=== PATIENT | female | born 1950 | race Caucasian/White ===

== ENCOUNTER → 2019-02-19 15:40 | Outpatient (BNVA) | payer MEDICARE, MEDICAID, SELFPAY | PROVIDERS: Family Provider Family Medicine; PCP Family Medicine; Visit Provider Family Medicine | DX: J43.9 Emphysema, unspecified (principal) | CPT/HCPCS: 71046 ==

== ENCOUNTER → 2019-02-28 13:02 | Outpatient (BNVA) | payer MEDICARE, MEDICAID, SELFPAY | PROVIDERS: Family Provider Family Medicine; PCP Family Medicine; Visit Provider Anesthesiology | DX: M54.9 Dorsalgia, unspecified (principal); Z79.891 Long term (current) use of opiate analgesic | CPT/HCPCS: 99213; 99214 ==

== ENCOUNTER → 2019-04-05 13:25 | Outpatient (BNVA) | payer MEDICARE, MEDICAID, SELFPAY | PROVIDERS: Family Provider Family Medicine; PCP Family Medicine; Visit Provider Family Medicine | DX: E11.8 Type 2 diabetes mellitus with unspecified complications (principal); J11.1 Influenza due to unidentified influenza virus with other respiratory manifestations | CPT/HCPCS: 80048; 83036 ==

== ENCOUNTER → 2019-04-10 15:10 | Outpatient (BNVA) | payer MEDICARE, MEDICAID, SELFPAY | PROVIDERS: Family Provider Family Medicine; PCP Family Medicine; Visit Provider Family Medicine | DX: J11.1 Influenza due to unidentified influenza virus with other respiratory manifestations (principal); H66.90 Otitis media, unspecified, unspecified ear; I10 Essential (primary) hypertension; E11.9 Type 2 diabetes mellitus without complications; H66.91 Otitis media, unspecified, right ear | CPT/HCPCS: 87804 ==

== ENCOUNTER 2019-04-26 10:41 | Outpatient (CLI) | payer MEDICARE, MEDICAID, SELFPAY ==
--- NOTE | 2019-04-26 10:48 | XR_ITS ---
WS: [id number] Left knee, 3 views, 04/26/2019 Clinical Data: KNEE PAIN Comparison: Left knee, 01/07/2019. Findings: The left knee arthroplasty shows that the components are in good position. No loosening is seen. The patella shows no change from before. There are small calcifications in in the superficial femoral artery and popliteal artery yoo. XR/XR knee LT 3V* [id number] Impression: Left knee arthroplasty
== END 2019-04-26 10:42 | disposition home or self-care (01) ==
PROVIDERS: Family Provider Family Medicine; PCP Family Medicine; Visit Provider Orthopaedic Surgery
DX: M25.562 Pain in left knee (principal)
CPT/HCPCS: 73562

== ENCOUNTER → 2019-07-15 11:30 | Outpatient (BNVA) | payer MEDICARE, MEDICAID, SELFPAY | PROVIDERS: Family Provider Family Medicine; PCP Family Medicine; Visit Provider Family Medicine | DX: R04.2 Hemoptysis (principal); E11.8 Type 2 diabetes mellitus with unspecified complications; Z79.4 Long term (current) use of insulin | CPT/HCPCS: 71046; 80053; 80061; 83036; 85025 ==

== ENCOUNTER 2019-08-15 16:43 | Emergency (ER) | payer MEDICARE, MEDICAID, SELFPAY ==
[2019-08-15 16:44] VITALS: BMI 36.8
[2019-08-15 16:51] VITALS: BP 153/79; PULSE 76; RESP 20; TEMP 36.4; O2SAT 100
--- NOTE | 2019-08-15 16:54 | PC.NURSE ---
EKG done at 1654 and shown to ER doctor
--- NOTE | 2019-08-15 16:57 | ECG_ITS ---
[facility] ED Test Date: 2019-08-15 Pat Name: Kiera Hart Department: Room: Gender: Female [employer]: : 1950 Requested By: Shane Jeffers Order Number: [id number] Сергей MD: Carmella Herrmann M.D. Measurements Intervals [place] Rate: 72 P: 78 [place]: 183 QRS: -54 QRSD: 113 T: 46 QT: 397 QTc: 436 Interpretive Statements SINUS RHYTHM LEFT ANTERIOR FASCICULAR BLOCK [QRS AXIS <= -45, QR IN I, RS IN II] SEPTAL MYOCARDIAL INFARCTION [40+ ms Q WAVE IN V1/V2], OF INDETERMINATE AGE Compared to ECG 10/02/2018 11:17:35 Left anterior fascicular block now present Sinus bradycardia no longer present Myocardial infarct finding still present Electronically Signed On 08-15-2019 20:45:06 CDT by Carmella Herrmnan M.D. [id number]
--- NOTE | 2019-08-15 16:57 | XR_ITS ---
WS: [id number] PORTABLE CHEST HISTORY: cp COMPARISON: 07/15/2019 Lungs are clear and well expanded. No pleural effusion or pneumothorax. Cardiac size: Normal. Mediastinum/Aorta: Moderate atherosclerosis aorta. Osteopenia. XR/XR chest 1V portable [id number] IMPRESSION: Moderate atherosclerosis aorta. No pneumonia.
--- NOTE | 2019-08-15 16:59 | ED_ITS ---
Documented by User: Shane Wilkins DO 08/15/19 17:01 HPI - Chest Pain General: Chief Complaint: Chest Pain Stated Complaint: CHEST PAIN Time Seen by Provider: 08/15/19 16:51 History of Present Illness: HPI narrative: Patient has had episodic substernal chest pain and pressure with radiation to the neck and jaw for the past 4 days. It is worse with exertion. She does have some shortness of breath, nausea, and diaphoresis. Sublingual nitroglycerin administered by EMS did not alleviate the pain but did make it better. Patient does have a cardiac history and has at least one stent. 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 Onset (ago): day(s) Timing of current episode: episodic Prior episodes: Yes Onset: during rest Pain location: substernal Pain radiation: neck and jaw/teeth Severity: severe Quality: tightness, aching and heaviness Relieving factors: nothing Exacerbating factors: nothing Associated symptoms: Reports diaphoresis, dyspnea and nausea Review of Systems General: Reports: 10 or more systems reviewed and unremarkable except in HPI and below Const: Reports: diaphoresis Resp: Reports: dyspnea GI: Reports: nausea PFS ED PFSH: Medical History Acquired deformity of right foot Arteriosclerotic heart disease (ASHD) Asthma with chronic obstructive pulmonary disease (COPD) follows with pulmonology Atrophic vaginitis Bilateral primary osteoarthritis of knee 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 Degenerative disc disease, cervical Dysphagia, oropharyngeal Enrolled in chronic care management Essential (primary) hypertension Fibromyalgia 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[place] Hx of angioedema improved after stopping Lisinopril Low back pain Mixed hyperlipidemia Morbid (severe) obesity due to excess calories BMI 40.0-44.9 Obstructive sleep apnea Polyneuropathy Vesico-ureteral reflux Surgical History History of colon resection Hx of arthroscopy of left knee (~2012) Dr Briceno Hx of cardiac cath Hx of cholecystectomy (~1992) Hx of coronary angioplasty stents x 3 Hx of total knee replacement (~09/2018) left, Dr Gonzalez S/P total knee arthroplasty Family History Brother Cancer lung Father CAD (coronary artery disease) Mother Bleeding disorder Social History Smoking and tobacco status: former smoker Quit status (tobacco): has quit using tobacco Year quit tobacco: 2008 Former quit date comment: 2 PPD x 40 yrs Second hand smoke exposure: No Alcohol intake: never Lives independently: Yes Household members: none Housing: House Marital status: / Number of children: 5 Current occupational status: retired History of recent travel: No Current gender identity: Female Physical Exam Const: COMMON NORMALS: no acute distress, healthy appearing and well nourished GENERAL APPEARANCE: cooperative and well developed HENMT: COMMON NORMALS: normocephalic and atraumatic HEAD & SCALP: normal to inspection, normocephalic and atraumatic Eye: GENERAL EYE: appearance normal, both eyes and all related structures Neck/C-Spine: COMMON NORMALS: full ROM, no lymphadenopathy and no meningeal signs GENERAL: Yes normal visual inspection CERVICAL SPINE: Yes cervical ROM normal and Yes normal cervical lordosis Chest: COMMONS NORMALS: normal inspection of the chest and normal palpation of entire chest wall Resp: COMMON NORMALS: normal respiratory effort, clear to auscultation bilaterally and percussion normal AUSCULTATION: clear to auscultation bilaterally PERCUSSION: percussion normal Cardio: COMMON NORMALS: regular rate, regular rhythm, S1 normal heart sound present and S2 normal heart sound present JUGULAR VENOUS DISTENTION: no JVD PALPATION: normal PMI RATE: regular rate RHYTHM: regular rhythm HEART SOUNDS: S1 normal heart sound present and S2 normal heart sound present GI: COMMON NORMALS: Soft to palpation and No hepatosplenomegaly present INSPECTION: Yes normal to inspection PALPATION: Yes Soft to palpation and Yes No hepatosplenomegaly present PERCUSSION: normal to percussion : COMMON NORMALS: Yes no CVA tenderness BLADDER/KIDNEY EXAM: Yes no CVA tenderness Back/Pelvis: COMMON NORMALS: no CVA tenderness, thoracic and lumbar spine normal to inspection and thoraco-lumbar ROM normal Extremity: COMMON NORMALS: normal to inspection, full ROM and capillary refill normal Neuro: MENINGEAL SIGNS: Yes no meningeal signs Skin: COMMON NORMALS: no rashes or lesions noted, no wounds and turgor normal GENERAL SKIN EXAM: no rashes or lesions noted, elasticity normal and turgor normal LESIONS: no lesions RASHES: no rashes TRAUMA: no lacerations or abrasions HAIR: normal NAILS: normal Course Vital Signs: Vital signs: Vital Signs Temperature 97.5 F L 08/15/19 16:51 Pulse Rate 78 08/15/19 20:29 Respiratory Rate 18 08/15/19 20:29 Blood Pressure 135/62 08/15/19 20:29 Pulse Oximetry 99 08/15/19 20:29 MDM - Chest Pain Lab Data: Labs: Lab Results 08/15/19 08/15/19 08/15/19 Range/Units 17:15 17:15 17:15 WBC 6.4 (4.0-10.0) 10^3/ uL RBC 3.96 L (4.1-5.3) 10^6/u L Hgb 11.6 (11.5-15.3) g/dL Hct 36.7 L (37.0-47.0) % MCV 92.7 (81-99) fL MCH 29.3 (28.0-34.0) pg MCHC 31.6 (30.0-36.0) g/dL RDW 13.7 (12.1-15.1) % Plt Count 328 (130-400) 10^3/c mm MPV 10.0 (7.4-10.4) fL Neut % (Auto) 61.0 % Lymph % (Auto) 25.8 % [place] % (Auto) 10.7 % Eos % (Auto) 1.7 % Baso % (Auto) 0.6 % Neut # (Auto) 3.9 (1.8-7.7) 10^3/u L Lymph # (Auto) 1.7 (0.8-4.8) 10^3/u L [place] # (Auto) 0.7 (0.2-0.9) 10^3/u L Eos # (Auto) 0.1 (0.0-0.8) 10^3/u L Baso # (Auto) 0.0 (0.0-0.1) 10^3/u L Nucleated RBC % (a uto) 0 % Nucleated RBCs # 0.0 /100WBC PT 12.60 (10.5-13.3) SECO NDS INR 0.92 (0.8-1.2) Sodium 140 (136-145) mmol/L Potassium 3.8 (3.5-5.1) mmol/L Chloride 103 (98-107) mmol/L Carbon Dioxide 25 (22-29) mmol/L Anion Gap 15.8 (5-19) BUN 23 (8-23) mg/dL Creatinine 0.7 (0.5-0.9) mg/dL GFR Calculation 83.0 L (90-130) mL/min Glucose 109 (65-115) mg/dL Calculated Osmolal ity 287 (285-295) mOsm/k g Calcium 10.0 (8.5-10.5) mg/dL Total Bilirubin 0.2 (0.15-1.2) mg/dL AST 23 (0-32) U/L ALT 15 (0-33) U/L Alkaline Phosphata se 59 (35-105) IU/L Troponin T Baselin e (0-10) ng/L Troponin T 120 [address] [place] (0-10) ng/L Delta Troponin T (0-10) ABS# NT-Pro-B Natriuret Pep 81 (0-125) pg/mL Total Protein 6.8 (6.6-8.7) g/dL Albumin 4.5 (3.5-5.2) g/dL Globulin 2.3 (1.3-4.6) g/dL 08/15/19 08/15/19 Range/Units 17:15 19:30 WBC (4.0-10.0) 10^3/ uL RBC (4.1-5.3) 10^6/u L Hgb (11.5-15.3) g/dL Hct (37.0-47.0) % MCV (81-99) fL MCH (28.0-34.0) pg MCHC (30.0-36.0) g/dL RDW (12.1-15.1) % Plt Count (130-400) 10^3/c mm MPV (7.4-10.4) fL Neut % (Auto) % Lymph % (Auto) % [place] % (Auto) % Eos % (Auto) % Baso % (Auto) % Neut # (Auto) (1.8-7.7) 10^3/u L Lymph # (Auto) (0.8-4.8) 10^3/u L [place] # (Auto) (0.2-0.9) 10^3/u L Eos # (Auto) (0.0-0.8) 10^3/u L Baso # (Auto) (0.0-0.1) 10^3/u L Nucleated RBC % (a uto) % Nucleated RBCs # /100WBC PT (10.5-13.3) SECO NDS INR (0.8-1.2) Sodium (136-145) mmol/L Potassium (3.5-5.1) mmol/L Chloride (98-107) mmol/L Carbon Dioxide (22-29) mmol/L Anion Gap (5-19) BUN (8-23) mg/dL Creatinine (0.5-0.9) mg/dL GFR Calculation (90-130) mL/min Glucose (65-115) mg/dL Calculated Osmolal ity (285-295) mOsm/k g Calcium (8.5-10.5) mg/dL Total Bilirubin (0.15-1.2) mg/dL AST (0-32) U/L ALT (0-33) U/L Alkaline Phosphata se (35-105) IU/L Troponin T Baselin e 7 (0-10) ng/L Troponin T [address] [place] 9.37 (0-10) ng/L Delta Troponin T 2.37 (0-10) ABS# NT-Pro-B Natriuret Pep (0-125) pg/mL Total Protein (6.6-8.7) g/dL Albumin (3.5-5.2) g/dL Globulin (1.3-4.6) g/dL Discharge Plan Discharge Patient Disposition: Home, Self-Care Clinical Impression: Chest pain Qualifiers: Chest pain type: unspecified Qualified Code(s): R07.9 - Chest pain, unspecified Condition: Stable Prescriptions: No Action oxycodone 5 mg tablet 5 mg PO BID PRN (Reason: pain) 30 Days Qty: 60 RF: 0 Spiriva with HandiHaler 18 mcg capsule, w/inhalation device 1 cap INHALATION ONCE RF: 0 nitroglycerin [Nitrostat] 0.4 mg tablet, sublingual 0.4 mg SUBLINGUAL Q5M PRN (Reason: chest pains) RF: 0 Brovana 15 mcg/2 mL solution for nebulization 2 ml INHALATION BID RF: 0 Lantus Solostar U-100 Insulin 100 unit/mL (3 mL) insulin pen 25 unit SUBCUT DAILY RF: 0 ferrous sulfate 325 mg (65 mg iron) tablet 325 mg PO BID RF: 0 insulin lispro [Humalog KwikPen Insulin] 100 unit/mL insulin pen 1 unit SUBCUT TID RF: 0 (DME) OneTouch Ultra Blue Test Strip Strip See Rx Instructions .ROUTE .MEDSUPPLY Qty: 10 RF: 0 cyclobenzaprine 5 mg tablet 5 mg PO BEDTIME PRN (Reason: muscle spasms) RF: 0 ipratropium bromide 0.03 % spray,non-aerosol 2 spray INTRANASAL QID RF: 0 (DME) pen needle, diabetic [Easy Comfort Pen [place]] 31 gauge x 5/16 needle See Rx Instructions .ROUTE .MEDSUPPLY Qty: 30 RF: 0 promethazine-DM 6.25-15 mg/5 mL syrup 5 ml PO Q6H Qty: 160 RF: 0 albuterol sulfate [ProAir HFA] 90 mcg/actuation HFA aerosol inhaler 2 puff INHALATION Q6H PRN (Reason: shortness of breath) Qty: 8.5 RF: 2 montelukast 10 mg tablet 10 mg PO DAILY Qty: 90 RF: 3 metformin 500 mg tablet 1,000 mg PO BID Qty: 180 RF: 1 fenofibrate nanocrystallized 145 mg tablet 145 mg PO DAILY Qty: 90 RF: 0 aspirin 81 mg Tablet,Delayed Release (Dr/Ec) 81 mg PO DAILY RF: 0 Breo Ellipta See Rx Instructions .ROUTE .COMPLEX RF: 0 amlodipine 5 mg tablet 5 mg PO DAILY RF: 0 famotidine 20 mg tablet 20 mg PO BID RF: 0 losartan 100 mg tablet 100 mg PO DAILY RF: 0 rosuvastatin 40 mg tablet 40 mg PO DAILY RF: 0 metoprolol tartrate 25 mg tablet 25 mg PO BID RF: 0 Discharge Orders: Discharge Order (Routine); Ordered 08/15/19 Ordered By: Bailey Perea Referrals: Evaristo Grant MD [Physician] - 1-3 days Sofie Maria MD [Primary Care Provider] - Discharge Diet: Advance as tolerated Discharge Activity: Resume usual activity Patient Instructions: Chest Pain (ED) Discharge Date/Time: 08/15/19 20:24 Coding Level of Care Code 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 Comprehensive Documented by User: Bailey Perea MD 08/15/19 20:34 HPI - Chest Pain General: Chief Complaint: Chest Pain Stated Complaint: CHEST PAIN Time Seen by Provider: 08/15/19 16:51 PFSH ED PFSH: Medical History Acquired deformity of right foot Arteriosclerotic heart disease (ASHD) Asthma with chronic obstructive pulmonary disease (COPD) follows with pulmonology Atrophic vaginitis Bilateral primary osteoarthritis of knee 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 Degenerative disc disease, cervical Dysphagia, oropharyngeal Enrolled in chronic care management Essential (primary) hypertension Fibromyalgia 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[place] Hx of angioedema improved after stopping Lisinopril Low back pain Mixed hyperlipidemia Morbid (severe) obesity due to excess calories BMI 40.0-44.9 Obstructive sleep apnea Polyneuropathy Vesico-ureteral reflux Surgical History History of colon resection Hx of arthroscopy of left knee (~2012) Dr Briceno Hx of cardiac cath Hx of cholecystectomy (~1992) Hx of coronary angioplasty stents x 3 Hx of total knee replacement (~09/2018) left, Dr Gonzalez S/P total knee arthroplasty Family History Brother Cancer lung Father CAD (coronary artery disease) Mother Bleeding disorder Social History Smoking and tobacco status: former smoker Quit status (tobacco): has quit using tobacco Year quit tobacco: 2008 Former quit date comment: 2 PPD x 40 yrs Second hand smoke exposure: No Alcohol intake: never Lives independently: Yes Household members: none Housing: House Marital status: / Number of children: 5 Current occupational status: retired History of recent travel: No Current gender identity: Female Course Vital Signs: Vital signs: Vital Signs Temperature 97.5 F L 08/15/19 16:51 Pulse Rate 78 08/15/19 20:29 Respiratory Rate 18 08/15/19 20:29 Blood Pressure 135/62 08/15/19 20:29 Pulse Oximetry 99 08/15/19 20:29 MDM - Chest Pain MDM Narrative: Medical decision making narrative: Patient presents with chest pain is atypical in nature. Patient's first and second troponins are normal. EKGs are normal as well. Patient is pain-free here and has no signs of pulmonary bruising. Patient is stable for discharge and is to follow-up with Dr. Grant and return if worsening. Lab Data: Labs: Lab Results 08/15/19 08/15/19 08/15/19 Range/Units 17:15 17:15 17:15 WBC 6.4 (4.0-10.0) 10^3/ uL RBC 3.96 L (4.1-5.3) 10^6/u L Hgb 11.6 (11.5-15.3) g/dL Hct 36.7 L (37.0-47.0) % MCV 92.7 (81-99) fL MCH 29.3 (28.0-34.0) pg MCHC 31.6 (30.0-36.0) g/dL RDW 13.7 (12.1-15.1) % Plt Count 328 (130-400) 10^3/c mm MPV 10.0 (7.4-10.4) fL Neut % (Auto) 61.0 % Lymph % (Auto) 25.8 % [place] % (Auto) 10.7 % Eos % (Auto) 1.7 % Baso % (Auto) 0.6 % Neut # (Auto) 3.9 (1.8-7.7) 10^3/u L Lymph # (Auto) 1.7 (0.8-4.8) 10^3/u L [place] # (Auto) 0.7 (0.2-0.9) 10^3/u L Eos # (Auto) 0.1 (0.0-0.8) 10^3/u L Baso # (Auto) 0.0 (0.0-0.1) 10^3/u L Nucleated RBC % (a uto) 0 % Nucleated RBCs # 0.0 /100WBC PT 12.60 (10.5-13.3) SECO NDS INR 0.92 (0.8-1.2) Sodium 140 (136-145) mmol/L Potassium 3.8 (3.5-5.1) mmol/L Chloride 103 (98-107) mmol/L Carbon Dioxide 25 (22-29) mmol/L Anion Gap 15.8 (5-19) BUN 23 (8-23) mg/dL Creatinine 0.7 (0.5-0.9) mg/dL GFR Calculation 83.0 L (90-130) mL/min Glucose 109 (65-115) mg/dL Calculated Osmolal ity 287 (285-295) mOsm/k g Calcium 10.0 (8.5-10.5) mg/dL Total Bilirubin 0.2 (0.15-1.2) mg/dL AST 23 (0-32) U/L ALT 15 (0-33) U/L Alkaline Phosphata se 59 (35-105) IU/L Troponin T Baselin e (0-10) ng/L Troponin T [address] [place] (0-10) ng/L Delta Troponin T (0-10) ABS# NT-Pro-B Natriuret Pep 81 (0-125) pg/mL Total Protein 6.8 (6.6-8.7) g/dL Albumin 4.5 (3.5-5.2) g/dL Globulin 2.3 (1.3-4.6) g/dL 08/15/19 08/15/19 Range/Units 17:15 19:30 WBC (4.0-10.0) 10^3/ uL RBC (4.1-5.3) 10^6/u L Hgb (11.5-15.3) g/dL Hct (37.0-47.0) % MCV (81-99) fL MCH (28.0-34.0) pg MCHC (30.0-36.0) g/dL RDW (12.1-15.1) % Plt Count (130-400) 10^3/c mm MPV (7.4-10.4) fL Neut % (Auto) % Lymph % (Auto) % [place] % (Auto) % Eos % (Auto) % Baso % (Auto) % Neut # (Auto) (1.8-7.7) 10^3/u L Lymph # (Auto) (0.8-4.8) 10^3/u L [place] # (Auto) (0.2-0.9) 10^3/u L Eos # (Auto) (0.0-0.8) 10^3/u L Baso # (Auto) (0.0-0.1) 10^3/u L Nucleated RBC % (a uto) % Nucleated RBCs # /100WBC PT (10.5-13.3) SECO NDS INR (0.8-1.2) Sodium (136-145) mmol/L Potassium (3.5-5.1) mmol/L Chloride (98-107) mmol/L Carbon Dioxide (22-29) mmol/L Anion Gap (5-19) BUN (8-23) mg/dL Creatinine (0.5-0.9) mg/dL GFR Calculation (90-130) mL/min Glucose (65-115) mg/dL Calculated Osmolal ity (285-295) mOsm/k g Calcium (8.5-10.5) mg/dL Total Bilirubin (0.15-1.2) mg/dL AST (0-32) U/L ALT (0-33) U/L Alkaline Phosphata se (35-105) IU/L Troponin T Baselin e 7 (0-10) ng/L Troponin T [address] [place] 9.37 (0-10) ng/L Delta Troponin T 2.37 (0-10) ABS# NT-Pro-B Natriuret Pep (0-125) pg/mL Total Protein (6.6-8.7) g/dL Albumin (3.5-5.2) g/dL Globulin (1.3-4.6) g/dL Imaging Data^: CXR: My impression: no acute abnormality EKG Data^: EKG 1: Attestation: I personally reviewed and interpreted this EKG as follows: EKG interpretation date: 08/15/19 EKG interpretation time: 16:52 Interpretation: nsr hr [address] or t wave abnormalities qrs 113 qtc 421 EKG 2: Attestation: I personally reviewed and interpreted this EKG as follows: EKG interpretation date: 08/15/19 EKG interpretation time: 19:21 Interpretation: nsr hr [address] or t wave abnormalities qrs 108 qtc 405 Discharge Plan Discharge Patient Disposition: Home, Self-Care Clinical Impression: Chest pain Qualifiers: Chest pain type: unspecified Qualified Code(s): R07.9 - Chest pain, unspecified Condition: Stable Prescriptions: No Action oxycodone 5 mg tablet 5 mg PO BID PRN (Reason: pain) 30 Days Qty: 60 RF: 0 Spiriva with HandiHaler 18 mcg capsule, w/inhalation device 1 cap INHALATION ONCE RF: 0 nitroglycerin [Nitrostat] 0.4 mg tablet, sublingual 0.4 mg SUBLINGUAL Q5M PRN (Reason: chest pains) RF: 0 Brovana 15 mcg/2 mL solution for nebulization 2 ml INHALATION BID RF: 0 Lantus Solostar U-100 Insulin 100 unit/mL (3 mL) insulin pen 25 unit SUBCUT DAILY RF: 0 ferrous sulfate 325 mg (65 mg iron) tablet 325 mg PO BID RF: 0 insulin lispro [Humalog KwikPen Insulin] 100 unit/mL insulin pen 1 unit SUBCUT TID RF: 0 (DME) OneTouch Ultra Blue Test Strip Strip See Rx Instructions .ROUTE .MEDSUPPLY Qty: 10 RF: 0 cyclobenzaprine 5 mg tablet 5 mg PO BEDTIME PRN (Reason: muscle spasms) RF: 0 ipratropium bromide 0.03 % spray,non-aerosol 2 spray INTRANASAL QID RF: 0 (DME) pen needle, diabetic [Easy Comfort Pen [place]] 31 gauge x 5/16 needle See Rx Instructions .ROUTE .MEDSUPPLY Qty: 30 RF: 0 promethazine-DM 6.25-15 mg/5 mL syrup 5 ml PO Q6H Qty: 160 RF: 0 albuterol sulfate [ProAir HFA] 90 mcg/actuation HFA aerosol inhaler 2 puff INHALATION Q6H PRN (Reason: shortness of breath) Qty: 8.5 RF: 2 montelukast 10 mg tablet 10 mg PO DAILY Qty: 90 RF: 3 metformin 500 mg tablet 1,000 mg PO BID Qty: 180 RF: 1 fenofibrate nanocrystallized 145 mg tablet 145 mg PO DAILY Qty: 90 RF: 0 aspirin 81 mg Tablet,Delayed Release (Dr/Ec) 81 mg PO DAILY RF: 0 Breo Ellipta See Rx Instructions .ROUTE .COMPLEX RF: 0 amlodipine 5 mg tablet 5 mg PO DAILY RF: 0 famotidine 20 mg tablet 20 mg PO BID RF: 0 losartan 100 mg tablet 100 mg PO DAILY RF: 0 rosuvastatin 40 mg tablet 40 mg PO DAILY RF: 0 metoprolol tartrate 25 mg tablet 25 mg PO BID RF: 0 Discharge Orders: Discharge Order (Routine); Ordered 08/15/19 Ordered By: Bailey Perea Referrals: Evaristo Grant MD [Physician] - 1-3 days Sofie Maria MD [Primary Care Provider] - Discharge Diet: Advance as tolerated Discharge Activity: Resume usual activity Patient Instructions: Chest Pain (ED) Discharge Date/Time: 08/15/19 20:24 Coding Level of Care Code 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 Comprehensive
[2019-08-15 17:03] VITALS: O2SAT 100
[2019-08-15 17:39] LABS: Basophils % 0.6 %; Eosinophils # 0.1 10^3/uL (0.0-0.8); Eosinophils % 1.7 %; Hematocrit 36.7 % (37.0-47.0); Hemoglobin 11.6 g/dL (11.5-15.3); Lymphocytes # 1.7 10^3/uL (0.8-4.8); Lymphocytes % 25.8 %; Mean Corpuscular HGB Conc 31.6 g/dL (30.0-36.0); Mean Corpuscular Hemoglobin 29.3 pg (28.0-34.0); Mean Corpuscular Volume 92.7 fL (81-99); Monocytes # 0.7 10^3/uL (0.2-0.9); Monocytes % 10.7 %; Neutrophils # 3.9 10^3/uL (1.8-7.7); Nucleated Red Blood Cells % 0 %; Platelet Count 328 10^3/cmm (130-400); Red Blood Count 3.96 10^6/uL (4.1-5.3); Red Cell Distribution Width 13.7 % (12.1-15.1); White Blood Count 6.4 10^3/uL (4.0-10.0)
[2019-08-15] MEDS: nitroglycerin 1 gm/inch oint Pkt 1 INCH TOPICAL (17:48)
[2019-08-15 17:51] VITALS: BP 136/101; PULSE 75; RESP 27; O2SAT 100
[2019-08-15 18:00] LABS: INR 0.92 (0.8-1.2)
[2019-08-15 18:14] LABS: Troponin(5th) Baseline 7 ng/L (0-10)
[2019-08-15 18:22] LABS: Alanine Aminotransferase 15 U/L (0-33); Albumin Level 4.5 g/dL (3.5-5.2); Alkaline Phosphatase 59 IU/L (35-105); Anion Gap 15.8 (5-19); Aspartate Amino Transferase 23 U/L (0-32); Blood Urea Nitrogen 23 mg/dL (8-23); Carbon Dioxide 25 mmol/L (22-29); Chloride 103 mmol/L (98-107); Globulin 2.3 g/dL (1.3-4.6); Glucose 109 mg/dL (65-115); NT Pro B Type Natriuretic Pept 81 pg/mL (0-125); Osmolality Calculated 287 mOsm/kg (285-295); Potassium 3.8 mmol/L (3.5-5.1); Sodium 140 mmol/L (136-145); Total Bilirubin 0.2 mg/dL (0.15-1.2); Total Protein 6.8 g/dL (6.6-8.7)
--- NOTE | 2019-08-15 18:57 | ECG_ITS ---
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 Measurements Intervals [place] Rate: 61 P: 73 MA: 173 QRS: -48 QRSD: 108 T: 9 QT: 401 QTc: 407 Interpretive Statements SINUS RHYTHM WITH MARKED SINUS ARRHYTHMIA LEFT ANTERIOR FASCICULAR BLOCK [QRS AXIS <= -45, QR IN I, RS IN II] MODERATE VOLTAGE CRITERIA FOR LVH, CONSIDER NORMAL VARIANT [MEETS CRITERIA IN ONE OF: R(aVL), S(V1), R(V5), R(V5/V6)+S(V1)] Compared to ECG 08/15/2019 16:52:41 Myocardial infarct finding no longer present Electronically Signed On 08-15-2019 20:52:30 CDT by Carmella Herrmann M.D. [id number]
--- NOTE | 2019-08-15 19:07 | PC.NURSE ---
Patient report received from MOHSEN Espinosa and care transferred to MOHSEN Roth
[2019-08-15 19:11] VITALS: BP 103/64; PULSE 77; RESP 25; O2SAT 100
--- NOTE | 2019-08-15 19:15 | PC.NURSE ---
EKG done at 1913 and shown to ER doctor
[2019-08-15 20:03] LABS: Troponin 5 2HR 9.37 ng/L (0-10); Troponin 5 2HR Delta 2.37 ABS# (0-10)
[2019-08-15 20:29] VITALS: BP 135/62; PULSE 78; RESP 18; O2SAT 99
--- NOTE | 2019-08-19 14:56 | DCPLANNER ---
meat and seafood manager had message to schedule a follow up appointment for patient with [facility]. meat and seafood manager called [facility], spoke with Rebecca, gave clinic patients information. meat and seafood manager was told that patients information would be printed and reviewed. Clinic will call patient with appointment information.
--- NOTE | 2019-08-20 09:12 | DCPLANNER ---
Patient has a follow up appointment scheduled for Monday, August 23, 2019 at 9:[address] Grant. Clinic will call patient with appointment information.
--- NOTE | 2019-08-27 11:45 | DCPLANNER ---
Patient did attend follow up appointment scheduled for 08.23.19 with [facility].
== END 2019-08-15 20:24 | disposition home or self-care (01) ==
PROVIDERS: Family Medicine; Emergency Provider Emergency Medicine; PCP Family Medicine
DX: R07.9 Chest pain, unspecified (principal); Z79.4 Long term (current) use of insulin; Z79.82 Long term (current) use of aspirin; E11.9 Type 2 diabetes mellitus without complications; I10 Essential (primary) hypertension; E78.2 Mixed hyperlipidemia; Z95.5 Presence of coronary angioplasty implant and graft; Z87.891 Personal history of nicotine dependence
CPT/HCPCS: 12345; 36415; 71045; 80053; 83880; 84484; 85025; 85610; 93005; 99283; 99284

== ENCOUNTER 2019-09-17 07:45 | Outpatient (CLI) | payer MEDICARE, MEDICAID, SELFPAY ==
[2019-09-17 08:00] VITALS: BMI 204.4
--- NOTE | 2019-09-17 08:00 | ECG_ITS ---
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 Interpretive Statements NAME OF STUDY: LEXISCAN SESTAMIBI STRESS TEST INDICATION: [KNOWN CAD WITH RECURRENT CHEST PAIN] Procedure: At the baseline the blood pressure was 155/87 mmHg, oxygen saturation was 98% with a heart rate of 64. The electrocardiogram showed normal sinus rhythm with left anterior fascicular block. Lexiscan was infused over a period of 20 seconds. A total of 0.4 mg of Lexiscan was infused. The stress phase was continued for a total of 5 minutes. Heart rate at the end of stress phase was 91, with a blood pressure of 144/72 and oxygen saturation of 98%.the EKG at peak infusion revealed sinus rhythm with no significant ST-T wave changes. Sestamibi was injected 20 seconds after the Lexiscan infusion. Blood pressure at the end of recovery phase was 148/87, with a heart rate of 93 and oxygen saturation of 97%. Conclusion 1. Normal EKG response to Lexiscan infusion 2. No Lexiscan induced chest pain or cardiac arrhythmia. 3. Normal blood pressure and heart rate response. 4. Sestamibi/sestamibi perfusion scan pending see separate report. Electronically Signed On 09-18-2019 16:30:33 CDT by Jose M Liu M.D. [id number]
--- NOTE | 2019-09-17 08:02 | NMCV_ITS ---
NM moira perf SPECT r/s* [id number] Kiera Hart Age: 69 Gender: F : 1950 Exam Date: 09/17/2019 09:01 Ordering Phys: Evaristo Grant MD ([email or web address]) Technologist: GISEL De León Exam Location: [facility] Indications: CHEST PAIN STRESS TEST Please see separate stress test report in [facility] for full findings IMAGE PROTOCOL Rest/Stress 1 Lexiscan Day Radiopharmaceutical Dose (mCi) Administration Site Administered by Rest: Tc-99m 10.8 IV GISEL De León Sestamibi Stress:Tc-99m 32.4 IV GISEL De León Sestamibi Rest: 17-Sep-2019 60 Discovery 630 Stress: 17-Sep-2019 30 Discovery 630 0.4mg Lexiscan. Images obtained in supine and prone position. SPECT RESULTS Technical Quality: Excellent Raw Data Analysis: Normal Image Corrections: No attenuation or motion correction applied Summed Stress Score: 2 Summed Rest Score: 4 Summed Difference Score: 0 PERFUSION FINDINGS There is slightly decreased uptake of tracer in the apical region that is consistent with apical thinning. FUNCTIONAL RESULTS (calculated via Gated SPECT) Stress Image LV EF (%): 77 Stress EDV (mL):78 TID: 0.83 Stress ESV (mL):18 FUNCTIONAL FINDINGS: There is normal left ventricular systolic function. IMPRESSIONS 1) Myocardial perfusion imaging is normal 2) Normal LV systolic function 3) LVEF is 77% 4) Apical thinning is noted EKG portion will be interpreted separately Jose M Liu MD (Electronically Signed) Final Date: 17 September 2019 17:28 S
--- NOTE | 2019-09-17 09:39 | SUR.PREOP ---
Patient reports no pain or discomfort prior to the start of the procedure.
[2019-09-17] MEDS: regadenoson 0.4 Mg/5 ml Syringe IVP (09:43)
[2019-09-17 09:58] VITALS: BP 155/68; PULSE 91
== END 2019-09-17 07:46 | disposition home or self-care (01) ==
LOC: CDL 07:45
PROVIDERS: PCP Family Medicine; Visit Provider Internal Medicine Cardiovascular Disease
DX: R07.9 Chest pain, unspecified (principal)
CPT/HCPCS: 78452; 93017; A9500; J2785

== ENCOUNTER → 2019-10-24 16:44 | Outpatient (BNVA) | payer MEDICARE, MEDICAID, SELFPAY | PROVIDERS: PCP Family Medicine; Visit Provider Family Medicine | DX: E11.8 Type 2 diabetes mellitus with unspecified complications (principal); E78.2 Mixed hyperlipidemia; Z79.4 Long term (current) use of insulin; I10 Essential (primary) hypertension | CPT/HCPCS: 80053; 80061; 83036; 85025 ==

== ENCOUNTER 2019-11-13 13:22 | Emergency (ER) | payer MEDICARE, MEDICAID, SELFPAY ==
[2019-11-13 13:22] VITALS: BP 135/106; PULSE 89; RESP 18; TEMP 38.3; O2SAT 96; BMI 36.6
--- NOTE | 2019-11-13 13:52 | XRR_ITS ---
PROCEDURE INFORMATION: Exam: XR Chest, 1 View Exam date and time: 11/13/2019 3:06 PM Age: 69 years old Clinical indication: Fever and shortness of breath; Patient HX: Covid precautions; Additional info: Fever, chest pain, SOB TECHNIQUE: Imaging protocol: XR of the chest Views: 1 view. COMPARISON: CR XR chest 1V portable [id number] 08/15/2019 5:07 PM FINDINGS: Lungs: Unremarkable. No consolidation. Pleural space: Unremarkable. No pleural effusion. No pneumothorax. Heart/Mediastinum: Unremarkable. No cardiomegaly. Bones/joints: Unremarkable. XR/XR chest 1V portable [id number] IMPRESSION: No acute findings.
--- NOTE | 2019-11-13 13:53 | ECG_ITS ---
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 Measurements Intervals Aurora Rate: 90 P: 78 WA: 152 QRS: -57 QRSD: 103 T: 31 QT: 363 QTc: 446 Interpretive Statements SINUS RHYTHM LEFT ANTERIOR FASCICULAR BLOCK [QRS AXIS <= -45, QR IN I, RS IN II] SEPTAL MYOCARDIAL INFARCTION [40+ ms Q WAVE IN V1/V2], PROBABLY OLD Compared to ECG 08/15/2019 19:21:15 Myocardial infarct finding now present Sinus arrhythmia no longer present Electronically Signed On 11-13-2019 18:36:30 CDT by Galilea Douglas M.D. [id number]
--- NOTE | 2019-11-13 13:54 | ED_ITS ---
HPI - General Adult General: Chief complaint: Fever Stated complaint: FEVER, GENERAL ACHES Time Seen by Provider: 11/13/19 13:27 Source: patient Mode of arrival: EMS Limitations: no limitations History of Present Illness: HPI narrative: Patient is a 69-year-old female who presents to ED today with multiple medical complaints. Patient overall is a fairly poor historian and timeline was hard to follow. Patient tells me she has had intermittent chest pains on and off over the past few days. This chest pains are not positional or exertional. She cannot identify any alleviating or worsening factors to her discomfort. Pain is located under her left breast. She tells me on Monday she began developing pain in the left side of her abdomen that she mainly noticed with coughing. No vomiting or diarrhea. She noticed on Monday she began having lower back pain. She was complaining of some constipation. Patient does have a history of a colectomy due to diverticulitis. Patient tells me she is also feeling short of breath but states this is mainly due to wearing a mask. Patient does have a history of COPD and emphysema. She states she normally has to wear 2L O2 when she goes out in public with a mask. She also wears oxygen at night with her CPAP. Patient does feel she has had to wear her oxygen more often but attributes this to no longer having the AC on in her home and states in addition she has been exerting herself caring for her grandchildren. Patient reports this morning she had a fever of 103. No known sick contacts or exposure to COVID. PMH is significant for COPD, emphysema, CAD, DM, fibromyalgia, HTN, HLD, morbid obesity, former smoker. Associated symptoms: Reports chest pain, dyspnea and malaise; Deny headache(s), nausea, rash, palpitations, syncope or vomiting Review of Systems Const: Reports: fever(s) (up to 103 per patient ) and malaise; Denies: body aches, change in appetite or change in weight Eyes: Denies: change in vision, blurry vision, photophobia, floaters or seeing flashes ENMT: Denies: throat pain or odynophagia Card: Reports: chest pain and dyspnea on exertion (chronic ); Denies: palpitations, irregular heart rhythm, edema, swelling of feet/ankles, lightheadedness, syncope, pre-syncope or orthopnea Resp: Reports: dyspnea; Denies: wheezing, pain on inspiration or hemoptysis GI: Reports: abdominal pain; Denies: nausea, vomiting, hematemesis, coffee ground emesis, heartburn, diarrhea, change in stool character, hematochezia, melena or white/light colored stool : Denies: flank pain, difficulty voiding, dysuria, urinary frequency, urinary urgency or urinary hesitancy Musc: Reports: neck pain, back pain and joint pain (bilateral knees); Denies: extremity pain, extremity swelling, joint swelling or joint redness Skin/Breast: Denies: rash Neuro: Denies: headache(s), numbness in extremities, weakness in extremities or sensory changes PFSH ED PFSH: Medical History (Updated 11/13/19 @ 17:04 by FAWAD Moses) Acquired deformity of right foot Arteriosclerotic heart disease (ASHD) Asthma with chronic obstructive pulmonary disease (COPD) follows with pulmonology Atrophic vaginitis Bilateral primary osteoarthritis of knee 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 Degenerative disc disease, cervical Dysphagia, oropharyngeal Enrolled in chronic care management Essential (primary) hypertension Fibromyalgia 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[place] Hx of angioedema improved after stopping Lisinopril Low back pain Mixed hyperlipidemia Morbid (severe) obesity due to excess calories BMI 40.0-44.9 Obstructive sleep apnea Polyneuropathy Vesico-ureteral reflux Surgical History History of colon resection Hx of arthroscopy of left knee (~2012) Dr Briceno Hx of cardiac cath Hx of cholecystectomy (~1992) Hx of coronary angioplasty stents x 3 Hx of total knee replacement (~09/2018) left, Dr Gonzalez S/P total knee arthroplasty Family History Brother Cancer lung Father CAD (coronary artery disease) Mother Bleeding disorder Social History Smoking and tobacco status: former smoker Quit status (tobacco): has quit using tobacco Year quit tobacco: 2008 Former quit date comment: 2 PPD x 40 yrs Second hand smoke exposure: No Alcohol intake: never Lives independently: Yes Household members: none Housing: House Marital status: / Number of children: 5 Current occupational status: retired History of recent travel: No Current gender identity: Female Physical Exam Const: COMMON NORMALS: patient oriented x3, no limitations and alert GENERAL APPEARANCE: cooperative NUTRITIONAL APPEARANCE: obese morbidly obese ORIENTATION/CONSCIOUSNESS: Yes oriented to person, Yes oriented to place and Yes oriented to time HENMT: COMMON NORMALS: normocephalic and atraumatic HEAD & SCALP: normocephalic and atraumatic Chest: COMMONS NORMALS: normal inspection of the chest OTHER: TTP under L breast Resp: COMMON NORMALS: clear to auscultation bilaterally EFFORT & INSPECTION: Yes tachypneic and Yes labored AUSCULTATION: clear to auscultation bilaterally Cardio: COMMON NORMALS: regular rate and regular rhythm RATE: regular rate RHYTHM: regular rhythm GI: COMMON NORMALS: Normal to inspection, nondistended, normoactive bowel sounds present and no masses PALPATION: Yes Tenderness to palpation present (GI) (L mid abdomen) OTHER: exam limited due body habitus/truncal obesity : COMMON NORMALS: Yes no CVA tenderness BLADDER/KIDNEY EXAM: Yes no CVA tenderness Back/Pelvis: COMMON NORMALS: no CVA tenderness Neuro: COMMON NORMALS: patient oriented x3 SENSORIUM/ORIENTATION: Yes alert, Yes oriented to person, Yes oriented to place and Yes oriented to time Skin: COMMON NORMALS: no rashes or lesions noted GENERAL SKIN EXAM: no rashes or lesions noted Course Vital Signs: Vital signs: Vital Signs Temperature 100.9 F H 11/13/19 13:22 Pulse Rate 89 11/13/19 18:03 Respiratory Rate 16 11/13/19 18:03 Blood Pressure 115/45 11/13/19 18:03 Pulse Oximetry 93 11/13/19 18:03 MDM - General Adult MDM Narrative: Medical decision making narrative: Upon reexamination patient looks much more comfortable. Upon arrival she was initially tachypneic but not hypoxic. Some of this I think was related to her morbid obesity and non- conditioning. Re-examined the patient extensively again and tried to get a clearer picture of her main complaint today. She is telling me now she feels like her shortness of breath is at her baseline with her COPD/emphysema. She is not requiring oxygen here. There are no acute findings on her CXR. No acute findings on CT of her chest. Her left-sided abdominal pain and back pain can be explained by the left-sided pyelonephritis found today. She is not having any vomiting and is able to hold down her antibiotics. I have offered her admission however patient would like to go home. She will be given IV Rocephin prior to discharge. Labs are somewhat suspicious for COVID however her rapid was negative. She will be discharged with strict return to ED precautions. Patient verbalizes understanding. She states she has a daughter that lives with her that can help care for her. Lab Data: Labs: Lab Results 11/13/19 11/13/19 11/13/19 Range/Units 13:33 13:33 13:33 WBC 9.1 (4.0-10.0) 10^3/ uL RBC 3.69 L (4.1-5.3) 10^6/u L Hgb 10.8 L (11.5-15.3) g/dL Hct 35.4 L (37.0-47.0) % MCV 95.9 (81-99) fL MCH 29.3 (28.0-34.0) pg MCHC 30.5 (30.0-36.0) g/dL RDW 14.2 (12.1-15.1) % Plt Count 248 (130-400) 10^3/c mm MPV 10.2 (7.4-10.4) fL Neut % (Auto) 81.1 % Lymph % (Auto) 8.5 % Johnston % (Auto) 9.7 % Eos % (Auto) 0.1 % Baso % (Auto) 0.3 % Neut # (Auto) 7.33 (1.8-7.7) 10^3/u L Lymph # (Auto) 0.8 (0.8-4.8) 10^3/u L Johnston # (Auto) 0.9 (0.2-0.9) 10^3/u L Eos # (Auto) 0.0 (0.0-0.8) 10^3/u L Baso # (Auto) 0.0 (0.0-0.1) 10^3/u L Nucleated RBC % (a uto) 0 % Nucleated RBCs # 0.0 /100WBC Fibrinogen 686 H (174-498) mg/dL D-Dimer 2.87 H (0-0.59) ug/mIFE U Specimen Type Sample Site ABG pH (7.35-7.45) ABG pCO2 (35-45) mmHg ABG pO2 (80.0-100.0) mmH g ABG HCO3 (22-26) mmol/L ABG O2 Saturation ABG Base Excess (-2.0-2.0) mmol/ L Sammy Test A-a O2 Gradient (5-10) mmHg Hematocrit (37-47) % Hgb O2 Saturation (95-100) % Carboxyhemoglobin (0.4-20.1) %THgb Methemoglobin (0.4-1.5) % Total Hemoglobin (12-16) g/dL Ionized Calcium (1.1-1.4) mmol/L O2 Delivery Device FiO2 % Neon Tube Pumper ID Sodium 133 L (136-145) mmol/L Potassium 3.9 (3.5-5.1) mmol/L Chloride 99 (98-107) mmol/L Carbon Dioxide 22 (22-29) mmol/L Anion Gap 15.9 (5-19) BUN 17 (8-23) mg/dL Creatinine 0.7 (0.5-0.9) mg/dL GFR Calculation 83.0 L (90-130) mL/min Glucose 92 (65-115) mg/dL Calculated Osmolal ity 277 L (285-295) mOsm/k g Lactic Acid (0.5-2.2) mmol/L Calcium 8.9 (8.5-10.5) mg/dL Ferritin 152 H (15-150) ng/mL Total Bilirubin 0.5 (0.15-1.2) mg/dL AST 24 (0-32) U/L ALT 15 (0-33) U/L Alkaline Phosphata se 55 (35-105) IU/L Troponin T Baselin e (0-10) ng/L Troponin T 120 Min [place] (0-10) ng/L Delta Troponin T (0-10) ABS# C-Reactive Protein 99.1 H (0.0-4.9) mg/L Total Protein 6.3 L (6.6-8.7) g/dL Albumin 3.9 (3.5-5.2) g/dL Globulin 2.4 (1.3-4.6) g/dL Lipase 21 (13-60) U/L Urine Color (Yellow) Urine Appearance (CLEAR) Urine pH (5-7) Ur Specific Gravit y (1.005-1.030) Urine Protein (Negative) Urine Glucose (UA) (Normal) Urine Ketones (Negative) Urine Blood (Negative) Urine Nitrate (Negative) Urine Bilirubin (Negative) Urine Urobilinogen (Negative) mg/dL Ur Leukocyte Rose ase (Negative) Urine RBC (0-2) /hpf Urine WBC (0-5) /hpf Ur Squamous Epith Cells (0-5) /hpf Amorphous Sediment Urine Bacteria (NONE) /hpf Influenza Type A A g (Negative) Influenza Type B A g (Negative) SARS-CoV-2 Ag (Rap id) (Negative) 11/13/19 11/13/19 11/13/19 Range/Units 13:33 13:33 14:25 WBC (4.0-10.0) 10^3/ uL RBC (4.1-5.3) 10^6/u L Hgb (11.5-15.3) g/dL Hct (37.0-47.0) % MCV (81-99) fL MCH (28.0-34.0) pg MCHC (30.0-36.0) g/dL RDW (12.1-15.1) % Plt Count (130-400) 10^3/c mm MPV (7.4-10.4) fL Neut % (Auto) % Lymph % (Auto) % Johnston % (Auto) % Eos % (Auto) % Baso % (Auto) % Neut # (Auto) (1.8-7.7) 10^3/u L Lymph # (Auto) (0.8-4.8) 10^3/u L Johnston # (Auto) (0.2-0.9) 10^3/u L Eos # (Auto) (0.0-0.8) 10^3/u L Baso # (Auto) (0.0-0.1) 10^3/u L Nucleated RBC % (a uto) % Nucleated RBCs # /100WBC Fibrinogen (174-498) mg/dL D-Dimer (0-0.59) ug/mIFE U Specimen Type Arterial Sample Site Radial, right ABG pH 7.48 H (7.35-7.45) ABG pCO2 27.4 L (35-45) mmHg ABG pO2 73.4 L (80.0-100.0) mmH g ABG HCO3 20.6 L (22-26) mmol/L ABG O2 Saturation 97.3 ABG Base Excess -1.9 (-2.0-2.0) mmol/ L Sammy Test Pos A-a O2 Gradient 5.3 (5-10) mmHg Hematocrit 34.6 L (37-47) % Hgb O2 Saturation 95.4 (95-100) % Carboxyhemoglobin 1.1 (0.4-20.1) %THgb Methemoglobin 0.9 (0.4-1.5) % Total Hemoglobin 11.3 L (12-16) g/dL Ionized Calcium 1.2 (1.1-1.4) mmol/L O2 Delivery Device Room air FiO2 21.0 % Neon Tube Pumper ID Jlg Sodium 136.0 (136-145) mmol/L Potassium 3.6 (3.5-5.1) mmol/L Chloride (98-107) mmol/L Carbon Dioxide (22-29) mmol/L Anion Gap (5-19) BUN (8-23) mg/dL Creatinine (0.5-0.9) mg/dL GFR Calculation (90-130) mL/min Glucose 100.0 (65-115) mg/dL Calculated Osmolal ity (285-295) mOsm/k g Lactic Acid 1.4 (0.5-2.2) mmol/L Calcium (8.5-10.5) mg/dL Ferritin (15-150) ng/mL Total Bilirubin (0.15-1.2) mg/dL AST (0-32) U/L ALT (0-33) U/L Alkaline Phosphata se (35-105) IU/L Troponin T Baselin e 12 H (0-10) ng/L Troponin T 120 Min [place] (0-10) ng/L Delta Troponin T (0-10) ABS# C-Reactive Protein (0.0-4.9) mg/L Total Protein (6.6-8.7) g/dL Albumin (3.5-5.2) g/dL Globulin (1.3-4.6) g/dL Lipase (13-60) U/L Urine Color (Yellow) Urine Appearance (CLEAR) Urine pH (5-7) Ur Specific Gravit y (1.005-1.030) Urine Protein (Negative) Urine Glucose (UA) (Normal) Urine Ketones (Negative) Urine Blood (Negative) Urine Nitrate (Negative) Urine Bilirubin (Negative) Urine Urobilinogen (Negative) mg/dL Ur Leukocyte Rose ase (Negative) Urine RBC (0-2) /hpf Urine WBC (0-5) /hpf Ur Squamous Epith Cells (0-5) /hpf Amorphous Sediment Urine Bacteria (NONE) /hpf Influenza Type A A g (Negative) Influenza Type B A g (Negative) SARS-CoV-2 Ag (Rap id) (Negative) 11/13/19 11/13/19 11/13/19 Range/Units 14:49 14:54 14:55 WBC (4.0-10.0) 10^3/ uL RBC (4.1-5.3) 10^6/u L Hgb (11.5-15.3) g/dL Hct (37.0-47.0) % MCV (81-99) fL MCH (28.0-34.0) pg MCHC (30.0-36.0) g/dL RDW (12.1-15.1) % Plt Count (130-400) 10^3/c mm MPV (7.4-10.4) fL Neut % (Auto) % Lymph % (Auto) % Johnston % (Auto) % Eos % (Auto) % Baso % (Auto) % Neut # (Auto) (1.8-7.7) 10^3/u L Lymph # (Auto) (0.8-4.8) 10^3/u L Johnston # (Auto) (0.2-0.9) 10^3/u L Eos # (Auto) (0.0-0.8) 10^3/u L Baso # (Auto) (0.0-0.1) 10^3/u L Nucleated RBC % (a uto) % Nucleated RBCs # /100WBC Fibrinogen (174-498) mg/dL D-Dimer (0-0.59) ug/mIFE U Specimen Type Sample Site ABG pH (7.35-7.45) ABG pCO2 (35-45) mmHg ABG pO2 (80.0-100.0) mmH g ABG HCO3 (22-26) mmol/L ABG O2 Saturation ABG Base Excess (-2.0-2.0) mmol/ L Sammy Test A-a O2 Gradient (5-10) mmHg Hematocrit (37-47) % Hgb O2 Saturation (95-100) % Carboxyhemoglobin (0.4-20.1) %THgb Methemoglobin (0.4-1.5) % Total Hemoglobin (12-16) g/dL Ionized Calcium (1.1-1.4) mmol/L O2 Delivery Device FiO2 % Neon Tube Pumper ID Sodium (136-145) mmol/L Potassium (3.5-5.1) mmol/L Chloride (98-107) mmol/L Carbon Dioxide (22-29) mmol/L Anion Gap (5-19) BUN (8-23) mg/dL Creatinine (0.5-0.9) mg/dL GFR Calculation (90-130) mL/min Glucose (65-115) mg/dL Calculated Osmolal ity (285-295) mOsm/k g Lactic Acid (0.5-2.2) mmol/L Calcium (8.5-10.5) mg/dL Ferritin (15-150) ng/mL Total Bilirubin (0.15-1.2) mg/dL AST (0-32) U/L ALT (0-33) U/L Alkaline Phosphata se (35-105) IU/L Troponin T Baselin e (0-10) ng/L Troponin T 120 Min [place] (0-10) ng/L Delta Troponin T (0-10) ABS# C-Reactive Protein (0.0-4.9) mg/L Total Protein (6.6-8.7) g/dL Albumin (3.5-5.2) g/dL Globulin (1.3-4.6) g/dL Lipase (13-60) U/L Urine Color Yellow (Yellow) Urine Appearance Cloudy (CLEAR) Urine pH 7 (5-7) Ur Specific Gravit y 1.005 (1.005-1.030) Urine Protein Trace (Negative) Urine Glucose (UA) Norm (Normal) Urine Ketones Negative (Negative) Urine Blood 2+ H (Negative) Urine Nitrate Positive H (Negative) Urine Bilirubin Neg (Negative) Urine Urobilinogen 1 H (Negative) mg/dL Ur Leukocyte Rose ase 2+ H (Negative) Urine RBC None (0-2) /hpf Urine WBC 55-80 H (0-5) /hpf Ur Squamous Epith Cells Rare (0-5) /hpf Amorphous Sediment Not Reportable Urine Bacteria 4+ H (NONE) /hpf Influenza Type A A g Negative (Negative) Influenza Type B A g Negative (Negative) SARS-CoV-2 Ag (Rap id) Negative (Negative) 11/13/19 Range/Units 15:42 WBC (4.0-10.0) 10^3/ uL RBC (4.1-5.3) 10^6/u L Hgb (11.5-15.3) g/dL Hct (37.0-47.0) % MCV (81-99) fL MCH (28.0-34.0) pg MCHC (30.0-36.0) g/dL RDW (12.1-15.1) % Plt Count (130-400) 10^3/c mm MPV (7.4-10.4) fL Neut % (Auto) % Lymph % (Auto) % Johnston % (Auto) % Eos % (Auto) % Baso % (Auto) % Neut # (Auto) (1.8-7.7) 10^3/u L Lymph # (Auto) (0.8-4.8) 10^3/u L Johnston # (Auto) (0.2-0.9) 10^3/u L Eos # (Auto) (0.0-0.8) 10^3/u L Baso # (Auto) (0.0-0.1) 10^3/u L Nucleated RBC % (a uto) % Nucleated RBCs # /100WBC Fibrinogen (174-498) mg/dL D-Dimer (0-0.59) ug/mIFE U Specimen Type Sample Site ABG pH (7.35-7.45) ABG pCO2 (35-45) mmHg ABG pO2 (80.0-100.0) mmH g ABG HCO3 (22-26) mmol/L ABG O2 Saturation ABG Base Excess (-2.0-2.0) mmol/ L Sammy Test A-a O2 Gradient (5-10) mmHg Hematocrit (37-47) % Hgb O2 Saturation (95-100) % Carboxyhemoglobin (0.4-20.1) %THgb Methemoglobin (0.4-1.5) % Total Hemoglobin (12-16) g/dL Ionized Calcium (1.1-1.4) mmol/L O2 Delivery Device FiO2 % Neon Tube Pumper ID Sodium (136-145) mmol/L Potassium (3.5-5.1) mmol/L Chloride (98-107) mmol/L Carbon Dioxide (22-29) mmol/L Anion Gap (5-19) BUN (8-23) mg/dL Creatinine (0.5-0.9) mg/dL GFR Calculation (90-130) mL/min Glucose (65-115) mg/dL Calculated Osmolal ity (285-295) mOsm/k g Lactic Acid (0.5-2.2) mmol/L Calcium (8.5-10.5) mg/dL Ferritin (15-150) ng/mL Total Bilirubin (0.15-1.2) mg/dL AST (0-32) U/L ALT (0-33) U/L Alkaline Phosphata se (35-105) IU/L Troponin T Baselin e (0-10) ng/L Troponin T 120 Min [place] 11.08 H (0-10) ng/L Delta Troponin T -0.92 L (0-10) ABS# C-Reactive Protein (0.0-4.9) mg/L Total Protein (6.6-8.7) g/dL Albumin (3.5-5.2) g/dL Globulin (1.3-4.6) g/dL Lipase (13-60) U/L Urine Color (Yellow) Urine Appearance (CLEAR) Urine pH (5-7) Ur Specific Gravit y (1.005-1.030) Urine Protein (Negative) Urine Glucose (UA) (Normal) Urine Ketones (Negative) Urine Blood (Negative) Urine Nitrate (Negative) Urine Bilirubin (Negative) Urine Urobilinogen (Negative) mg/dL Ur Leukocyte Rose ase (Negative) Urine RBC (0-2) /hpf Urine WBC (0-5) /hpf Ur Squamous Epith Cells (0-5) /hpf Amorphous Sediment Urine Bacteria (NONE) /hpf Influenza Type A A g (Negative) Influenza Type B A g (Negative) SARS-CoV-2 Ag (Rap id) (Negative) Imaging Data^: CXR: Radiologist's impression: [place] [address] XRay Report Signed Patient: Kiera Hart Unit #: [id number] : 1950 Age/Sex: 69 / F ADM Date: 11/13/19 Loc: ER Room/Bed: Attending Dr: Ordering Provider/Ordering MD: Gabriella Gould Date of Service: 11/13/19 Procedure(s): XR chest 1V portable [id number] Accession Number(s): [id number] Report Number: [id number] PROCEDURE INFORMATION: Exam: XR Chest, 1 View Exam date and time: 11/13/2019 3:06 PM Age: 69 years old Clinical indication: Fever and shortness of breath; Patient HX: Covid precautions; Additional info: Fever, chest pain, SOB TECHNIQUE: Imaging protocol: XR of the chest Views: 1 view. COMPARISON: CR XR chest 1V portable [id number] 08/15/2019 5:07 PM FINDINGS: Lungs: Unremarkable. No consolidation. Pleural space: Unremarkable. No pleural effusion. No pneumothorax. Heart/Mediastinum: Unremarkable. No cardiomegaly. Bones/joints: Unremarkable. XR/XR chest 1V portable [id number] IMPRESSION: No acute findings. Dictated By: Jed Link Signed By: Jed Link Signed Date/Time: 11/13/19 1549 DD/ 1548 CT chest/abdomen/pelvis: Radiologist's impression: [address] [address] [address] Scan Report Signed Patient: Kiera Hart Unit #: [id number] : 1950 Age/Sex: 69 / F ADM Date: 11/13/19 Loc: ER Room/Bed: Attending Dr: Ordering Provider/Ordering MD: Gabriella Gould Date of Service: 11/13/19 Procedure(s): CT chest abd pel w con* Accession Number(s): [id number] Report Number: [id number] PROCEDURE INFORMATION: Exam: CT Chest With Contrast Exam date and time: 11/13/2019 2:59 PM Age: 69 years old Clinical indication: Abdominal pain; Chest pain; Additional info: Abdominal pain, chest pain, SOB TECHNIQUE: Imaging protocol: Computed tomography of the chest with intravenous contrast. Radiation optimization: All CT scans at this facility use at least one of these dose optimization techniques: automated exposure control; mA and/or kV adjustment per patient size (includes targeted exams where dose is matched to clinical indication); or iterative reconstruction. Contrast material: OMNI 300; Contrast volume: 95 ml; Contrast route: INTRAVENOUS (IV); COMPARISON: CTA Chest-[place]ulmonary Emb [id number] 07/02/2016 5:24 PM RADIATION DOSE METRICS: Total DLP (mGy-cm): 2123.5 FINDINGS: Lungs: Unremarkable. No consolidation. No masses. Pleural space: Unremarkable. No pneumothorax. No pleural effusion. Heart: Severe calcified coronary artery disease. Aorta: Calcification of the abdominal aorta and/or iliac arteries consistent with atherosclerotic vessel disease. Great vessels off aortic arch: Click DISHCalcification of the thoracic aorta and/or great vessels consistent with atherosclerotic vessel disease. Lymph nodes: Unremarkable. No enlarged lymph nodes. Bones/joints: Unremarkable. No acute fracture. Soft tissues: Unremarkable. IMPRESSION: Severe calcified coronary artery disease. PROCEDURE INFORMATION: Exam: CT Abdomen And Pelvis With Contrast Exam date and time: 11/13/2019 2:59 PM Age: 69 years old Clinical indication: Abdominal pain; Chest pain; Additional info: Abdominal pain, chest pain, SOB TECHNIQUE: Imaging protocol: Computed tomography of the abdomen and pelvis with intravenous contrast. Radiation optimization: All CT scans at this facility use at least one of these dose optimization techniques: automated exposure control; mA and/or kV adjustment per patient size (includes targeted exams where dose is matched to clinical indication); or iterative reconstruction. Contrast material: OMNI 300; Contrast volume: 95 ml; Contrast route: INTRAVENOUS (IV); COMPARISON: CTA Chest-Pulmonary Emb [id number] 07/02/2016 5:24 PM RADIATION DOSE METRICS: Total DLP (mGy-cm): 2123.5 FINDINGS: Liver: Normal. No mass. Gallbladder and bile ducts: Normal. No calcified stones. No ductal dilation. Pancreas: Normal. No ductal dilation. Spleen: Normal. No splenomegaly. Adrenals: Normal. No mass. Kidneys and ureters: Left renal hypodensity measuring < 1.0 cm , too small to further characterize. One or more peripheral wedge-shaped hypodense left renal perfusion defects consistent with left pyelonephritis. Stomach and bowel: Anastomosis in the rectum most consistent with previous partial resection. Appendix: No evidence of appendicitis. Intraperitoneal space: Unremarkable. No free air. No significant fluid collection. Vasculature: Calcification of the abdominal aorta and/or iliac arteries consistent with atherosclerotic vessel disease. Lymph nodes: Abnormal 1.2 cm left periaortic lymph node just below the left renal hilus consistent with reactive versus neoplastic adenopathy. Urinary bladder: Unremarkable as visualized. Reproductive: Stable hysterectomy. Bones/joints: Dextroscoliosis. Soft tissues: Unremarkable. CT/CT chest abd pel w con* IMPRESSION: 1. Abnormal 1.2 cm left periaortic lymph node just below the left renal hilus consistent with reactive versus neoplastic adenopathy. 2. Anastomosis in the rectum most consistent with previous partial resection. 3. One or more peripheral wedge-shaped hypodense left renal perfusion defects consistent with left pyelonephritis. COMMENTS: Consistent with the [employer]'s Incidental Findings Committee white paper (J Am Arabella Radiol 2018): Any incidental renal lesion less than 1 cm or classified as too small to characterize, or any incidental cystic renal lesion characterized as simple-appearing, is likely benign. No follow-up imaging is recommended for these lesions per consensus recommendations based on imaging criteria. Radiation Dose CTDIVOL = (mGy): DLP = 2123.5 2123.5 (mGy-cm) Dictated By: Ashkan Christianson MD Signed By: Ashkna Christianson MD Signed Date/Time: 11/13/191633 DD/ 163 Discharge Plan Discharge Patient Disposition: Home Clinical Impression: Acute pyelonephritis Condition: Stable Prescriptions: New Cipro 500 mg tablet 500 mg PO Q12H Qty: 14 RF: 0 No Action mupirocin 2 % ointment 1 applic TOPICAL TID Qty: 22 RF: 0 ferrous sulfate 325 mg (65 mg iron) tablet 325 mg PO BID RF: 0 insulin lispro [Humalog KwikPen Insulin] 100 unit/mL insulin pen See Rx Instructions .ROUTE .COMPLEX RF: 0 albuterol sulfate [ProAir HFA] 90 mcg/actuation HFA aerosol inhaler 2 puff INHALATION Q6H PRN (Reason: shortness of breath) Qty: 8.5 RF: 2 nitroglycerin [Nitrostat] 0.4 mg tablet, sublingual 0.4 mg SUBLINGUAL Q5M PRN (Reason: chest pains) Qty: 30 RF: 0 amlodipine 5 mg tablet 5 mg PO DAILY Qty: 30 RF: 5 metoprolol tartrate 25 mg tablet 25 mg PO BID Qty: 60 RF: 4 montelukast 10 mg tablet 10 mg PO DAILY Qty: 90 RF: 3 fenofibrate nanocrystallized 145 mg tablet 145 mg PO DAILY Qty: 90 RF: 0 azelastine 137 mcg (0.1 %) aerosol,spray 2 spray INTRANASAL BID Qty: 30 RF: 0 cyclobenzaprine 5 mg tablet 5 mg PO BEDTIME PRN (Reason: muscle spasms) Qty: 90 RF: 0 famotidine 20 mg tablet 20 mg PO BID Qty: 180 RF: 0 losartan 100 mg tablet 100 mg PO DAILY Qty: 90 RF: 0 metformin 500 mg tablet 1,000 mg PO BID Qty: 180 RF: 1 rosuvastatin 40 mg tablet 40 mg PO DAILY Qty: 90 RF: 0 Spiriva with HandiHaler 18 mcg capsule, w/inhalation device 1 cap INHALATION DAILY Qty: 30 RF: 5 aspirin 81 mg Tablet,Delayed Release (Dr/Ec) 81 mg PO DAILY RF: 0 Breo Ellipta See Rx Instructions .ROUTE .COMPLEX RF: 0 Lantus Solostar U-100 Insulin 100 unit/mL (3 mL) insulin pen 35 unit SUBCUT BEDTIME RF: 0 Discharge Orders: Discharge Order (Routine); Ordered 11/13/19 Ordered By: Gabriella Gould Referrals: Sofie Maria MD [Primary Care Provider] - Patient Instructions: Acute Pyelonephritis (ED), Pyelonephritis Activity Restrictions/Additional Instructions: You need to fill your antibiotics and begin taking them immediately. Return to the emergency department for vomiting or inability to hold down these antibiotics, increasing abdominal or back pain, uncontrollable fevers. You also need to return if you feel you are having to wear your oxygen more frequently, increase your oxygen, start experiencing severe shortness of breath or difficulty breathing. Please follow-up with your primary care next week for reevaluation. Discharge Date/Time: 11/13/19 17:50 Coding Level of Care Code ED News [facility] Fwd Exam Comprehensive
[2019-11-13 14:03] VITALS: BP 145/90; PULSE 97; RESP 17; O2SAT 94
[2019-11-13] MEDS: sodium chloride 0.9% 1,000 ML 999 ML IV (14:11)
[2019-11-13 14:19] LABS: Basophils % 0.3 %; Eosinophils % 0.1 %; Hematocrit 35.4 % (37.0-47.0); Hemoglobin 10.8 g/dL (11.5-15.3); Lymphocytes # 0.8 10^3/uL (0.8-4.8); Lymphocytes % 8.5 %; Mean Corpuscular HGB Conc 30.5 g/dL (30.0-36.0); Mean Corpuscular Hemoglobin 29.3 pg (28.0-34.0); Mean Corpuscular Volume 95.9 fL (81-99); Mean Platelet Volume 10.2 fL (7.4-10.4); Monocytes # 0.9 10^3/uL (0.2-0.9); Monocytes % 9.7 %; Neutrophils # 7.33 10^3/uL (1.8-7.7); Neutrophils % 81.1 %; Nucleated Red Blood Cells % 0 %; Platelet Count 248 10^3/cmm (130-400); Red Blood Count 3.69 10^6/uL (4.1-5.3); Red Cell Distribution Width 14.2 % (12.1-15.1); White Blood Count 9.1 10^3/uL (4.0-10.0)
--- NOTE | 2019-11-13 14:23 | CTR_ITS ---
PROCEDURE INFORMATION: Exam: CT Chest With Contrast Exam date and time: 11/13/2019 2:59 PM Age: 69 years old Clinical indication: Abdominal pain; Chest pain; Additional info: Abdominal pain, chest pain, SOB TECHNIQUE: Imaging protocol: Computed tomography of the chest with intravenous contrast. Radiation optimization: All CT scans at this facility use at least one of these dose optimization techniques: automated exposure control; mA and/or kV adjustment per patient size (includes targeted exams where dose is matched to clinical indication); or iterative reconstruction. Contrast material: OMNI 300; Contrast volume: 95 ml; Contrast route: INTRAVENOUS (IV); COMPARISON: CTA Chest-Pulmonary Emb [id number] 07/02/2016 5:24 PM RADIATION DOSE METRICS: Total DLP (mGy-cm): 2123.5 FINDINGS: Lungs: Unremarkable. No consolidation. No masses. Pleural space: Unremarkable. No pneumothorax. No pleural effusion. Heart: Severe calcified coronary artery disease. Aorta: Calcification of the abdominal aorta and/or iliac arteries consistent with atherosclerotic vessel disease. Great vessels off aortic arch: Click DISHCalcification of the thoracic aorta and/or great vessels consistent with atherosclerotic vessel disease. Lymph nodes: Unremarkable. No enlarged lymph nodes. Bones/joints: Unremarkable. No acute fracture. Soft tissues: Unremarkable. IMPRESSION: Severe calcified coronary artery disease. PROCEDURE INFORMATION: Exam: CT Abdomen And Pelvis With Contrast Exam date and time: 11/13/2019 2:59 PM Age: 69 years old Clinical indication: Abdominal pain; Chest pain; Additional info: Abdominal pain, chest pain, SOB TECHNIQUE: Imaging protocol: Computed tomography of the abdomen and pelvis with intravenous contrast. Radiation optimization: All CT scans at this facility use at least one of these dose optimization techniques: automated exposure control; mA and/or kV adjustment per patient size (includes targeted exams where dose is matched to clinical indication); or iterative reconstruction. Contrast material: OMNI 300; Contrast volume: 95 ml; Contrast route: INTRAVENOUS (IV); COMPARISON: CTA Chest-Pulmonary Emb [id number] 07/02/2016 5:24 PM RADIATION DOSE METRICS: Total DLP (mGy-cm): 2123.5 FINDINGS: Liver: Normal. No mass. Gallbladder and bile ducts: Normal. No calcified stones. No ductal dilation. Pancreas: Normal. No ductal dilation. Spleen: Normal. No splenomegaly. Adrenals: Normal. No mass. Kidneys and ureters: Left renal hypodensity measuring < 1.0 cm , too small to further characterize. One or more peripheral wedge-shaped hypodense left renal perfusion defects consistent with left pyelonephritis. Stomach and bowel: Anastomosis in the rectum most consistent with previous partial resection. Appendix: No evidence of appendicitis. Intraperitoneal space: Unremarkable. No free air. No significant fluid collection. Vasculature: Calcification of the abdominal aorta and/or iliac arteries consistent with atherosclerotic vessel disease. Lymph nodes: Abnormal 1.2 cm left periaortic lymph node just below the left renal hilus consistent with reactive versus neoplastic adenopathy. Urinary bladder: Unremarkable as visualized. Reproductive: Stable hysterectomy. Bones/joints: Dextroscoliosis. Soft tissues: Unremarkable. CT/CT chest abd pel w con* IMPRESSION: 1. Abnormal 1.2 cm left periaortic lymph node just below the left renal hilus consistent with reactive versus neoplastic adenopathy. 2. Anastomosis in the rectum most consistent with previous partial resection. 3. One or more peripheral wedge-shaped hypodense left renal perfusion defects consistent with left pyelonephritis. COMMENTS: Consistent with the [employer]'s Incidental Findings Committee white paper (J Am Arabella Radiol 2018): Any incidental renal lesion less than 1 cm or classified as too small to characterize, or any incidental cystic renal lesion characterized as simple-appearing, is likely benign. No follow-up imaging is recommended for these lesions per consensus recommendations based on imaging criteria. Radiation Dose CTDIVOL = (mGy): DLP = 2123.5~2123.5 (mGy-cm)
[2019-11-13 14:28] LABS: Lactic Sepsis W/Reflex 1.4 mmol/L (0.5-2.2)
[2019-11-13 14:29] LABS: Alanine Aminotransferase 15 U/L (0-33); Albumin Level 3.9 g/dL (3.5-5.2); Alkaline Phosphatase 55 IU/L (35-105); Anion Gap 15.9 (5-19); Aspartate Amino Transferase 24 U/L (0-32); Blood Urea Nitrogen 17 mg/dL (8-23); C Reactive Protein 99.1 mg/L (0.0-4.9); Calcium 8.9 mg/dL (8.5-10.5); Carbon Dioxide 22 mmol/L (22-29); Chloride 99 mmol/L (98-107); Ferritin 152 ng/mL (15-150); Globulin 2.4 g/dL (1.3-4.6); Glucose 92 mg/dL (65-115); Lipase 21 U/L (13-60); Osmolality Calculated 277 mOsm/kg (285-295); Potassium 3.9 mmol/L (3.5-5.1); Sodium 133 mmol/L (136-145); Total Bilirubin 0.5 mg/dL (0.15-1.2); Total Protein 6.3 g/dL (6.6-8.7)
[2019-11-13 14:32] LABS: Troponin(5th) Baseline 12 ng/L (0-10)
[2019-11-13 14:34] LABS: D Dimer 2.87 ug/mIFEU (0-0.59)
[2019-11-13 14:37] LABS: ABG PCO2 27.4 mmHg (35-45); ABG PH Result 7.48 (7.35-7.45); Alveolar-Arterial Oxygen Gradi 5.3 mmHg (5-10); Arterial Blood Gas Hematocrit 34.6 % (37-47); Base Excess ABG -1.9 mmol/L (-2.0-2.0); Blood Gas Allen Test Pos; Blood Gas Sample Site Radial, right; Blood Gas Sample Type Arterial; Carboxyhemoglobin 1.1 %THgb (0.4-20.1); HCO3 ABG 20.6 mmol/L (22-26); HGB O2 Sat 95.4 % (95-100); Ionized Calcium Level - ABG 1.2 mmol/L (1.1-1.4); Methemoglobin 0.9 % (0.4-1.5); Oxygen Device ROOM AIR; Oxygen Saturation ABG 97.3; PO2 ABG 73.4 mmHg (80.0-100.0); Potassium Level - ABG 3.6 mmol/L (3.5-5.0); Total Hemoglobin 11.3 g/dL (12-16)
[2019-11-13 15:06] LABS: Fibrinogen 686 mg/dL (174-498)
[2019-11-13 15:11] LABS: Add Urine Microscopic? YES; Bilirubin Urine Neg (Negative); Blood Urine 2+ (Negative); Glucose Urine UA Norm (Normal); Ketones Urine Negative (Negative); Leukocyte Esterase Urine 2+ (Negative); Nitrate Urine Positive (Negative); Protein Urine Trace (Negative); Specific Gravity, Urine 1.005 (1.005-1.030); Urine Appearance Cloudy (CLEAR); Urine Color Yellow (Yellow); Urobilinogen Urine 1 mg/dL (Negative); pH Urine 7 (5-7)
[2019-11-13 15:14] LABS: Add Urine Culture? Yes; Bacteria Urine 4+ /hpf; Squamous Epithelial Cell Urine RARE /hpf (0-5); WBC Urine 55-80 /hpf (0-5)
[2019-11-13] MEDS: iohexol 300 mg/mL 100 mL Btl IV (15:14)
[2019-11-13 15:20] LABS: SARS Covid-2 Antigen Negative (Negative)
[2019-11-13 15:25] LABS: Influenza A by IFA Negative (Negative); Influenza B by IFA Negative (Negative)
[2019-11-13 15:42] VITALS: PULSE 94; RESP 20; O2SAT 97
--- NOTE | 2019-11-13 15:53 | ECG_ITS ---
[facility] Test Date: 2019-11-13 Pat Name: Kiera Hart Department: Room: Gender: Female [employer]: : 1950 Requested By: Gabriella Gould Order Number: [id number] Сергей MD: Galilea Douglas M.D. Measurements Intervals [place] Rate: 90 P: 68 CA: 171 QRS: -49 QRSD: 111 T: 61 QT: 387 QTc: 474 Interpretive Statements SINUS RHYTHM LEFT ANTERIOR FASCICULAR BLOCK [QRS AXIS <= -45, QR IN I, RS IN II] NONSPECIFIC T-WAVE ABNORMALITY Compared to ECG 11/13/2019 13:33:09 T-wave abnormality now present Myocardial infarct finding no longer present Electronically Signed On 11-13-2019 18:37:50 CDT by Galilea Douglas M.D. [id number]
[2019-11-13 16:28] LABS: Troponin 5 2HR 11.08 ng/L (0-10)
[2019-11-13 16:29] LABS: Troponin 5 2HR Delta -0.92 ABS# (0-10)
[2019-11-13] MEDS: cefTRIAXone 1,000 MG in sodium chloride 0.9% (plus) 50 ML 100 MG IV (16:49)
[2019-11-13 18:03] VITALS: BP 115/45; PULSE 89; RESP 16; O2SAT 93
== END 2019-11-13 17:50 | disposition home or self-care (01) ==
PROVIDERS: Emergency Provider Physician Assistant; PCP Family Medicine
DX: N10 Acute pyelonephritis (principal); Z79.4 Long term (current) use of insulin; Z79.82 Long term (current) use of aspirin; J44.9 Chronic obstructive pulmonary disease, unspecified; I10 Essential (primary) hypertension; E78.2 Mixed hyperlipidemia; E11.42 Type 2 diabetes mellitus with diabetic polyneuropathy; Z98.61 Coronary angioplasty status; Z87.891 Personal history of nicotine dependence
CPT/HCPCS: 12345; 36415; 36600; 71045; 71260; 74177; 80051; 80053; 81001; 82728; 82810; 83605; 83690; 83986; 84484; 85025; 85378; 85384; 86140; 87040; 87077; 87086; 87186; 87426; 87804; 93005; 96365; 96375; 99284; J0131; J0696; J7030; Q9967

== ENCOUNTER → 2019-11-18 17:03 | Outpatient (BNVA) | payer MEDICARE, MEDICAID, SELFPAY | PROVIDERS: PCP Family Medicine; Visit Provider Family Medicine | DX: N12 Tubulo-interstitial nephritis, not specified as acute or chronic (principal) | CPT/HCPCS: 81000 ==

== ENCOUNTER → 2020-01-22 11:19 | Outpatient (BNVA) | payer MEDICARE, MEDICAID, SELFPAY | PROVIDERS: PCP Family Medicine; Visit Provider Family Medicine | DX: I10 Essential (primary) hypertension (principal); E11.8 Type 2 diabetes mellitus with unspecified complications; Z79.4 Long term (current) use of insulin | CPT/HCPCS: 80053; 80061; 82043; 83036; 85025 ==

== ENCOUNTER 2020-03-10 11:56 | Emergency (ER) | payer MEDICARE, MEDICAID, SELFPAY ==
[2020-03-10] VITALS (10 sets, daily range): BP systolic 98–158; BP diastolic 52–88; PULSE 70–88; RESP 18–35; TEMP 36.4; O2SAT 98–100; BMI 47.8
--- NOTE | 2020-03-10 12:37 | CT_ITS ---
WS: [id number] Exam: CT angio chest w abd pel w con Date/Time of Exam: 03/10/2020 2:41 PM Reason For Exam: SOB, history of diverticulitis DLP: 1923.[address] scans at [facility] use at least one of these dose optimization techniques: automat ed exposure control; mA and/or kV adjustment per patient size (includes targeted exams where dose is matched to clinical indication); or iterative reconstruction. Comparison with previous exam 11/13/2019 CTA of the chest. There was no sign of acute PE. The thoracic aorta is normal in caliber. The airway is patent. Extensi ve triple vessel coronary artery disease noted. No pleural or pericardial effusion. The lungs are ful ly expanded and clear. No destructive bone lesions are chest wall defects. CT/CT angio chest w abd pel w con IMPRESSION: 1. No sign of acute PE. 2. Extensive coronary artery calcification. No acute cardiopulmonary process no joe otherwise. CT scan of the abdomen and pelvis with IV contrast. The liver, spleen, stomach and pancreas are unremarkable. The abdominal aorta i s normal in caliber. Portal vein and IVC are patent. Normal adrenal glands. Sev eral small nonobstructing stones in the right kidney. The left kidney contains a subcentimeter cyst but is otherwise unremarkable. No free air. No lymphadenop athy. Small bowel loops are normal in caliber. No sign of acute appendix. Sever al diverticuli of the sigmoid colon. Signs of the colon resection involving the rectosigmoid colon. No mass or adenopathy in the pelvis. Intact urinary bladde r. Signs of ventral hernia repair. No destructive bone lesions. IMPRESSION: 1. No sign of mass, lymphadenopathy or acute process. 2. Several tiny nonobstructing stones in the right kidney. 3. Status post rectosigmoid colon resection with anastomosis which appears to b e intact. Several scattered diverticuli of the sigmoid colon.
--- NOTE | 2020-03-10 12:37 | XR_ITS ---
WS: [id number] Exam: XR chest 1V portable [id number] Date/Time of Exam: 03/10/2020 1:01 PM Reason For Exam: SOB Comparison 11/13/2019. Mild infiltrate in the right lower lung zone. The left lung is clear. Normal cardiomediastinal struct ures and bony elements. XR/XR chest 1V portable [id number] IMPRESSION: 1. Mild infiltrate in the right lower lung zone. This may represent developing pneumonia.
[2020-03-10 13:56] LABS: Basophils % 0.7 %; Eosinophils # 0.1 10^3/uL (0.0-0.8); Hematocrit 35.6 % (37.0-47.0); Hemoglobin 11.3 g/dL (11.5-15.3); Lactic Sepsis W/Reflex 1.5 mmol/L (0.5-2.2); Lymphocytes # 1.4 10^3/uL (0.8-4.8); Mean Corpuscular HGB Conc 31.7 g/dL (30.0-36.0); Mean Corpuscular Hemoglobin 30.3 pg (28.0-34.0); Mean Corpuscular Volume 95.4 fL (81-99); Mean Platelet Volume 10.2 fL (7.4-10.4); Monocytes # 0.6 10^3/uL (0.2-0.9); Monocytes % 10.2 %; Neutrophils # 3.45 10^3/uL (1.8-7.7); Neutrophils % 61.7 %; Nucleated Red Blood Cells % 0 %; Platelet Count 295 10^3/cmm (130-400); Red Blood Count 3.73 10^6/uL (4.1-5.3); Red Cell Distribution Width 13.8 % (12.1-15.1); White Blood Count 5.6 10^3/uL (4.0-10.0)
[2020-03-10 13:58] LABS: Alanine Aminotransferase 18 U/L (0-33); Alkaline Phosphatase 57 IU/L (35-105); Aspartate Amino Transferase 25 U/L (0-32); Blood Urea Nitrogen 18 mg/dL (8-23); C Reactive Protein 1.1 mg/L (0.0-4.9); Calcium 9.2 mg/dL (8.5-10.5); Carbon Dioxide 25 mmol/L (22-29); Chloride 100 mmol/L (98-107); Globulin 2.9 g/dL (1.3-4.6); Glomerular Filtration Rate 71.1 mL/min (90-130); Glucose 101 mg/dL (65-115); Lipase 30 U/L (13-60); Osmolality Calculated 282 mOsm/kg (285-295); Sodium 135 mmol/L (136-145); Total Bilirubin 0.2 mg/dL (0.15-1.2); Total Protein 6.9 g/dL (6.6-8.7)
[2020-03-10 14:00] LABS: Anion Gap 13.6 (5-19); Potassium 3.6 mmol/L (3.5-5.1)
[2020-03-10] MEDS: sodium chloride 0.9% 1,000 ML 999 ML IV (14:02)
[2020-03-10 14:33] LABS: D Dimer 0.45 ug/mIFEU (0-0.59)
[2020-03-10 14:39] LABS: SARS Covid-2 Antigen Negative (Negative)
[2020-03-10 14:41] LABS: Influenza A by IFA Negative (Negative); Influenza B by IFA Negative (Negative)
[2020-03-10 14:54] LABS: Blood Urine Neg (Negative); Glucose Urine UA Norm (Normal); Ketones Urine Negative (Negative); Nitrate Urine Negative (Negative); Protein Urine Neg (Negative); Sulfosalicylic Acid Urine Negative (Negative); Urine Appearance Clear (CLEAR); Urine Color Yellow (Yellow); pH Urine 8 (5-7)
[2020-03-10 14:55] LABS: Add Urine Microscopic? YES; Bilirubin Urine Neg (Negative); Leukocyte Esterase Urine Trace (Negative); Urobilinogen Urine Norm (Negative)
[2020-03-10 15:04] LABS: Add Urine Culture? No; Bacteria Urine TRACE /hpf; RBC Urine 0-4 /hpf (0-2); Squamous Epithelial Cell Urine 0-4 /hpf (0-5)
[2020-03-10] MEDS: iohexol 350 mg/mL 100 mL Btl IV (15:35)
--- NOTE | 2020-03-10 16:45 | ED_ITS ---
HPI - SOB/Dyspnea General: Chief Complaint: Shortness of Breath/Dyspnea Stated Complaint: DIFF BREATHING Time Seen by Provider: 03/10/20 12:03 Source: patient Mode of arrival: EMS Limitations: no limitations History of Present Illness: HPI Narrative: The patient is a 69-year-old female with a history of diabetes, COPD, who presents to the emergency department with complaints of diarrhea that started 4 days ago. The diarrhea has however stopped today and she has not had any bowel movements today. She complains of a headache, shortness of breath but no fever. She denies any sick contacts. She cannot remember the last thing she ate prior to the onset of diarrhea. She does have abdominal pain. She has had a history of diverticulitis in the past and is status post colon resection. MD elicited complaint: shortness of breath Pertinent past history: COPD Onset (ago): hour(s) (4) Timing: intermittent Severity: moderate Exacerbating factors: nothing Relieving factors: nothing Known history of: COPD and diabetes Associated symptoms: Reports abdominal pain, cough and nausea; Deny chest congestion, chest pain, diaphoresis, dizziness, extremity pain, fever(s), hemoptysis, lightheadedness, myalgias, orthopnea, palpitations, paresthesias, polydipsia, polyuria, rash, sense of impending doom, syncope or vomiting Treatment prior to arrival: none Review of Systems General: Reports: 10 or more systems reviewed and unremarkable except in HPI and below Const: Denies: fever(s) or diaphoresis Eyes: Denies: change in vision or blurry vision ENMT: Denies: throat pain, enlarged tonsils, odynophagia, hoarseness, mouth pain or swelling of lips/tongue Card: Denies: chest pain, palpitations, lightheadedness, syncope or orthopnea Resp: Denies: hemoptysis or chest congestion GI: Reports: abdominal pain, nausea and diarrhea; Denies: vomiting : Denies: flank pain, difficulty voiding, dysuria, urinary frequency, urinary urgency or urinary hesitancy Musc: Denies: extremity pain Skin/Breast: Denies: rash, pruritus or erythema Neuro: Denies: dizziness Endo: Denies: polyuria or polydipsia PFS ED PFSH: Medical History Acquired deformity of right foot Arteriosclerotic heart disease (ASHD) Asthma with chronic obstructive pulmonary disease (COPD) follows with pulmonology Atrophic vaginitis Bilateral primary osteoarthritis of knee 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 Degenerative disc disease, cervical Dysphagia, oropharyngeal Enrolled in chronic care management Essential (primary) hypertension Fibromyalgia 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[place] Hx of angioedema improved after stopping Lisinopril Low back pain Mixed hyperlipidemia Morbid (severe) obesity due to excess calories BMI 40.0-44.9 Obstructive sleep apnea Polyneuropathy Vesico-ureteral reflux Surgical History History of colon resection Hx of arthroscopy of left knee (~2012) Dr Briceno Hx of cardiac cath Hx of cholecystectomy (~1992) Hx of coronary angioplasty stents x 3 Hx of total knee replacement (~09/2018) left, Dr Gonzalez S/P total knee arthroplasty Family History Brother Cancer lung Father CAD (coronary artery disease) Mother Bleeding disorder Social History Smoking and tobacco status: former smoker Quit status (tobacco): has quit using tobacco Year quit tobacco: 2008 Former quit date comment: 2 PPD x 40 yrs Second hand smoke exposure: No Alcohol intake: never Lives independently: Yes Household members: none Housing: House Marital status: / Number of children: 5 Current occupational status: retired History of recent travel: No Current gender identity: Female Physical Exam Const: COMMON NORMALS: no acute distress, average body habitus, patient oriented x3, no limitations, healthy appearing, alert and well nourished HENMT: COMMON NORMALS: normocephalic, atraumatic and moist oral mucous membranes HEAD & SCALP: normocephalic and atraumatic Neck/C-Spine: COMMON NORMALS: no meningeal signs and no JVD Resp: COMMON NORMALS: normal respiratory effort, No retractions, No use of accessory muscles, clear to auscultation bilaterally and percussion normal AUSCULTATION: clear to auscultation bilaterally PERCUSSION: percussion normal Cardio: COMMON NORMALS: no JVD, regular rate, regular rhythm, S1 normal heart sound present, S2 normal heart sound present, No gallops present (Cardio), No clicks present (Cardio), No murmurs present (Cardio), No rub (Cardio) and Peripheral pulses 2+ throughout RATE: regular rate RHYTHM: regular rhythm HEART SOUNDS: S1 normal heart sound present and S2 normal heart sound present PERIPHERAL PULSES: Peripheral pulses 2+ throughout GI: COMMON NORMALS: Normal to inspection, nondistended, normoactive bowel sounds present, Soft to palpation, non-tender, No hepatosplenomegaly present, no masses and no bruits INSPECTION: Yes scar (midline surgical scar) PALPATION: Yes Soft to palpation and Yes No hepatosplenomegaly present Extremity: COMMON NORMALS: normal to inspection, full ROM, capillary refill normal, no calf tenderness and no pedal edema Neuro: COMMON NORMALS: patient oriented x3 SENSORIUM/ORIENTATION: Yes alert MENINGEAL SIGNS: Yes no meningeal signs Skin: COMMON NORMALS: no rashes or lesions noted, no wounds, turgor normal, no jaundice, no petechiae and no mottling GENERAL SKIN EXAM: no rashes or lesions noted and turgor normal Course Reevaluation(s): Reevaluation #1: Discussed her lab and imaging findings with her. Negative for acute findings. CT scan negative for PE, or diverticulitis. We will treat her as a case of viral gastroenteritis. She voiced understanding and is in agreement with the plan. Time: 16:46 Vital Signs: Vital signs: Vital Signs Temperature 97.5 F L 03/10/20 11:59 Pulse Rate 88 03/10/20 17:04 Respiratory Rate 18 03/10/20 17:04 Blood Pressure 118/68 03/10/20 17:04 Pulse Oximetry 100 03/10/20 17:04 MDM - SOB/Dyspnea MDM Narrative: Medical decision making narrative: 69-year-old female patient who presents with diarrhea, shortness of breath. Evaluation in the emergency department is unremarkable. Diarrhea has stopped today and she has not had any bowel movements today. Evaluation in the emergency department is negative for acute findings, negative rapid Covid test, negative CTA of her lungs and CT of abdomen and pelvis. She has a prior history of diverticulitis but does not appear to be having an episode right now. She is managed as a case of viral gastroenteritis. Medical Records: Attestation: I reviewed the patient's medical records. Lab Data: Attestation: I reviewed the patient's lab results. Labs: Lab Results 03/10/20 03/10/20 03/10/20 Range/Units 13:25 13:25 13:25 WBC 5.6 (4.0-10.0) 10^3/ uL RBC 3.73 L (4.1-5.3) 10^6/u L Hgb 11.3 L (11.5-15.3) g/dL Hct 35.6 L (37.0-47.0) % MCV 95.4 (81-99) fL MCH 30.3 (28.0-34.0) pg MCHC 31.7 (30.0-36.0) g/dL RDW 13.8 (12.1-15.1) % Plt Count 295 (130-400) 10^3/c mm MPV 10.2 (7.4-10.4) fL Neut % (Auto) 61.7 % Lymph % (Auto) 25.0 % Ransom % (Auto) 10.2 % Eos % (Auto) 2.0 % Baso % (Auto) 0.7 % Neut # (Auto) 3.45 (1.8-7.7) 10^3/u L Lymph # (Auto) 1.4 (0.8-4.8) 10^3/u L Ransom # (Auto) 0.6 (0.2-0.9) 10^3/u L Eos # (Auto) 0.1 (0.0-0.8) 10^3/u L Baso # (Auto) 0.0 (0.0-0.1) 10^3/u L Nucleated RBC % (a uto) 0 % Nucleated RBCs # 0.0 /100WBC D-Dimer 0.45 (0-0.59) ug/mIFE U Sodium 135 L (136-145) mmol/L Potassium 3.6 (3.5-5.1) mmol/L Chloride 100 (98-107) mmol/L Carbon Dioxide 25 (22-29) mmol/L Anion Gap 13.6 (5-19) BUN 18 (8-23) mg/dL Creatinine 0.8 (0.5-0.9) mg/dL GFR Calculation 71.1 L (90-130) mL/min Glucose 101 (65-115) mg/dL Calculated Osmolal ity 282 L (285-295) mOsm/k g Lactic Acid (0.5-2.2) mmol/L Calcium 9.2 (8.5-10.5) mg/dL Total Bilirubin 0.2 (0.15-1.2) mg/dL AST 25 (0-32) U/L ALT 18 (0-33) U/L Alkaline Phosphata se 57 (35-105) IU/L C-Reactive Protein 1.1 (0.0-4.9) mg/L Total Protein 6.9 (6.6-8.7) g/dL Albumin 4.0 (3.5-5.2) g/dL Globulin 2.9 (1.3-4.6) g/dL Lipase 30 (13-60) U/L Urine Color (Yellow) Urine Appearance (CLEAR) Urine pH (5-7) Ur Specific Gravit y (1.005-1.030) Urine Protein (Negative) Urine Glucose (UA) (Normal) Urine Ketones (Negative) Urine Blood (Negative) Urine Nitrate (Negative) Urine Bilirubin (Negative) Prot Sulfosalicyli c Acd (Negative) Urine Urobilinogen (Negative) mg/dL Ur Leukocyte Rose ase (Negative) Urine RBC (0-2) /hpf Urine WBC (0-5) /hpf Ur Squamous Epith Cells (0-5) /hpf Amorphous Sediment Urine Bacteria (NONE) /hpf Influenza Type A A g (Negative) Influenza Type B A g (Negative) SARS-CoV-2 Ag (Rap id) (Negative) 03/10/20 03/10/20 03/10/20 Range/Units 13:25 13:25 13:25 WBC (4.0-10.0) 10^3/ uL RBC (4.1-5.3) 10^6/u L Hgb (11.5-15.3) g/dL Hct (37.0-47.0) % MCV (81-99) fL MCH (28.0-34.0) pg MCHC (30.0-36.0) g/dL RDW (12.1-15.1) % Plt Count (130-400) 10^3/c mm MPV (7.4-10.4) fL Neut % (Auto) % Lymph % (Auto) % Ransom % (Auto) % Eos % (Auto) % Baso % (Auto) % Neut # (Auto) (1.8-7.7) 10^3/u L Lymph # (Auto) (0.8-4.8) 10^3/u L Ransom # (Auto) (0.2-0.9) 10^3/u L Eos # (Auto) (0.0-0.8) 10^3/u L Baso # (Auto) (0.0-0.1) 10^3/u L Nucleated RBC % (a uto) % Nucleated RBCs # /100WBC D-Dimer (0-0.59) ug/mIFE U Sodium (136-145) mmol/L Potassium (3.5-5.1) mmol/L Chloride (98-107) mmol/L Carbon Dioxide (22-29) mmol/L Anion Gap (5-19) BUN (8-23) mg/dL Creatinine (0.5-0.9) mg/dL GFR Calculation (90-130) mL/min Glucose (65-115) mg/dL Calculated Osmolal ity (285-295) mOsm/k g Lactic Acid 1.5 (0.5-2.2) mmol/L Calcium (8.5-10.5) mg/dL Total Bilirubin (0.15-1.2) mg/dL AST (0-32) U/L ALT (0-33) U/L Alkaline Phosphata se (35-105) IU/L C-Reactive Protein (0.0-4.9) mg/L Total Protein (6.6-8.7) g/dL Albumin (3.5-5.2) g/dL Globulin (1.3-4.6) g/dL Lipase (13-60) U/L Urine Color (Yellow) Urine Appearance (CLEAR) Urine pH (5-7) Ur Specific Gravit y (1.005-1.030) Urine Protein (Negative) Urine Glucose (UA) (Normal) Urine Ketones (Negative) Urine Blood (Negative) Urine Nitrate (Negative) Urine Bilirubin (Negative) Prot Sulfosalicyli c Acd (Negative) Urine Urobilinogen (Negative) mg/dL Ur Leukocyte Rose ase (Negative) Urine RBC (0-2) /hpf Urine WBC (0-5) /hpf Ur Squamous Epith Cells (0-5) /hpf Amorphous Sediment Urine Bacteria (NONE) /hpf Influenza Type A A g Negative (Negative) Influenza Type B A g Negative (Negative) SARS-CoV-2 Ag (Rap id) Negative (Negative) 03/10/20 Range/Units 13:42 WBC (4.0-10.0) 10^3/ uL RBC (4.1-5.3) 10^6/u L Hgb (11.5-15.3) g/dL Hct (37.0-47.0) % MCV (81-99) fL MCH (28.0-34.0) pg MCHC (30.0-36.0) g/dL RDW (12.1-15.1) % Plt Count (130-400) 10^3/c mm MPV (7.4-10.4) fL Neut % (Auto) % Lymph % (Auto) % Ransom % (Auto) % Eos % (Auto) % Baso % (Auto) % Neut # (Auto) (1.8-7.7) 10^3/u L Lymph # (Auto) (0.8-4.8) 10^3/u L Ransom # (Auto) (0.2-0.9) 10^3/u L Eos # (Auto) (0.0-0.8) 10^3/u L Baso # (Auto) (0.0-0.1) 10^3/u L Nucleated RBC % (a uto) % Nucleated RBCs # /100WBC D-Dimer (0-0.59) ug/mIFE U Sodium (136-145) mmol/L Potassium (3.5-5.1) mmol/L Chloride (98-107) mmol/L Carbon Dioxide (22-29) mmol/L Anion Gap (5-19) BUN (8-23) mg/dL Creatinine (0.5-0.9) mg/dL GFR Calculation (90-130) mL/min Glucose (65-115) mg/dL Calculated Osmolal ity (285-295) mOsm/k g Lactic Acid (0.5-2.2) mmol/L Calcium (8.5-10.5) mg/dL Total Bilirubin (0.15-1.2) mg/dL AST (0-32) U/L ALT (0-33) U/L Alkaline Phosphata se (35-105) IU/L C-Reactive Protein (0.0-4.9) mg/L Total Protein (6.6-8.7) g/dL Albumin (3.5-5.2) g/dL Globulin (1.3-4.6) g/dL Lipase (13-60) U/L Urine Color Yellow (Yellow) Urine Appearance Clear (CLEAR) Urine pH 8 H (5-7) Ur Specific Gravit y 1.010 (1.005-1.030) Urine Protein Neg (Negative) Urine Glucose (UA) Norm (Normal) Urine Ketones Negative (Negative) Urine Blood Neg (Negative) Urine Nitrate Negative (Negative) Urine Bilirubin Neg (Negative) Prot Sulfosalicyli c Acd Negative (Negative) Urine Urobilinogen Norm (Negative) mg/dL Ur Leukocyte Rose ase Trace H (Negative) Urine RBC 0-4 H (0-2) /hpf Urine WBC 5-10 H (0-5) /hpf Ur Squamous Epith Cells 0-4 H (0-5) /hpf Amorphous Sediment Not Reportable Urine Bacteria Trace (NONE) /hpf Influenza Type A A g (Negative) Influenza Type B A g (Negative) SARS-CoV-2 Ag (Rap id) (Negative) Imaging Data^: CXR: Attestation: I personally reviewed and interpreted this imaging study as follows: Radiologist's impression: [address] [address] XRay Report Signed Patient: Kiera Hart #: [id number] : 1Acct#:[id number] Age/Sex: 69 / FADM Date: 03/10/20 Loc: ERRoom/Bed: Attending Dr: Ordering Provider/Ordering MD: Libra Bush MD, [facility] Date of Service: 03/10/20 Procedure(s): XR chest 1V portable [id number] Accession Number(s): [id number] Report Number: [id number] WS: [id number] Exam: XR chest 1V portable [id number] Date/Time of Exam: 03/10/2020 1:01 PM Reason For Exam: SOB Comparison 11/13/2019. Mild infiltrate in the right lower lung zone. The left lung is clear. Normal cardiomediastinal structures and bony elements. XR/XR chest 1V portable [id number] IMPRESSION: 1. Mild infiltrate in the right lower lung zone. This may represent developing pneumonia. Dictated By:Jayden Nuñez DO Signed By:Neetu Garcia Date/Time:03/10/20 1303 DD/ 1300 CTA Chest: Attestation: I personally reviewed and interpreted this imaging study as follows: Radiologist's impression: [address] [address] [address] Scan Report Signed Patient: Kiera Hart #: [id number] : 1Acct#:[id number] Age/Sex: 69 / FADM Date: 03/10/20 Loc: ERRoom/Bed: Attending Dr: Ordering Provider/Ordering MD: Libra Bush MD, [facility] Date of Service: 03/10/20 Procedure(s): CT angio chest w abd pel w con Accession Number(s): [id number] Report Number: [id number] WS: [id number] Exam: CT angio chest w abd pel w con Date/Time of Exam: 03/10/2020 2:41 PM Reason For Exam: SOB, history of diverticulitis DLP: 1923.[address] scans at [facility] use at least one of these dose optimization techniques: automated exposure control; mA and/or kV adjustment per patient size (includes targeted exams where dose is matched to clinical indication); or iterative reconstruction. Comparison with previous exam 11/13/2019 CTA of the chest. There was no sign of acute PE. The thoracic aorta is normal in caliber. The airway is patent. Extensive triple vessel coronary artery disease noted. No pleural or pericardial effusion. The lungs are fully expanded and clear. No destructive bone lesions are chest wall defects. CT/CT angio chest w abd pel w con IMPRESSION: 1. No sign of acute PE. 2. Extensive coronary artery calcification. No acute cardiopulmonary process noted otherwise. CT Abd/Pel: Attestation: I personally reviewed and interpreted this imaging study as follows: Radiologist's impression: CT scan of the abdomen and pelvis with IV contrast. The liver, spleen, stomach and pancreas are unremarkable. The abdominal aorta is normal in caliber. Portal vein and IVC are patent. Normal adrenal glands. Several small nonobstructing stones in the right kidney. The left kidney contains a subcentimeter cyst but is otherwise unremarkable. No free air. No lymphadenopathy. Small bowel loops are normal in caliber. No sign of acute appendix. Several diverticuli of the sigmoid colon. Signs of the colon resection involving the rectosigmoid colon. No mass or adenopathy in the pelvis. Intact urinary bladder. Signs of ventral hernia repair. No destructive bone lesions. IMPRESSION: 1. No sign of mass, lymphadenopathy or acute process. 2. Several tiny nonobstructing stones in the right kidney. 3. Status post rectosigmoid colon resection with anastomosis which appears to be intact. Several scattered diverticuli of the sigmoid colon. Dictated By:Jayden Nuñez DO Signed By:Neetu Garcia Date/Time:03/10/20 1603 DD/ 1546 Discharge Plan Discharge Patient Disposition: Home Clinical Impression: Viral gastroenteritis Condition: Stable Prescriptions: Continued ferrous sulfate 325 mg (65 mg iron) tablet 325 mg PO BID RF: 0 insulin lispro [Humalog KwikPen Insulin] 100 unit/mL insulin pen See Rx Instructions .ROUTE .COMPLEX RF: 0 albuterol sulfate [ProAir HFA] 90 mcg/actuation HFA aerosol inhaler 2 puff INHALATION Q6H PRN (Reason: shortness of breath) Qty: 8.5 RF: 2 bumetanide 1 mg tablet 1 mg PO DAILY Qty: 60 RF: 2 nitroglycerin [Nitrostat] 0.4 mg tablet, sublingual 0.4 mg SUBLINGUAL Q5M PRN (Reason: chest pains) Qty: 30 RF: 0 metoprolol tartrate 25 mg tablet 25 mg PO BID Qty: 60 RF: 4 losartan 100 mg tablet 100 mg PO DAILY Qty: 90 RF: 0 amlodipine 5 mg tablet 5 mg PO DAILY Qty: 30 RF: 5 triamterene-hydrochlorothiazid 37.5-25 mg capsule 1 cap PO QAM Qty: 30 RF: 3 montelukast 10 mg tablet 10 mg PO DAILY Qty: 90 RF: 3 Spiriva with HandiHaler 18 mcg capsule, w/inhalation device 1 cap INHALATION DAILY Qty: 30 RF: 5 azelastine 137 mcg (0.1 %) aerosol,spray See Rx Instructions .ROUTE .COMPLEX Qty: 30 RF: 12 cyclobenzaprine 5 mg tablet 5 mg PO BEDTIME PRN (Reason: muscle spasms) Qty: 90 RF: 0 famotidine 20 mg tablet 20 mg PO BID Qty: 180 RF: 0 fenofibrate nanocrystallized 145 mg tablet See Rx Instructions .ROUTE .COMPLEX Qty: 90 RF: 0 metformin 500 mg tablet 1,000 mg PO BID Qty: 180 RF: 1 rosuvastatin 40 mg tablet 40 mg PO DAILY Qty: 90 RF: 0 aspirin 81 mg Tablet,Delayed Release (Dr/Ec) 81 mg PO DAILY RF: 0 Breo Ellipta See Rx Instructions .ROUTE .COMPLEX RF: 0 Lantus Solostar U-100 Insulin 100 unit/mL (3 mL) insulin pen 35 unit SUBCUT BEDTIME RF: 0 Discharge Orders: Discharge ED (Routine); Ordered 03/10/20 Ordered By: Libra Bush Referrals: Sofie Maria MD [Primary Care Provider] - 1-3 days Discharge Diet: Usual diet Discharge Activity: Increase activity as tolerated Patient Instructions: Gastroenteritis (ED) Activity Restrictions/Additional Instructions: Return for any new or worsening symptoms. Follow-up with your primary care provider within 3 days. Drink plenty of fluids to keep well-hydrated. You need to self isolate for at least 14 days from onset of symptoms or until you are cleared by your primary care provider. You will be called with the results of your Covid PCR testing in a few days. Coding Level of Care Code ED Ex Assistant/Program Director for Leodan Sanchez
[2020-03-11 16:26] LABS: Coronavirus Test Green County Not Detected
--- NOTE | 2020-03-12 09:38 | PC.NURSE ---
Patient notified of results at this time.
== END 2020-03-10 17:04 | disposition home or self-care (01) ==
PROVIDERS: Emergency Provider Family Medicine; PCP Family Medicine
DX: A08.4 Viral intestinal infection, unspecified (principal); Z79.82 Long term (current) use of aspirin; Z79.4 Long term (current) use of insulin; Z87.891 Personal history of nicotine dependence; I10 Essential (primary) hypertension; E78.2 Mixed hyperlipidemia; E11.42 Type 2 diabetes mellitus with diabetic polyneuropathy; Z95.5 Presence of coronary angioplasty implant and graft
CPT/HCPCS: 12345; 36415; 71045; 71275; 74177; 80053; 81001; 83605; 83690; 85025; 85378; 86140; 87040; 87426; 87635; 87804; 96360; 99283; 99284; J7030; Q9967

== ENCOUNTER → 2020-04-21 11:00 | Outpatient (BNVA) | payer MEDICARE, MEDICAID, SELFPAY | PROVIDERS: PCP Family Medicine; Visit Provider Family Medicine | DX: R06.02 Shortness of breath (principal) | CPT/HCPCS: 71046 ==

== ENCOUNTER → 2020-05-12 10:25 | Outpatient (BNVA) | payer MEDICARE, MEDICAID, SELFPAY | PROVIDERS: PCP Family Medicine; Visit Provider Family Medicine | DX: R07.1 Chest pain on breathing (principal); R06.02 Shortness of breath; R05 Cough | CPT/HCPCS: 71046 ==

== ENCOUNTER → 2020-06-15 14:21 | Outpatient (BNVA) | payer MEDICARE, MEDICAID, SELFPAY | PROVIDERS: PCP Family Medicine; Visit Provider Specialist | DX: T84.84XA Pain due to internal orthopedic prosthetic devices, implants and grafts, initial encounter (principal) | CPT/HCPCS: 73560; 73565 ==

== ENCOUNTER 2020-06-16 06:00 | Outpatient (RCR) | payer MEDICARE, MEDICAID, SELFPAY | END 2020-07-13 23:59 | disposition home or self-care (01) | LOC: TPT 06:00 | PROVIDERS: PCP Family Medicine; Referring Provider Specialist; Visit Provider Specialist | DX: Z47.1 Aftercare following joint replacement surgery (principal); Z96.652 Presence of left artificial knee joint | CPT/HCPCS: 80053; 80061; 83036; 85025; 97110; 97140; 97162 ==

== ENCOUNTER 2020-07-14 06:00 | Outpatient (RCR) | payer MEDICARE, MEDICAID, SELFPAY | END 2020-08-12 23:59 | disposition home or self-care (01) | LOC: TPT 06:00 | PROVIDERS: PCP Family Medicine; Referring Provider Specialist; Visit Provider Specialist | DX: Z47.89 Encounter for other orthopedic aftercare (principal) | CPT/HCPCS: 97110; 97164 ==

== ENCOUNTER → 2020-08-28 10:15 | Outpatient (BNVA) | payer MEDICARE, MEDICAID, SELFPAY | PROVIDERS: PCP Family Medicine; Visit Provider Internal Medicine | DX: R06.02 Shortness of breath (principal); R07.1 Chest pain on breathing | CPT/HCPCS: 80048; 83880 ==

== ENCOUNTER → 2020-10-26 12:57 | Outpatient (BNVA) | payer MEDICARE, MEDICAID, SELFPAY | PROVIDERS: PCP Family Medicine; Visit Provider Family Medicine | DX: E78.2 Mixed hyperlipidemia (principal); J44.9 Chronic obstructive pulmonary disease, unspecified; E11.8 Type 2 diabetes mellitus with unspecified complications; Z79.4 Long term (current) use of insulin; I10 Essential (primary) hypertension | CPT/HCPCS: 80053; 80061; 83036; 85025 ==

== ENCOUNTER → 2021-01-18 09:00 | Outpatient (BNVA) | payer MEDICARE, MEDICAID, SELFPAY | PROVIDERS: PCP Family Medicine; Visit Provider Family Medicine | DX: E11.8 Type 2 diabetes mellitus with unspecified complications (principal); E55.9 Vitamin D deficiency, unspecified; Z79.4 Long term (current) use of insulin; I10 Essential (primary) hypertension; E78.2 Mixed hyperlipidemia | CPT/HCPCS: 80053; 80061; 82306; 83036; 84443; 85025 ==

== ENCOUNTER → 2021-02-10 09:50 | Outpatient (BNVA) | payer MEDICARE, MEDICAID, SELFPAY | PROVIDERS: PCP Family Medicine; Visit Provider Family Medicine | DX: R05.9 Cough, unspecified (principal); I70.90 Unspecified atherosclerosis | CPT/HCPCS: 71046 ==

== ENCOUNTER 2021-02-15 11:00 | Observation (INO) | payer MEDICARE, MEDICAID, SELFPAY ==
[2021-02-15] VITALS (11 sets, daily range): BP systolic 92–146; BP diastolic 52–73; PULSE 59–68; RESP 13–23; TEMP 36.6; O2SAT 94–100; BMI 40.7
--- NOTE | 2021-02-15 11:09 | XRR_ITS ---
PROCEDURE INFORMATION: Exam: XR Chest Exam date and time: 02/15/2021 11:09 AM Age: 70 years old Clinical indication: Pain; Angina pectoris; Additional info: Chest pain TECHNIQUE: Imaging protocol: XR of the chest. Views: 1 view. COMPARISON: CR XR chest 2V* [id number] 02/10/2021 9:53 AM FINDINGS: Lungs: Unremarkable. No consolidation. Pleural spaces: Unremarkable. No pleural effusion. No pneumothorax. Heart/Mediastinum: Stable cardiomediastinal silhouette. Bones/joints: Degenerative changes of the spine seen. XR/XR chest 1V portable [id number] IMPRESSION: No acute findings.
--- NOTE | 2021-02-15 11:09 | ECG_ITS ---
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 Measurements Intervals [place] Rate: 55 P: 70 NV: 159 QRS: -32 QRSD: 99 T: 5 QT: 446 QTc: 429 Interpretive Statements SINUS BRADYCARDIA LEFT AXIS DEVIATION [QRS AXIS < -30] Compared to ECG 11/13/2019 16:14:10 Left-axis deviation now present Sinus rhythm no longer present Left anterior fascicular block no longer present T-wave abnormality no longer present Electronically Signed On 02-15-2021 20:52:01 WATER QUALITY MANAGER by Giselle Carpenter M.D. [id number]
--- NOTE | 2021-02-15 11:29 | ECG_ITS ---
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 Measurements Intervals [place] Rate: 67 P: 49 MA: 162 QRS: -48 QRSD: 94 T: -5 QT: 411 QTc: 435 Interpretive Statements SINUS RHYTHM WITH SINUS ARRHYTHMIA LEFT ANTERIOR FASCICULAR BLOCK [QRS AXIS <= -45, QR IN I, RS IN II] MINIMAL VOLTAGE CRITERIA FOR LVH, CONSIDER NORMAL VARIANT [MEETS CRITERIA IN ONE OF: R(aVL), S(V1), R(V5), R(V5/V6)+S(V1)] Diffuse nonspecific T wave changes SEPTAL MYOCARDIAL INFARCTION , PROBABLY OLD [40+ ms Q WAVE IN V1/V2] Compared to ECG 11/13/2019 16:14:10 Myocardial infarct finding now present Electronically Signed On 02-15-2021 20:52:41 BURLAP WORKER by Giselle Carpenter M.D. [id number]
--- NOTE | 2021-02-15 11:31 | ED_ITS ---
HPI - General Adult General: Chief complaint: Chest Pain Stated complaint: CHEST PAIN Time Seen by Provider: 02/15/21 11:09 History of Present Illness: HPI narrative: CC: Chest Pain HPI: This is a [70] yo patient hx of HTN, CAD x 5 (followed by Dr. Douglas), DM p resenting to the ED w/ acute onset intermittent substernal chest pain x 3 hours Pain is a very typical prior presentation of cardiac chest pain. +Dyspnea. Pain is not tearing in nature and does not radiate to the back. Endorse nausea but has no associated with vomiting or decreased PO intake. Denies any recent sympathomimetic drug use. Patient denies any cough. Denies palpitations, syncope symptoms. Pain not positional. Norecent immobility, surgery, unilateral leg swelling, or prior PE. Patient denies any orthopnea, paroxysmal nocturnal dyspnea, weight gain, or increased leg swellings. Onset: 3 hrs ago Duration: ongoing for the last 3 hrs Location: home Severity: moderate Review of Systems Narrative: Constitutional: No fever, no chills. HEENT: No vision changes, no sore throat. CV: +chest pain, no palpitations. PULM: No cough, +dyspnea. GI: No abdominal pain, no N/V/D. : No dysuria, no frequency, no hematuria. MSKEL: No arthralgias, no edema. SKIN: No new rashes, no lesions. NEURO: No headache, no focal weakness. HEME: No easy bleeding or bruising. PSYCH: No change in mood or affect. [facility] ED PFSH: Medical History Acquired deformity of right foot Arteriosclerotic heart disease (ASHD) Asthma with chronic obstructive pulmonary disease (COPD) follows with pulmonology Atrophic vaginitis Bilateral primary osteoarthritis of knee 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 Degenerative disc disease, cervical Dysphagia, oropharyngeal Enrolled in chronic care management Essential (primary) hypertension Fibromyalgia 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[place] Hx of angioedema improved after stopping Lisinopril Low back pain Mixed hyperlipidemia Morbid (severe) obesity due to excess calories BMI 40.0-44.9 Obstructive sleep apnea Polyneuropathy Vesico-ureteral reflux Surgical History History of colon resection Hx of arthroscopy of left knee (~2012) Dr Briceno Hx of cardiac cath Hx of cholecystectomy (~1992) Hx of coronary angioplasty stents x 3 Hx of total knee replacement (~09/2018) left, Dr Gonzalez S/P total knee arthroplasty Family History Brother Cancer lung Father CAD (coronary artery disease) Mother Bleeding disorder Social History Quit status (tobacco): has quit using tobacco Year quit tobacco: 2008 Former quit date comment: 2 PPD x 40 yrs Second hand smoke exposure: No Alcohol intake: never Lives independently: Yes Household members: none Housing: House Marital status: / Number of children: 5 Current occupational status: retired History of recent travel: No Current gender identity: Female Physical Exam Narrative: EXAM NARRATIVE: Head: Atraumatic, normocephalic Eyes: PERRL, EOMI, conjunctiva without injection ENT: Throat without erythema, lesions or exudate, MMM NECK: Supple, trachea midline, no JVD LUNGS: LCTA CV: RRR, S1,S2, no murmurs, rubs, gallops. 2+ peripheral pulses in UEs ABDOMEN: Soft, nontender, nondistended, BS x4, no rigidity, no guarding, no rebo und EXTREMITY: Normal ROM, no pitting edema, no calf tenderness to palpation SKIN: No rash or erythema NEURO: Awake and alert. No focal motor deficits. PSYCH: Normal mood and affect. Course Vital Signs: Vital signs: Vital Signs Temperature 96.5 F L 02/17/21 15:09 Pulse Rate 70 02/17/21 15:09 Respiratory Rate 18 02/17/21 15:09 Blood Pressure 123/65 02/17/21 15:09 Pulse Oximetry 98 02/17/21 15:09 MDM - General Adult MDM Narrative: Medical decision making narrative: [70]yo patient w/ hx DM, HTN, CAD s/p stent x 5 presenting to the ED With acute substernal chest pain since 8am. Currently 4/10 chest pain. Given History And Exam today I have moderate to high suspicion for ACS/UA/NSTEMI. Today, I have NO suspicion for pneumothorax, pneumonia, pulmonary embolus, tamponade, aortic dissection or other emergent problem as a cause for this presentation. ECG did not show any signs of acute STEMI. Workup: ECG, CXR, CBC, BMP, Troponin x 2 Intervention: ASA 325mg, SL nitroglycerin, morphine Troponin: Negative x 1 Other Labs unremarkable for emergent problems. CXR: Without PTX, PNA, or widened mediastinum Age adjusted D dimer wnl [11:15am] EKG showed small q ave with AIYANA in I and aVL new compared to prior EKG from 11/[address] depression in I and aVF. A STEMI alert was called and case was emergently discussed with Dr. Douglas who cancelled the STEMI alert. Dr. Douglas assessed patient at bedside and recommended close followup and Cardiology consult. Disposition: Admission Lab Data: Labs: Lab Results 02/15/21 02/15/21 02/15/21 11:12 11:15 11:15 WBC RBC Hgb Hct MCV MCH MCHC RDW Plt Count MPV Neut % (Auto) Lymph % (Auto) [place] % (Auto) Eos % (Auto) Baso % (Auto) Neut # (Auto) Lymph # (Auto) [place] # (Auto) Eos # (Auto) Baso # (Auto) Nucleated RBC % (a uto) Nucleated RBCs # PT 13.50 SECONDS SEC ONDS (12.1-14.9) INR 1.00 (0.8-1.2) APTT 29.1 SECONDS SECO NDS (23.9-36.7) D-Dimer 0.68 ug/mIFEU H u g/mIFEU (0-0.59) Sodium Potassium Chloride Carbon Dioxide Anion Gap BUN Creatinine GFR Calculation Glucose Calculated Osmolal ity Calcium Total Bilirubin AST ALT Alkaline Phosphata se Troponin T Baselin e 12 ng/L H ng/L (0-10) Troponin T 120 Min [place] Delta Troponin T Troponin T Hi Sens 6Hr Troponin T Hi Sens 6Hr [place] Total Protein Albumin Globulin 02/15/21 02/15/21 02/15/21 11:15 11:15 12:55 WBC 9.4 10^3/uL 10^3/ uL (4.0-10.0) RBC 4.03 10^6/uL L 10 ^6/uL (4.1-5.3) Hgb 12.0 g/dL g/dL (11.5-15.3) Hct 36.9 % L % (37.0-47.0) MCV 91.6 fl fl (81-99) MCH 29.8 pg pg (28.0-34.0) MCHC 32.5 g/dL g/dL (30.0-36.0) RDW 14.1 % % (12.1-15.1) Plt Count 343 10^3/cmm 10^3 /cmm (130-400) MPV 11.0 fL H fL (7.4-10.4) Neut % (Auto) 66.3 % % Lymph % (Auto) 21.5 % % [place] % (Auto) 9.9 % % Eos % (Auto) 1.1 % % Baso % (Auto) 0.5 % % Neut # (Auto) 6.19 10^3/uL 10^3 /uL (1.8-7.7) Lymph # (Auto) 2.0 10^3/uL 10^3/ uL (0.8-4.8) [place] # (Auto) 0.9 10^3/uL 10^3/ uL (0.2-0.9) Eos # (Auto) 0.1 10^3/uL 10^3/ uL (0.0-0.8) Baso # (Auto) 0.1 10^3/uL 10^3/ uL (0.0-0.1) Nucleated RBC % (a uto) 0 % % Nucleated RBCs # 0.0 /100WBC /100W BC PT INR APTT D-Dimer Sodium 141 mmol/L mmol/L (136-145) Potassium 4.2 mmol/L mmol/L (3.5-5.1) Chloride 103 mmol/L mmol/L (98-107) Carbon Dioxide 21 mmol/L L mmol/ L (22-29) Anion Gap 21.2 H (5-19) BUN 19 mg/dL mg/dL (8-23) Creatinine 0.9 mg/dL mg/dL (0.5-0.9) GFR Calculation 61.9 mL/min L mL/ min (90-130) Glucose 85 mg/dL mg/dL (65-115) Calculated Osmolal ity 294 mOsm/kg mOsm/ kg (285-295) Calcium 9.3 mg/dL mg/dL (8.5-10.5) Total Bilirubin 0.3 mg/dL mg/dL (0.15-1.2) AST 15 U/L U/L (0-32) ALT 11 U/L U/L (0-33) Alkaline Phosphata se 60 IU/L IU/L (35-105) Troponin T Baselin e Troponin T 120 Min [place] 10.67 ng/L H ng/L (0-10) Delta Troponin T -1.33 ABS# L ABS# (0-10) Troponin T Hi Sens 6Hr Troponin T Hi Sens 6Hr [place] Total Protein 6.5 g/dL L g/dL (6.6-8.7) Albumin 3.9 g/dL g/dL (3.5-5.2) Globulin 2.6 g/dL g/dL (1.3-4.6) 02/15/21 16:41 WBC RBC Hgb Hct MCV MCH MCHC RDW Plt Count MPV Neut % (Auto) Lymph % (Auto) [place] % (Auto) Eos % (Auto) Baso % (Auto) Neut # (Auto) Lymph # (Auto) [place] # (Auto) Eos # (Auto) Baso # (Auto) Nucleated RBC % (a uto) Nucleated RBCs # PT INR APTT D-Dimer Sodium Potassium Chloride Carbon Dioxide Anion Gap BUN Creatinine GFR Calculation Glucose Calculated Osmolal ity Calcium Total Bilirubin AST ALT Alkaline Phosphata se Troponin T Baselin e Troponin T 120 Min [place] Troponin T Troponin T Hi Sens 6Hr 10.39 ng/L H ng/L (0-10) Troponin T Hi Sens 6Hr Delta -1.61 ng/L L ng/L (0-12) Total Protein Albumin Globulin Imaging Data^: Other Imaging: Radiologist's impression: [address] [id number] ReportSigned Patient: Kiera Hart #: [id number]: 1Acct#:[id number]/Sex: 70 / FADM Date: 02/15/21Loc: ERRoom/Bed:Attending Dr: Ordering Provider/Ordering MD: Joshua Urbina MD Date of Service: 02/15/21 Procedure(s): XR chest 1V portable [id number] Accession Number(s): [id number] Report Number: [id number] PROCEDURE INFORMATION: Exam: XR Chest Exam date and time: 02/15/2021 11:09 AM Age: 70 years old Clinical indication: Pain; Angina pectoris; Additional info: Chest pain TECHNIQUE: Imaging protocol: XR of the chest. Views: 1 view. COMPARISON: CR XR chest 2V* [id number] 02/10/2021 9:53 AM FINDINGS: Lungs: Unremarkable. No consolidation. Pleural spaces: Unremarkable. No pleural effusion. No pneumothorax. Heart/Mediastinum: Stable cardiomediastinal silhouette. Bones/joints: Degenerative changes of the spine seen. XR/XR chest 1V portable [id number] IMPRESSION: No acute findings. 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
[2021-02-15] MEDS: morphine 4 mg/mL SDV 1 mL 2 MG IVP ×2 (11:32→18:46)
[2021-02-15] MEDS: ondansetron 2 mg/ML SDV 2 mL 4 MG IVP (11:32)
[2021-02-15] MEDS: nitroglycerin 0.4 mg sublingual Tablet SUBLINGUAL ×3 (11:33→12:16)
[2021-02-15] MEDS: clopidogrel 300 mg Tablet 600 MG PO (11:33)
[2021-02-15] MEDS: aspirin 325 mg Tablet PO (11:33)
[2021-02-15 11:34] LABS: Partial Thromboplastin Time 29.1 SECONDS (23.9-36.7)
[2021-02-15 11:39] LABS: Troponin(5th) Baseline 12 ng/L (0-10)
[2021-02-15 12:08] LABS: D Dimer 0.68 ug/mIFEU (0-0.59)
--- NOTE | 2021-02-15 12:32 | PM.HP ---
Providers/Chief Complaint Primary Care Provider: Sofie Maria MD Chief Complaint: CHEST PAIN History of Present Illness Kiera Hart is a 70 year old female with past medical history of hypertension, CAD x5 followed by Dr. Pinzon, diabetes mellitus, asthma/COPD, osteoarthritis, fibromyalgia, obstructive sleep apnea presented to the clinic with acute onset intermittent substernal chest pain for about 5 hours on presentation. The pain does radiate to her shoulders. She did get a nitro in route which made the pain better. She does report shortness of exertion that has been worse for the last few days. Pain is not tearing in nature and does not radiate to the back. She did have some nausea but has not had any vomiting. The pain she describes as sharp in nature and it was 8 out of 10 and then became 4 out of 10 after giving nitro. She denies any other symptoms at this time. Denies fever, chills, palpitations, cough, abdominal pain, and vomiting, diarrhea, dysuria, headache. ED course: Blood pressure 108/63, respiratory 15, pulse rate 65, pulse ox 99. EKG was done. She was given aspirin 325, sublingual nitro and morphine. EKG did show a small Q wave with ST elevation in 1 and aVL which was new compared to prior EKG. STEMI alert was called and case was presented to Dr. Douglas. After reviewing EKGs STEMI alert was cancelled. He recommended a cardiology consult and close follow-up. She will be admitted for unstable angina. Review of Systems General: Reports: 10 or more systems reviewed and unremarkable except in HPI and below Medications/Allergies Home Medications Medication Instructions Recorded Confirmed Last Taken Type aspirin 81 mg PO QAM 08/15/19 02/15/21 02/15/21 06:30 History nitroglycerin 0.4 mg sublingual 0.4 mg SUBLINGUAL Q5M PRN #30 tab 01/27/20 02/15/21 02/15/21 Rx tablet pen needle, diabetic 31 gauge x #400 ea 09/04/20 02/15/21 Unknown Rx 5/16 insulin lispro 100 unit/mL See Rx Instructions .ROUTE 09/22/20 02/15/21 Unknown Rx subcutaneous pen .COMPLEX #30 ml tiotropium bromide 2.5 2 puff INHALATION DAILY #4 g 10/26/20 02/15/21 Unknown Rx mcg/actuation mist for inhalation Small portable oxygen concentrator #1 ea 11/11/20 02/15/21 Unknown Rx albuterol sulfate 90 mcg/actuation 2 puff INHALATION Q6H PRN #8.5 gm 11/11/20 02/15/21 Unknown Rx aerosol inhaler fluticasone furoate 200 1 inh INHALATION DAILY #28 ea 11/11/20 02/15/21 Unknown Rx mcg-vilanterol 25 mcg/dose inhalation powder albuterol sulfate 1.25 mg/3 mL 1.25 mg INHALATION QID PRN #90 ml 01/11/21 02/15/21 Unknown Rx solution for nebulization promethazine-DM 6.25 mg-15 mg/5 mL 5 ml PO Q6H PRN #160 ml 02/10/21 02/15/21 Unknown Rx oral syrup Mucinex 600 mg PO BID PRN 02/15/21 02/15/21 Unknown History amlodipine 5 mg PO DAILY 02/15/21 02/15/21 Unknown History azelastine 2 spray INTRANASAL DAILY 02/15/21 02/15/21 Unknown History bumetanide See Rx Instructions .ROUTE .COMPLEX 02/15/21 02/15/21 Unknown History cholecalciferol (vitamin D3) 125 mcg PO QAM 02/15/21 02/15/21 02/15/21 History cyclobenzaprine 5 mg PO BEDTIME PRN 02/15/21 02/15/21 Unknown History famotidine 20 mg PO BID 02/15/21 02/15/21 Unknown History fenofibrate nanocrystallized 145 mg PO DAILY 02/15/21 02/15/21 Unknown History ferrous sulfate 325 mg PO QPM 02/15/21 02/15/21 02/14/21 History insulin glargine [Lantus Solostar 35 unit SUBCUT BEDTIME 02/15/21 02/15/21 02/14/21 History U-100 Insulin] levofloxacin 750 mg PO QAM 02/15/21 02/15/21 02/15/21 06:30 History losartan 100 mg PO BEDTIME 02/15/21 02/15/21 02/14/21 History metformin 1,000 mg PO BID 02/15/21 02/15/21 02/15/21 06:30 History metoprolol tartrate 25 mg PO BID 02/15/21 02/15/21 02/15/21 06:30 History montelukast 10 mg PO BEDTIME 02/15/21 02/15/21 02/14/21 History rosuvastatin 40 mg PO BEDTIME 02/15/21 02/15/21 02/14/21 History Allergies Allergy/AdvReac Type Severity Reaction Status Date / Time lisinopril Allergy Severe angioedema Verified 02/15/21 13:04 hydrocodone Allergy Intermediate vomiting Verified 02/15/21 13:04 Sulfa (Sulfonamide Allergy Mild dizziness Verified 02/15/21 13:04 Antibiotics) PFSH Acute PFSH: Medical History Acquired deformity of right foot Arteriosclerotic heart disease (ASHD) Asthma with chronic obstructive pulmonary disease (COPD) follows with pulmonology Atrophic vaginitis Bilateral primary osteoarthritis of knee 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 Degenerative disc disease, cervical Dysphagia, oropharyngeal Enrolled in chronic care management Essential (primary) hypertension Fibromyalgia 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[place] Hx of angioedema improved after stopping Lisinopril Low back pain Mixed hyperlipidemia Morbid (severe) obesity due to excess calories BMI 40.0-44.9 Obstructive sleep apnea Polyneuropathy Vesico-ureteral reflux Surgical History History of colon resection Hx of arthroscopy of left knee (~2012) Dr Briceno Hx of cardiac cath Hx of cholecystectomy (~1992) Hx of coronary angioplasty stents x 3 Hx of total knee replacement (~09/2018) left, Dr Gonzalez S/P total knee arthroplasty Family History Brother Cancer lung Father CAD (coronary artery disease) Mother Bleeding disorder Social History Quit status (tobacco): has quit using tobacco Year quit tobacco: 2008 Former quit date comment: 2 PPD x 40 yrs Second hand smoke exposure: No Alcohol intake: never Lives independently: Yes Household members: none Housing: House Marital status: / Number of children: 5 Current occupational status: retired History of recent travel: No Current gender identity: Female Vitals/I&O/Wt Last Vital Signs Pulse 65 02/15/21 11:42 Resp 15 02/15/21 11:42 BP 108/63 02/15/21 11:42 Pulse Ox 99 02/15/21 11:42 Weight last 48 hrs Weight 104.326 kg Physical Exam Narrative: EXAM NARRATIVE: General: Alert oriented x3, patient seen laying in bed complaining of chest pain 05/23. HEENT: Normocephalic, atraumatic, EOMI, breathing NC 3L (baseline) Cardio: Regular rate rhythm, normal S1-S2, no murmurs rubs gallops, nitro paste in place Respiratory: Good bilateral air entry, no wheezes no rhonchi appreciated, mildly diminished at bases GI: Abdomen soft, nontender, nondistended, bowel sounds + Behavior: Appropriate and cooperative Extremities: no edema, no cyanosis Data : 02/16/21 02:25 02/16/21 02:25 A&P Assessment and plan (1) Chest pain: Status: Acute Qualifiers: Chest pain type: chest pain on breathing Qualified Code(s): R07.1 - Chest pain on breathing (2) Controlled diabetes mellitus type 2 with complications: Status: Acute Qualifiers: Diabetes mellitus fdc 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 She was loaded with Plavix 600 by ER. ?Sublingual nitro as needed for pain per protocol ?Cardiology on board. Will defer to them for stress test versus cath. - Await echocardiogram results. - On losartan 100 at home. Pressure normal and borderline lower side. Will hold for now. -Continue cpap at night -duoneb q4 hr prn -continue home meds - insulin sliding scale and lantus home dose. If pt made NPO for possible cath or stress test, will adjust lantus dose. Fluids: None at this time Electrolytes: Replete as needed Nutrition: Cardiac diet Activity: As tolerated DVT prophylaxis on full dose lovenox. Attestations Medical Necessity Statement*: > 48 hours. 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
--- NOTE | 2021-02-15 13:04 | PC.PHAR ---
pt states she takes care of her own medications
--- NOTE | 2021-02-15 13:09 | ECG_ITS ---
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 Measurements Intervals [place] Rate: 64 P: 63 VA: 172 QRS: -46 QRSD: 101 T: -13 QT: 429 QTc: 445 Interpretive Statements SINUS RHYTHM LEFT ANTERIOR FASCICULAR BLOCK [QRS AXIS <= -45, QR IN I, RS IN II] MODERATE VOLTAGE CRITERIA FOR LVH, CONSIDER NORMAL VARIANT [MEETS CRITERIA IN ONE OF: R(aVL), S(V1), R(V5), R(V5/V6)+S(V1)] Compared to ECG 02/15/2021 11:46:16 Sinus arrhythmia no longer present Myocardial infarct finding no longer present Electronically Signed On 02-15-2021 20:56:12 STOCK BLENDER by Giselle Carpenter M.D. [id number]
--- NOTE | 2021-02-15 13:16 | P.CONIM_ITS ---
Providers/Reason For Consult Consulting Physician/Specialty*: Dr. Herrmann, cardiology Reason for Consult*: Chest pain, history of CAD Primary Care Provider: Sofie Maria MD History of Present Illness History of Present Illness Kiera Hart is a 70 year old female with past medical history of morbid obesity (BMI ~40), insulin dependant diabetes mellitus, hypertension, dyslipidemia, coronary artery disease with stents in the past (3 per patient), obstructive sleep apnea, asthma/COPD, fibromyalgia and chronic back pain. She presented with chief complaint of chest discomfort. Patient started having sharp recurrent chest pain that started around 6:30 this morning and worse than before. She has had episodes of intermittent chest pain however this episode was worse and did not get relieved by nitroglycerin and hence she presented to the ER for further evaluation. On arrival to the ER EKG was done that showed sinus rhythm with left axis deviation and upright T waves in 1 and aVL. STEMI alert was called and canceled by Dr. Douglas after reviewing her EKGs. I reviewed her prior EKGs and seems like she had ST depression and T wave inversion in 1 and aVL on one of her prior EKG which seems to have normalized. Patient received Plavix 600 mg, aspirin 325 mg, morphine 2 mg IV x1. At the time of evaluation patient continues to have chest discomfort. Lovenox 100 mg x1 was administered and nitro paste was placed. Her last stress test was in September 2019 and angiogram was in 09/2017. Review of Systems General: Reports: 10 or more systems reviewed and unremarkable except in HPI and below Const: Denies: fever(s) or chills ENMT: Denies: epistaxis Card: Reports: chest pain; Denies: irregular heart rhythm, edema or swelling of feet/ankles Resp: Denies: productive cough or non-productive cough GI: Denies: hematemesis or hematochezia : Denies: hematuria Neuro: Reports: headache(s) All/Imm: Denies: facial swelling or acute wheezing Meds/Allergies Home Medications and Allergies Home Medications Medication Instructions Recorded Confirmed Last Taken Type aspirin 81 mg PO QAM 08/15/19 02/15/21 02/15/21 06:30 History nitroglycerin 0.4 mg sublingual 0.4 mg SUBLINGUAL Q5M PRN #30 tab 01/27/20 02/15/21 02/15/21 Rx tablet pen needle, diabetic 31 gauge x #400 ea 09/04/20 02/15/21 Unknown Rx 16 insulin lispro 100 unit/mL See Rx Instructions .ROUTE 09/22/20 02/15/21 Unknown Rx subcutaneous pen .COMPLEX #30 ml tiotropium bromide 2.5 2 puff INHALATION DAILY #4 g 10/26/20 02/15/21 Unknown Rx mcg/actuation mist for inhalation Small portable oxygen concentrator #1 ea 11/11/20 02/15/21 Unknown Rx albuterol sulfate 90 mcg/actuation 2 puff INHALATION Q6H PRN #8.5 gm 11/11/20 02/15/21 Unknown Rx aerosol inhaler fluticasone furoate 200 1 inh INHALATION DAILY #28 ea 11/11/20 02/15/21 Unknown Rx mcg-vilanterol 25 mcg/dose inhalation powder albuterol sulfate 1.25 mg/3 mL 1.25 mg INHALATION QID PRN #90 ml 01/11/21 02/15/21 Unknown Rx solution for nebulization promethazine-DM 6.25 mg-15 mg/5 mL 5 ml PO Q6H PRN #160 ml 02/10/21 02/15/21 Unknown Rx oral syrup Mucinex 600 mg PO BID PRN 02/15/21 02/15/21 Unknown History amlodipine 5 mg PO DAILY 02/15/21 02/15/21 Unknown History azelastine 2 spray INTRANASAL DAILY 02/15/21 02/15/21 Unknown History bumetanide See Rx Instructions .ROUTE .COMPLEX 02/15/21 02/15/21 Unknown History cholecalciferol (vitamin D3) 125 mcg PO QAM 02/15/21 02/15/21 02/15/21 History cyclobenzaprine 5 mg PO BEDTIME PRN 02/15/21 02/15/21 Unknown History famotidine 20 mg PO BID 02/15/21 02/15/21 Unknown History fenofibrate nanocrystallized 145 mg PO DAILY 02/15/21 02/15/21 Unknown History ferrous sulfate 325 mg PO QPM 02/15/21 02/15/21 02/14/21 History insulin glargine [Lantus Solostar 35 unit SUBCUT BEDTIME 02/15/21 02/15/21 02/14/21 History U-100 Insulin] levofloxacin 750 mg PO QAM 02/15/21 02/15/21 02/15/21 06:30 History losartan 100 mg PO BEDTIME 02/15/21 02/15/21 02/14/21 History metformin 1,000 mg PO BID 02/15/21 02/15/21 02/15/21 06:30 History metoprolol tartrate 25 mg PO BID 02/15/21 02/15/21 02/15/21 06:30 History montelukast 10 mg PO BEDTIME 02/15/21 02/15/21 02/14/21 History rosuvastatin 40 mg PO BEDTIME 02/15/21 02/15/21 02/14/21 History Allergies Allergy/AdvReac Type Severity Reaction Status Date / Time lisinopril Allergy Severe angioedema Verified 02/15/21 13:04 hydrocodone Allergy Intermediate vomiting Verified 02/15/21 13:04 Sulfa (Sulfonamide Allergy Mild dizziness Verified 02/15/21 13:04 Antibiotics) Current Medications Current Medications Generic Name Dose Route Start Last Admin Trade Name Freq PRN Reason Stop Dose Admin Nitroglycerin 0.4 mg 02/15/21 11:24 02/15/21 12:16 Nitroglycerin 0.4 Mg Sublingual Tablet SUBLINGUAL 0.4 mg Q5M PRN Administration CHEST PAIN PFSH Acute PFSH: Medical History Acquired deformity of right foot Arteriosclerotic heart disease (ASHD) Asthma with chronic obstructive pulmonary disease (COPD) follows with pulmonology Atrophic vaginitis Bilateral primary osteoarthritis of knee 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 Degenerative disc disease, cervical Dysphagia, oropharyngeal Enrolled in chronic care management Essential (primary) hypertension Fibromyalgia 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[place] Hx of angioedema improved after stopping Lisinopril Low back pain Mixed hyperlipidemia Morbid (severe) obesity due to excess calories BMI 40.0-44.9 Obstructive sleep apnea Polyneuropathy Vesico-ureteral reflux Surgical History History of colon resection Hx of arthroscopy of left knee (~2012) Dr Briceno Hx of cardiac cath Hx of cholecystectomy (~1992) Hx of coronary angioplasty stents x 3 Hx of total knee replacement (~09/2018) left, Dr Gonzalez S/P total knee arthroplasty Family History Brother Cancer lung Father CAD (coronary artery disease) Mother Bleeding disorder Social History Quit status (tobacco): has quit using tobacco Year quit tobacco: 2008 Former quit date comment: 2 PPD x 40 yrs Second hand smoke exposure: No Alcohol intake: never Lives independently: Yes Household members: none Housing: House Marital status: / Number of children: 5 Current occupational status: retired History of recent travel: No Current gender identity: Female Vitals/I&O/Wt Last Vital Signs Pulse 65 02/15/21 11:42 Resp 15 02/15/21 11:42 BP 108/63 02/15/21 11:42 Pulse Ox 99 02/15/21 11:42 Weight last 48 hrs Weight 230 lb Physical Exam Narrative: EXAM NARRATIVE: GENERAL: Obese woman sitting propped up in bed in no acute distress HEENT: Pupils equal round reactive to light. No pallor or icterus. NECK: No JVD, No carotid bruit. CARDIOVASCULAR SYSTEM: S1-S2 regular. No S3 or S4 present. No murmur rubs or gallops. RESPIRATORY SYSTEM: Chest clear to auscultation. No wheezes rhonchi or rubs heard. No use of accessory muscles. ABDOMEN: Soft, nontender and nondistended. Normal bowel sounds present. EXTREMITIES: No cyanosis or edema. No signs of chronic venous insufficiency. SUPERVISOR CUTTING AND BONING: Patient is alert oriented ?3. No focal neurological deficits. SKIN: Normal turgor and temperature. PSYCH: Normal insight and judgment. Data Other Data: Other data: Stress test (09/17/2019) 1) Myocardial perfusion imaging is normal 2) Normal LV systolic function 3) LVEF is 77% 4) Apical thinning is noted Coronary angiogram (09/27/17) Diagnostic Cath Status: Elective Diagnostic Findings LM has 0% stenosis. LAD has 0% stenosis. CX has 0% stenosis. pLAD to mLAD: Minimal luminal irregularities, VENITA: 3 flow. pRCA to mRCA: Minimal luminal irregularities, moderately calcified, VENITA: 3 flow. Coronary angiography shows right dominance. Conclusions No significant disease noted in the Left Main, LAD, Circumflex, or RCA coronary arteries. Anterior and inferior yoo are normal. Normal left ventricular systolic function. Ejection fraction of 65%. A&P Assessment and plan (1) Chest pain: Concern for unstable angina given prior history of coronary artery disease with stents prior to 2009 -Continue with ACS protocol with aspirin, Plavix, therapeutic Lovenox and beta- sim. -Plan for echocardiogram -Her last stress test was in September 2019. She will probably benefit from co ronary angiogram. Status: Acute Qualifiers: Chest pain type: chest pain on breathing Qualified Code(s): R07.1 - Chest pain on breathing (2) Essential (primary) hypertension: Status: Acute (3) Mixed hyperlipidemia: Status: Acute Additional A&P Information Coronary artery disease with PTCA and stenting of the proximal to mid left anterior descending (Taxus 3.0 x 24) and OM Xience stent IDDM GET Obesity Obstructive sleep apnea COPD Thank you for allowing me to participate in patient's care. Please feel free to call with questions or concerns Consult Attestations Time Spent in Patient Care: Greater than 35 minutes (>than 50% of time spent in counselling and/or direct pt care on unit) . Coding Level of Care Code Acute Solar Installation Manager for Leodan Sanchez Diagnoses Chest pain R07.1 Chest pain type: chest pain on breathing Essential (primary) hypertension I10 Mixed hyperlipidemia E78.2
[2021-02-15 13:19] LABS: Troponin 5 2HR 10.67 ng/L (0-10)
[2021-02-15 13:20] LABS: Troponin 5 2HR Delta -1.33 ABS# (0-10)
[2021-02-15 14:22] LABS: Basophils # 0.1 10^3/uL (0.0-0.1); Basophils % 0.5 %; Eosinophils # 0.1 10^3/uL (0.0-0.8); Eosinophils % 1.1 %; Hematocrit 36.9 % (37.0-47.0); Lymphocytes % 21.5 %; Mean Corpuscular HGB Conc 32.5 g/dL (30.0-36.0); Mean Corpuscular Hemoglobin 29.8 pg (28.0-34.0); Mean Corpuscular Volume 91.6 fl (81-99); Monocytes # 0.9 10^3/uL (0.2-0.9); Monocytes % 9.9 %; Neutrophils # 6.19 10^3/uL (1.8-7.7); Neutrophils % 66.3 %; Nucleated Red Blood Cells % 0 %; Platelet Count 343 10^3/cmm (130-400); Red Blood Count 4.03 10^6/uL (4.1-5.3); Red Cell Distribution Width 14.1 % (12.1-15.1); White Blood Count 9.4 10^3/uL (4.0-10.0)
[2021-02-15 14:35] LABS: Alanine Aminotransferase 11 U/L (0-33); Albumin Level 3.9 g/dL (3.5-5.2); Alkaline Phosphatase 60 IU/L (35-105); Anion Gap 21.2 (5-19); Aspartate Amino Transferase 15 U/L (0-32); Blood Urea Nitrogen 19 mg/dL (8-23); Calcium 9.3 mg/dL (8.5-10.5); Carbon Dioxide 21 mmol/L (22-29); Chloride 103 mmol/L (98-107); Globulin 2.6 g/dL (1.3-4.6); Glomerular Filtration Rate 61.9 mL/min (90-130); Glucose 85 mg/dL (65-115); Osmolality Calculated 294 mOsm/kg (285-295); Potassium 4.2 mmol/L (3.5-5.1); Sodium 141 mmol/L (136-145); Total Bilirubin 0.3 mg/dL (0.15-1.2); Total Protein 6.5 g/dL (6.6-8.7)
[2021-02-15] MEDS: enoxaparin 100 mg/mL Syringe SUBCUT (15:43)
[2021-02-15] MEDS: nitroglycerin 1 gm/inch oint Pkt 0.5 INCH TOPICAL (15:43)
--- NOTE | 2021-02-15 17:09 | ECG_ITS ---
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 Measurements Intervals [place] Rate: 64 P: 66 CO: 171 QRS: -45 QRSD: 100 T: -2 QT: 436 QTc: 453 Interpretive Statements SINUS RHYTHM LEFT ANTERIOR FASCICULAR BLOCK [QRS AXIS <= -45, QR IN I, RS IN II] MINIMAL VOLTAGE CRITERIA FOR LVH, CONSIDER NORMAL VARIANT [MEETS CRITERIA IN ONE OF: R(aVL), S(V1), R(V5), R(V5/V6)+S(V1)] Compared to ECG 02/15/2021 13:09:14 No significant changes Electronically Signed On 02-15-2021 20:58:30 HUMAN RELATIONS MANAGER by Giselle Carpenter M.D. [id number]
[2021-02-15 17:25] LABS: Troponin 5 6HR 10.39 ng/L (0-10)
[2021-02-15 17:27] LABS: Troponin 5 6HR Delta -1.61 ng/L (0-12)
[2021-02-15] MEDS: metoprolol tartrate 25 mg Tablet PO (18:47)
[2021-02-15] MEDS: ferrous sulfate EC 325 mg Tablet PO (18:47)
[2021-02-15] MEDS: famotidine 20 mg Tablet PO (18:47)
[2021-02-15 20:05] LABS: Glucose Point of Care 80 mg/dL (70-110)
[2021-02-15] MEDS: atorvastatin 40 mg Tablet 80 MG PO (21:33)
[2021-02-15] MEDS: montelukast sodium 10 mg Tablet PO (21:34)
[2021-02-15 23:11] LABS: Adenovirus Not Detected (NOT DETECT); Chlamydia Pneumoniae Not Detected (NOT DETECT); Coronavirus 229E,HKU1,NL63,OC4 Not Detected (NOT DETECT); Human Metapneumovirus Not Detected (NOT DETECT); Human Rhinovirus/Enterovirus Not Detected (NOT DETECT); Influenza A Not Detected (NOT DETECT); Influenza A H1 Not Detected (NOT DETECT); Influenza A H1-2009 Not Detected (NOT DETECT); Influenza A H3 Not Detected (NOT DETECT); Influenza B Not Detected (NOT DETECT); Mycoplasma Pneumoniae Not Detected (NOT DETECT); Parainfluenza Virus Type 1 Not Detected (NOT DETECT); Parainfluenza Virus Type 2 Not Detected (NOT DETECT); Parainfluenza Virus Type 3 Not Detected (NOT DETECT); Parainfluenza Virus Type 4 Not Detected (NOT DETECT); Respiratory Syncytial Virus A Not Detected (NOT DETECT); Respiratory Syncytial Virus B Not Detected (NOT DETECT); SARS-COV-2 Not Detected (NOT DETECT)
[2021-02-16] VITALS (12 sets, daily range): BP systolic 101–120; BP diastolic 51–75; PULSE 62–82; RESP 16–25; TEMP 36.6–36.8; O2SAT 28–100
--- NOTE | 2021-02-16 02:35 | PC.NURSE ---
Patient sleeping most of night. Reviewed medications and npo status at beginning of shift. Cardiac cath to be done in am. Patient denied pain. Will continue to monitor.
[2021-02-16 02:38] LABS: Basophils % 0.6 %; Eosinophils # 0.1 10^3/uL (0.0-0.8); Eosinophils % 0.8 %; Lymphocytes % 31.1 %; Mean Corpuscular HGB Conc 32.4 g/dL (30.0-36.0); Mean Corpuscular Hemoglobin 29.8 pg (28.0-34.0); Mean Corpuscular Volume 92.1 fl (81-99); Monocytes # 0.8 10^3/uL (0.2-0.9); Monocytes % 12.9 %; Neutrophils # 3.51 10^3/uL (1.8-7.7); Nucleated Red Blood Cells % 0 %; Platelet Count 292 10^3/cmm (130-400); Red Blood Count 3.69 10^6/uL (4.1-5.3); Red Cell Distribution Width 14.4 % (12.1-15.1); White Blood Count 6.5 10^3/uL (4.0-10.0)
[2021-02-16 03:03] LABS: Alanine Aminotransferase 8 U/L (0-33); Albumin Level 3.5 g/dL (3.5-5.2); Alkaline Phosphatase 51 IU/L (35-105); Anion Gap 13.9 (5-19); Aspartate Amino Transferase 12 U/L (0-32); Blood Urea Nitrogen 21 mg/dL (8-23); Calcium 8.8 mg/dL (8.5-10.5); Carbon Dioxide 29 mmol/L (22-29); Chloride 101 mmol/L (98-107); Globulin 2.4 g/dL (1.3-4.6); Glomerular Filtration Rate 49.1 mL/min (90-130); Glucose 87 mg/dL (65-115); Magnesium 1.5 mg/dL (1.7-2.3); Osmolality Calculated 292 mOsm/kg (285-295); Potassium 3.9 mmol/L (3.5-5.1); Sodium 140 mmol/L (136-145); Total Bilirubin 0.2 mg/dL (0.15-1.2); Total Protein 5.9 g/dL (6.6-8.7)
[2021-02-16] MEDS: enoxaparin 100 mg/mL Syringe SUBCUT (05:23)
[2021-02-16] MEDS: levoFLOXacin 750 mg Tablet PO (05:24)
[2021-02-16] MEDS: cholecalciferol (vitamin D3) 5,000 unit Tablet 5000 UNIT PO (05:24)
[2021-02-16] MEDS: aspirin 81 mg EC Tablet PO (05:25)
[2021-02-16 06:55] LABS: Glucose Point of Care 83 mg/dL (70-110)
[2021-02-16] MEDS: perflutren protein-a microsphr 0.22 mg/mL SDV 3 mL IV (07:21)
[2021-02-16] MEDS: clopidogrel 75 mg Tablet PO (08:15)
[2021-02-16] MEDS: bumetanide 1 mg Tablet PO (08:15)
[2021-02-16] MEDS: famotidine 20 mg Tablet PO ×2 (08:15→19:00)
[2021-02-16] MEDS: nitroglycerin 0.4 mg sublingual Tablet SUBLINGUAL ×2 (08:16→08:22)
[2021-02-16] MEDS: metoprolol tartrate 25 mg Tablet PO ×2 (08:16→21:17)
[2021-02-16] MEDS: sodium chloride 0.9% 1,000 ML 50 ML IV (09:23)
[2021-02-16] MEDS: magnesium sulfate premix 2 GM/50 ML PIGGYBACK IV (09:24)
[2021-02-16] MEDS: ranolazine (12HR) 500 mg Tablet PO ×2 (09:24→18:59)
[2021-02-16] MEDS: diphenhydrAMINE 50 mg Capsule PO (10:03)
[2021-02-16 11:12] LABS: Glucose Point of Care 92 mg/dL (70-110)
--- NOTE | 2021-02-16 11:25 | P.PN_ITS ---
Subjective Subjective: Interval history: Seen this morning. She still complains of chest pressure but does state it is less compared to before. She seems little anxious as well. Vitals/I&O/Wt Last Vital Signs Temp 98.3 F 02/16/21 07:56 Pulse 74 02/16/21 07:56 Resp 18 02/16/21 07:56 BP 108/66 02/16/21 07:56 Pulse Ox 96 02/16/21 07:56 02/15/21 02/16/21 02/16/21 22:59 06:59 14:59 Intake Total 0 / 0 Balance 0 / 0 Weight last 48 hrs Weight 104.326 kg Physical Exam Narrative: EXAM NARRATIVE: General: Alert oriented x3, patient seen laying in bed complaining of chest pressure but less compared to before. Unable to tell me a number out of 10. HEENT: Normocephalic, atraumatic, EOMI, breathing NC 3L (baseline) Cardio: Regular rate rhythm, normal S1-S2, no murmurs rubs gallops, nitro paste in place Respiratory: Good bilateral air entry, no wheezes no rhonchi appreciated, mildly diminished at bases GI: Abdomen soft, nontender, nondistended, bowel sounds + Behavior: Appropriate and cooperative Extremities: no edema, no cyanosis Exam unchanged compared to yesterday. Chest pain is not reproducible to palpation. 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: with regional intermodal truck driver use Qualified Code(s): E11.8 - Type 2 diabetes mellitus with unspecified complications; Z79.4 - terminal supervisor (current) use of insulin (3) Essential (primary) hypertension: Status: Acute (4) Morbid (severe) obesity due to excess calories: Status: Acute (5) Obstructive sleep apnea: Status: Acute (6) Unstable angina: Status: Acute Additional A&P Information #Unstable angina #Hypertension #Obstructive sleep apnea #COPD/asthma?not in acute exacerbation #Chest pain ?We will place on full dose Lovenox for 48 hours as per protocol ?Lopressor 25 twice daily, aspirin, Plavix. She was loaded with Plavix 600 by ER. ?Sublingual nitro as needed for pain per protocol ?Cardiology on board. Plan is for cath. -Echo does show grade 2 diastolic dysfunction, EF 65%, possible mild hypokinesis of apical lateral wall. - On losartan 100 at home. Pressure normal and borderline lower side. Will hold for now. Covid negative. -Continue cpap at night -duoneb q4 hr prn -continue home meds - insulin sliding scale and lantus home dose. If pt made NPO for possible cath or stress test, will adjust lantus dose. Fluids: None at this time Electrolytes: Replete as needed Nutrition: N.p.o. Activity: As tolerated DVT prophylaxis on full dose lovenox. 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
--- NOTE | 2021-02-16 11:30 | W.PM.OPSUD ---
Surgery/Procedure H&P Update DATE OF PROCEDURE: February 16, 2021 DATE H&P PERFORMED: 02/15/21 H&P UPDATE INFORMATION: I have reviewed H&P completed within last 30 days, I have examined patient prior to procedure and No changes to prior documentation PREOP DIAGNOSIS: Chest pain with suspicion of unstable angina PATIENT REASSESSED PRIOR TO SEDATION, WITH NO CHANGE NOTED: Yes PHYSICAL EXAM: alert, oriented x 3 and clear to auscultation bilaterally AIRWAY EVAL/ANESTHESIA PLAN: ASA II and Risks, benefits & alternatives of sedation and/or procedure discussed ADDITIONAL INFORMATION: Patient has been explained all risk benefit and alternative for the procedure she understand risk for contrast-induced nephropathy stroke major minor bleed transfusion urgent emergent bypass or vascular surgery. She would like to proceed with it. She is a candidate for DAPT.
[2021-02-16 17:34] LABS: Glucose Point of Care 132 mg/dL (70-110)
--- NOTE | 2021-02-16 17:54 | USCV_ITS ---
Kiera Hart Age: 70 Gender: F : 1950 Exam Date: 02/16/2021 06:14 Ordering Phys: Carmella Herrmann MD ([email or web address]) Technologist: AQUILINO Exam Location: [facility] [place] Indication: CHEST PAIN, CAD BP: 110 / 51 HR: 61 Rhythm: Sinus Technical Quality: Adequate MEASUREMENTS (Male / Female) Normal Values 2D ECHO LV Diastolic Diameter PLAX 4.2 cm 4.2 - 5.9 / 3.9 - 5.3 cm LV Systolic Diameter PLAX 2.9 cm IVS Diastolic Thickness 1.4 cm 0.6 - 1.0 / 0.6 - 0.9 cm IVS Systolic Thickness 1.8 cm LVPW Diastolic Thickness 1.3 cm 0.6 - 1.0 / 0.6 - 0.9 cm LVPW Systolic Thickness 1.3 cm LVOT Diameter 2.0 cm LV Ejection Fraction 2D Teich 59.6 % LV Ejection Fraction MOD 2C 62.2 % LV Ejection Fraction 2C AL 61.0 % LA Diameter 3.1 cm Aorta at Sinotubular Diameter 3.1 cm M-MODE MV E Point Septal Separation 0.6 cm DOPPLER AV Peak Velocity 137.0 cm/s LVOT Peak Velocity 91.0 cm/s AV Area Cont Eq vti 2.3 cm squared AV Area Cont Eq pk 2.1 cm squared MV Area PHT 4.1 cm squared Mitral E to A Ratio 0.9 MV E' Velocity 46.5 cm/s Mitral E to MV E' Ratio 12.1 Mitral E to LV E' Lateral Ratio 10.9 Mitral E to LV E' Septal Ratio 13.9 TR Peak Velocity 319.0 cm/s TR Peak Gradient 40.7 mmHg TV Peak E Velocity 39.0 cm/s Right Atrial Pressure 3.0 mmHg Pulmonary Artery Systolic Pressu 43.7 mmHg PV Peak Velocity 83.0 cm/s RV Acceleration Time 0.1 s RV Ejection Time 0.4 s RV AcT/ET 0.3 FINDINGS Left Ventricle Normal left ventricular size, systolic function and mildly increased wall thickness. Left ventricular ejection fraction is estimated at 65 %. Mild concentric left ventricular hypertrophy. There is possible mild hypokinesis of apical lateral wall. Grade II diastolic dysfunction, moderately elevated filling pressures. Right Ventricle Normal right ventricular size and systolic function. RVSP could not be calculated due to incomplete tricuspid regurgitation velocity profile. Right Atrium Normal right atrial size. Right atrial pressure estimated at 3 mm Hg. Left Atrium Mildly increased left atrial size. Mitral Valve Moderate mitral annular calcification. No mitral valve stenosis. No mitral valve regurgitation. Aortic Valve Aortic valve not well visualized. No aortic valve stenosis. No aortic valve regurgitation. Tricuspid Valve Tricuspid valve not well visualized. Pulmonic Valve Pulmonic valve not well visualized. No pulmonary valve stenosis. No significant pulmonary valve regurgitation. Pericardium No pericardial effusion. Aorta Normal size aortic root. Normal sized inferior vena cava. CONCLUSIONS 1. This is a technically difficult study. Ultrasound enhancing agent (Optison) was used per protocol. 2. Normal left ventricular size, systolic function and mildly increased wall thickness. Left ventricular ejection fraction is estimated at 65 %. There is possible mild hypokinesis of apical lateral wall. Grade II diastolic dysfunction, moderately elevated filling pressures. 3. Normal right ventricular size and systolic function. 4. When compared to previous echocardiogram dated 07/29/2017, there may be mild hypokinesis of apical lateral wall. Carmella Herrmann MD (Electronically Signed) Final Date: 16 February 2021 10:22 S
[2021-02-16] MEDS: ferrous sulfate EC 325 mg Tablet PO (18:59)
--- NOTE | 2021-02-16 19:53 | PC.NURSE ---
TR band removal. At 1330 I began removing air from TR band at 2 ml every 20 minutes. At 1500 patient began actively bleeding at site. Reinstalled 4 ml to band. Continnued TR band removal process at 1600 [place] [address]. 2x2 drsg and opsite applied. Patient reminded of right arm / wrist restrictions/.
--- NOTE | 2021-02-16 20:46 | XACV_ITS ---
Exam Room: [facility] Ht: 160 cm Wt: 104 kg BSA: 2.21 m2 Gender: Female : 1950 Any Known Allergies: Hydrocodone Exam Priority: Routine Indication(s): - Unstable angina Procedure(s): Procedure Description: Diagnostic procedure Procedure Description: Coronary Angiography Diagnostic Cath Status: Urgent Diagnostic Findings * Left Main has no disease. * Circumflex has no disease. * Right Coronary Artery has no disease. * Mid Left Anterior Descending: luminal irregularities 20% stenosis, VENITA: 3 flow. * Coronary angiography shows right dominance. PCI Status: Urgent Conclusions 1. There is luminal irregularities coronary artery disease with one vessel disease. 2. Patent previously placed mid LAD stent, rest of the vessels does not have any significant stenosis. Recommendations * Continue current medical management and risk factor modification. Diagnostic RX Recommendation: medical therapy and/or counseling Clinical Evaluation EBL: 5mL-10mL Procedural Details Procedure Consent Obtained. Current Diagnosis : Unstable angina. Admit Source: In Patient. Pre-Procedure Time Out. Identified patient by full name and date of as verbalized by the patient/guarantor. Does the consent match the physician's order: Yes. Accurate & Complete Informed Consent: Yes. Inpatient/Outpatient History & Physical on Chart: Yes. If H&P is completed, is and addenduem needed: No; If yes, is the addendum complete: N/A. Visualize and Verify Site with Patient/Guarantor: N/A. Relevant Radiology Images available: N/A. The risks, benefits, and alternatives of sedation and/or procedure were discussed by physician. The patient agrees to continue. Procedure started. [facility] Clinical Fraility Score: 3: Managing Well. Electric Appliance Installer Indications: Worsening Angina. Chest Pain Symptom Assessment: Atypical Angina. Cardiovascular Instability: No, stable. Correct patient, site and procedure confirmed by cath team. Current diagnosis: Unstable angina. PERRLA. Strong, equal hand counter pocket sewer bilaterally. Lungs clear x 5 lobes. IV Site on Arrival: 20 gauge in the left anticubital. IV Fluids: 0.9% NaCl at KVO. 250 mL infused prior to roofing laborer. Pre Procedural Pulses: bilateral dorsalis pedis was Doppled. Pre Procedural Pulses: bilateral posterior tibial was Doppled. Pre Procedural Pulses: bilateral radial was 2+. Oxygen started at 3liters/min via nasal canula. right groin was prepped with chloroprep then draped in the usual sterile fashion. right radial was prepped with chloroprep then draped in the usual sterile fashion. Baseline sample Acquired. HR: 64 BPM. Physician notified. Patient's family unavailable. Equipment: 5F - Femoral. Equipment: 5F - Radial. Equipment: 6F - Femoral. Equipment: 6F - Radial. Heparinized Saline (2 units/mL), 1000 mL bag. Cardiac Cath Pack. ACIST Manifold Kit Model BT 2000. Physician arrived. Physician scrubbed in. Immediate Pre-Procedure Time Out. Correct Patient: Yes; Correct Procedure: Yes; Correct Site: Yes; Correct Patient Position: Yes; Correct Supplies: Yes; Dried Flammable Prep: Yes; Blood Products Available: N/A;. Lidocaine 1% infiltrated to the right radial. Arterial access obtained. A 5 serbian TIG catheter in over wire. Multiple views taken of left coronary artery. Catheter redirected to the RCA. Multiple views taken of right coronary artery. Physician review of films. Physician scrubbed out. A TR Band was successful obtaining hemostatsis at the Right Radial artery insertion site. No heparin per MD. Received theraputic lovenox dosing withing the last 12 hours. TR band placed. Hemostasis obtained. Post Procedure: Pulses reassessed and unchanged. PERRLA. Strong, equal hand counter pocket sewer bilaterally. No VTE prophylaxis required. Medication's Wasted: Lidocaine 1% = 16 mL. Medication's Wasted: Heparin = 1000 units. Medication's Wasted: Nitro = 49.8 mg. Medication's Wasted: Versed = 1 mg. Medication's Wasted: Fentanyl = 50 mcg. Total IV fluids: 25 mL. Fluoro: 1:03. Contrast type used: Omnipaque 300 mgI/mL, 500 mL bottle. [id number]. Post-op diagnosis: Non Obstuctive CAD, Patent Stents. Complications: None. Estimated blood loss: 5mL-10mL. Responsiveness - Normal response to verbal stimuli; alert and oriented, PERRLA. Airway - Unaffected, no intervention required; spontaneous ventilation. Circulation: W/N/L, pulses unchanged. Nausea/Vomiting: No. Procedure completed. Patient transferred by bed to 1st floor. Vital chart was stopped. Access Site Site: Right Radial artery Sheath Size: 5 Fr Hemostasis Method: TR Band Hemostasis Success: Successful Procedure Medications Start: 11:54 AM Stop: 11:54 AM Medication: Versed 1 mg and Fentanyl 25 mcg Amount: 1 Route: I.V. Start: 12:05 PM Stop: 12:05 PM Medication: Fentanyl Amount: 25 mcg Route: I.V. I, the attending physician, have reviewed and verified all procedure medications. Yes, all medications given per verbal order History/Risk Factors Hypertension: Yes Dyslipidemia: Yes Peripheral Arterial Disease (PAD): No Myocardial Infarction (TN): No Obesity: Yes Renal Disease: No Prior Interventions PCI: Yes CABG: No Valve Surgery: No Report Signatures Finalized by Galilea Douglas MD on 03/01/2021 07:32 PM
[2021-02-16] MEDS: montelukast sodium 10 mg Tablet PO (21:17)
[2021-02-16] MEDS: atorvastatin 40 mg Tablet 80 MG PO (21:17)
[2021-02-16] MEDS: insulin glargine 100 units/1 mL 35 UNIT SUBCUT (21:18)
[2021-02-16 23:15] LABS: Glucose Point of Care 104 mg/dL (70-110)
[2021-02-17 03:55] LABS: Basophils % 0.6 %; Eosinophils # 0.1 10^3/uL (0.0-0.8); Hematocrit 35.1 % (37.0-47.0); Hemoglobin 11.3 g/dL (11.5-15.3); Lymphocytes # 1.7 10^3/uL (0.8-4.8); Lymphocytes % 24.9 %; Mean Corpuscular HGB Conc 32.2 g/dL (30.0-36.0); Mean Corpuscular Hemoglobin 29.4 pg (28.0-34.0); Mean Corpuscular Volume 91.2 fl (81-99); Mean Platelet Volume 10.2 fL (7.4-10.4); Monocytes # 0.9 10^3/uL (0.2-0.9); Monocytes % 12.1 %; Neutrophils # 4.27 10^3/uL (1.8-7.7); Nucleated Red Blood Cells % 0 %; Platelet Count 308 10^3/cmm (130-400); Red Blood Count 3.85 10^6/uL (4.1-5.3); Red Cell Distribution Width 14.4 % (12.1-15.1)
[2021-02-17 04:08] LABS: Anion Gap 13.6 (5-19); Blood Urea Nitrogen 19 mg/dL (8-23); Calcium 8.4 mg/dL (8.5-10.5); Carbon Dioxide 26 mmol/L (22-29); Chloride 103 mmol/L (98-107); Glomerular Filtration Rate 61.9 mL/min (90-130); Glucose 108 mg/dL (65-115); Magnesium 1.7 mg/dL (1.7-2.3); Osmolality Calculated 291 mOsm/kg (285-295); Potassium 3.6 mmol/L (3.5-5.1); Sodium 139 mmol/L (136-145)
[2021-02-17 04:19] VITALS: BP 136/95; PULSE 61; RESP 18; TEMP 36.6; O2SAT 100
[2021-02-17 05:13] VITALS: PULSE 76
[2021-02-17] MEDS: cholecalciferol (vitamin D3) 5,000 unit Tablet 5000 UNIT PO (06:00)
[2021-02-17] MEDS: levoFLOXacin 750 mg Tablet PO (06:01)
[2021-02-17] MEDS: aspirin 81 mg EC Tablet PO (06:01)
--- NOTE | 2021-02-17 06:30 | PC.NURSE ---
Patient up and down most of the night. Cpap mask making her feel like she cannot sleep. Denies pain. Cardiac cath done yesterday. No interventions needed. TR band site at right wrist with some bleeding mid morning after she was restless. Patient thinks that she may have hit it on the bed rale in her sleep. Redressed with 4x4 and tegaderm. No continuous bleeding noted. Pressure held before bandaging again. Will continue to monitor.
[2021-02-17 06:41] LABS: Glucose Point of Care 111 mg/dL (70-110)
[2021-02-17 08:23] VITALS: BP 106/66; PULSE 78; RESP 20; TEMP 36.5; O2SAT 97
[2021-02-17] MEDS: ranolazine (12HR) 500 mg Tablet PO (09:50)
[2021-02-17] MEDS: bumetanide 1 mg Tablet PO (09:50)
[2021-02-17] MEDS: famotidine 20 mg Tablet PO (09:51)
[2021-02-17] MEDS: metoprolol tartrate 25 mg Tablet PO (09:51)
--- NOTE | 2021-02-17 09:54 | PM.PN ---
Subjective Subjective: Interval history: She is s/p [facility] via right radial approach. patent mid LAD and OM stent with mild in stent restnosis of LAD Denies chest pain. able to walk to the bathroom without any symptoms Medications: Reviewed: Yes Vitals/I&O/Wt Last Vital Signs Temp 97.7 F 02/17/21 08:23 Pulse 78 02/17/21 08:23 Resp 20 H 02/17/21 08:23 BP 106/66 02/17/21 08:23 Pulse Ox 97 02/17/21 08:23 02/16/21 02/17/21 02/17/21 22:59 06:59 14:59 Intake Total 360 / 360 100 / 460 1290 / 1290 Balance 360 / 360 100 / 460 1290 / 1290 Weight last 48 hrs Weight 230 lb Physical Exam Narrative: EXAM NARRATIVE: GENERAL: Obese woman sitting propped up in bed in no acute distress HEENT: Pupils equal round reactive to light. No pallor or icterus. NECK: No JVD, No carotid bruit. CARDIOVASCULAR SYSTEM: S1-S2 regular. No murmur rubs or gallops. RESPIRATORY SYSTEM: Chest clear to auscultation. No wheezes. coarse intermittent rhonci. No use of accessory muscles. ABDOMEN: Soft, nontender and nondistended. Normal bowel sounds present. EXTREMITIES: No cyanosis or edema. No signs of chronic venous insufficiency. 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 No focal neurological deficits. Data : 02/17/21 03:17 02/17/21 03:17 A&P Assessment and plan (1) Chest pain: Concern for unstable angina -Mild CAD on [facility] with patent stents. Chest pain could be microvascular angina -trial of Ranexa. start on PPI as well on discharge. -resume metformin (02/19/21) -Normal LV function on echocardiogram -f/u with [facility] in [address] Liu in 6-8 weeks Status: Acute Qualifiers: Chest pain type: chest pain on breathing Qualified Code(s): R07.1 - Chest pain on breathing (2) Essential (primary) hypertension: Status: Acute (3) Mixed hyperlipidemia: Status: Acute Additional A&P Information Coronary artery disease with PTCA and stenting of the proximal to mid left anterior descending (Taxus 3.0 x 24) and OM Xience stent IDDM GET Obesity Obstructive sleep apnea COPD Thank you for allowing me to participate in patient's care. Please feel free to call with questions or concerns Attestations Medical Necessity Statement*: stable to be discharged Time Spent in Patient Care: 16 - 35 minutes (>than 50% of time spent in counselling and/or direct pt care on unit). Coding Level of Care Code Acute [place] [employer] for Leodan Fwd Diagnoses Chest pain R07.1 Chest pain type: chest pain on breathing Essential (primary) hypertension I10 Mixed hyperlipidemia E78.2
[2021-02-17 11:34] LABS: Glucose Point of Care 119 mg/dL (70-110)
[2021-02-17 11:54] VITALS: BP 123/65; PULSE 70; RESP 18; TEMP 35.8; O2SAT 98
--- NOTE | 2021-02-17 12:35 | PM.DCS ---
Discharge Providers Date of Admission: 02/15/21 18:10 Date of Discharge: February 17, 2021 Attending Provider at Admission: Belén Cosme MD Attending Provider at Discharge: Belén Cosme MD Primary Care Provider: Sofie Juarez MD Diagnoses at Discharge Discharge Diagnosis (1) Chest pain: Status: Resolved Qualifiers: Chest pain type: chest pain on breathing Qualified Code(s): R07.1 - Chest pain on breathing (2) Essential (primary) hypertension: Status: Acute (3) Mixed hyperlipidemia: Status: Acute Reason for Visit Reason for Visit: CHEST PAIN Hospital Course Hospital Course Kiera Hart is a 70 year old female with past medical history of hypertension, CAD x5 followed by Dr. Pinzon, diabetes mellitus, asthma/COPD, osteoarthritis, fibromyalgia, obstructive sleep apnea presented to the clinic with acute onset intermittent substernal chest pain for about 5 hours on presentation. The pain does radiate to her shoulders. She did get a nitro in route which made the pain better. She does report shortness of exertion that has been worse for the last few days. Pain is not tearing in nature and does not radiate to the back. She did have some nausea but has not had any vomiting. The pain she describes as sharp in nature and it was 8 out of 10 and then became 4 out of 10 after giving nitro. She denies any other symptoms at this time. Denies fever, chills, palpitations, cough, abdominal pain, and vomiting, diarrhea, dysuria, headache. ED course: Blood pressure 108/63, respiratory 15, pulse rate 65, pulse ox 99. EKG was done. She was given aspirin 325, sublingual nitro and morphine. EKG did show a small Q wave with ST elevation in 1 and aVL which was new compared to prior EKG. STEMI alert was called and case was presented to Dr. Douglas. After reviewing EKGs STEMI alert was cancelled. He recommended a cardiology consult and close follow-up. She will be admitted for unstable angina. Course: Patient was admitted with chest pain and STEMI alert was called in ER. EKG did have small ST elevation. Cardiology was consulted STAT. STEMI alert was cancelled and she was placed on UA protocol with full dose lovenox. Due to persistent chest pain she was taken for angiogram which showed patent stent. Ranexa was added and she was asked to follow up with cardiology outpatient. Echo was also obtained and reviewed by cardiology. Patient did feel better on day of discharge. Physical Exam Narrative: EXAM NARRATIVE: General: Alert oriented x3, patient seen laying in bed feeling better today, chest pain free. HEENT: Normocephalic, atraumatic, EOMI, breathing NC 3L (baseline) Cardio: Regular rate rhythm, normal S1-S2, no murmurs rubs gallops Respiratory: Good bilateral air entry, no wheezes no rhonchi appreciated, mildly diminished at bases GI: Abdomen soft, nontender, nondistended, bowel sounds + Behavior: Appropriate and cooperative Extremities: no edema, no cyanosis Discharge Data Data Completed and Pending: Completed Studies During Hospitalization Category Date Time Status XR chest 1V mae ble 10075 Urgent Exams 02/15/21 11:09 Completed CV. echo wo/w con trast [id number] Routin e Ultrasound 02/16/21 17:54 Completed Pending at discharge Category Date Time Status SURGICAL ASSISTANT CERTIFIED request for service Routin e Exams 02/16/21 20:46 Taken Labs from last 24 hours 02/17/21 02/17/21 02/17/21 11:27 06:32 03:17 WBC RBC Hgb Hct MCV MCH MCHC RDW Plt Count MPV Neut % (Auto) Lymph % (Auto) [place] % (Auto) Eos % (Auto) Baso % (Auto) Neut # (Auto) Lymph # (Auto) [place] # (Auto) Eos # (Auto) Baso # (Auto) Nucleated RBC % (a uto) Nucleated RBCs # Sodium 139 Potassium 3.6 Chloride 103 Carbon Dioxide 26 Anion Gap 13.6 BUN 19 Creatinine 0.9 GFR Calculation 61.9 L Glucose 108 POC Glucose 119 H 111 H Calculated Osmolal ity 291 Calcium 8.4 L Magnesium 1.7 02/17/21 02/16/21 02/16/21 03:17 20:51 17:07 WBC 7.0 RBC 3.85 L Hgb 11.3 L Hct 35.1 L MCV 91.2 MCH 29.4 MCHC 32.2 RDW 14.4 Plt Count 308 MPV 10.2 Neut % (Auto) 61.0 Lymph % (Auto) 24.9 [place] % (Auto) 12.1 Eos % (Auto) 1.0 Baso % (Auto) 0.6 Neut # (Auto) 4.27 Lymph # (Auto) 1.7 [place] # (Auto) 0.9 Eos # (Auto) 0.1 Baso # (Auto) 0.0 Nucleated RBC % (a uto) 0 Nucleated RBCs # 0.0 Sodium Potassium Chloride Carbon Dioxide Anion Gap BUN Creatinine GFR Calculation Glucose POC Glucose 104 132 H Calculated Osmolal ity Calcium Magnesium Vitals: Last Vital Signs Temp 96.5 F L 02/17/21 11:54 Pulse 70 02/17/21 11:54 Resp 18 02/17/21 11:54 BP 123/65 02/17/21 11:54 Pulse Ox 98 02/17/21 11:54 Discharge Plan Discharge Patient Disposition: Home Condition: Stable Prescriptions: New ranolazine 500 mg Tablet Extended Release 12 Hr 500 mg PO BID 30 Days Qty: 60 RF: 0 Protonix 40 mg tablet,delayed release (DR/EC) 40 mg PO DAILY 30 Days Qty: 30 RF: 0 Continued Breo Ellipta 200-25 mcg/dose blister with device 1 inh inhalation DAILY Qty: 28 RF: 4 albuterol sulfate [ProAir HFA] 90 mcg/actuation HFA aerosol inhaler 2 puff INHALATION Q6H PRN (Reason: shortness of breath) Qty: 8.5 RF: 2 promethazine-DM 6.25-15 mg/5 mL syrup 5 ml PO Q6H PRN (Reason: cough) Qty: 160 RF: 1 nitroglycerin [Nitrostat] 0.4 mg tablet, sublingual 0.4 mg SUBLINGUAL Q5M PRN (Reason: chest pains) Qty: 30 RF: 0 Spiriva Respimat 2.5 mcg/actuation mist 2 puff inhalation DAILY Qty: 4 RF: 6 albuterol sulfate 1.25 mg/3 mL solution for nebulization 1.25 mg inhalation QID PRN (Reason: shortness of breath or wheezing) Qty: 90 RF: 0 insulin lispro [Humalog KwikPen Insulin] 100 unit/mL insulin pen See Rx Instructions .ROUTE .COMPLEX Qty: 30 RF: 2 aspirin 81 mg Tablet,Delayed Release (Dr/Ec) 81 mg PO QAM RF: 0 bumetanide 1 mg tablet See Rx Instructions .ROUTE .COMPLEX RF: 0 amlodipine 5 mg tablet 5 mg PO DAILY RF: 0 famotidine 20 mg tablet 20 mg PO BID RF: 0 ferrous sulfate 325 mg (65 mg iron) tablet 325 mg PO QPM RF: 0 montelukast 10 mg tablet 10 mg PO BEDTIME RF: 0 azelastine 137 mcg (0.1 %) aerosol,spray 2 spray intranasal DAILY RF: 0 levofloxacin 750 mg tablet 750 mg PO QAM RF: 0 cholecalciferol (vitamin D3) 125 mcg (5,000 unit) capsule 125 mcg PO QAM RF: 0 cyclobenzaprine 5 mg tablet 5 mg PO BEDTIME PRN (Reason: Muscle Spasm) RF: 0 rosuvastatin 40 mg tablet 40 mg PO BEDTIME RF: 0 metoprolol tartrate 25 mg tablet 25 mg PO BID RF: 0 fenofibrate nanocrystallized 145 mg tablet 145 mg PO DAILY RF: 0 Lantus Solostar U-100 Insulin 100 unit/mL (3 mL) insulin pen 35 unit SUBCUT BEDTIME RF: 0 Mucinex 600 mg tablet extended release 12hr 600 mg PO BID PRN (Reason: Congestion) RF: 0 Held metformin 500 mg tablet 1,000 mg PO BID RF: 0 Hold Instructions: Restart on 02/19/2021 No Action (DME) Small portable oxygen concentrator See Rx Instructions .Route .MEDSUPPLY Qty: 1 RF: 0 (DME) pen needle, diabetic [UltiCare Pen Needle] 31 gauge x 5/16 needle See Rx Instructions .Route Qty: 400 RF: 4 losartan 100 mg tablet 100 mg PO BEDTIME Qty: 30 RF: 2 Discharge Orders: Discharge Order (Routine); Ordered 02/17/21 Ordered By: Belén Cosme Referrals: Jose M Liu M.D [Physician] - 03/31/21 2:15 pm (you have an appt with dr liu in [facility] [place] [facility] at 2:15.call [phone] if you have any questions) Deepa Collado FNP [Nurse Practitioner] - 02/24/21 2:30 pm (you have an appt with nurse practitioner deepa collado in [facility] at 2:30.if you have any questions call [phone]) Sofie Juarez MD [Primary Care Provider] - 02/24/21 9:20 am (you have an appt with dr juarez on feb 24 at 9:20.call [phone] if you have any questions) Discharge Diet: Cardiac and Low Salt Discharge Activity: Resume usual activity Patient Instructions: Pantoprazole (By mouth), Ranolazine (By mouth) (Ranexa), Chest Pain (DC), Chest Pain Stoplight, Opioid Safety, Post Angiogram Home Care Instructions Discharge Attestations Time Spent in Discharge Care*: less than 30 min Quality Metrics Clinical Quality Measures During this hospital stay, did patient experience: None Coding Level of Care Code Acute Chg FW DC note Diagnoses Chest pain R07.1 Chest pain type: chest pain on breathing Essential (primary) hypertension I10 Mixed hyperlipidemia E78.2
[2021-02-17 15:09] VITALS: BP 123/65; PULSE 70; RESP 18; TEMP 35.8; O2SAT 98
--- NOTE | 2021-02-17 15:47 | PC.NURSE ---
discharge instructions given and explained.pt verb understanding of instructions.discharged via w/c to exit at 1545.daughter to drive pt home
== END 2021-02-17 15:50 | disposition home or self-care (01) ==
LOC: ER 13:26 → CSU 18:08
PROVIDERS: Internal Medicine Cardiovascular Disease; Admitting Provider Internal Medicine; Emergency Provider Emergency Medicine; PCP Family Medicine; Visit Provider Internal Medicine
DX: I25.110 Atherosclerotic heart disease of native coronary artery with unstable angina pectoris (principal); R07.1 Chest pain on breathing; I10 Essential (primary) hypertension; E78.2 Mixed hyperlipidemia; Z95.5 Presence of coronary angioplasty implant and graft; E11.9 Type 2 diabetes mellitus without complications; J44.9 Chronic obstructive pulmonary disease, unspecified; M19.90 Unspecified osteoarthritis, unspecified site; M79.7 Fibromyalgia; G47.33 Obstructive sleep apnea (adult) (pediatric); Z79.4 Long term (current) use of insulin; E66.9 Obesity, unspecified; Z68.41 Body mass index [BMI] 40.0-44.9, adult
CPT/HCPCS: 36415; 36416; 71045; 80048; 80053; 82962; 83735; 84484; 85025; 85378; 85610; 85730; 87635; 93005; 93454; 96372; 96374; 96375; 97161; 99285; C1769; C1887; C1894; C8929; G0378; J1644; J1650; J1815; J2250; J2270; J2405; J3010; J3475; J3490; J7030; Q0163; Q9956; Q9967

== ENCOUNTER → 2021-02-24 15:10 | Outpatient (BNVA) | payer MEDICARE, MEDICAID, SELFPAY | PROVIDERS: PCP Family Medicine; Visit Provider Nurse Practitioner Family | DX: I20.0 Unstable angina (principal); I10 Essential (primary) hypertension | CPT/HCPCS: 80048 ==

== ENCOUNTER → 2021-04-15 14:18 | Outpatient (BNVA) | payer MEDICARE, MEDICAID, SELFPAY | PROVIDERS: PCP Family Medicine; Visit Provider Nurse Practitioner Family | DX: R09.89 Other specified symptoms and signs involving the circulatory and respiratory systems (principal); R05.9 Cough, unspecified | CPT/HCPCS: 71046; 80053 ==

== ENCOUNTER → 2021-05-11 10:58 | Outpatient (BNVA) | payer MEDICARE, MEDICAID, SELFPAY | PROVIDERS: PCP Family Medicine; Visit Provider Nurse Practitioner Family | DX: R06.02 Shortness of breath (principal); R07.9 Chest pain, unspecified; W19.XXXA Unspecified fall, initial encounter; Y92.009 Unspecified place in unspecified non-institutional (private) residence as the place of occurrence of the external cause; R05.9 Cough, unspecified; M79.602 Pain in left arm | CPT/HCPCS: 71046 ==

== ENCOUNTER 2021-05-11 12:54 | Observation (INO) | payer MEDICARE, MEDICAID, SELFPAY ==
--- NOTE | 2021-05-11 12:56 | ECG_ITS ---
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 Measurements Intervals [place] Rate: 45 P: 67 [place]: 178 QRS: -30 QRSD: 117 T: -10 QT: 475 QTc: 414 Interpretive Statements SINUS BRADYCARDIA BORDERLINE LEFT AXIS DEVIATION [QRS AXIS < -20] MODERATE INTRAVENTRICULAR CONDUCTION DELAY [110+ ms QRS DURATION] NONSPECIFIC T-WAVE ABNORMALITY Compared to ECG 02/15/2021 17:39:15 Intraventricular conduction delay now present T-wave abnormality now present Sinus rhythm no longer present Left anterior fascicular block no longer present Electronically Signed On 05-12-2021 17:02:16 CDT by Evaristo Grant M.D. [email or web address]
--- NOTE | 2021-05-11 12:56 | XR_ITS ---
WS: [id number] Exam: XR chest 1V portable [id number] Date/Time of Exam: 05/11/2021 12:59 PM Reason For Exam: chest pain Comparison 05/11/2021 1101 hours The lungs are fully expanded and clear. Unremarkable cardiomediastinal silhouette. No pleural effusio ns. Regional bony elements are intact. XR/XR chest 1V portable [id number] IMPRESSION: 1. No acute cardiopulmonary finding. No change.
[2021-05-11 12:57] VITALS: BP 149/67; PULSE 49; RESP 22; TEMP 36.4; O2SAT 100; BMI 36.8
--- NOTE | 2021-05-11 13:12 | ED_ITS ---
HPI - General Adult General: Chief complaint: Chest Pain Stated complaint: CHEST PAIN Time Seen by Provider: 05/11/21 12:55 History of Present Illness: Patient is a 71-year-old female with history of hypertension, CAD with stent x5, diabetes, asthma/COPD, fibromyalgia GET who presents the emergency room for evaluation of acute onset of chest pain x2 days. Patient tells me that yesterday afternoon she was walking home and suddenly she developed significant chest pressure that is occasionally stabbing. Patient states that the last few days, the chest pressure has not been relieved. Patient went to see her primary care provider earlier this morning and was told to come to the emergency room for concerns of ongoing chest pain. Patient received aspirin, nitro x 3, fentanyl, and zofran in route by EMS. On arrival, patient still complains of significant chest pressure. Patient denies any diaphoresis, arm pain jaw pain or back pain. Patient said the pain is. Pain is stabbing but not pleuritic. Patient denies any family history of aneurysm. Patient denies any leg swelling, recent travel or immobilization or prior history of VTEs. Of note, most recently patient was admitted in 02/2021 and underwent PTCA. At that point time, patient was found to have stenosis in the LAD and had to be restenosed. Onset:2 days ago Duration:2 days Location:home Severity:moderate Associated symptoms: Reports chest pain; Deny dyspnea, nausea, rash, palpitations or vomiting Review of Systems Const: Denies: fever(s) or chills Eyes: Denies: change in vision ENMT: Denies: mouth pain Card: Reports: chest pain; Denies: palpitations Resp: Denies: dyspnea or non-productive cough GI: Denies: abdominal pain, nausea, vomiting or diarrhea : Denies: dysuria Musc: Denies: extremity pain Skin/Breast: Denies: rash or new lesions Neuro: Denies: weakness in extremities Psych: Reports: other (Normal mood) Rodriguez/Lymph: Denies: easy bruising [facility] ED PFSH: Medical History Acquired deformity of right foot Arteriosclerotic heart disease (ASHD) Asthma with chronic obstructive pulmonary disease (COPD) follows with pulmonology Atrophic vaginitis Bilateral primary osteoarthritis of knee 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 Degenerative disc disease, cervical Dysphagia, oropharyngeal Enrolled in chronic care management Essential (primary) hypertension Fibromyalgia 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[place] Hx of angioedema improved after stopping Lisinopril Low back pain Mixed hyperlipidemia Morbid (severe) obesity due to excess calories BMI 40.0-44.9 Obstructive sleep apnea Polyneuropathy Vesico-ureteral reflux Surgical History History of colon resection Hx of arthroscopy of left knee (~2012) Dr Briceno Hx of cardiac cath Hx of cholecystectomy (~1992) Hx of coronary angioplasty stents x 3 Hx of total knee replacement (~09/2018) left, Dr Gonzalez S/P total knee arthroplasty Family History Brother Cancer lung Father CAD (coronary artery disease) Mother Bleeding disorder Social History Smoking and tobacco status: never smoked Quit status (tobacco): has quit using tobacco Year quit tobacco: 2008 Former quit date comment: 2 PPD x 40 yrs Second hand smoke exposure: No Alcohol intake: never Lives independently: Yes Household members: none Housing: House Marital status: / Number of children: 5 Current occupational status: retired History of recent travel: No Current gender identity: Female Physical Exam Const: COMMON NORMALS: alert HENMT: COMMON NORMALS: atraumatic HEAD & SCALP: atraumatic MOUTH: moist mucous membranes not abnormal Eye: COMMON NORMALS: EOMs intact bilaterally and conjunctivae normal CONJUNCTIVA: Yes conjunctivae normal Neck/C-Spine: COMMON NORMALS: full ROM and supple Resp: COMMON NORMALS: normal respiratory effort and clear to auscultation bilaterally AUSCULTATION: clear to auscultation bilaterally Cardio: COMMON NORMALS: regular rate RATE: regular rate OTHER: 2+ radial pulses b/l GI: COMMON NORMALS: Soft to palpation and non-tender PALPATION: Yes Soft to palpation Extremity: COMMON NORMALS: full ROM OTHER: no richard sign Neuro: SENSORIUM/ORIENTATION: Yes alert MOTOR EXAM: No Abnormal motor strength present and Other motor observations present (no focal motor deficits) Psych: COMMON NORMALS: speech normal SPEECH: Yes normal speech MOOD & AFFECT: Yes euthymic mood Course Vital Signs: Vital signs: Vital Signs Temperature 98.2 F 05/13/21 11:43 Pulse Rate 79 05/13/21 11:43 Respiratory Rate 17 05/13/21 11:43 Blood Pressure 112/72 05/13/21 11:43 Pulse Oximetry 94 05/13/21 11:43 MDM - General Adult Medical Decision Making [71]yo patient w/ hx of hypertension, CAD w/ stents x [address] Chung, diabetes mellitus, asthma/COPD, obstructive sleep apnea presenting to the ED With acute substernal chest pain X 2 days with hx of similar prior pain. Currently mild chest pain. Given History And Exam today I have moderate to high suspicion for ACS/UA/NSTEMI. Today, I will evaluate for pneumothorax, pneumonia, pulmonary embolus, tamponade, aortic dissection or other emergent problem as a cause for this presentation. ECG did not show any signs of acute STEMI. Given the fact the patient has been difference in systolic pressure >40 the arms bilaterally, will evaluate for possible dissection today. Workup: ECG x 2, CXR, CBC, BMP, Troponin x2 Intervention: ASA 325mg, morphine Findings: ECG: No overt evidence of STEMI, hyperacute T waves, localizable STD or T wave inversions. No evidence of Brugada?s sign, delta wave, epsilon wave, significantly prolonged QTc, or malignant arrhythmia. No Q waves. Troponin: Negative x 1 Other Labs unremarkable for emergent problems. CXR: Without PTX, PNA, or widened mediastinum Dimer wnl [3:48] On reassessment, the patient is currently chest pain free. S/p aspirin 325mg. Will defer antiplatelet and anticoagulation to the inpatient team. Pending repeat troponin. HDS, AAOx3, no signs of respiratory distress, without refractory chest pain, no signs of malignant dysrhythmia on threat monitoring analyst (VT/VF). CTA negative for dissectio Disposition: Inpatient admission. Lab Data : 05/12/21 05:19 05/13/21 04:57 Radiology Impressions Chest X-Ray 05/11/21 12:56 IMPRESSION: 1. No acute cardiopulmonary finding. No change. Chest/Abdomen/Pelvis CTA 05/11/21 13:31 IMPRESSION: 1. No thoracic aorta or abdominal aorta dissection or aneurysm. 2. Atherosclerotic changes within the thoracic and abdominal aorta. 3. No pneumonia. 4. Moderate cardiomegaly 5. No central pulmonary embolism. 6. Prior cholecystectomy. 7. No free fluid or adenopathy. 8. 2 mm calcification in the RIGHT urinary bladder may be from a recently passed renal calcification. Laboratory Results WBC 5.7 10^3/uL (4.0-10.0) 05/11/21 13:15 RBC 3.80 10^6/uL (4.1-5.3) L 05/11/21 13:15 Hgb 11.6 g/dL (11.5-15.3) 05/11/21 13:15 Hct 35.5 % (37.0-47.0) L 05/11/21 13:15 MCV 93.4 fl (81-99) 05/11/21 13:15 MCH 30.5 pg (28.0-34.0) 05/11/21 13:15 MCHC 32.7 g/dL (30.0-36.0) 05/11/21 13:15 RDW 14.3 % (12.1-15.1) 05/11/21 13:15 Plt Count 332 10^3/cmm (130-400) 05/11/21 13:15 MPV 9.9 fL (7.4-10.4) 05/11/21 13:15 Neut % (Auto) 65.6 % 05/11/21 13:15 Lymph % (Auto) 21.6 % 05/11/21 13:15 [place] % (Auto) 10.7 % 05/11/21 13:15 Eos % (Auto) 1.2 % 05/11/21 13:15 Baso % (Auto) 0.5 % 05/11/21 13:15 Neut # (Auto) 3.73 10^3/uL (1.8-7.7) 05/11/21 13:15 Lymph # (Auto) 1.2 10^3/uL (0.8-4.8) 05/11/21 13:15 [place] # (Auto) 0.6 10^3/uL (0.2-0.9) 05/11/21 13:15 Eos # (Auto) 0.1 10^3/uL (0.0-0.8) 05/11/21 13:15 Baso # (Auto) 0.0 10^3/uL (0.0-0.1) 05/11/21 13:15 Nucleated RBC % (auto) 0 % 05/11/21 13:15 Nucleated RBCs # 0.0 /100WBC 05/11/21 13:15 D-Dimer 0.49 ug/mIFEU (0-0.59) 05/11/21 13:15 Sodium 135 mmol/L (136-145) L 05/11/21 13:15 Potassium 4.5 mmol/L (3.5-5.1) 05/11/21 13:15 Chloride 100 mmol/L (98-107) 05/11/21 13:15 Carbon Dioxide 22 mmol/L (22-29) 05/11/21 13:15 Anion Gap 17.5 (5-19) 05/11/21 13:15 BUN 19 mg/dL (8-23) 05/11/21 13:15 Creatinine 0.8 mg/dL (0.5-0.9) 05/11/21 13:15 GFR Calculation Not Reportable 05/11/21 13:15 Glucose 98 mg/dL (65-115) 05/11/21 13:15 Calculated Osmolality 282 mOsm/kg (285-295) L 05/11/21 13:15 Calcium 9.9 mg/dL (8.5-10.5) 05/11/21 13:15 Troponin T Baseline 10 ng/L (0-10) 05/11/21 13:15 Troponin T 120 Minute 8.28 ng/L (0-10) 05/11/21 14:54 Delta Troponin T -1.72 ABS# (0-10) L 05/11/21 14:54 Troponin T Hi Sens 6Hr 7.74 ng/L (0-10) 05/11/21 19:44 Troponin T Hi Sens 6Hr Delta -2.26 ng/L (0-12) L 05/11/21 19:44 Imaging Data Other Imaging: Radiologist's impression: [address] [place] [address] XRay Report Signed Patient: Kiera Hart Unit #: [id number] : 1950 Age/Sex: 71 / F ADM Date: 05/11/21 Loc: ER Room/Bed: Attending Dr: Ordering Provider/Ordering MD: Joshua Urbina MD Date of Service: 05/11/21 Procedure(s): XR chest 1V portable 29718 Accession Number(s): [id number] Report Number: [id number] WS: [id number] Exam: XR chest 1V portable 20203 Date/Time of Exam: 05/11/2021 12:59 PM Reason For Exam: chest pain Comparison 05/11/2021 1101 hours The lungs are fully expanded and clear. Unremarkable cardiomediastinal silhouette. No pleural effusions. Regional bony elements are intact. XR/XR chest 1V portable 24000 IMPRESSION: 1. No acute cardiopulmonary finding. No change. ? Dictated By: Jayden Nuñez DO Signed By: Jayden Nuñez DO Signed Date/Time: 05/11/21 1347 DD/ [address] [place] [address] CT Scan Report Signed Patient: Kiera Hart Unit #: [id number] : 1950 Age/Sex: 71 / F ADM Date: 05/11/21 Loc: ER Room/Bed: Attending Dr: Ordering Provider/Ordering MD: Joshua Urbina MD Date of Service: 05/11/21 Procedure(s): CT angio chest abdomen pelvis Accession Number(s): [id number] Report Number: [id number] WS: [id number] CTA CHEST , ABDOMEN AND PELVIS, with and without contrast. HISTORY: Epigastric and left-sided chest pain for 2 days. Possible dissection. TECHNIQUE: Noncontrast CT first performed. CT angiogram is performed through the chest, abdomen and pelvis. Additional imaging is performed through the abdomen and pelvis with IV contrast. Sagittal and coronal reformats have been submitted.? MIP imaging also reviewed. All CT scans at [facility] use at least one of these dose optimization techniques: automated exposure control; mA and/or kV adjustment per patient size (includes targeted exams where dose is matched to clinical indication); or iterative reconstruction. Contrast: Omnipaque 350; 95 cc IV. DLP: 2780.23 mGy.cm COMPARISON: 03/10/2020 Chest CTA: Good opacification of the thoracic aorta. There is extensive calcified plaque within the aorta but no aneurysm. Mild ectasia and atherosclerosis. Artifact at the aortic root causing limitation of evaluation for aorta dissection. Normal size descending aorta. Pulmonary artery is also normal size. No embolism. Heart is normal size with no pericardial or? pleural effusion. No pulmonary mass or nodule or pneumonia. No mediastinal or hilar adenopathy. Small hiatal hernia. Abdomen CTA: Good enhancement of the abdominal aorta. No dissection or aneurysm. Mild atherosclerotic plaque at the origins of the celiac axis and SMA. No thrombus or occlusions. There are a few scattered calcified plaques at the origins of the renal artery. Early arterial enhancement of the liver, spleen and pancreas are negative. Prior cholecystectomy. No adrenal mass. Perinephric stranding with no obstruction. No adenopathy or fluid. Pelvic CTA: Calcifications continue into the common iliac arteries. No dissection or aneurysm. No complete occlusions. No free fluid or adenopathy in the pelvis. Well-distended urinary bladder. Tiny calcification in the RIGHT urinary bladder probably a recently passed calcification. This calcific density measures only 2 mm. Bones are osteopenic. CT/CT angio chest abdomen pelvis IMPRESSION: ? 1.? No thoracic aorta or abdominal aorta dissection or aneurysm. 2.? Atherosclerotic changes within the thoracic and abdominal aorta. 3.? No pneumonia. 4.? Moderate cardiomegaly 5.? No central pulmonary embolism. 6.? Prior cholecystectomy. 7.? No free fluid or adenopathy. 8.? 2 mm calcification in the RIGHT urinary bladder may be from a recently passed renal calcification. ? ? ? Dictated By: Bridget Ovalles DO Signed By: Bridget Ovalles DO Signed Date/Time: 05/11/21 1459 DD/ 1445 Discharge Plan Discharge Patient Disposition: Admitted As Inpatient Admit Provider: Sonido Sellers Clinical Impression: Chest pain Condition: Stable Discharge Diet: Cardiac and Diabetic Discharge Activity: Resume usual activity Coding Level of Care Code ED Admitting Counselor for Chg Fwd Exam Comprehensive
[2021-05-11 13:24] VITALS: RESP 18; O2SAT 100
[2021-05-11] MEDS: morphine 4 mg/mL SDV 1 mL IVP (13:24)
[2021-05-11] MEDS: ondansetron 2 mg/ML SDV 2 mL 4 MG IVP (13:24)
[2021-05-11 13:31] LABS: Basophils % 0.5 %; Eosinophils # 0.1 10^3/uL (0.0-0.8); Eosinophils % 1.2 %; Hematocrit 35.5 % (37.0-47.0); Hemoglobin 11.6 g/dL (11.5-15.3); Lymphocytes # 1.2 10^3/uL (0.8-4.8); Lymphocytes % 21.6 %; Mean Corpuscular HGB Conc 32.7 g/dL (30.0-36.0); Mean Corpuscular Hemoglobin 30.5 pg (28.0-34.0); Mean Corpuscular Volume 93.4 fl (81-99); Mean Platelet Volume 9.9 fL (7.4-10.4); Monocytes # 0.6 10^3/uL (0.2-0.9); Monocytes % 10.7 %; Neutrophils # 3.73 10^3/uL (1.8-7.7); Neutrophils % 65.6 %; Nucleated Red Blood Cells % 0 %; Platelet Count 332 10^3/cmm (130-400); Red Cell Distribution Width 14.3 % (12.1-15.1); White Blood Count 5.7 10^3/uL (4.0-10.0)
--- NOTE | 2021-05-11 13:31 | CT_ITS ---
WS: [id number] CTA CHEST , ABDOMEN AND PELVIS, with and without contrast. HISTORY: Epigastric and left-sided chest pain for 2 days. Possible dissection. TECHNIQUE: Noncontrast CT first performed. CT angiogram is performed through the chest, abdomen and p fransisco. Additional imaging is performed through the abdomen and pelvis with IV contrast. Sagittal and coronal reformats have been submitted. MIP imaging also reviewed. All CT scans at [facility] use at least one of these dose optimization techniques: automated exposure control; mA and/or kV adju stment per patient size (includes targeted exams where dose is matched to clinical indication); or it erative reconstruction. Contrast: Omnipaque 350; 95 cc IV. DLP: 2780.23 mGy.cm COMPARISON: 03/10/2020 Chest CTA: Good opacification of the thoracic aorta. There is extensive calcified plaque within the a francis but no aneurysm. Mild ectasia and atherosclerosis. Artifact at the aortic root causing limitatio n of evaluation for aorta dissection. Normal size descending aorta. Pulmonary artery is also normal s ize. No embolism. Heart is normal size with no pericardial or pleural effusion. No pulmonary mass or nodule or pneumonia. No mediastinal or hilar adenopathy. Small hiatal hernia. Abdomen CTA: Good enhancement of the abdominal aorta. No dissection or aneurysm. Mild atherosclerotic plaque at the origins of the celiac axis and SMA. No thrombus or occlusions. There are a few scatter ed calcified plaques at the origins of the renal artery. Early arterial enhancement of the liver, spleen and pancreas are negative. Prior cholecystectomy. No adrenal mass. Perinephric stranding with no obstruction. No adenopathy or fluid. Pelvic CTA: Calcifications continue into the common iliac arteries. No dissection or aneurysm. No com plete occlusions. No free fluid or adenopathy in the pelvis. Well-distended urinary bladder. Tiny syd cification in the RIGHT urinary bladder probably a recently passed calcification. This calcific densi ty measures only 2 mm. Bones are osteopenic. CT/CT angio chest abdomen pelvis IMPRESSION: 1. No thoracic aorta or abdominal aorta dissection or aneurysm. 2. Atherosclerotic changes within the thoracic and abdominal aorta. 3. No pneumonia. 4. Moderate cardiomegaly 5. No central pulmonary embolism. 6. Prior cholecystectomy. 7. No free fluid or adenopathy. 8. 2 mm calcification in the RIGHT urinary bladder may be from a recently pass ed renal calcification.
[2021-05-11 13:54] LABS: Troponin(5th) Baseline 10 ng/L (0-10)
[2021-05-11 13:56] LABS: Anion Gap 17.5 (5-19); Blood Urea Nitrogen 19 mg/dL (8-23); Calcium 9.9 mg/dL (8.5-10.5); Carbon Dioxide 22 mmol/L (22-29); Chloride 100 mmol/L (98-107); D Dimer 0.49 ug/mIFEU (0-0.59); Glucose 98 mg/dL (65-115); Osmolality Calculated 282 mOsm/kg (285-295); Potassium 4.5 mmol/L (3.5-5.1); Sodium 135 mmol/L (136-145)
[2021-05-11] MEDS: iohexol 350 mg/mL 100 mL Btl IV (14:45)
--- NOTE | 2021-05-11 14:56 | ECG_ITS ---
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 Measurements Intervals [place] Rate: 45 P: 72 TX: 195 QRS: -33 QRSD: 118 T: -1 QT: 480 QTc: 419 Interpretive Statements SINUS BRADYCARDIA LEFT AXIS DEVIATION [QRS AXIS < -30] MODERATE INTRAVENTRICULAR CONDUCTION DELAY [110+ ms QRS DURATION] Compared to ECG 05/11/2021 13:07:38 T-wave abnormality no longer present Electronically Signed On 05-12-2021 17:13:59 CDT by Evaristo Grant M.D. [id number]
[2021-05-11 15:19] VITALS: BP 131/75; PULSE 58; RESP 14; O2SAT 100
[2021-05-11 15:24] LABS: Troponin 5 2HR 8.28 ng/L (0-10)
[2021-05-11 16:59] LABS: Troponin 5 2HR Delta -1.72 ABS# (0-10)
[2021-05-11 18:30] VITALS: BP 121/77; PULSE 50; RESP 15; TEMP 36.8; O2SAT 99
--- NOTE | 2021-05-11 18:56 | ECG_ITS ---
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 Measurements Intervals [place] Rate: 47 P: 68 IA: 187 QRS: -25 QRSD: 119 T: 1 QT: 477 QTc: 424 Interpretive Statements SINUS BRADYCARDIA BORDERLINE LEFT AXIS DEVIATION [QRS AXIS < -20] MODERATE INTRAVENTRICULAR CONDUCTION DELAY [110+ ms QRS DURATION] MINIMAL VOLTAGE CRITERIA FOR LVH, CONSIDER NORMAL VARIANT [MEETS CRITERIA IN ONE OF: R(aVL), S(V1), R(V5), R(V5/V6)+S(V1)] Compared to ECG 05/11/2021 15:17:35 No significant changes Electronically Signed On 05-12-2021 17:16:03 CDT by Evaristo Grant M.D. [id number]
[2021-05-11 20:18] LABS: Troponin 5 6HR 7.74 ng/L (0-10)
[2021-05-11 20:38] LABS: Troponin 5 6HR Delta -2.26 ng/L (0-12)
[2021-05-11 20:43] VITALS: BMI 37.1
[2021-05-11 21:22] VITALS: BP 124/76; PULSE 68; RESP 15; TEMP 36.6; O2SAT 98
--- NOTE | 2021-05-11 21:59 | ECG_ITS ---
[facility] Test Date: 2021-05-12 Pat Name: Kiera Hart Department: Room: 256 Gender: Female Casting Associate: Rosana Fernandez : 1950 Requested By: Sonido Sellers Order Number: [id number] Сергей MD: Gislele Carpenter M.D. Interpretive Statements NAME OF STUDY: LEXISCAN SESTAMIBI STRESS TEST INDICATION: Chest Pain, PROCEDURE: At the baseline, the EKG revealed normal sinus rhythm with a poor R wave progression. Possible old septal MN. Left axis deviation. The baseline blood pressure was 127/77 mm Hg with a heart rate of 71 beats/min. Lexiscan was infused over a period of 20 seconds. A total of 0.4 milligrams of Lexiscan was infused. The stress phase was continued for a total of 5 minutes. Heart rate at the end of the stress phase was 80 with a blood pressure 117/62. The EKG at the peak infusion revealed no significant changes. Sestamibi was injected 20 seconds after the Lexiscan infusion. Blood pressure at the end of the recovery phase was 112/61 with a heart rate of 83 per minute. CONCLUSION: 1. No significant EKG changes with the LexiScan infusion 2. No LexiScan induced chest pain or cardiac arrhythmia 3. Normal blood pressure and heart rate response 4. Sestamibi/sestamibi perfusion scan pending; see separate report. Electronically Signed On 05-14-2021 14:45:45 CDT by Giselle Carpenter M.D. [id number]
[2021-05-11 22:00] VITALS: PULSE 84
--- NOTE | 2021-05-11 22:06 | P.HP_ITS ---
Providers/Chief Complaint Admitting Physician: Sonido Sellers MD Primary Care Provider: Sofie Maria MD Chief Complaint: CHEST PAIN History of Present Illness Kiera Hart is a 71 year old female w/ h/o HTN, DMII, COPD, CAD s/p stent came to the ED c/o lt sided chest pain since yesterday afternoon. The CP was pressure like radiating to her lt arm. The pain lasted about 2 hrs. Took a NTG tab w/ little releif. It was not associated any change of her chronic mild dyspnea. She went to bed without any CP and slept throughout the night. At 9 am today she again had CP and went to herc went to her international trade manager who transported her to the ED via EMS service.. Her initial labs and CTA were wnl. Pt is being admitted for further evaluation of her Chest Pain Review of Systems Narrative: Const:?? Denies: fever(s) o r chills Eyes:?? Denies: change in vision ENMT:?? Denies: mouth pain Card:?? Reports: chest georgi n; Denies: palpita tions Resp:?? Denies: dyspnea or non-productive co ugh GI:?? Denies: abdominal pain, nausea, vomi ting or diarrhea :?? Denies: dysuria Musc:?? Denies: extremity pain Skin/Breast:?? Denies: rash or ne w lesions Neuro:?? Denies: weakness i n extremities Psych:?? Reports: other (No rmal mood) Rodriguez/Lymph:?? Denies: easy bruis ing Medications/Allergies Home Medications Medication Instructions Recorded Confirmed Last Taken Type aspirin 81 mg tablet,delayed 81 mg PO QAM 08/15/19 05/11/21 05/11/21 History release nitroglycerin 0.4 mg sublingual 0.4 mg SUBLINGUAL Q5M PRN #30 tab 01/27/20 05/11/21 02/15/21 Rx tablet (Nitrostat) pen needle, diabetic 31 gauge x #400 ea 09/04/20 05/11/21 Unknown Rx /16 (UltiCare Pen Needle) insulin lispro 100 unit/mL See Rx Instructions .ROUTE 09/22/20 05/11/21 Unknown Rx subcutaneous pen (Humalog KwikPen .COMPLEX #30 ml (U-100) Insulin) Small portable oxygen concentrator #1 ea 11/11/20 05/11/21 Unknown Rx albuterol sulfate 90 mcg/actuation 2 puff INHALATION Q6H PRN #8.5 gm 11/11/20 05/11/21 Unknown Rx aerosol inhaler (ProAir HFA) promethazine-DM 6.25 mg-15 mg/5 mL 5 ml PO Q6H PRN #160 ml 02/10/21 05/11/21 Unknown Rx oral syrup azelastine 137 mcg (0.1 %) nasal 2 spray INTRANASAL DAILY 02/15/21 05/11/21 Unknown History spray aerosol cholecalciferol (vitamin D3) 125 125 mcg PO QAM 02/15/21 05/11/21 05/11/21 History mcg (5,000 unit) capsule famotidine 20 mg tablet 20 mg PO BID 02/15/21 05/11/21 05/11/21 History fenofibrate nanocrystallized 145 145 mg PO DAILY 02/15/21 05/11/21 05/10/21 History mg tablet ferrous sulfate 325 mg (65 mg 325 mg PO QPM 02/15/21 05/11/21 05/10/21 History iron) tablet guaifenesin 600 mg tablet, 600 mg PO BID PRN 02/15/21 05/11/21 Unknown History extended release 12 hr (Mucinex) insulin glargine 100 unit/mL (3 35 unit SUBCUT BEDTIME 02/15/21 05/11/21 05/10/21 History mL) subcutaneous pen (Lantus Solostar U-100 Insulin) metoprolol tartrate 25 mg tablet 25 mg PO BID 02/15/21 05/11/21 05/11/21 History montelukast 10 mg tablet 10 mg PO BEDTIME 02/15/21 05/11/21 05/10/21 History rosuvastatin 40 mg tablet 40 mg PO BEDTIME 02/15/21 05/11/21 05/10/21 History losartan 100 mg tablet 100 mg PO BEDTIME #30 tab 02/19/21 05/11/21 05/10/21 Rx albuterol sulfate 1.25 mg/3 mL See Rx Instructions .ROUTE 02/22/21 05/11/21 Unknown Rx solution for nebulization .COMPLEX #75 ml amlodipine 5 mg tablet 5 mg PO DAILY #30 tab 02/22/21 05/11/21 05/11/21 Rx fluticasone furoate 200 See Rx Instructions .ROUTE 03/15/21 05/11/21 05/11/21 Rx mcg-vilanterol 25 mcg/dose .COMPLEX #180 blister inhalation powder (Breo Ellipta) ranolazine 500 mg tablet,extended 500 mg PO BID #180 tab 04/14/21 05/11/21 05/11/21 Rx release,12 hr cyclobenzaprine 5 mg tablet 5 mg PO BEDTIME PRN #90 tab 04/15/21 05/11/21 Unknown Rx metformin 500 mg tablet 1,000 mg PO BID 90 Days #360 tab 04/15/21 05/11/21 05/11/21 Rx tiotropium bromide 2.5 2 puff INHALATION DAILY #4 g 04/15/21 05/11/21 05/11/21 Rx mcg/actuation mist for inhalation (Spiriva Respimat) Allergies Allergy/AdvReac Type Severity Reaction Status Date / Time lisinopril Allergy Severe angioedema Verified 05/11/21 10:39 hydrocodone Allergy Intermediate vomiting Verified 05/11/21 10:39 Sulfa (Sulfonamide Allergy Mild dizziness Verified 05/11/21 10:39 Antibiotics) PFSH Acute PFSH: Medical History Acquired deformity of right foot Arteriosclerotic heart disease (ASHD) Asthma with chronic obstructive pulmonary disease (COPD) follows with pulmonology Atrophic vaginitis Bilateral primary osteoarthritis of knee 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 Degenerative disc disease, cervical Dysphagia, oropharyngeal Enrolled in chronic care management Essential (primary) hypertension Fibromyalgia 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[place] Hx of angioedema improved after stopping Lisinopril Low back pain Mixed hyperlipidemia Morbid (severe) obesity due to excess calories BMI 40.0-44.9 Obstructive sleep apnea Polyneuropathy Vesico-ureteral reflux Surgical History History of colon resection Hx of arthroscopy of left knee (~2012) Dr Briceno Hx of cardiac cath Hx of cholecystectomy (~1992) Hx of coronary angioplasty stents x 3 Hx of total knee replacement (~09/2018) left, Dr Gonzalez S/P total knee arthroplasty Family History Brother Cancer lung Father CAD (coronary artery disease) Mother Bleeding disorder Social History Smoking and tobacco status: never smoked Quit status (tobacco): has quit using tobacco Year quit tobacco: 2008 Former quit date comment: 2 PPD x 40 yrs Second hand smoke exposure: No Alcohol intake: never Lives independently: Yes Household members: none Housing: House Marital status: / Number of children: 5 Current occupational status: retired History of recent travel: No Current gender identity: Female Vitals/I&O/Wt Last Vital Signs Temp 97.8 F 05/11/21 21:22 Pulse 68 05/11/21 21:22 Resp 15 05/11/21 21:22 BP 124/76 05/11/21 21:22 Pulse Ox 98 05/11/21 21:22 05/11/21 05/11/21 05/11/21 06:59 14:59 22:59 Intake Total 50 / 50 Output Total 0 / 0 Balance 50 / 50 Weight last 48 hrs Weight 95.209 kg Weight 94.347 kg Physical Exam Narrative: Const:?? COMMON NORMALS: al ert HENMT:?? COMMON NORMALS: at raumatic? HEAD & S CALP: atraumatic? MOUTH: moist mucou s membranes not ab normal Eye:?? COMMON NORMALS: EO Ms intact bilatera lly and conjunctiv ae normal? CONJUNC TIVA: Yes conjunct ivae normal Neck/C-Spine:?? COMMON NORMALS: fu ll ROM and supple Resp:?? COMMON NORMALS: no rmal respiratory e ffort and clear to auscultation bila terally? AUSCULTAT ION: clear to ausc ultation bilateral ly Cardio:?? COMMON NORMALS: re gular rate? RATE: regular rate? OTHE R: 2+ radial puls es b/l GI:?? COMMON NORMALS: So ft to palpation ; Epigastric mild-te nder? PALPATION: Y es Soft to palpati on; HSM (-) Extremity:?? COMMON NORMALS: fu ll ROM? OTHER: no richard sign Neuro:?? SENSORIUM/ORIENTAT ION: Yes alert? MO TOR EXAM: No Abnor mal motor strength present and Other motor observation s present (no foca l motor deficits) Psych:?? COMMON NORMALS: sp eech normal? SPEEC H: Yes normal spee ch? MOOD & AFFECT: Yes euthymic mood Data : 05/12/21 05:19 05/12/21 05:19 A&P Assessment and plan (1) Chest pain: Has h/o CAD s/p stents, now w/ CP. R/O ACS Status: Acute (2) Essential (primary) hypertension: stable Status: Acute (3) Controlled diabetes mellitus type 2 with complications: stable Status: Acute Qualifiers: Diabetes mellitus computer terminal operator insulin use: with computer terminal operator use Qualified Code(s): E11.8 - Type 2 diabetes mellitus with unspecified complications; Z79.4 - intermediate card tender (current) use of insulin (4) Mixed hyperlipidemia: Status: Acute (5) Asthma with chronic obstructive pulmonary disease (COPD): stable Status: Acute (6) Coronary artery disease: CP Status: Acute Plan Juan M x3 ECG Cardiac Stress Test Consult Cardiology Continue home meds DVT Prophylaxis w/ Lovenox Protonix 40 mg qd SSI Attestations Medical Necessity Statement*: Pt w/ risk factors of HTN, DM, CAD, elderly c/o chest pain, ACS will need to be r/o. Will need hospitalization for further management Time Spent in Patient Care: 55 min Coding Level of Care Code Acute Trade Show Manager for Chg Fwd Diagnoses Chest pain R07.9 Essential (primary) hypertension I10 Controlled diabetes mellitus type 2 with complications E11.8; Z79.4 Diabetes mellitus retirement insulin use: with retirement use Mixed hyperlipidemia E78.2 Asthma with chronic obstructive pulmonary disease (COPD) J44.9 Coronary artery disease I25.10
[2021-05-11] MEDS: losartan 50 mg Tablet 100 MG PO (22:57)
[2021-05-11] MEDS: montelukast sodium 10 mg Tablet PO (22:57)
[2021-05-11] MEDS: enoxaparin 40 mg/0.4 mL Syringe SUBCUT (22:57)
[2021-05-11 23:01] LABS: Glucose Point of Care 78 mg/dL (70-110)
[2021-05-12] VITALS (10 sets, daily range): BP systolic 105–149; BP diastolic 58–81; PULSE 60–89; RESP 16–18; TEMP 36.6–36.8; O2SAT 92–98
[2021-05-12 05:55] LABS: Basophils % 0.5 %; Eosinophils # 0.1 10^3/uL (0.0-0.8); Eosinophils % 1.4 %; Hematocrit 34.6 % (37.0-47.0); Hemoglobin 11.2 g/dL (11.5-15.3); Lymphocytes # 1.2 10^3/uL (0.8-4.8); Lymphocytes % 27.4 %; Mean Corpuscular HGB Conc 32.4 g/dL (30.0-36.0); Mean Corpuscular Hemoglobin 30.6 pg (28.0-34.0); Mean Corpuscular Volume 94.5 fl (81-99); Mean Platelet Volume 9.8 fL (7.4-10.4); Monocytes # 0.6 10^3/uL (0.2-0.9); Monocytes % 12.9 %; Neutrophils # 2.49 10^3/uL (1.8-7.7); Neutrophils % 57.3 %; Nucleated Red Blood Cells % 0 %; Platelet Count 266 10^3/cmm (130-400); Red Blood Count 3.66 10^6/uL (4.1-5.3); Red Cell Distribution Width 14.5 % (12.1-15.1); White Blood Count 4.3 10^3/uL (4.0-10.0)
[2021-05-12 06:17] LABS: Chol HDL Ratio 2.68 mg/dL (0.0-4.40); Cholesterol 150 mg/dL (0-200); HDL Cholesterol 56 mg/dL (60-100); LDL Cholesterol Calculated 65 mg/dL (50-129); LDL HDL Ratio 1.16 RATIO (0.00-3.22); Triglycerides 146 mg/dL (0-150)
[2021-05-12 06:24] LABS: Alanine Aminotransferase 14 U/L (0-33); Albumin Level 3.9 g/dL (3.5-5.2); Alkaline Phosphatase 52 IU/L (35-105); Anion Gap 14.9 (5-19); Aspartate Amino Transferase 18 U/L (0-32); Blood Urea Nitrogen 16 mg/dL (8-23); Calcium 9.3 mg/dL (8.5-10.5); Carbon Dioxide 24 mmol/L (22-29); Chloride 105 mmol/L (98-107); Globulin 2.5 g/dL (1.3-4.6); Glucose 78 mg/dL (65-115); Magnesium 1.7 mg/dL (1.7-2.3); Osmolality Calculated 290 mOsm/kg (285-295); Potassium 3.9 mmol/L (3.5-5.1); Sodium 140 mmol/L (136-145); Thyroid Stimulating Hormone 1.63 uIU/mL (0.27-4.20); Total Bilirubin 0.2 mg/dL (0.15-1.2); Total Protein 6.4 g/dL (6.6-8.7)
[2021-05-12 06:25] LABS: Glucose Point of Care 71 mg/dL (70-110)
[2021-05-12] MEDS: aspirin 81 mg EC Tablet PO (06:34)
[2021-05-12] MEDS: regadenoson 0.4 Mg/5 ml Syringe IVP (07:48)
[2021-05-12] MEDS: metoprolol tartrate 25 mg Tablet PO ×2 (10:12→17:25)
[2021-05-12] MEDS: metformin 500 mg Tablet 1000 MG PO ×2 (10:12→17:25)
[2021-05-12] MEDS: ranolazine (12HR) 500 mg Tablet PO ×2 (10:12→17:25)
[2021-05-12] MEDS: pantoprazole DR 40 mg Tablet PO (10:13)
[2021-05-12] MEDS: fenofibrate 145 mg Tablet PO (10:31)
[2021-05-12 10:54] LABS: Glucose Point of Care 204 mg/dL (70-110)
[2021-05-12] MEDS: insulin lispro 100 unit/1 mL SUBCUT (12:20)
--- NOTE | 2021-05-12 12:26 | PC.CHAP ---
Pastoral Care Encounter/Spiritual Assessment Type of Contact [] Declined clinical pharmacy technician visit [] Patient/Family/Request visit [] Outpatient visit [] Follow-up visit [] Physician referral [] Code/Alert [x] Routine visit [] Staff referral [] Actively dying [] Patient sleeping [] Family support [] [] Out of room [] Palliative care [] [] Receiving care in room [] Pre-surgical visit [] Trauma [] Long length of stay [] ICU visit [] Other: Relational/Emotional Strength [x] Patient feels connected with others/family/visitors/staff [] Distress [] Loneliness/isolation [] Abandonment Spirituality of Patient [x] Person of Kallie x Attends Restorationism of their Kallie [x] Believes in Prayer [] Reads Bible or Holiness materials [] There are Spiritual issues to be addressed Industrial Pipefitter Journeyman Interventions [x] Prayer [x] Active listening [x] Non-anxious presence [x] Spiritual/emotional support [] Crisis/trauma care [] Spiritual counseling [] Bereavement support [] Provided bereavement packet [] Provided Bible/devotional materials [] Provided toy/stuffed animal, coloring book to patient or family member [] Provided Communion [] Anointing/[place] [] Salvation [x] Completed spiritual assessment [] Other: Impact on Illness or Injury [] Angry [] Fearful [] Anxious [] Often cries [] Exhaustion [] Unable to work [] Unable to attend religious [] Unable to walk/stand [] Unable to read [] Unable to drive [] Unable to eat/drink [] Unable to sleep [] Unable to be with family [] Patient intubated [] Other: Summary Time spent with patient 15 nmin
--- NOTE | 2021-05-12 16:17 | PC.NURSE ---
Patient went to stress test early this AM. Otherwise patient has had uneventful shift. Vitals stable. No pain. No bowel movement. Consulted to engineering vice president. Will continue to monitor and give report to night nurse.
--- NOTE | 2021-05-12 16:30 | P.PN_ITS ---
Subjective Subjective: Pt still having Lt CP though less intense w/ some nausea. Denied SOB, cough, F/C. 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 Possibly Unstable Angina w. inferolat reversible filling defect on the NM Stress Test Status: Acute (2) Chest pain: Poss unstable angina Status: Acute (3) Controlled diabetes mellitus type 2 with complications: stable Status: Acute Qualifiers: Diabetes mellitus arcade game technician insulin use: with retirement use Qualified Code(s): E11.8 - Type 2 diabetes mellitus with unspecified complications; Z79.4 - solar field service technician (current) use of insulin (4) Essential (primary) hypertension: stable Status: Acute (5) Asthma with chronic obstructive pulmonary disease (COPD): stable Status: Acute (6) Mixed hyperlipidemia: stable Status: Acute Plan Cardiology consult Continue BB, ASA DVT Prophylaxis w/ Lovenox Attestations Medical Necessity Statement*: Pt w/ h/o HTN, CAD, DM having CP due to poss Unstable angina will require continued hospitalization for further eval and management Time Spent in Patient Care: 40 min Coding Level of Care Code Acute Vocational Education Teacher for g Fwd Diagnoses Coronary artery disease I25.10 Chest pain R07.9 Controlled diabetes mellitus type 2 with complications E11.8; Z79.4 Diabetes mellitus arcade game technician insulin use: with retirement use Essential (primary) hypertension I10 Asthma with chronic obstructive pulmonary disease (COPD) J44.9 Mixed hyperlipidemia E78.2
--- NOTE | 2021-05-12 17:05 | P.CONIM_ITS ---
Providers/Reason For Consult Consulting Physician/Specialty*: Jose M Liu MD/Cardiology Reason for Consult*: Chest pain Requesting Physician: Dr Sellers Attending Physician: Sonido Sellers MD Primary Care Provider: Sofie Maria MD History of Present Illness History of Present Illness Kiera Hart is a 71 year old female with past medical history of hypertension, COPD, coronary artery disease with prior PCI to LAD presented to the hospital with chest pain for 1 day. Initial pain episode lasted for about 2 hours however she has been having constant chest pain on the left side. Occasionally feels breathing worsens it .nitroglycerin did not relieve it completely. Her troponins did not trend up. No significant EKG changes. She had a coronary angiogram performed about 2 months back which showed patent prior stent and no significant CAD. Lexiscan was performed this time which showed small to moderate sized area of reversibility in the inferior and inferolateral yoo however with significant attenuation artifact. CTA does not reveal any significant abnormalities Review of Systems Const: Denies: fever(s) or chills Eyes: Denies: change in vision ENMT: Denies: mouth pain Card: Reports: chest pain; Denies: palpitations Resp: Denies: dyspnea or non-productive cough GI: Denies: abdominal pain, nausea, vomiting or diarrhea : Denies: dysuria Musc: Denies: extremity pain Skin/Breast: Denies: rash or new lesions Neuro: Denies: weakness in extremities Psych: Reports: other (Normal mood) Rodriguez/Lymph: Denies: easy bruising Medications/Allergies Home Medications Medication Instructions Recorded Confirmed Last Taken Type aspirin 81 mg tablet,delayed 81 mg PO QAM 08/15/19 05/11/21 05/11/21 History release nitroglycerin 0.4 mg sublingual 0.4 mg SUBLINGUAL Q5M PRN #30 tab 01/27/20 05/11/21 02/15/21 Rx tablet (Nitrostat) pen needle, diabetic 31 gauge x #400 ea 09/04/20 05/11/21 Unknown Rx /16 (UltiCare Pen Needle) insulin lispro 100 unit/mL See Rx Instructions .ROUTE 09/22/20 05/11/21 Unknown Rx subcutaneous pen (Humalog KwikPen .COMPLEX #30 ml (U-100) Insulin) Small portable oxygen concentrator #1 ea 11/11/20 05/11/21 Unknown Rx albuterol sulfate 90 mcg/actuation 2 puff INHALATION Q6H PRN #8.5 gm 11/11/20 05/11/21 Unknown Rx aerosol inhaler (ProAir HFA) promethazine-DM 6.25 mg-15 mg/5 mL 5 ml PO Q6H PRN #160 ml 02/10/21 05/11/21 Unknown Rx oral syrup azelastine 137 mcg (0.1 %) nasal 2 spray INTRANASAL DAILY 02/15/21 05/11/21 Unknown History spray aerosol cholecalciferol (vitamin D3) 125 125 mcg PO QAM 02/15/21 05/11/21 05/11/21 History mcg (5,000 unit) capsule famotidine 20 mg tablet 20 mg PO BID 02/15/21 05/11/21 05/11/21 History fenofibrate nanocrystallized 145 145 mg PO DAILY 02/15/21 05/11/21 05/10/21 History mg tablet ferrous sulfate 325 mg (65 mg 325 mg PO QPM 02/15/21 05/11/21 05/10/21 History iron) tablet guaifenesin 600 mg tablet, 600 mg PO BID PRN 02/15/21 05/11/21 Unknown History extended release 12 hr (Mucinex) insulin glargine 100 unit/mL (3 35 unit SUBCUT BEDTIME 02/15/21 05/11/21 05/10/21 History mL) subcutaneous pen (Lantus Solostar U-100 Insulin) metoprolol tartrate 25 mg tablet 25 mg PO BID 02/15/21 05/11/21 05/11/21 History montelukast 10 mg tablet 10 mg PO BEDTIME 02/15/21 05/11/21 05/10/21 History rosuvastatin 40 mg tablet 40 mg PO BEDTIME 02/15/21 05/11/21 05/10/21 History losartan 100 mg tablet 100 mg PO BEDTIME #30 tab 02/19/21 05/11/21 05/10/21 Rx albuterol sulfate 1.25 mg/3 mL See Rx Instructions .ROUTE 02/22/21 05/11/21 Unknown Rx solution for nebulization .COMPLEX #75 ml amlodipine 5 mg tablet 5 mg PO DAILY #30 tab 02/22/21 05/11/21 05/11/21 Rx fluticasone furoate 200 See Rx Instructions .ROUTE 03/15/21 05/11/21 05/11/21 Rx mcg-vilanterol 25 mcg/dose .COMPLEX #180 blister inhalation powder (Breo Ellipta) ranolazine 500 mg tablet,extended 500 mg PO BID #180 tab 04/14/21 05/11/21 05/11/21 Rx release,12 hr cyclobenzaprine 5 mg tablet 5 mg PO BEDTIME PRN #90 tab 04/15/21 05/11/21 Unknown Rx metformin 500 mg tablet 1,000 mg PO BID 90 Days #360 tab 04/15/21 05/11/21 05/11/21 Rx tiotropium bromide 2.5 2 puff INHALATION DAILY #4 g 04/15/21 05/11/21 05/11/21 Rx mcg/actuation mist for inhalation (Spiriva Respimat) Allergies Allergy/AdvReac Type Severity Reaction Status Date / Time lisinopril Allergy Severe angioedema Verified 05/11/21 10:39 hydrocodone Allergy Intermediate vomiting Verified 05/11/21 10:39 Sulfa (Sulfonamide Allergy Mild dizziness Verified 05/11/21 10:39 Antibiotics) Current Medications Generic Name Dose Route Start Last Admin Trade Name Freq PRN Reason Stop Dose Admin Amlodipine Besylate 5 mg 05/12/21 09:00 05/12/21 10:15 Amlodipine 5 Mg Tablet PO Not Given DAILY [place] Aspirin 81 mg 05/12/21 06:00 05/12/21 06:34 Aspirin 81 Mg Ec Tablet PO 81 mg QAM [place] Administration Enoxaparin Sodium 40 mg 05/11/21 22:00 05/11/21 22:57 Enoxaparin 40 Mg/0.4 Ml Syringe SUBCUT 40 mg Q24H AZ Administration Fenofibrate 145 mg 05/12/21 09:00 05/12/21 10:31 Fenofibrate 145 Mg Tablet PO 145 mg DAILY AZ Administration Insulin Glargine 35 unit 05/11/21 21:45 05/11/21 23:04 Insulin Glargine 100 Units/1 Ml SUBCUT Not Given BEDTIME AZ Insulin Human Lispro 0 unit 05/12/21 08:00 05/12/21 12:20 Insulin Lispro 100 Unit/1 Ml SUBCUT 4 unit WM&BEDTIME AZ Administration Protocol Losartan Potassium 100 mg 05/11/21 21:45 05/11/21 22:57 Losartan 50 Mg Tablet PO 100 mg BEDTIME AZ Administration Metformin HCl 1,000 mg 05/12/21 09:00 05/12/21 10:12 Metformin 500 Mg Tablet PO 1,000 mg BID AZ Administration Metoprolol Tartrate 25 mg 05/12/21 09:00 05/12/21 10:12 Metoprolol Tartrate 25 Mg Tablet PO 25 mg BID AZ Administration Montelukast Sodium 10 mg 05/11/21 21:45 05/11/21 22:57 Montelukast Sodium 10 Mg Tablet PO 10 mg BEDTIME [place] Administration Non-Formulary Medication 1 puff 05/11/21 21:30 05/12/21 10:14 Fluticasone Furoate-Vilanterol [Breo Ellipta] INHALATION Not Given DAILY [place] Non-Formulary Medication 2 puff 05/12/21 09:00 05/12/21 10:13 Tiotropium [place] [Spiriva Respimat] INHALATION Not Given DAILY [place] Pantoprazole Sodium 40 mg 05/12/21 09:00 05/12/21 10:[address] 40 Mg Tablet PO 40 mg DAILY [place] Administration Ranolazine 500 mg 05/12/21 09:00 05/12/21 10:12 Ranolazine (12hr) 500 Mg Tablet PO 500 mg BID [place] Administration PFSH Acute PFSH: Medical History Acquired deformity of right foot Arteriosclerotic heart disease (ASHD) Asthma with chronic obstructive pulmonary disease (COPD) follows with pulmonology Atrophic vaginitis Bilateral primary osteoarthritis of knee 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 Degenerative disc disease, cervical Dysphagia, oropharyngeal Enrolled in chronic care management Essential (primary) hypertension Fibromyalgia 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[place] Hx of angioedema improved after stopping Lisinopril Low back pain Mixed hyperlipidemia Morbid (severe) obesity due to excess calories BMI 40.0-44.9 Obstructive sleep apnea Polyneuropathy Vesico-ureteral reflux Surgical History History of colon resection Hx of arthroscopy of left knee (~2012) Dr Briceno Hx of cardiac cath Hx of cholecystectomy (~1992) Hx of coronary angioplasty stents x 3 Hx of total knee replacement (~09/2018) left, Dr Gonzalez S/P total knee arthroplasty Family History Brother Cancer lung Father CAD (coronary artery disease) Mother Bleeding disorder Social History Smoking and tobacco status: never smoked Quit status (tobacco): has quit using tobacco Year quit tobacco: 2008 Former quit date comment: 2 PPD x 40 yrs Second hand smoke exposure: No Alcohol intake: never Lives independently: Yes Household members: none Housing: House Marital status: / Number of children: 5 Current occupational status: retired History of recent travel: No Current gender identity: Female Vitals/I&O/Wt Last Vital Signs Temp 97.8 F 05/12/21 16:00 Pulse 62 05/12/21 16:00 Resp 18 05/12/21 16:00 BP 105/58 05/12/21 16:00 Pulse Ox 96 05/12/21 16:00 05/12/21 05/12/21 05/12/21 06:59 14:59 22:59 Intake Total 100 / 150 240 / 240 Balance 100 / 150 240 / 240 Weight last 48 hrs Weight 209 lb Weight 209 lb 14.4 oz Weight 208 lb Physical Exam Narrative: GENERAL: Patient is alert, awake and oriented x3. [] NECK: No jugular vein distension. [] HEENT: No cyanosis. No icterus. No pallor. [] HEART: Regular S1 and S2. No murmur, rub or gallop. [] LUNGS: Clear to auscultate bilaterally. [] ABDOMEN: Soft, nontender and nondistended. Positive bowel sounds. No guarding, rebound or tenderness. [] CENTRAL NERVOUS SYSTEM: Grossly nonfocal. [] EXTREMITIES: Lower extremities with 1+ edema bilaterally. Pulses palpable in the lower extremities, both dorsalis pedis and posterior tibial. [] Data : 05/12/21 05:19 05/13/21 04:57 A&P Assessment and plan (1) Chest pain: Status: Acute (2) Coronary artery disease: Status: Acute (3) Essential (primary) hypertension: Status: Acute (4) Controlled diabetes mellitus type 2 with complications: Status: Acute Qualifiers: Diabetes mellitus intermediate insulin use: with long term care social worker use Qualified Code(s): E11.8 - Type 2 diabetes mellitus with unspecified complications; Z79.4 - rn long term care (current) use of insulin (5) Mixed hyperlipidemia: Status: Acute Plan Patient has presented with atypical chest discomfort symptoms. Symptoms are atypical and constant. Cardiac catheterization 2 months back was normal. No EKG changes or troponin elevation. Stress test is equivocal. I discussed with patient different options including medical therapy versus repeat cardiac catheterization and she has decided to proceed with medical therapy has had recent procedure. Continue aspirin Uptitrate Ranexa to 1000 mg in a.m. and 500 mg in p.m. Aggressive risk factor control. We will closely follow in the office. Thank you for involving us with care of this patient. Please call with questions Consult Attestations Medical Necessity Statement: Care expected to cross 2 midnights. Coding Level of Care Code Acute Telephone Solicitor for Leodan Sanchez Diagnoses Chest pain R07.9 Coronary artery disease I25.10 Essential (primary) hypertension I10 Controlled diabetes mellitus type 2 with complications E11.8; Z79.4 Diabetes mellitus long term care social worker insulin use: with long term care social worker use Mixed hyperlipidemia E78.2
[2021-05-12 17:12] LABS: Glucose Point of Care 66 mg/dL (70-110)
[2021-05-12] MEDS: ferrous sulfate EC 325 mg Tablet PO (17:25)
[2021-05-12] MEDS: amlodipine 5 mg Tablet PO (20:11)
[2021-05-12] MEDS: losartan 50 mg Tablet 100 MG PO (20:12)
[2021-05-12] MEDS: montelukast sodium 10 mg Tablet PO (20:12)
[2021-05-12] MEDS: atorvastatin 40 mg Tablet 80 MG PO (20:12)
[2021-05-12 21:08] LABS: Glucose Point of Care 105 mg/dL (70-110)
[2021-05-12] MEDS: insulin glargine 100 units/1 mL 35 UNIT SUBCUT (21:13)
[2021-05-12] MEDS: enoxaparin 40 mg/0.4 mL Syringe SUBCUT (21:13)
--- NOTE | 2021-05-12 21:59 | NMCV_ITS ---
NM moira perf SPECT r/s* [id number] Kiera Hart Age: 71 Gender: F : 1950 Exam Date: 05/12/2021 07:13 Ordering Phys: Sonido Sellers MD Technologist: GISEL De León [facility]am [facility] Indications: CHEST PAIN STRESS TEST Please see separate stress test report in [facility] for full findings IMAGE PROTOCOL Rest/Stress 1 Lexiscan Day Radiopharmaceutical Dose (mCi) Administration Site Administered by Rest: Tc-99m 10.7 IV GISEL Haas Sestamibi Stress:Tc-99m 32.9 IV GISEL Haas Sestamibi Rest: 12-May-2021 60 Discovery 630 Stress: 12-May-2021 30 Discovery 630 0.4mg Lexiscan. Images obtained in supine and prone position. SPECT RESULTS Technical Quality: Excellent Raw Data Analysis: Normal Image Corrections: No attenuation or motion correction applied Summed Stress Score: 5 Summed Rest Score: 0 Summed Difference Score: 5 PERFUSION FINDINGS Small to moderate area of moderately decreased tracer uptake was noted in the mid and apical inferior and mid inferolateral regions. Significant reversibility was noted with the supine imaging. However because of the heavy attenuation artifacts, the reliability is questionable FUNCTIONAL RESULTS (calculated via Gated SPECT) Stress Image LV EF (%): 79 Stress EDV (mL):92 TID: 0.85 Stress ESV (mL):19 FUNCTIONAL FINDINGS: Segmental wall motion analysis revealing no gross wall motion normal disease. 1. IMPRESSIONS 1. Myocardial perfusion imaging revealing small to moderate area of reversible defect in the inferior inferolateral region suggestive of ischemia in the distribution of the right coronary artery/circumflex artery. However because of the attenuation artifacts the reliability is somewhat questionable. 2. Normal LV ejection fraction 79%. 3. LV wall motion analysis revealing no gross wall motion abnormalities. 4. Normal LV volume Clinical correlation is recommended Dr Giselle Carpenter MD [facility] (Electronically Signed) Final Date: 12 May 2021 13:00 S
[2021-05-13] VITALS: BP 102/52; PULSE 60; RESP 17; TEMP 36.7; O2SAT 94
[2021-05-13 04:00] VITALS: BP 98/56; PULSE 60; RESP 17; O2SAT 92
[2021-05-13] MEDS: aspirin 81 mg EC Tablet PO (05:20)
[2021-05-13 06:00] VITALS: PULSE 69
[2021-05-13 06:28] LABS: Alanine Aminotransferase 13 U/L (0-33); Albumin Level 3.7 g/dL (3.5-5.2); Alkaline Phosphatase 61 IU/L (35-105); Aspartate Amino Transferase 16 U/L (0-32); Blood Urea Nitrogen 21 mg/dL (8-23); Calcium 9.6 mg/dL (8.5-10.5); Carbon Dioxide 25 mmol/L (22-29); Chloride 104 mmol/L (98-107); Globulin 2.5 g/dL (1.3-4.6); Glucose 77 mg/dL (65-115); Osmolality Calculated 288 mOsm/kg (285-295); Sodium 138 mmol/L (136-145); Total Bilirubin 0.2 mg/dL (0.15-1.2); Total Protein 6.2 g/dL (6.6-8.7)
[2021-05-13 06:42] LABS: Glucose Point of Care 72 mg/dL (70-110)
[2021-05-13 08:00] VITALS: BP 112/72; PULSE 70; RESP 17; TEMP 36.3; O2SAT 95
[2021-05-13 08:05] VITALS: PULSE 79; RESP 17; O2SAT 94
--- NOTE | 2021-05-13 08:24 | PM.PN ---
Subjective Subjective: Patient is doing better. No chest pain today Vitals/I&O/Wt Last Vital Signs Temp 98.0 F 05/13/21 00:00 Pulse 79 05/13/21 08:05 Resp 17 05/13/21 08:05 BP 98/56 05/13/21 04:00 Pulse Ox 94 05/13/21 08:05 05/12/21 05/13/21 05/13/21 22:59 06:59 14:59 Intake Total 600 / 840 Output Total 240 / 240 Balance 600 / 840 -240 / 600 Weight last 48 hrs Weight 205 lb 8 oz Weight 209 lb Weight 209 lb 14.4 oz Weight 208 lb Physical Exam Narrative: GENERAL: Patient is alert, awake and oriented x3. [] NECK: No jugular vein distension. [] HEENT: No cyanosis. No icterus. No pallor. [] HEART: Regular S1 and S2. No murmur, rub or gallop. [] LUNGS: Clear to auscultate bilaterally. [] ABDOMEN: Soft, nontender and nondistended. Positive bowel sounds. No guarding, rebound or tenderness. [] CENTRAL NERVOUS SYSTEM: Grossly nonfocal. [] EXTREMITIES: Lower extremities with 1+ edema bilaterally. Pulses palpable in the lower extremities, both dorsalis pedis and posterior tibial. [] Data : 05/12/21 05:19 05/13/21 04:57 A&P Assessment and plan (1) Chest pain: Status: Acute (2) Coronary artery disease: Status: Acute (3) Essential (primary) hypertension: Status: Acute (4) Controlled diabetes mellitus type 2 with complications: Status: Acute Qualifiers: Diabetes mellitus terminal make up operator insulin use: with mcfp use Qualified Code(s): E11.8 - Type 2 diabetes mellitus with unspecified complications; Z79.4 - long term care phlebotomist (current) use of insulin (5) Mixed hyperlipidemia: Status: Acute Plan Patient has presented with atypical chest discomfort symptoms. Symptoms are atypical and constant. Cardiac catheterization 2 months back was normal. No EKG changes or troponin elevation. Stress test is equivocal. I discussed with patient different options including medical therapy versus repeat cardiac catheterization and she has decided to proceed with medical therapy has had recent procedure. Today patient is not complaining of chest pain. Continue aspirin Ranexa uptitrated Aggressive risk factor control. Thank you for involving us with care of this patient. We will sign off. Please call with questions Attestations Medical Necessity Statement*: Care expected to cross 2 midnights. 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
[2021-05-13] MEDS: metformin 500 mg Tablet 1000 MG PO (08:29)
[2021-05-13] MEDS: ranolazine (12HR) 500 mg Tablet PO (08:29)
[2021-05-13] MEDS: fenofibrate 145 mg Tablet PO (08:29)
[2021-05-13] MEDS: metoprolol tartrate 25 mg Tablet PO (08:30)
[2021-05-13] MEDS: pantoprazole DR 40 mg Tablet PO (08:30)
--- NOTE | 2021-05-13 10:08 | PM.DCS ---
Discharge Providers Date of Admission: 05/11/21 21:42 Date of Discharge: May 13, 2021 Attending Provider at Admission: Sonido Sellers MD Attending Provider at Discharge: Sonido Sellers MD Consults: Dr Liu (Cardiology) Primary Care Provider: Sofie Maria MD Diagnoses at Discharge Discharge Diagnosis (1) Chest pain: Status: Acute (2) Coronary artery disease: Status: Acute (3) Essential (primary) hypertension: Status: Acute (4) Controlled diabetes mellitus type 2 with complications: Status: Acute Qualifiers: Diabetes mellitus long-term insulin use: with buttermaker use Qualified Code(s): E11.8 - Type 2 diabetes mellitus with unspecified complications; Z79.4 - skilled nursing (current) use of insulin (5) Mixed hyperlipidemia: Status: Acute Reason for Visit Reason for Visit: CHEST PAIN Hospital Course Hospital Course Kiera Hart is a 71 year old female w/ h/o HTN, DMII, COPD, CAD s/p stent? came to the ED c/o lt sided chest pain since yesterday afternoon. The CP was? pressure like radiating to her lt arm. The pain lasted about 2 hrs. Took a NTG tab w/ little releif. It was not associated any change of her chronic mild dyspnea. She went to bed without any CP and slept throughout the night. At 9 am today she again had CP and went to herc went to her dish network installer who transported her to the ED via EMS service.. Her initial labs and CTA were wnl. Pt is being admitted for further evaluation of her Chest Pain Pt was [facility] w/ cardiac monitoring. Her CP was constant throught the last 48 hrs but was less at the time of d/c. Juan M, ECGdid not suggest ACS.Pt had a NM stress test which had shown small to moderate reversible defect in inferior inferolat mycocardium. However this could also be an artifact. Dr Liu from cardiology was consulted. He recommended d/c but increasing the Ranexa. She is scheduled to f/u w/ Dr Liu. VSS and BS were stable. Most likely her Atypical CP was due to gastritis and GERD. Physical Exam Narrative: NAD CVS: S1S2, RRR, Mur (-) Resp: CTA Abd soft, Epigastric mild tender, HSM (-), BS+ Edema (-) WORKERS' COMPENSATION MAGISTRATE A&Ox4 Discharge Data Studies Completed and Pending Completed Studies During Hospitalization Category Date Time Status CTA chest abdomen pelvis [CT angio chest abdomen pelvis Cat Scan 05/11/21 13:31 Completed ] Urgent Sestamibi Stress Test Request Routine Exams 05/11/21 21:59 Draft XR chest 1V portable [id number] Stat Exams 05/11/21 12:56 Completed NM moira perf SPECT r/s* [id number] Routine Nuc Med 05/12/21 21:59 Completed Pending at discharge Category Date Time Status Sestamibi Stress Test Request Routine Exams 05/11/21 21:59 Stop Req Comprehensive Metabolic Panel AM LABS Lab 05/14/21 04:00 Ordered Radiology Impressions Chest X-Ray 05/11/21 12:56 IMPRESSION: 1. No acute cardiopulmonary finding. No change. Chest/Abdomen/Pelvis CTA 05/11/21 13:31 IMPRESSION: 1. No thoracic aorta or abdominal aorta dissection or aneurysm. 2. Atherosclerotic changes within the thoracic and abdominal aorta. 3. No pneumonia. 4. Moderate cardiomegaly 5. No central pulmonary embolism. 6. Prior cholecystectomy. 7. No free fluid or adenopathy. 8. 2 mm calcification in the RIGHT urinary bladder may be from a recently passed renal calcification. NM Cardiac Stress Test: ?IMPRESSIONS ?1.? Myocardial perfusion imaging revealing small to moderate area of reversible ?defect in the inferior inferolateral region suggestive of ischemia in the ?distribution of the right coronary artery/circumflex artery.? However because ?of the attenuation artifacts the reliability is somewhat questionable. ?2.? Normal LV ejection fraction 79%. ?3.? LV wall motion analysis revealing no gross wall motion abnormalities. ?4.? Normal LV volume ?Clinical correlation is recommended ?Dr Giselle Carpenter MD [facility] ?(Electronically Signed) ?Final Date:? ? ? 12 May 2021 ? 13:00 Laboratory Results WBC 4.3 10^3/uL (4.0-10.0) 05/12/21 05:19 RBC 3.66 10^6/uL (4.1-5.3) L 05/12/21 05:19 Hgb 11.2 g/dL (11.5-15.3) L 05/12/21 05:19 Hct 34.6 % (37.0-47.0) L 05/12/21 05:19 MCV 94.5 fl (81-99) 05/12/21 05:19 MCH 30.6 pg (28.0-34.0) 05/12/21 05:19 MCHC 32.4 g/dL (30.0-36.0) 05/12/21 05:19 RDW 14.5 % (12.1-15.1) 05/12/21 05:19 Plt Count 266 10^3/cmm (130-400) 05/12/21 05:19 MPV 9.8 fL (7.4-10.4) 05/12/21 05:19 Neut % (Auto) 57.3 % 05/12/21 05:19 Lymph % (Auto) 27.4 % 05/12/21 05:19 [place] % (Auto) 12.9 % 05/12/21 05:19 Eos % (Auto) 1.4 % 05/12/21 05:19 Baso % (Auto) 0.5 % 05/12/21 05:19 Neut # (Auto) 2.49 10^3/uL (1.8-7.7) 05/12/21 05:19 Lymph # (Auto) 1.2 10^3/uL (0.8-4.8) 05/12/21 05:19 [place] # (Auto) 0.6 10^3/uL (0.2-0.9) 05/12/21 05:19 Eos # (Auto) 0.1 10^3/uL (0.0-0.8) 05/12/21 05:19 Baso # (Auto) 0.0 10^3/uL (0.0-0.1) 05/12/21 05:19 Nucleated RBC % (auto) 0 % 05/12/21 05:19 Nucleated RBCs # 0.0 /100WBC 05/12/21 05:19 D-Dimer 0.49 ug/mIFEU (0-0.59) 05/11/21 13:15 Sodium 138 mmol/L (136-145) 05/13/21 04:57 Potassium 4.0 mmol/L (3.5-5.1) 05/13/21 04:57 Chloride 104 mmol/L (98-107) 05/13/21 04:57 Carbon Dioxide 25 mmol/L (22-29) 05/13/21 04:57 Anion Gap 13.0 (5-19) 05/13/21 04:57 BUN 21 mg/dL (8-23) 05/13/21 04:57 Creatinine 0.7 mg/dL (0.5-0.9) 05/13/21 04:57 GFR Calculation Not Reportable 05/13/21 04:57 Glucose 77 mg/dL (65-115) 05/13/21 04:57 POC Glucose 72 mg/dL (70-110) 05/13/21 06:33 Calculated Osmolality 288 mOsm/kg (285-295) 05/13/21 04:57 Calcium 9.6 mg/dL (8.5-10.5) 05/13/21 04:57 Magnesium 1.7 mg/dL (1.7-2.3) 05/12/21 05:19 Total Bilirubin 0.2 mg/dL (0.15-1.2) 05/13/21 04:57 AST 16 U/L (0-32) 05/13/21 04:57 ALT 13 U/L (0-33) 05/13/21 04:57 Alkaline Phosphatase 61 IU/L (35-105) 05/13/21 04:57 Troponin T Baseline 10 ng/L (0-10) 05/11/21 13:15 Troponin T 120 Minute 8.28 ng/L (0-10) 05/11/21 14:54 Delta Troponin T -1.72 ABS# (0-10) L 05/11/21 14:54 Troponin T Hi Sens 6Hr 7.74 ng/L (0-10) 05/11/21 19:44 Troponin T Hi Sens 6Hr Delta -2.26 ng/L (0-12) L 05/11/21 19:44 Total Protein 6.2 g/dL (6.6-8.7) L 05/13/21 04:57 Albumin 3.7 g/dL (3.5-5.2) 05/13/21 04:57 Globulin 2.5 g/dL (1.3-4.6) 05/13/21 04:57 Triglycerides 146 mg/dL (0-150) 05/12/21 05:19 Cholesterol 150 mg/dL (0-200) 05/12/21 05:19 LDL Cholesterol, Calc 65 mg/dL (50-129) 05/12/21 05:19 HDL Cholesterol 56 mg/dL (60-100) L 05/12/21 05:19 LDL/HDL Ratio 1.16 RATIO (0.00-3.22) 05/12/21 05:19 Cholesterol/HDL Ratio 2.68 mg/dL (0.0-4.40) 05/12/21 05:19 TSH 1.63 uIU/mL (0.27-4.20) 05/12/21 05:19 Vitals Last Vital Signs Temp 97.4 F L 05/13/21 08:00 Pulse 79 05/13/21 08:05 Resp 17 05/13/21 08:05 BP 112/72 05/13/21 08:00 Pulse Ox 94 05/13/21 08:05 Discharge Plan Discharge Patient Disposition: Home Condition: Stable Prescriptions: New ranolazine [Ranexa] 1,000 mg tablet extended release 12 hr 1,000 mg PO BID Qty: 60 0RF Continued albuterol sulfate [ProAir HFA] 90 mcg/actuation HFA aerosol inhaler 2 puff INHALATION Q6H PRN (Reason: shortness of breath) Qty: 8.5 2RF promethazine-DM 6.25-15 mg/5 mL syrup 5 ml PO Q6H PRN (Reason: cough) Qty: 160 1RF cyclobenzaprine 5 mg tablet 5 mg PO BEDTIME PRN (Reason: Muscle Spasm) Qty: 90 1RF Spiriva Respimat 2.5 mcg/actuation mist 2 puff inhalation DAILY Qty: 4 6RF metformin 500 mg tablet 1,000 mg PO BID 90 Days Qty: 360 1RF Hold Instructions: Restart on 02/19/2021 nitroglycerin [Nitrostat] 0.4 mg tablet, sublingual 0.4 mg SUBLINGUAL Q5M PRN (Reason: chest pains) Qty: 30 0RF insulin lispro [Humalog KwikPen Insulin] 100 unit/mL insulin pen See Rx Instructions .ROUTE .COMPLEX Qty: 30 2RF Dose Instruction: INJECT SUBCUTANEOUSLY DIRECTED BEFORE MEALS <150=6UNITS, 151-200=8UNITS, 201-250=10UNITS, 251-300=12UNITS, >300=14UNITS Rx Instructions: sliding scale before meals losartan 100 mg tablet 100 mg PO BEDTIME Qty: 30 2RF albuterol sulfate 1.25 mg/3 mL solution for nebulization See Rx Instructions .ROUTE .COMPLEX Qty: 75 1RF Dose Instruction: inhale THE contents of ONE vial PER NEBULIZER FOUR TIMES DAILY NEEDED FOR SHORTNESS OF BREATH OR wheezing Rx Instructions: inhale THE contents of ONE vial PER NEBULIZER FOUR TIMES DAILY NEEDED FOR SHORTNESS OF BREATH OR wheezing amlodipine 5 mg tablet 5 mg PO DAILY Qty: 30 5RF Breo Ellipta 200-25 mcg/dose blister with device See Rx Instructions .ROUTE .COMPLEX Qty: 180 4RF Dose Instruction: INHALE 1 PUFF BY MOUTH DAILY Rx Instructions: INHALE 1 PUFF BY MOUTH DAILY aspirin 81 mg Tablet,Delayed Release (Dr/Ec) 81 mg PO QAM 0RF ferrous sulfate 325 mg (65 mg iron) tablet 325 mg PO QPM 0RF montelukast 10 mg tablet 10 mg PO BEDTIME 0RF azelastine 137 mcg (0.1 %) aerosol,spray 2 spray intranasal DAILY 0RF cholecalciferol (vitamin D3) 125 mcg (5,000 unit) capsule 125 mcg PO QAM 0RF rosuvastatin 40 mg tablet 40 mg PO BEDTIME 0RF metoprolol tartrate 25 mg tablet 25 mg PO BID 0RF fenofibrate nanocrystallized 145 mg tablet 145 mg PO DAILY 0RF Lantus Solostar U-100 Insulin 100 unit/mL (3 mL) insulin pen 35 unit SUBCUT BEDTIME 0RF guaifenesin [Mucinex] 600 mg tablet extended release 12hr 600 mg PO BID PRN (Reason: Congestion) 0RF Discontinued ranolazine 500 mg tablet extended release 12 hr 500 mg PO BID Qty: 180 3RF famotidine 20 mg tablet 20 mg PO BID 0RF No Action (DME) Small portable oxygen concentrator See Rx Instructions .Route .MEDSUPPLY Qty: 1 0RF Rx Instructions: As directed (DME) pen needle, diabetic [UltiCare Pen Needle] 31 gauge x 5/16 needle See Rx Instructions .Route Qty: 400 4RF Rx Instructions: use as directed qid as needed Discharge Orders: Discharge Order (Routine); Ordered 05/13/21 Ordered By: Sonido Sellers Referrals: Sofie Maria MD [Primary Care Provider] - 05/24/21 3:00 pm Discharge Diet: Cardiac and Diabetic Discharge Activity: Resume usual activity Patient Instructions: Opioid Safety Discharge Attestations Time Spent in Discharge Care*: greater than 30 min Quality Metrics Clinical Quality Measures [ No reported AMI, CVA or VTE this stay] Coding Level of Care Code Acute Chg FW DC note Diagnoses Chest pain R07.9 Coronary artery disease I25.10 Essential (primary) hypertension I10 Controlled diabetes mellitus type 2 with complications E11.8; Z79.4 Diabetes mellitus long-term insulin use: with long-term use Mixed hyperlipidemia E78.2
[2021-05-13 11:43] VITALS: BP 112/72; PULSE 79; RESP 17; TEMP 36.8; O2SAT 94
== END 2021-05-13 11:44 | disposition home or self-care (01) ==
LOC: ER 14:31 → MEDSURG 19:21
PROVIDERS: Admitting Provider Internal Medicine; Emergency Provider Emergency Medicine; PCP Family Medicine; Visit Provider Internal Medicine
DX: R07.9 Chest pain, unspecified (principal); I25.10 Atherosclerotic heart disease of native coronary artery without angina pectoris; I10 Essential (primary) hypertension; E11.8 Type 2 diabetes mellitus with unspecified complications; Z79.4 Long term (current) use of insulin; E78.2 Mixed hyperlipidemia; J44.9 Chronic obstructive pulmonary disease, unspecified; Z95.5 Presence of coronary angioplasty implant and graft; Z79.84 Long term (current) use of oral hypoglycemic drugs; M79.7 Fibromyalgia; G47.33 Obstructive sleep apnea (adult) (pediatric); Z90.49 Acquired absence of other specified parts of digestive tract; R06.02 Shortness of breath; W19.XXXA Unspecified fall, initial encounter; Y92.009 Unspecified place in unspecified non-institutional (private) residence as the place of occurrence of the external cause; R05.9 Cough, unspecified; M79.602 Pain in left arm
CPT/HCPCS: 36415; 36416; 71045; 71046; 71275; 74174; 78452; 80048; 80053; 80061; 82962; 83735; 84443; 84484; 85025; 85378; 93005; 93017; 96372; 96374; 96375; 99285; A9500; G0378; J1650; J1815 ×2; J2270; J2405; J2785; Q9967

== ENCOUNTER → 2021-06-14 10:25 | Outpatient (BNVA) | payer MEDICARE, MEDICAID, SELFPAY | PROVIDERS: PCP Family Medicine; Visit Provider Nurse Practitioner Family | DX: Z20.822 Contact with and (suspected) exposure to COVID-19 (principal); Z11.52 Encounter for screening for COVID-19 | CPT/HCPCS: 87635 ==

== ENCOUNTER → 2021-07-22 09:40 | Outpatient (BNVA) | payer MEDICARE, MEDICAID, SELFPAY | PROVIDERS: PCP Family Medicine; Visit Provider Family Medicine | DX: E11.8 Type 2 diabetes mellitus with unspecified complications (principal); I10 Essential (primary) hypertension; E78.2 Mixed hyperlipidemia; E55.9 Vitamin D deficiency, unspecified | CPT/HCPCS: 80053; 80061; 82306; 83036; 85025 ==

== ENCOUNTER 2021-07-23 13:43 | Emergency (ER) | payer MEDICARE, MEDICAID, SELFPAY ==
[2021-07-23] VITALS (7 sets, daily range): BP systolic 118–145; BP diastolic 59–93; PULSE 52–63; RESP 15–18; TEMP 36.4; O2SAT 96–100; BMI 35.4
--- NOTE | 2021-07-23 14:03 | ECG_ITS ---
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 Measurements Intervals [place] Rate: 46 P: 71 IN: 164 QRS: -46 QRSD: 111 T: -21 QT: 458 QTc: 404 Interpretive Statements SINUS BRADYCARDIA LEFT ANTERIOR FASCICULAR BLOCK [QRS AXIS <= -45, QR IN I, RS IN II] NONSPECIFIC T-WAVE ABNORMALITY Compared to ECG 05/11/2021 20:33:03 Left anterior fascicular block now present T-wave abnormality now present Intraventricular conduction delay no longer present Electronically Signed On 07-23-2021 16:58:21 CDT by Jose M Liu M.D. [id number] f
--- NOTE | 2021-07-23 14:03 | CTR_ITS ---
PROCEDURE INFORMATION: Exam: CTA Chest With Contrast Exam date and time: 07/23/2021 2:30 PM Age: 71 years old Clinical indication: Sternal or substernal pain; Prior surgery; Surgery type: Stents; Additional info: Concern for pe TECHNIQUE: Imaging protocol: Computed tomographic angiography of the chest with contrast. 3D rendering (Not supervised by radiologist): MIP and/or 3D reconstructed images were created by the technologist. Radiation optimization: All CT scans at this facility use at least one of these dose optimization techniques: automated exposure control; mA and/or kV adjustment per patient size (includes targeted exams where dose is matched to clinical indication); or iterative reconstruction. Contrast material: OMNI 350; Contrast volume: 80 ml; Contrast route: INTRAVENOUS (IV); COMPARISON: CT angio chest abdomen pelvis 05/11/2021 2:21 PM RADIATION DOSE METRICS: Total DLP (mGy-cm): 481.1 FINDINGS: Pulmonary arteries: There are no abnormal filling defects within the pulmonary arterial system. The examination is negative for pulmonary thromboembolism. Aorta: There is a 4.1 cm asending aortic aneurysm. No dissection or rupture is seen. Atherosclerotic vascular calcifications are noted. Lungs: Minimal atelectasis is seen at the lung bases. Pleural spaces: No pleural effusion. No pneumothorax. Heart: Cardiomegaly. Coronary arterial calcifications are noted. No significant pericardial effusion. Aortic valvular calcifications are noted. Lymph nodes: Mediastinal lymph nodes are small to mildly prominent, remaining within upper limits of normal size by imaging criteria. Hilar nodes are within normal limits. Bones/joints: There are diffuse enthesopathic changes consistent with benign diffuse idiopathic skeletal hyperostosis (DISH). No acute osseous abnormality is detected. Soft tissues: Unremarkable. CT/CT angio chest PE protcl [id number] IMPRESSION: 1. No pulmonary embolism identified. 2. Cardiomegaly. 3. Ascending aortic aneurysm measures 4.1 cm. No dissection or rupture.
--- NOTE | 2021-07-23 14:03 | XR_ITS ---
WS: [id number] Exam: XR chest 1V portable [id number] Date/Time of Exam: 07/23/2021 2:16 PM Reason For Exam: chest pain Comparison 05/11/2021. The lungs are fully inflated and clear. Mild cardiac enlargement. No pleural effusions. The mediastin um is unremarkable for technique. Bony structures are intact. XR/XR chest 1V portable [id number] IMPRESSION: 1. Slight cardiac enlargement. No acute process.
--- NOTE | 2021-07-23 14:12 | W.ED.CHESTPA ---
HPI - Chest Pain General: Chief Complaint: Chest Pain Stated Complaint: cp Time Seen by Provider: 07/23/21 13:50 History of Present Illness: Patient comes in with chest pain. States that this morning she had an episode of midsternal sharp chest pain, that lasted for about an hour then resolved. States it came back about an hour prior to arrival. She describes it as lower sternal, sharp, worse with deep inspiration and palpation. States he has a history of coronary artery disease status post multiple stents and this is different pain. Denies fever, vomiting, diarrhea. States she was given aspirin and nitroglycerin in route without improvement. Associated symptoms: Deny abdominal pain, dyspnea, fever(s), nausea, palpitations or vomiting Review of Systems Const: Denies: fever(s) or body aches Eyes: Denies: change in vision or blurry vision ENMT: Denies: throat pain or odynophagia Card: Reports: chest pain; Denies: palpitations Resp: Denies: dyspnea or productive cough GI: Denies: abdominal pain, nausea or vomiting : Denies: flank pain or dysuria Musc: Denies: neck pain or back pain Skin/Breast: Denies: rash or pruritus Neuro: Denies: headache(s) or numbness in extremities Psych: Denies: anxiety or change in appetite Endo: Denies: polyuria or excessive sweating PFSH ED PFSH: Medical History Acquired deformity of right foot Arteriosclerotic heart disease (ASHD) Asthma with chronic obstructive pulmonary disease (COPD) follows with pulmonology Atrophic vaginitis Bilateral primary osteoarthritis of knee 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 Degenerative disc disease, cervical Dysphagia, oropharyngeal Enrolled in chronic care management Essential (primary) hypertension Fibromyalgia 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[place] Hx of angioedema improved after stopping Lisinopril Low back pain Mixed hyperlipidemia Morbid (severe) obesity due to excess calories BMI 40.0-44.9 Obstructive sleep apnea Polyneuropathy Vesico-ureteral reflux Surgical History History of colon resection Hx of arthroscopy of left knee (~2012) Dr Briceno Hx of cardiac cath Hx of cholecystectomy (~1992) Hx of coronary angioplasty stents x 3 Hx of total knee replacement (~09/2018) left, Dr Gonzalez S/P total knee arthroplasty Family History Brother Cancer lung Father CAD (coronary artery disease) Mother Bleeding disorder Social History Smoking and tobacco status: never smoked Quit status (tobacco): has quit using tobacco Year quit tobacco: 2008 Former quit date comment: 2 PPD x 40 yrs Second hand smoke exposure: No Alcohol intake: never Lives independently: Yes Household members: none Housing: House Marital status: / Number of children: 5 Current occupational status: retired History of recent travel: No Current gender identity: Female Physical Exam Const: COMMON NORMALS: no acute distress, patient oriented x3, healthy appearing and alert HENMT: COMMON NORMALS: normocephalic and atraumatic HEAD & SCALP: normocephalic and atraumatic Eye: COMMON NORMALS: Equal, round and reactive pupils present and EOMs intact bilaterally PUPIL: Yes Equal, round and reactive pupils present Neck/C-Spine: COMMON NORMALS: full ROM and supple Chest: OTHER: Lower chest wall tenderness to palpation Resp: COMMON NORMALS: normal respiratory effort, No retractions and No use of accessory muscles Cardio: COMMON NORMALS: regular rate and regular rhythm RATE: regular rate RHYTHM: regular rhythm GI: COMMON NORMALS: Normal to inspection, nondistended, normoactive bowel sounds present and Soft to palpation PALPATION: Yes Soft to palpation OTHER: Mild epigastric tenderness to palpation Back/Pelvis: COMMON NORMALS: thoracic and lumbar spine normal to inspection and no thoracic nor lumbar tenderness Extremity: COMMON NORMALS: normal to inspection and full ROM Neuro: COMMON NORMALS: patient oriented x3 SENSORIUM/ORIENTATION: Yes alert Psych: COMMON NORMALS: mental status grossly normal and cooperative Skin: COMMON NORMALS: no rashes or lesions noted and no wounds GENERAL SKIN EXAM: no rashes or lesions noted Course Vital Signs: Vital signs: Vital Signs Temperature 97.6 F 07/23/21 13:46 Pulse Rate 52 L 07/23/21 14:20 Respiratory Rate 18 07/23/21 14:20 Blood Pressure 130/93 07/23/21 14:20 Pulse Oximetry 99 07/23/21 14:20 MDM - Chest Pain Medical Decision Making Patient comes in with chest pain. States that this morning she had an episode of midsternal sharp chest pain, that lasted for about an hour then resolved. States it came back about an hour prior to arrival. She describes it as lower sternal, sharp, worse with deep inspiration and palpation. States he has a history of coronary artery disease status post multiple stents and this is different pain. Denies fever, vomiting, diarrhea. On physical exam she has some mild epigastric tenderness to palpation. Will check labs, CT, and reassess On reassessment I talked to the patient about the test results. Will discharge home at this time with precautions to return for worsening or changing symptoms. We will refer her to cardiothoracic surgery for routine follow-up of her ascending aortic aneurysm. I discussed the CT findings with the patient and with radiology who feels that measures the same as on previous CAT scans even though it was not mentioned. Lab Data : 07/23/21 14:15 07/23/21 14:15 Radiology Impressions Chest CTA 07/23/21 14:03 IMPRESSION: 1. No pulmonary embolism identified. 2. Cardiomegaly. 3. Ascending aortic aneurysm measures 4.1 cm. No dissection or rupture. ADDENDUM: 07/23/21 1638 Comparison with 05/11/[address] shows no interval change in diameter of the above described descending aortic aneurysm. Findings were discussed with ordering physician Gatito Melo by phone at 4:36 PM CDT, 07/23/2021. Chest X-Ray 07/23/21 14:03 IMPRESSION: 1. Slight cardiac enlargement. No acute process. Laboratory Results WBC 5.8 10^3/uL (4.0-10.0) 07/23/21 14:15 RBC 3.56 10^6/uL (4.1-5.3) L 07/23/21 14:15 Hgb 10.9 g/dL (11.5-15.3) L 07/23/21 14:15 Hct 32.3 % (37.0-47.0) L 07/23/21 14:15 MCV 90.7 fl (81-99) D 07/23/21 14:15 MCH 30.6 pg (28.0-34.0) 07/23/21 14:15 MCHC 33.7 g/dL (30.0-36.0) D 07/23/21 14:15 RDW 13.7 % (12.1-15.1) 07/23/21 14:15 Plt Count 292 10^3/cmm (130-400) 07/23/21 14:15 MPV 10.0 fL (7.4-10.4) 07/23/21 14:15 Neut % (Auto) 65.4 % 07/23/21 14:15 Lymph % (Auto) 22.6 % 07/23/21 14:15 [place] % (Auto) 10.3 % 07/23/21 14:15 Eos % (Auto) 1.2 % 07/23/21 14:15 Baso % (Auto) 0.3 % 07/23/21 14:15 Neut # (Auto) 3.79 10^3/uL (1.8-7.7) 07/23/21 14:15 Lymph # (Auto) 1.3 10^3/uL (0.8-4.8) 07/23/21 14:15 [place] # (Auto) 0.6 10^3/uL (0.2-0.9) 07/23/21 14:15 Eos # (Auto) 0.1 10^3/uL (0.0-0.8) 07/23/21 14:15 Baso # (Auto) 0.0 10^3/uL (0.0-0.1) 07/23/21 14:15 Nucleated RBC % (auto) 0 % 07/23/21 14:15 Nucleated RBCs # 0.0 /100WBC 07/23/21 14:15 Sodium 140 mmol/L (136-145) 07/23/21 14:15 Potassium 3.8 mmol/L (3.5-5.1) 07/23/21 14:15 Chloride 104 mmol/L (98-107) 07/23/21 14:15 Carbon Dioxide 25 mmol/L (22-29) 07/23/21 14:15 Anion Gap 14.8 (5-19) 07/23/21 14:15 BUN 24 mg/dL (8-23) H 07/23/21 14:15 Creatinine 1.0 mg/dL (0.5-0.9) H 07/23/21 14:15 GFR Calculation Not Reportable 07/23/21 14:15 Glucose 77 mg/dL (65-115) 07/23/21 14:15 Calculated Osmolality 293 mOsm/kg (285-295) 07/23/21 14:15 Calcium 9.0 mg/dL (8.5-10.5) 07/23/21 14:15 Total Bilirubin 0.2 mg/dL (0.15-1.2) 07/23/21 14:15 AST 15 U/L (0-32) 07/23/21 14:15 ALT 12 U/L (0-33) 07/23/21 14:15 Alkaline Phosphatase 53 IU/L (35-105) 07/23/21 14:15 Troponin T Baseline 10 ng/L (0-10) 07/23/21 14:15 Troponin T 120 Minute 10.09 ng/L (0-10) H 07/23/21 16:20 Delta Troponin T 0.09 ABS# (0-10) 07/23/21 16:20 Total Protein 6.3 g/dL (6.6-8.7) L 07/23/21 14:15 Albumin 4.1 g/dL (3.5-5.2) 07/23/21 14:15 Globulin 2.2 g/dL (1.3-4.6) 07/23/21 14:15 Lipase 30 U/L (13-60) 07/23/21 14:15 Discharge Plan Discharge Patient Disposition: Home Clinical Impression: Nonspecific chest pain Condition: Stable Prescriptions: No Action (DME) Small portable oxygen concentrator See Rx Instructions .Route .MEDSUPPLY Qty: 1 0RF Rx Instructions: As directed albuterol sulfate [ProAir HFA] 90 mcg/actuation HFA aerosol inhaler 2 puff INHALATION Q6H PRN (Reason: shortness of breath) Qty: 8.5 2RF cyclobenzaprine 5 mg tablet 5 mg PO BEDTIME PRN (Reason: Muscle Spasm) Qty: 90 1RF Spiriva Respimat 2.5 mcg/actuation mist 2 puff inhalation DAILY Qty: 4 6RF metformin 500 mg tablet 1,000 mg PO BID 90 Days Qty: 360 1RF Hold Instructions: Restart on 02/19/2021 nitroglycerin [Nitrostat] 0.4 mg tablet, sublingual 0.4 mg SUBLINGUAL Q5M PRN (Reason: chest pains) Qty: 30 0RF (DME) pen needle, diabetic [UltiCare Pen Needle] 31 gauge x 5/16 needle See Rx Instructions .Route Qty: 400 4RF Rx Instructions: use as directed qid as needed insulin lispro [Humalog KwikPen Insulin] 100 unit/mL insulin pen See Rx Instructions .ROUTE .COMPLEX Qty: 30 2RF Dose Instruction: INJECT SUBCUTANEOUSLY DIRECTED BEFORE MEALS <150=6UNITS, 151-200=8UNITS, 201-250=10UNITS, 251-300=12UNITS, >300=14UNITS Rx Instructions: sliding scale before meals albuterol sulfate 1.25 mg/3 mL solution for nebulization See Rx Instructions .ROUTE .COMPLEX Qty: 75 1RF Dose Instruction: inhale THE contents of ONE vial PER NEBULIZER FOUR TIMES DAILY NEEDED FOR SHORTNESS OF BREATH OR wheezing Rx Instructions: inhale THE contents of ONE vial PER NEBULIZER FOUR TIMES DAILY NEEDED FOR SHORTNESS OF BREATH OR wheezing amlodipine 5 mg tablet 5 mg PO DAILY Qty: 30 5RF Breo Ellipta 200-25 mcg/dose blister with device See Rx Instructions .ROUTE .COMPLEX Qty: 180 4RF Dose Instruction: INHALE 1 PUFF BY MOUTH DAILY Rx Instructions: INHALE 1 PUFF BY MOUTH DAILY bumetanide 1 mg tablet 1 mg PO DAILY 90 Days Qty: 90 1RF Lantus Solostar U-100 Insulin 100 unit/mL (3 mL) insulin pen 35 unit SUBCUT BEDTIME Qty: 15 1RF aspirin 81 mg Tablet,Delayed Release (Dr/Ec) 81 mg PO QAM 0RF ferrous sulfate 325 mg (65 mg iron) tablet 325 mg PO QPM 0RF montelukast 10 mg tablet 10 mg PO BEDTIME 0RF azelastine 137 mcg (0.1 %) aerosol,spray 2 spray intranasal BID 0RF cholecalciferol (vitamin D3) 125 mcg (5,000 unit) capsule 125 mcg PO QAM 0RF rosuvastatin 40 mg tablet 40 mg PO BEDTIME 0RF metoprolol tartrate 25 mg tablet 25 mg PO BID 0RF fenofibrate nanocrystallized 145 mg tablet 145 mg PO DAILY 0RF ranolazine [Ranexa] 1,000 mg tablet extended release 12 hr 1,000 mg PO BID Qty: 60 0RF Mobic 15 mg Tablet 15 mg PO DAILY 0RF losartan 100 mg tablet 100 mg PO BEDTIME 0RF Discharge Orders: Discharge ED (Routine); Ordered 07/23/21 Ordered By: Gatito Jiang Referrals: Sofie Maria MD [Primary Care Provider] - Coding Level of Care Code ED Chop Saw Operator for Chg Fwd Exam Comprehensive
[2021-07-23] MEDS: ketorolac 30 mg/mL INJ 15 MG IVP (14:15)
[2021-07-23 14:24] LABS: Basophils % 0.3 %; Eosinophils # 0.1 10^3/uL (0.0-0.8); Eosinophils % 1.2 %; Hematocrit 32.3 % (37.0-47.0); Hemoglobin 10.9 g/dL (11.5-15.3); Lymphocytes # 1.3 10^3/uL (0.8-4.8); Lymphocytes % 22.6 %; Mean Corpuscular HGB Conc 33.7 g/dL (30.0-36.0); Mean Corpuscular Hemoglobin 30.6 pg (28.0-34.0); Mean Corpuscular Volume 90.7 fl (81-99); Monocytes # 0.6 10^3/uL (0.2-0.9); Monocytes % 10.3 %; Neutrophils # 3.79 10^3/uL (1.8-7.7); Neutrophils % 65.4 %; Nucleated Red Blood Cells % 0 %; Platelet Count 292 10^3/cmm (130-400); Red Blood Count 3.56 10^6/uL (4.1-5.3); Red Cell Distribution Width 13.7 % (12.1-15.1); White Blood Count 5.8 10^3/uL (4.0-10.0)
[2021-07-23 14:43] LABS: Alanine Aminotransferase 12 U/L (0-33); Albumin Level 4.1 g/dL (3.5-5.2); Alkaline Phosphatase 53 IU/L (35-105); Anion Gap 14.8 (5-19); Aspartate Amino Transferase 15 U/L (0-32); Blood Urea Nitrogen 24 mg/dL (8-23); Carbon Dioxide 25 mmol/L (22-29); Chloride 104 mmol/L (98-107); Globulin 2.2 g/dL (1.3-4.6); Glucose 77 mg/dL (65-115); Lipase 30 U/L (13-60); Osmolality Calculated 293 mOsm/kg (285-295); Potassium 3.8 mmol/L (3.5-5.1); Sodium 140 mmol/L (136-145); Total Bilirubin 0.2 mg/dL (0.15-1.2); Total Protein 6.3 g/dL (6.6-8.7)
[2021-07-23 14:45] LABS: Troponin(5th) Baseline 10 ng/L (0-10)
[2021-07-23 14:56] LABS: Creatinine Clr Calc Pharmacy 55.1694
--- NOTE | 2021-07-23 15:43 | PC.NURSE ---
EKG done at 1530 and shown to ER doctor
--- NOTE | 2021-07-23 16:03 | ECG_ITS ---
[facility] Test Date: 2021-07-23 Pat Name: Kiera Hart Department: Room: Gender: Female Application Development Liaison: : 1950 Requested By: Gatito Jiang Order Number: [id number] Сергей MD: Jose M Liu M.D. Measurements Intervals [place] Rate: 58 P: 73 MI: 181 QRS: -41 QRSD: 101 T: 34 QT: 448 QTc: 443 Interpretive Statements SINUS BRADYCARDIA WITH SINUS ARRHYTHMIA LEFT AXIS DEVIATION [QRS AXIS < -30] Compared to ECG 07/23/2021 13:50:47 Left-axis deviation now present Left anterior fascicular block no longer present T-wave abnormality no longer present Electronically Signed On 07-23-2021 17:02:26 CDT by Jose M Liu M.D. [id number]
[2021-07-23] MEDS: acetaminophen 325 mg Tablet 650 MG PO (16:45)
[2021-07-23 16:49] LABS: Troponin 5 2HR 10.09 ng/L (0-10); Troponin 5 2HR Delta 0.09 ABS# (0-10)
--- NOTE | 2021-07-26 10:49 | DCPLANNER ---
Addendum entered by Indira Gusman 10/06/21 12:35: Patient had an appointment scheduled for 08.19.21 with heart care - patient did attend appointment Addendum entered by Indira Gusman 07/27/21 15:51: Patient has a follow up appointment scheduled for August at 12:[address] Wright at [facility]. Clinic will call patient with appointment information. Original Note: surgical manager had message to schedule a follow up appointment for patient with cardiology. surgical manager sent patients information to the front office staff at [facility]. Patients information will be printed and reviewed. Clinic will call patient with appointment information.
== END 2021-07-23 17:30 | disposition home or self-care (01) ==
PROVIDERS: Emergency Provider Emergency Medicine; PCP Family Medicine
DX: R07.89 Other chest pain (principal); I25.10 Atherosclerotic heart disease of native coronary artery without angina pectoris; E11.9 Type 2 diabetes mellitus without complications; I10 Essential (primary) hypertension; E78.5 Hyperlipidemia, unspecified; E66.01 Morbid (severe) obesity due to excess calories; Z68.41 Body mass index [BMI] 40.0-44.9, adult; Z79.4 Long term (current) use of insulin; Z79.84 Long term (current) use of oral hypoglycemic drugs
CPT/HCPCS: 71045; 71275; 80053; 83690; 84484; 85025; 93005; 96374; 99285; J1885; Q9967

== ENCOUNTER 2021-08-09 12:48 | Emergency (ER) | payer MEDICARE, MEDICAID, SELFPAY ==
[2021-08-09 12:51] VITALS: BP 153/80; PULSE 61; RESP 21; TEMP 36.6; O2SAT 100; BMI 48.5
--- NOTE | 2021-08-09 12:59 | W.ED.CHESTPA ---
HPI - Chest Pain General: Chief Complaint: Chest Pain Stated Complaint: CHEST PAIN Time Seen by Provider: 08/09/21 12:49 Source: patient Mode of arrival: EMS Limitations: no limitations History of Present Illness: 71-year-old female presents emergency room with complaints of chest pain. She began 11:00 today. She has a history of coronary disease and has had 3 stents in the past however she had a stress test earlier this year and a coronary angiogram that was completely normal. The stress test was done a couple months later there is a questionable area of reversible ischemia according to the graphic pre press trades worker notes they decided to treat medically because of the normal angiogram done just previously. She also had a finding of a 4 cm ascending aorta aneurysm and she is scheduled to see Dr. Wright for this. She had a couple episodes of chest pain recently while at rest she takes nitro and states they get better. She did is breathing very rapidly peers to be hyperventilating when I first seen her. Normally uses oxygen at night she came in via EMS with a 2 L by nasal cannula satting 100% this was turned down and her oxygen sat remained stable. MD complaint: chest pain Onset (ago): day(s) Timing of current episode: episodic Prior episodes: Yes Onset: during rest Pain location: left chest Pain radiation: back Severity: severe Quality: tightness, heaviness and dull Relieving factors: nitroglycerin Exacerbating factors: nothing Associated symptoms: Deny abdominal pain, diaphoresis, dyspnea, fever(s), leg edema, nausea, palpitations, sense of impending doom, syncope or vomiting Treatment prior to arrival: none Review of Systems Const: Denies: fever(s), chills, fatigue, malaise or diaphoresis ENMT: Denies: throat pain, ear or mastoid pain, nasal discharge or nasal congestion Card: Reports: chest pain; Denies: palpitations, edema, swelling of feet/ankles or syncope Resp: Denies: dyspnea GI: Denies: abdominal pain, nausea or vomiting : Denies: flank pain, difficulty voiding, dysuria, urinary frequency or urinary urgency Skin/Breast: Denies: rash or pruritus [facility] ED PFSH: Medical History Acquired deformity of right foot Arteriosclerotic heart disease (ASHD) Asthma with chronic obstructive pulmonary disease (COPD) follows with pulmonology Atrophic vaginitis Bilateral primary osteoarthritis of knee 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 Degenerative disc disease, cervical Dysphagia, oropharyngeal Enrolled in chronic care management Essential (primary) hypertension Fibromyalgia 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[place] Hx of angioedema improved after stopping Lisinopril Low back pain Mixed hyperlipidemia Morbid (severe) obesity due to excess calories BMI 40.0-44.9 Obstructive sleep apnea Polyneuropathy Vesico-ureteral reflux Surgical History History of colon resection Hx of arthroscopy of left knee (~2012) Dr Briceno Hx of cardiac cath Hx of cholecystectomy (~1992) Hx of coronary angioplasty stents x 3 Hx of total knee replacement (~09/2018) left, Dr Gonzalez S/P total knee arthroplasty Family History Brother Cancer lung Father CAD (coronary artery disease) Mother Bleeding disorder Social History Smoking and tobacco status: former smoker Quit status (tobacco): has quit using tobacco Year quit tobacco: 2008 Former quit date comment: 2 PPD x 40 yrs Second hand smoke exposure: No Alcohol intake: never Lives independently: Yes Household members: none Housing: House Marital status: / Number of children: 5 Current occupational status: retired History of recent travel: No Current gender identity: Female Physical Exam Const: COMMON NORMALS: no acute distress GENERAL APPEARANCE: cooperative and comfortable ORIENTATION/CONSCIOUSNESS: Yes awake, Yes oriented to person, Yes oriented to place and Yes oriented to time HENMT: COMMON NORMALS: normocephalic, atraumatic and hearing grossly normal bilaterally HEAD & SCALP: normocephalic and atraumatic Neck/C-Spine: COMMON NORMALS: no JVD Resp: COMMON NORMALS: normal respiratory effort, No retractions, No use of accessory muscles and clear to auscultation bilaterally AUSCULTATION: clear to auscultation bilaterally Cardio: COMMON NORMALS: no JVD, regular rate, regular rhythm and No murmurs present (Cardio) RATE: regular rate RHYTHM: regular rhythm GI: COMMON NORMALS: Soft to palpation and No hepatosplenomegaly present AUSCULTATION: Yes normoactive bowel sounds PALPATION: Yes Soft to palpation, No Tenderness to palpation present (GI), No Guarding due to palpation present (GI) and Yes No hepatosplenomegaly present Extremity: COMMON NORMALS: normal to inspection, capillary refill normal, no clubbing, cyanosis or edema, no calf tenderness and no pedal edema Neuro: SENSORIUM/ORIENTATION: Yes oriented to person, Yes oriented to place and Yes oriented to time Skin: COMMON NORMALS: no rashes or lesions noted GENERAL SKIN EXAM: no rashes or lesions noted Course Vital Signs: Vital signs: Vital Signs Temperature 97.9 F 08/09/21 12:51 Pulse Rate 61 08/09/21 12:51 Respiratory Rate 21 H 08/09/21 12:51 Blood Pressure 153/80 08/09/21 12:51 Pulse Oximetry 100 08/09/21 12:51 MDM - Chest Pain Medical Decision Making Chest discomfort has resolved. She was hyperventilating significantly on arrival as evidenced by her ABGs. Serial troponins negative EKG does not show any acute change discussed Dr. Carpenter she had a stress test in April and 2 months prior to that had an essentially unremarkable coronary angiogram. We will isosorbide mononitrate 30 mg daily and recheck with cardiology later this week. Discussed Dr. Carpenter she concurs. Medical Records I reviewed the patient's medical records. Lab Data I reviewed the patient's lab results. : 08/09/21 13:00 08/09/21 13:00 Radiology Impressions Chest X-Ray 08/09/21 13:06 IMPRESSION: Stable chest with no acute abnormality. Chest CTA 08/09/21 13:56 IMPRESSION: 1. No thoracic aortic dissection. 2. Very minimal ectasia with atherosclerotic disease in the thoracic aorta. No progression of ectasia. 3. Mild cardiomegaly. Coronary artery stents. 4. Normal size pulmonary artery. Laboratory Results WBC 6.0 10^3/uL (4.0-10.0) 08/09/21 13:00 RBC 3.74 10^6/uL (4.1-5.3) L 08/09/21 13:00 Hgb 11.4 g/dL (11.5-15.3) L 08/09/21 13:00 Hct 34.0 % (37.0-47.0) L 08/09/21 13:00 MCV 90.9 fl (81-99) 08/09/21 13:00 MCH 30.5 pg (28.0-34.0) 08/09/21 13:00 MCHC 33.5 g/dL (30.0-36.0) 08/09/21 13:00 RDW 13.7 % (12.1-15.1) 08/09/21 13:00 Plt Count 322 10^3/cmm (130-400) 08/09/21 13:00 MPV 10.2 fL (7.4-10.4) 08/09/21 13:00 Neut % (Auto) 59.0 % 08/09/21 13:00 Lymph % (Auto) 28.0 % 08/09/21 13:00 [place] % (Auto) 11.0 % 08/09/21 13:00 Eos % (Auto) 1.0 % 08/09/21 13:00 Baso % (Auto) 0.7 % 08/09/21 13:00 Neut # (Auto) 3.55 10^3/uL (1.8-7.7) 08/09/21 13:00 Lymph # (Auto) 1.7 10^3/uL (0.8-4.8) 08/09/21 13:00 [place] # (Auto) 0.7 10^3/uL (0.2-0.9) 08/09/21 13:00 Eos # (Auto) 0.1 10^3/uL (0.0-0.8) 08/09/21 13:00 Baso # (Auto) 0.0 10^3/uL (0.0-0.1) 08/09/21 13:00 Nucleated RBC % (auto) 0 % 08/09/21 13:00 Nucleated RBCs # 0.0 /100WBC 08/09/21 13:00 Specimen Type Arterial 08/09/21 13:15 Sample Site Brachial, left 08/09/21 13:15 ABG pH 7.59 (7.35-7.45) H* 08/09/21 13:15 ABG pCO2 22.9 mmHg (35-45) L 08/09/21 13:15 ABG pO2 99.0 mmHg (80.0-100.0) 08/09/21 13:15 ABG HCO3 21.8 mmol/L (22-26) L 08/09/21 13:15 ABG O2 Saturation 99.3 08/09/21 13:15 ABG Base Excess 1.4 mmol/L (-2.0-2.0) 08/09/21 13:15 Sammy Test N/a 08/09/21 13:15 A-a O2 Gradient 2.8 mmHg (5-10) L 08/09/21 13:15 Hematocrit 37.3 % (37-47) 08/09/21 13:15 Hgb O2 Saturation 98.0 % (95-100) 08/09/21 13:15 Carboxyhemoglobin 0.6 %THgb (0.4-20.1) 08/09/21 13:15 Methemoglobin 0.7 % (0.4-1.5) 08/09/21 13:15 Total Hemoglobin 12.2 g/dL (12-16) 08/09/21 13:15 Sodium 141.0 mmol/L (131-143) 08/09/21 13:15 Potassium 4.0 mmol/L (3.5-5.0) 08/09/21 13:15 Glucose 116.0 mg/dL (70-115) H 08/09/21 13:15 Ionized Calcium 1.2 mmol/L (1.1-1.4) 08/09/21 13:15 O2 Delivery Device Room air 08/09/21 13:15 FiO2 21.0 % 08/09/21 13:15 Research Statistician ID Amh 08/09/21 13:15 Sodium 137 mmol/L (136-145) 08/09/21 13:00 Potassium 4.3 mmol/L (3.5-5.1) 08/09/21 13:00 Chloride 103 mmol/L (98-107) 08/09/21 13:00 Carbon Dioxide 23 mmol/L (22-29) 08/09/21 13:00 Anion Gap 15.3 (5-19) 08/09/21 13:00 BUN 18 mg/dL (8-23) 08/09/21 13:00 Creatinine 0.9 mg/dL (0.5-0.9) 08/09/21 13:00 GFR Calculation Not Reportable 08/09/21 13:00 Glucose 102 mg/dL (65-115) 08/09/21 13:00 Calculated Osmolality 286 mOsm/kg (285-295) 08/09/21 13:00 Calcium 8.8 mg/dL (8.5-10.5) 08/09/21 13:00 Total Bilirubin 0.3 mg/dL (0.15-1.2) 08/09/21 13:00 AST 20 U/L (0-32) 08/09/21 13:00 ALT 13 U/L (0-33) 08/09/21 13:00 Alkaline Phosphatase 51 IU/L (35-105) 08/09/21 13:00 Troponin T Baseline 9 ng/L (0-10) 08/09/21 13:00 Troponin T 120 Minute 7.53 ng/L (0-10) 08/09/21 15:06 Delta Troponin T -1.47 ABS# (0-10) L 08/09/21 15:06 Total Protein 6.4 g/dL (6.6-8.7) L 08/09/21 13:00 Albumin 3.9 g/dL (3.5-5.2) 08/09/21 13:00 Globulin 2.5 g/dL (1.3-4.6) 08/09/21 13:00 Discharge Plan Discharge Patient Disposition: Home Clinical Impression: Atypical chest pain Condition: Stable Prescriptions: New isosorbide mononitrate 30 mg tablet extended release 24 hr 30 mg PO DAILY Qty: 30 0RF No Action (DME) Small portable oxygen concentrator See Rx Instructions .Route .MEDSUPPLY Qty: 1 0RF Rx Instructions: As directed albuterol sulfate [ProAir HFA] 90 mcg/actuation HFA aerosol inhaler 2 puff INHALATION Q6H PRN (Reason: shortness of breath) Qty: 8.5 2RF cyclobenzaprine 5 mg tablet 5 mg PO BEDTIME PRN (Reason: Muscle Spasm) Qty: 90 1RF Spiriva Respimat 2.5 mcg/actuation mist 2 puff inhalation DAILY Qty: 4 6RF metformin 500 mg tablet 1,000 mg PO BID 90 Days Qty: 360 1RF Hold Instructions: Restart on 02/19/2021 nitroglycerin [Nitrostat] 0.4 mg tablet, sublingual 0.4 mg SUBLINGUAL Q5M PRN (Reason: chest pains) Qty: 30 0RF (DME) pen needle, diabetic [UltiCare Pen Needle] 31 gauge x 5/16 needle See Rx Instructions .Route Qty: 400 4RF Rx Instructions: use as directed qid as needed insulin lispro [Humalog KwikPen Insulin] 100 unit/mL insulin pen See Rx Instructions .ROUTE .COMPLEX Qty: 30 2RF Dose Instruction: INJECT SUBCUTANEOUSLY DIRECTED BEFORE MEALS <150=6UNITS, 151-200=8UNITS, 201-250=10UNITS, 251-300=12UNITS, >300=14UNITS Rx Instructions: sliding scale before meals albuterol sulfate 1.25 mg/3 mL solution for nebulization See Rx Instructions .ROUTE .COMPLEX Qty: 75 1RF Dose Instruction: inhale THE contents of ONE vial PER NEBULIZER FOUR TIMES DAILY NEEDED FOR SHORTNESS OF BREATH OR wheezing Rx Instructions: inhale THE contents of ONE vial PER NEBULIZER FOUR TIMES DAILY NEEDED FOR SHORTNESS OF BREATH OR wheezing amlodipine 5 mg tablet 5 mg PO DAILY Qty: 30 5RF Breo Ellipta 200-25 mcg/dose blister with device See Rx Instructions .ROUTE .COMPLEX Qty: 180 4RF Dose Instruction: INHALE 1 PUFF BY MOUTH DAILY Rx Instructions: INHALE 1 PUFF BY MOUTH DAILY bumetanide 1 mg tablet 1 mg PO DAILY 90 Days Qty: 90 1RF Lantus Solostar U-100 Insulin 100 unit/mL (3 mL) insulin pen 35 unit SUBCUT BEDTIME Qty: 15 1RF aspirin 81 mg Tablet,Delayed Release (Dr/Ec) 81 mg PO QAM 0RF ferrous sulfate 325 mg (65 mg iron) tablet 325 mg PO QPM 0RF montelukast 10 mg tablet 10 mg PO BEDTIME 0RF rosuvastatin 40 mg tablet 40 mg PO BEDTIME 0RF fenofibrate nanocrystallized 145 mg tablet 145 mg PO DAILY 0RF ranolazine [Ranexa] 1,000 mg tablet extended release 12 hr 1,000 mg PO BID Qty: 60 0RF losartan 100 mg tablet 100 mg PO BEDTIME 0RF metoprolol tartrate 25 mg tablet 25 mg PO BID 0RF Discharge Orders: Discharge ED (Routine); Ordered 08/09/21 Ordered By: Joaquin Guido Referrals: Sofie Maria MD [Primary Care Provider] - Discharge Diet: Usual diet Discharge Activity: Limit activity as instructed Patient Instructions: Opioid Safety Activity Restrictions/Additional Instructions: Follow-up with your graphic pre press trades worker within the week. Coding Level of Care Code ED Community Development Coordinator for Chg Fwd Exam Comprehensive
--- NOTE | 2021-08-09 13:06 | XR_ITS ---
WS: [id number] XR chest 1V portable [id number] REASON FOR EXAM: dyspnea/cough FINDINGS: The chest is unchanged compared to 07/23/2021. Mild tortuosity of the thoracic aorta. Mild/moderate cardiomegaly. Calcified coronary artery stents. Calcified granulomatous disease in both hemithoraces. No acute pulmonary parenchymal or pleural abnormality. Degenerative spondylosis, moderate, in the thoracic spine. XR/XR chest 1V portable [id number] IMPRESSION: Stable chest with no acute abnormality.
--- NOTE | 2021-08-09 13:07 | ECG_ITS ---
[facility] Test Date: 2021-08-09 Pat Name: Kiera Hart Department: Room: Gender: Female Certified Cytotechnologist: : 1950 Requested By: Joaquin Roe Order Number: [id number] Сергей MD: Jose M Liu M.D. Measurements Intervals [place] Rate: 60 P: 52 TX: 150 QRS: -37 QRSD: 106 T: 11 QT: 450 QTc: 453 Interpretive Statements SINUS RHYTHM LEFT AXIS DEVIATION [QRS AXIS < -30] MINIMAL VOLTAGE CRITERIA FOR LVH, CONSIDER NORMAL VARIANT [MEETS CRITERIA IN ONE OF: R(aVL), S(V1), R(V5), R(V5/V6)+S(V1)] Compared to ECG 07/23/2021 15:35:39 Sinus bradycardia no longer present Sinus arrhythmia no longer present Electronically Signed On 08-09-2021 17:30:40 CDT by Jose M Liu M.D. [id number]
[2021-08-09 13:26] LABS: Basophils % 0.7 %; Eosinophils # 0.1 10^3/uL (0.0-0.8); Hemoglobin 11.4 g/dL (11.5-15.3); Lymphocytes # 1.7 10^3/uL (0.8-4.8); Mean Corpuscular HGB Conc 33.5 g/dL (30.0-36.0); Mean Corpuscular Hemoglobin 30.5 pg (28.0-34.0); Mean Corpuscular Volume 90.9 fl (81-99); Mean Platelet Volume 10.2 fL (7.4-10.4); Monocytes # 0.7 10^3/uL (0.2-0.9); Neutrophils # 3.55 10^3/uL (1.8-7.7); Nucleated Red Blood Cells % 0 %; Platelet Count 322 10^3/cmm (130-400); Red Blood Count 3.74 10^6/uL (4.1-5.3); Red Cell Distribution Width 13.7 % (12.1-15.1)
[2021-08-09 13:26] LABS: ABG PCO2 22.9 mmHg (35-45); Alveolar-Arterial Oxygen Gradi 2.8 mmHg (5-10); Arterial Blood Gas Hematocrit 37.3 % (37-47); Base Excess ABG 1.4 mmol/L (-2.0-2.0); Blood Gas Operator Identificat AMH; Blood Gas Sample Site Brachial, left; Blood Gas Sample Type Arterial; Carboxyhemoglobin 0.6 %THgb (0.4-20.1); HCO3 ABG 21.8 mmol/L (22-26); Ionized Calcium Level - ABG 1.2 mmol/L (1.1-1.4); Methemoglobin 0.7 % (0.4-1.5); Oxygen Device ROOM AIR; Oxygen Saturation ABG 99.3; Total Hemoglobin 12.2 g/dL (12-16)
[2021-08-09 13:27] LABS: ABG PH Result 7.59 (7.35-7.45)
[2021-08-09 13:45] LABS: Alanine Aminotransferase 13 U/L (0-33); Albumin Level 3.9 g/dL (3.5-5.2); Alkaline Phosphatase 51 IU/L (35-105); Aspartate Amino Transferase 20 U/L (0-32); Blood Urea Nitrogen 18 mg/dL (8-23); Calcium 8.8 mg/dL (8.5-10.5); Carbon Dioxide 23 mmol/L (22-29); Chloride 103 mmol/L (98-107); Globulin 2.5 g/dL (1.3-4.6); Glucose 102 mg/dL (65-115); Osmolality Calculated 286 mOsm/kg (285-295); Sodium 137 mmol/L (136-145); Total Bilirubin 0.3 mg/dL (0.15-1.2); Total Protein 6.4 g/dL (6.6-8.7)
[2021-08-09 13:46] LABS: Troponin(5th) Baseline 9 ng/L (0-10)
[2021-08-09 13:48] LABS: Anion Gap 15.3 (5-19); Potassium 4.3 mmol/L (3.5-5.1)
--- NOTE | 2021-08-09 13:56 | CT_ITS ---
WS: [id number] CTA THORACIC AORTA WITH AND WITHOUT CONTRAST. HISTORY: thoracic aneurysm, severe right-sided chest pain. TECHNIQUE: CT imaging of the thorax is performed with and without contrast. After noncontrast imaging is performed, CT angiogram is performed during injection of Omnipaque 300; 95 mL IV.. Sagittal and c oronal reconstructions, sagittal and coronal MIP imaging is submitted. All CT scans at [facility] use at least one of these dose optimization techniques: automated exposure control; mA and/or kV adjustment per patient size (includes targeted exams where dose is matched to clinical indication); or iterative reconstruction. DLP: 1542.78 mGy.cm COMPARISON: 07/23/2021 Mild ectasia thoracic aorta with mild atherosclerotic plaque. No dissection. Very minimal dilatation to 3.8 cm. Descending aorta is normal caliber with atherosclerotic plaque. Origin of the great vessel s are negative for any significant stenosis. Chronic emphysematous changes. No mass, pneumonia or nodule. No effusion. Heart is mildly enlarged. N o pericardial effusion. Coronary artery stent. Proximal pulmonary arteries are well-opacified. Small hiatal hernia. Mild perinephric stranding. No adrenal mass. 1 cm cyst upper pole LEFT kidney. CT/CT angio chest [id number] IMPRESSION: 1. No thoracic aortic dissection. 2. Very minimal ectasia with atherosclerotic disease in the thoracic aorta. No progression of ectasia. 3. Mild cardiomegaly. Coronary artery stents. 4. Normal size pulmonary artery.
[2021-08-09] MEDS: LORazepam 2 mg/mL INJ 1 mL IVP (14:07)
[2021-08-09] MEDS: iohexol 350 mg/mL 100 mL Btl IV (14:56)
--- NOTE | 2021-08-09 15:07 | ECG_ITS ---
[facility] Test Date: 2021-08-09 Pat Name: Kiera Hart Department: Room: Gender: Female Medical Insurance Claims Specialist: : 1950 Requested By: Joaquin Roe Order Number: [id number] Сергей MD: Jose M Liu M.D. Measurements Intervals [place] Rate: 69 P: 63 ND: 175 QRS: -42 QRSD: 113 T: 28 QT: 443 QTc: 477 Interpretive Statements SINUS RHYTHM LEFT AXIS DEVIATION [QRS AXIS < -30] MODERATE INTRAVENTRICULAR CONDUCTION DELAY [110+ ms QRS DURATION] MODERATE VOLTAGE CRITERIA FOR LVH, CONSIDER NORMAL VARIANT [MEETS CRITERIA IN ONE OF: R(aVL), S(V1), R(V5), R(V5/V6)+S(V1)] Compared to ECG 08/09/2021 12:56:15 Intraventricular conduction delay now present Electronically Signed On 08-09-2021 17:35:31 CDT by Jose M Liu M.D. [id number]
[2021-08-09 16:04] LABS: Troponin 5 2HR 7.53 ng/L (0-10)
[2021-08-09 16:10] LABS: Troponin 5 2HR Delta -1.47 ABS# (0-10)
== END 2021-08-09 16:38 | disposition home or self-care (01) ==
PROVIDERS: Emergency Provider Family Medicine; PCP Family Medicine
DX: R07.89 Other chest pain (principal); Z79.84 Long term (current) use of oral hypoglycemic drugs; Z79.82 Long term (current) use of aspirin; Z79.4 Long term (current) use of insulin; E11.9 Type 2 diabetes mellitus without complications; I10 Essential (primary) hypertension; E78.2 Mixed hyperlipidemia; Z98.61 Coronary angioplasty status; Z87.891 Personal history of nicotine dependence
CPT/HCPCS: 36600; 71045; 71275; 80051; 80053; 82330; 82805; 84484; 85025; 93005; 96374; 99284; J2060; Q9967

== ENCOUNTER → 2021-08-19 11:23 | Outpatient (BNVA) | payer MEDICARE, MEDICAID, SELFPAY | PROVIDERS: PCP Family Medicine; Visit Provider Thoracic Surgery (Cardiothoracic Vascular Surgery) | DX: I71.2 Thoracic aortic aneurysm, without rupture (principal) | CPT/HCPCS: 99203 ==

== ENCOUNTER → 2021-10-05 12:15 | Outpatient (BNVA) | payer MEDICARE, MEDICAID, SELFPAY | PROVIDERS: PCP Family Medicine; Visit Provider Internal Medicine | DX: I10 Essential (primary) hypertension (principal); G47.33 Obstructive sleep apnea (adult) (pediatric); E78.2 Mixed hyperlipidemia; E11.42 Type 2 diabetes mellitus with diabetic polyneuropathy; Z79.4 Long term (current) use of insulin; Z87.891 Personal history of nicotine dependence | CPT/HCPCS: 99214 ==

== ENCOUNTER → 2021-10-08 10:36 | Outpatient (BNVA) | payer MEDICARE, MEDICAID, SELFPAY | PROVIDERS: PCP Family Medicine; Visit Provider Family Medicine | DX: E55.9 Vitamin D deficiency, unspecified (principal); E78.2 Mixed hyperlipidemia; I10 Essential (primary) hypertension; E11.8 Type 2 diabetes mellitus with unspecified complications | CPT/HCPCS: 80053; 80061; 82306; 83036; 84443; 85025 ==

== ENCOUNTER 2021-10-28 09:28 | Outpatient (CLI) | payer MEDICARE, MEDICAID, SELFPAY ==
--- NOTE | 2021-10-28 09:41 | MM_ITS ---
WS: [id number] Bilateral diagnostic 3D tomosynthesis digital mammogram, 10/28/2021 Clinical Data: N63.0 - Unspecified lump in unspecified breast Comparison: 01/12/2018, 12/15/2015, 04/23/2014, 12/24/2012, 11/04/2010, 11/03/2009. Findings: The breasts show fat replacement. There is a marker in the upper outer quadrant of the right breast a t the 11:00 position but there are no spiculated masses or clustered calcifications. Both breasts sneha w scattered benign calcifications. There are right axillary lymph nodes. MM/[place] [id number] Impression: 1. Negative bilateral mammograms unchanged. 2. Right breast ultrasound will be performed. BIRADS: 1-Negative FOLLOW UP: See Report The CAD stock checkerer was used.
--- NOTE | 2021-10-28 09:41 | US_ITS ---
WS: [id number] Right breast ultrasound, 10/28/2021 Clinical Data: N63.0 - Unspecified lump in unspecified breast Comparison: Mammogram, 10/28/2021 Findings: The upper outer quadrant right breast was imaged. There was a small calcification noted 1 cm from the nipple at the 12:00 position. There are no cysts or masses seen. US/US breast RT limited* [id number] Impression: 1. Negative right breast ultrasound. 2. Return to annual screening mammograms. BIRADS: 1-Negative FOLLOW UP: 1 Year Follow-up
== END 2021-10-28 09:29 | disposition home or self-care (01) ==
LOC: RAD 09:29
PROVIDERS: PCP Family Medicine; Visit Provider Family Medicine
DX: R92.1 Mammographic calcification found on diagnostic imaging of breast (principal); N63.11 Unspecified lump in the right breast, upper outer quadrant
CPT/HCPCS: 76642; 77062

== ENCOUNTER → 2021-10-29 11:39 | Outpatient (BNVA) | payer MEDICARE, MEDICAID, SELFPAY | PROVIDERS: PCP Family Medicine; Visit Provider Nurse Practitioner Family | DX: M19.041 Primary osteoarthritis, right hand (principal); M25.512 Pain in left shoulder; M25.562 Pain in left knee; Z96.652 Presence of left artificial knee joint | CPT/HCPCS: 73030; 73130; 73562 ==

== ENCOUNTER 2021-11-25 13:05 | Observation (INO) | payer MEDICARE, MEDICAID, SELFPAY ==
[2021-11-25] VITALS (8 sets, daily range): BP systolic 91–108; BP diastolic 37–57; PULSE 59–69; RESP 15–23; TEMP 36.1–36.6; O2SAT 94–97; BMI 37.3
--- NOTE | 2021-11-25 13:08 | ED_ITS ---
HPI - General Adult General: Chief complaint: Chest Pain Stated complaint: CHEST PAIN Time Seen by Provider: 11/25/21 13:05 History of Present Illness: Patient is a 71-year-old female with a history of CAD with stent x3, hypertension, COPD, diabetes who presents the emergency room for evaluation of chest pain since 12:00. Patient reports sudden onset of sharp intense pressure-like chest pain since 12:00. Patient reports the pain is intermittent associated with diaphoresis. Patient denies any nausea or vomiting, arm pain back pain or jaw pain. Patient denies any pleuritic chest pain. Denies any knife stabbing chest pain. Patient denies any cough, runny nose, sore throat or shortness of breath. Patient denies any abdominal pain, or complaints at this time. No melena or hematochezia. Patient called EMS earlier today. Patient received 3 doses of nitroglycerin 100 mg of fentanyl and 325 aspirin with improvement in pain. Patient currently rates his pain 4 out of 10. Onset: 12pm Duration:ongoing intermittent Location:home Severity:moderate Associated symptoms: Reports chest pain; Deny dyspnea, nausea, rash, palpitations or vomiting Review of Systems Const: Reports: other (+diaphoresis); Denies: fever(s) or chills Eyes: Denies: change in vision ENMT: Denies: mouth pain Card: Reports: chest pain; Denies: palpitations Resp: Denies: dyspnea or non-productive cough GI: Denies: abdominal pain, nausea, vomiting or diarrhea : Denies: dysuria Musc: Denies: extremity pain Skin/Breast: Denies: rash or new lesions Neuro: Denies: weakness in extremities Psych: Reports: other (Normal mood) Rodriguez/Lymph: Denies: easy bruising [facility] ED PFSH: Medical History Acquired deformity of right foot Arteriosclerotic heart disease (ASHD) Asthma with chronic obstructive pulmonary disease (COPD) follows with pulmonology Atrophic vaginitis Bilateral primary osteoarthritis of knee 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 Degenerative disc disease, cervical Dysphagia, oropharyngeal Enrolled in chronic care management Essential (primary) hypertension Fibromyalgia 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[place] Hx of angioedema improved after stopping Lisinopril Low back pain Mixed hyperlipidemia Morbid (severe) obesity due to excess calories BMI 40.0-44.9 Obstructive sleep apnea Polyneuropathy Vesico-ureteral reflux Surgical History History of colon resection Hx of arthroscopy of left knee (~2012) Dr Briceno Hx of cardiac cath Hx of cholecystectomy (~1992) Hx of coronary angioplasty stents x 3 Hx of total knee replacement (~09/2018) left, Dr Gonzalez S/P total knee arthroplasty Family History Brother Cancer lung Father CAD (coronary artery disease) Mother Bleeding disorder Social History Smoking and tobacco status: former smoker (quit 2007) Quit status (tobacco): has quit using tobacco Year quit tobacco: 2007 Former quit date comment: 2 PPD x 40 yrs Second hand smoke exposure: No Alcohol intake: never Lives independently: Yes Household members: none Housing: House Marital status: / Number of children: 5 Current occupational status: retired History of recent travel: No Current gender identity: Female Physical Exam Const: COMMON NORMALS: alert HENMT: COMMON NORMALS: atraumatic HEAD & SCALP: atraumatic MOUTH: moist mucous membranes not abnormal Eye: COMMON NORMALS: EOMs intact bilaterally and conjunctivae normal CONJUNCTIVA: Yes conjunctivae normal Neck/C-Spine: COMMON NORMALS: full ROM and supple Resp: COMMON NORMALS: normal respiratory effort and clear to auscultation b ilaterally AUSCULTATION: clear to auscultation bilaterally Cardio: COMMON NORMALS: regular rate RATE: regular rate OTHER: 2+ radial pulses b/l GI: COMMON NORMALS: Soft to palpation and non-tender PALPATION: Yes Soft to palpation OTHER: No focal TTP. NO guarding rebound, guarding, rigidity. No CVA tenderness to percussion. Neg Rausch/Neg McBurney's point tenderness, no suprabupic tenderness to palpation. Extremity: COMMON NORMALS: full ROM OTHER: No richard's sign Neuro: SENSORIUM/ORIENTATION: Yes alert MOTOR EXAM: No Abnormal motor strength present and Other motor observations present (no focal motor deficits) Psych: COMMON NORMALS: speech normal SPEECH: Yes normal speech MOOD & AFFECT: Yes euthymic mood Course Vital Signs: Vital signs: Vital Signs Temperature 97.0 F L 11/25/21 13:05 Pulse Rate 67 11/25/21 14:36 Respiratory Rate 16 11/25/21 14:36 Blood Pressure 105/51 11/25/21 14:07 Pulse Oximetry 94 11/25/21 14:36 Oxygen Delivery Me thod 11/25/21 14:36 MDM - General Adult Medical Decision Making Patient is a 71-year-old female with a history of CAD with stent x3, hypertension, COPD, diabetes who presents the emergency room for evaluation of chest pain since 12:00. Patient reports pain 4 out of 10 currently. Physical exam, patient is hemodynamically stable. Initial EKG not showing signs of ST elevation. Patient received morphine and nitro glycerin in the emergency room for for chest pain. Patient has initial troponin of 12. For chest appears to be clear. Patient's age-adjusted D-dimer is within normal limit. At the present time, given story, patient will be admitted for chest pain for further evaluation. Disposition: observation Lab Data : 11/25/21 13:52 11/25/21 13:52 Radiology Impressions Chest X-Ray 11/25/21 13:10 Impression: Atherosclerosis. Laboratory Results WBC 6.7 10^3/uL (4.0-10.0) 11/25/21 13:52 RBC 3.44 10^6/uL (4.1-5.3) L 11/25/21 13:52 Hgb 10.5 g/dL (11.5-15.3) L 11/25/21 13:52 Hct 32.6 % (37.0-47.0) L 11/25/21 13:52 MCV 94.8 fl (81-99) 11/25/21 13:52 MCH 30.5 pg (28.0-34.0) 11/25/21 13:52 MCHC 32.2 g/dL (30.0-36.0) 11/25/21 13:52 RDW 15.2 % (12.1-15.1) H 11/25/21 13:52 Plt Count 273 10^3/cmm (130-400) 11/25/21 13:52 MPV 9.7 fL (7.4-10.4) 11/25/21 13:52 Neut % (Auto) 63.6 % 11/25/21 13:52 Lymph % (Auto) 23.5 % 11/25/21 13:52 Hidalgo % (Auto) 9.7 % 11/25/21 13:52 Eos % (Auto) 1.9 % 11/25/21 13:52 Baso % (Auto) 0.9 % 11/25/21 13:52 Neut # (Auto) 4.26 10^3/uL (1.8-7.7) 11/25/21 13:52 Lymph # (Auto) 1.6 10^3/uL (0.8-4.8) 11/25/21 13:52 Hidalgo # (Auto) 0.7 10^3/uL (0.2-0.9) 11/25/21 13:52 Eos # (Auto) 0.1 10^3/uL (0.0-0.8) 11/25/21 13:52 Baso # (Auto) 0.1 10^3/uL (0.0-0.1) 11/25/21 13:52 Nucleated RBC % (auto) 0 % 11/25/21 13:52 Nucleated RBCs # 0.0 /100WBC 11/25/21 13:52 D-Dimer 0.66 ug/mIFEU (0-0.59) H 11/25/21 13:52 Sodium 137 mmol/L (136-145) 11/25/21 13:52 Potassium 3.8 mmol/L (3.5-5.1) 11/25/21 13:52 Chloride 103 mmol/L (98-107) 11/25/21 13:52 Carbon Dioxide 23 mmol/L (22-29) 11/25/21 13:52 Anion Gap 14.8 (5-19) 11/25/21 13:52 BUN 19 mg/dL (8-23) 11/25/21 13:52 Creatinine 0.9 mg/dL (0.5-0.9) 11/25/21 13:52 GFR Calculation Not Reportable 11/25/21 13:52 Glucose 77 mg/dL (65-115) 11/25/21 13:52 Calculated Osmolality 285 mOsm/kg (285-295) 11/25/21 13:52 Calcium 9.0 mg/dL (8.5-10.5) 11/25/21 13:52 Troponin T Baseline 12 ng/L (0-10) H 11/25/21 13:52 Imaging Data Other Imaging: Radiologist's impression: [address] [address] XRay Report Signed Patient: Kiera Hart Unit #: [id number] : 1950 Age/Sex: 71 / F ADM Date: 11/25/21 Loc: ER Room/Bed: Attending Dr: Ordering Provider/Ordering MD: Joshua Urbina MD Date of Service: 11/25/21 Procedure(s): XR chest 1V portable 23601 Accession Number(s): [id number] Report Number: [id number] WS: [id number] Portable AP upright chest, 11/25/2021 Clinical Data: chest pain Comparison: Portable chest, 08/09/2021. Findings: No nodules, masses or effusions are seen. The heart is normal. The pulmonary vascularity is not increased. No pneumonia or pneumothorax is seen. The aortic arch and descending thoracic aorta show calcification and tortuosity. There is a area of minimal atelectasis in the lateral aspect of the minor fissure. There are monitor leads on the chest wall. XR/XR chest 1V portable [id number] Impression: Atherosclerosis. ? Dictated By: Rose Langley MD Signed By: Rose Langley MD Signed Date/Time: 11/25/21 132 DD/ 22 Discharge Plan Discharge Patient Disposition: Admitted As Inpatient Clinical Impression: Chest pain, Dyspnea Condition: Stable Coding Level of Care Code ED Food And Beverage Intern for Chg Fwd Exam Comprehensive
--- NOTE | 2021-11-25 13:10 | XR_ITS ---
WS: [id number] Portable AP upright chest, 11/25/2021 Clinical Data: chest pain Comparison: Portable chest, 08/09/2021. Findings: No nodules, masses or effusions are seen. The heart is normal. The pulmonary vascularity is not increased. No pneumonia or pneumothorax is seen. The aortic arch and descending thoracic aorta s how calcification and tortuosity. There is a area of minimal atelectasis in the lateral aspect of the minor fissure. There are monitor leads on the chest wall. XR/XR chest 1V portable [id number] Impression: Atherosclerosis.
--- NOTE | 2021-11-25 13:21 | ECG_ITS ---
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 Measurements Intervals [place] Rate: 47 P: SD: QRS: 217 QRSD: 114 T: 194 QT: 457 QTc: 404 Interpretive Statements SINUS BRADYCARDIA POSSIBLE RIGHT VENTRICULAR HYPERTROPHY ST DEVIATION AND MODERATE T-WAVE ABNORMALITY, CONSIDER INFERIOR ISCHEMIA Compared to ECG 11/25/2021 15:14:10 T-wave abnormality now present Possible ischemia now present Sinus rhythm no longer present Left-axis deviation no longer present Intraventricular conduction delay no longer present Electronically Signed On 11-25-2021 20:52:20 CDT by Carmella Herrmann M.D. [id number]
[2021-11-25] MEDS: morphine 4 mg/mL SDV 1 mL IVP (13:55)
[2021-11-25 14:00] LABS: Basophils # 0.1 10^3/uL (0.0-0.1); Basophils % 0.9 %; Eosinophils # 0.1 10^3/uL (0.0-0.8); Eosinophils % 1.9 %; Hematocrit 32.6 % (37.0-47.0); Hemoglobin 10.5 g/dL (11.5-15.3); Lymphocytes # 1.6 10^3/uL (0.8-4.8); Lymphocytes % 23.5 %; Mean Corpuscular HGB Conc 32.2 g/dL (30.0-36.0); Mean Corpuscular Hemoglobin 30.5 pg (28.0-34.0); Mean Corpuscular Volume 94.8 fl (81-99); Mean Platelet Volume 9.7 fL (7.4-10.4); Monocytes # 0.7 10^3/uL (0.2-0.9); Monocytes % 9.7 %; Neutrophils # 4.26 10^3/uL (1.8-7.7); Neutrophils % 63.6 %; Nucleated Red Blood Cells % 0 %; Platelet Count 273 10^3/cmm (130-400); Red Blood Count 3.44 10^6/uL (4.1-5.3); Red Cell Distribution Width 15.2 % (12.1-15.1); White Blood Count 6.7 10^3/uL (4.0-10.0)
--- NOTE | 2021-11-25 14:04 | PC.NURSE ---
Patient is on continuous CM and Sp02 monitor at bedside.
[2021-11-25] MEDS: nitroglycerin 0.4 mg sublingual Tablet SUBLINGUAL (14:18)
[2021-11-25 14:22] LABS: Anion Gap 14.8 (5-19); Blood Urea Nitrogen 19 mg/dL (8-23); Carbon Dioxide 23 mmol/L (22-29); Chloride 103 mmol/L (98-107); Glucose 77 mg/dL (65-115); Osmolality Calculated 285 mOsm/kg (285-295); Potassium 3.8 mmol/L (3.5-5.1); Sodium 137 mmol/L (136-145)
[2021-11-25] MEDS: ipratropium-albuterol 3 mL Neb INHALATION ×3 (14:35→14:48)
--- NOTE | 2021-11-25 15:14 | ECG_ITS ---
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 Measurements Intervals [place] Rate: 65 P: 60 VA: 163 QRS: -44 QRSD: 113 T: -3 QT: 427 QTc: 446 Interpretive Statements SINUS RHYTHM LEFT AXIS DEVIATION [QRS AXIS < -30] MODERATE INTRAVENTRICULAR CONDUCTION DELAY [110+ ms QRS DURATION] Compared to ECG 08/09/2021 15:12:07 No significant changes Electronically Signed On 11-25-2021 21:08:32 CDT by Carmella Herrmann M.D. [id number]
[2021-11-25 15:19] LABS: Troponin(5th) Baseline 12 ng/L (0-10)
[2021-11-25 15:32] LABS: D Dimer 0.66 ug/mIFEU (0-0.59)
[2021-11-25 16:34] LABS: Troponin 5 2HR 11.64 ng/L (0-10); Troponin 5 2HR Delta -0.36 ABS# (0-10)
--- NOTE | 2021-11-25 16:37 | P.HP_ITS ---
Providers/Chief Complaint Admitting Physician: Ben Cm Primary Care Provider: Sofie Maria MD Chief Complaint: CHEST PAIN History of Present Illness Pleasant 71-year-old lady with history of CAD, prior stenting, was cleaning this morning around her home, but had to drop to activities as she started having chest pain, central, lower chest, she states it was pain, nonradiating, at that time associated with some dyspnea as well. She had to sit down. Nitroglycerin provided some relief with delay. Denies remembering pain with inspiration. Denies reproducibility on palpation. Has been taking meloxicam. Has had an injured shoulder after falling several months ago, has been wearing a left shoulder sling. Has been having some epigastric discomfort recently, but feels that this pain was different from heartburn or GI discomfort. In ER she received nitroglycerin, morphine, DuoNeb treatment. Was reported to have also received aspirin. Had slight on and off discomfort just earlier, currently pain-free. Review of Systems Const: Denies: fever(s), chills, body aches or malaise Eyes: Denies: change in vision, eye discomfort or eye redness ENMT: Denies: throat pain, oral sores or ear or mastoid pain Card: Reports: chest pain and dyspnea on exertion; Denies: edema or pre-syncope Resp: Denies: dyspnea, productive cough, change in phlegm color or hemoptysis GI: Denies: abdominal pain, nausea, vomiting, diarrhea, constipation, hematochezia or melena : Denies: flank pain, urinary frequency or hematuria Musc: Denies: back pain, joint swelling or joint redness Skin/Breast: Denies: rash or new lesions Neuro: Denies: headache(s), numbness in extremities, weakness in extremities, dizziness, confusion or seizure-like activity Endo: Denies: polyuria or polydipsia Rodriguez/Lymph: Denies: easy bleeding or tender lymph nodes All/Imm: Denies: urticaria or tongue swelling Medications/Allergies Home Medications Medication Instructions Recorded Confirmed Last Taken Type aspirin 81 mg tablet,delayed 81 mg PO QAM 08/15/19 11/25/21 11/25/21 History release pen needle, diabetic 31 gauge x #400 ea 09/04/20 11/25/21 Unknown Rx 06/28 (UltiCare Pen Needle) Small portable oxygen concentrator #1 ea 11/11/20 11/25/21 Unknown Rx albuterol sulfate 90 mcg/actuation 2 puff inhalation Q6H PRN 11/11/20 11/25/21 08/09/21 Rx aerosol inhaler (ProAir HFA) shortness of breath #8.5 grams ferrous sulfate 325 mg (65 mg 325 mg PO QPM 02/15/21 11/25/21 11/24/21 History iron) tablet montelukast 10 mg tablet 10 mg PO BEDTIME 02/15/21 11/25/21 11/24/21 History cyclobenzaprine 5 mg tablet 5 mg PO BEDTIME PRN Muscle Spasm 04/15/21 11/25/21 08/08/21 Rx #90 tabs tiotropium bromide 2.5 2 puff inhalation DAILY #4 grams 04/15/21 11/25/21 08/09/21 Rx mcg/actuation mist for inhalation (Spiriva Respimat) metoprolol tartrate 25 mg tablet 25 mg PO BID 08/09/21 11/25/21 11/25/21 History losartan 100 mg tablet 100 mg PO BEDTIME #30 tabs 08/30/21 11/25/21 11/24/21 Rx bumetanide 1 mg tablet 1 mg PO DAILY PRN Edema 10/05/21 11/25/21 Unknown History insulin lispro 100 unit/mL See Rx Instructions .Route 10/20/21 11/25/21 Unknown Rx subcutaneous pen (Humalog KwikPen .COMPLEX #30 mL (U-100) Insulin) cholecalciferol (vitamin D3) 125 125 mcg PO QAM #30 caps 10/21/21 11/25/21 11/25/21 Rx mcg (5,000 unit) capsule meloxicam 15 mg tablet 15 mg PO DAILY PRN pain #14 tabs 10/29/21 11/25/21 Unknown Rx albuterol sulfate 1.25 mg/3 mL 1.25 mg inhalation QID PRN 11/25/21 11/25/21 Unknown History solution for nebulization Shortness Of Breath amlodipine 5 mg tablet 5 mg PO BEDTIME 11/25/21 11/25/21 11/24/21 History azelastine 137 mcg (0.1 %) nasal 2 spray intranasal BID 11/25/21 11/25/21 Un known History spray aerosol duloxetine 30 mg capsule,delayed 30 mg PO BID 11/25/21 11/25/21 11/25/21 History release (Cymbalta) fenofibrate nanocrystallized 145 145 mg PO DAILY 11/25/21 11/25/21 Unknown History mg tablet fluticasone furoate 200 1 inh inhalation DAILY 11/25/21 11/25/21 11/24/21 History mcg-vilanterol 25 mcg/dose inhalation powder (Breo Ellipta) insulin glargine 100 unit/mL (3 35 unit SUBCUT BEDTIME 11/25/21 11/25/21 11/24/21 History mL) subcutaneous pen (Lantus Solostar U-100 Insulin) isosorbide mononitrate 30 mg 30 mg PO BEDTIME 11/25/21 11/25/21 11/24/21 History tablet,extended release 24 hr metformin 500 mg tablet 1,000 mg PO BID 11/25/21 11/25/21 11/25/21 History nitroglycerin 0.4 mg sublingual 0.4 mg sublingual Q5M PRN Chest 11/25/21 11/25/21 11/25/21 History tablet (Nitrostat) Pain ranolazine 500 mg tablet,extended 500 mg PO BID 11/25/21 11/25/21 11/25/21 History release,12 hr rosuvastatin 40 mg tablet 40 mg PO BEDTIME 11/25/21 11/25/21 11/24/21 History Allergies Allergy/AdvReac Type Severity Reaction Status Date / Time lisinopril Allergy Severe angioedema Verified 11/25/21 14:40 hydrocodone Allergy Intermediate vomiting Verified 11/25/21 14:40 Sulfa (Sulfonamide Allergy Mild dizziness Verified 11/25/21 14:40 Antibiotics) PFSH Acute PFSH: Medical History Acquired deformity of right foot Arteriosclerotic heart disease (ASHD) Asthma with chronic obstructive pulmonary disease (COPD) follows with pulmonology Atrophic vaginitis Bilateral primary osteoarthritis of knee 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 Degenerative disc disease, cervical Dysphagia, oropharyngeal Enrolled in chronic care management Essential (primary) hypertension Fibromyalgia 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[place] Hx of angioedema improved after stopping Lisinopril Low back pain Mixed hyperlipidemia Morbid (severe) obesity due to excess calories BMI 40.0-44.9 Obstructive sleep apnea Polyneuropathy Vesico-ureteral reflux Surgical History History of colon resection Hx of arthroscopy of left knee (~2012) Dr Briceno Hx of cardiac cath Hx of cholecystectomy (~1992) Hx of coronary angioplasty stents x 3 Hx of total knee replacement (~09/2018) left, Dr Gonzalez S/P total knee arthroplasty Family History Brother Cancer lung Father CAD (coronary artery disease) Mother Bleeding disorder Social History Smoking and tobacco status: former smoker (quit 2007) Quit status (tobacco): has quit using tobacco Year quit tobacco: 2007 Former quit date comment: 2 PPD x 40 yrs Second hand smoke exposure: No Alcohol intake: never Lives independently: Yes Household members: none Housing: House Marital status: / Number of children: 5 Current occupational status: retired History of recent travel: No Current gender identity: Female Vitals/I&O/Wt Last Vital Signs Temp 97.0 F L 11/25/21 13:05 Pulse 67 11/25/21 14:36 Resp 16 11/25/21 14:36 BP 105/51 11/25/21 14:07 Pulse Ox 94 11/25/21 14:36 O2 Del Method 11/25/21 14:36 Physical Exam Const: COMMON NORMALS: patient oriented x3 and alert GENERAL APPEARANCE: cooperative NUTRITIONAL APPEARANCE: overweight ORIENTATION/CONSCIOUSNESS: Yes awake HENMT: COMMON NORMALS: oropharynx normal Neck/C-Spine: COMMON NORMALS: no JVD Resp: COMMON NORMALS: normal respiratory effort and clear to auscultation bilaterally AUSCULTATION: clear to auscultation bilaterally Cardio: COMMON NORMALS: no JVD, regular rhythm, S1 normal heart sound present, S2 normal heart sound present and No murmurs present (Cardio) RHYTHM: regular rhythm HEART SOUNDS: S1 normal heart sound present and S2 normal heart sound present GI: COMMON NORMALS: Normal to inspection, nondistended, normoactive bowel sounds present, Soft to palpation and non-tender PALPATION: Yes Soft to palpation Extremity: COMMON NORMALS: no joint enlargement and no pedal edema OTHER: L shoulder sling Neuro: COMMON NORMALS: patient oriented x3 and moves all extremities SENSORIUM/ORIENTATION: Yes alert Skin: COMMON NORMALS: no rashes or lesions noted GENERAL SKIN EXAM: no rashes or lesions noted Data : 11/25/21 13:52 11/25/21 13:52 A&P Assessment and plan (1) Chest pain: Complete troponin EKG series. Assess limited TTE. Given underlying CAD, prior stenting will additionally assess with a stress test. Continue cardiac medications. D-dimer with minimal elevation, but not abnormal corrected for age. (2) Dyspnea: WithSome dyspnea with exertion. Sclerosis. Unremarkable lung exam. D-dimer not elevated corrected for age. Additional cardiac work-up as above. Plan CAD, prior stenting COPD OA Recent left shoulder injury, after a fall several months ago, wears shoulder sling HTN Fibromyalgia HLD GET Polyneuropathy Vesicoureteral reflux Other chronic problems Attestations Medical Necessity Statement*: Place in observation for additional assessment management of chest pain in a lady with underlying CAD, prior stenting. 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
--- NOTE | 2021-11-25 16:55 | USCV_ITS ---
Kiera Hart Age: 71 Gender: F : 1950 Exam Date: 11/25/2021 17:09 Ordering Phys: Ben Cm MD Technologist: Ruiz Ling [place] [facility] [place]: ? rwma or change in ef chest pain BP: 124 / 71 HR: 60 Rhythm: Sinus Technical Quality: Adequate MEASUREMENTS (Male / Female) Normal Values 2D ECHO LV Diastolic Diameter PLAX 4.0 cm 4.2 - 5.9 / 3.9 - 5.3 cm LV Systolic Diameter PLAX 2.5 cm IVS Diastolic Thickness 1.0 cm 0.6 - 1.0 / 0.6 - 0.9 cm IVS Systolic Thickness 1.4 cm LVPW Diastolic Thickness 1.3 cm 0.6 - 1.0 / 0.6 - 0.9 cm LVPW Systolic Thickness 1.5 cm LVOT Diameter 2.1 cm LV Ejection Fraction 2D Teich 68.2 % LV Ejection Fraction MOD 2C 68.8 % LV Ejection Fraction 2C AL 68.4 % LA Diameter 4.0 cm Aorta at Sinotubular Diameter 3.0 cm M-MODE Aortic Annulus Diameter 3.5 cm LA Ao Ratio MM 1.2 MV E Point Septal Separation 1.0 cm FINDINGS Left Ventricle Normal left ventricular size and systolic function, EF 65 %. Mild left ventricular hypertrophy. Right Ventricle The right ventricle is normal in size and function. 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 Mitral Valve Mild-moderate mitral valve regurgitation. Aortic Valve Could not be delineated well Tricuspid Valve No gross abnormalities noted Pulmonic Valve Pulmonic valve not well visualized. Pericardium No pericardial effusion. Aorta Normal ascending aorta dimension. IVC Normal inferior vena cava. CONCLUSIONS Normal left ventricular size and systolic function, EF 65 %. Mild left ventricular hypertrophy. A mobile structure in the superior part of the right atrium, suggestive of myxoma measuring 1.56 x 1.52 cm in size Normal cardiac chamber sizes. No gross structural abnormalities in the valve There is no pericardial effusion. Because of the difference in the technical quality, comparison with a previous study is difficult Dr Giselle Carpenter MD [facility] (Electronically Signed) Final Date: 25 November 2021 21:10 S
[2021-11-25] MEDS: ferrous sulfate EC 325 mg Tablet PO (18:13)
[2021-11-25] MEDS: metoprolol tartrate 25 mg Tablet PO (18:13)
[2021-11-25] MEDS: duloxetine 30 mg Capsule PO (18:13)
[2021-11-25] MEDS: enoxaparin 40 mg/0.4 mL Syringe SUBCUT (18:13)
[2021-11-25] MEDS: ranolazine (12HR) 500 mg Tablet PO (18:13)
[2021-11-25] MEDS: isosorbide mononitrate ER 30 mg Tablet PO (20:37)
[2021-11-25] MEDS: atorvastatin 40 mg Tablet 80 MG PO (20:37)
[2021-11-25] MEDS: amlodipine 5 mg Tablet PO (20:37)
[2021-11-25] MEDS: montelukast sodium 10 mg Tablet PO (20:37)
[2021-11-25 21:15] LABS: Glucose Point of Care 67 mg/dL (70-110)
[2021-11-25 21:26] LABS: Troponin 5 6HR 10.54 ng/L (0-10)
[2021-11-25 21:45] LABS: Troponin 5 6HR Delta -1.46 ng/L (0-12)
--- NOTE | 2021-11-25 23:38 | PC.NURSE ---
Dr. Parker notified that patient has order to be NPO at midnight, but does not have an order for stress test. Day shift doctor's note states, Given underlying CAD, prior stenting will additionally assess with a stress test. Stress test ordered.
--- NOTE | 2021-11-25 23:44 | ECG_ITS ---
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 Interpretive Statements NAME OF STUDY: LEXISCAN SESTAMIBI STRESS TEST INDICATION: Chest Pain, PROCEDURE: At the baseline, the EKG revealed normal sinus rhythm with some nonspecific T wave changes. Minimal left axis deviation. Possible old septal MS. Baseline artifact was present. The baseline heart was 60 bpm with a blood pressue of 123/70 mm of Hg Lexiscan was infused over a period of 20 seconds. A total of 0.4 milligrams of Lexiscan was infused. The stress phase was continued for a total of 5 minutes. Heart rate at the end of the stress phase was 76 bpm with a blood pressure 110/61 mm of Hg. The EKG at the peak infusion revealed no significant changes. Sestamibi was injected 20 seconds after the Lexiscan infusion. Heart rate at the end of the recovery phase was 73 bpm with a blood pressure of 119/63 mm of Hg. CONCLUSION: 1. No significant EKG changes with the LexiScan infusion 2. No LexiScan induced chest pain or cardiac arrhythmia 3. Normal blood pressure and heart rate response 4. Sestamibi/sestamibi perfusion scan pending; see separate report. Electronically Signed On 11-26-2021 16:29:48 CDT by Giselle Carpenter M.D. [id number]
[2021-11-26] VITALS (8 sets, daily range): BP systolic 97–139; BP diastolic 57–84; PULSE 59–75; RESP 15–18; TEMP 36.3–37.2; O2SAT 93–99
[2021-11-26 03:16] LABS: Basophils % 0.4 %; Eosinophils # 0.2 10^3/uL (0.0-0.8); Eosinophils % 2.8 %; Hematocrit 35.3 % (37.0-47.0); Hemoglobin 10.8 g/dL (11.5-15.3); Lymphocytes # 1.4 10^3/uL (0.8-4.8); Lymphocytes % 23.9 %; Mean Corpuscular HGB Conc 30.6 g/dL (30.0-36.0); Mean Corpuscular Hemoglobin 29.7 pg (28.0-34.0); Mean Platelet Volume 9.8 fL (7.4-10.4); Monocytes # 0.7 10^3/uL (0.2-0.9); Monocytes % 12.2 %; Neutrophils % 60.3 %; Nucleated Red Blood Cells % 0 %; Platelet Count 275 10^3/cmm (130-400); Red Blood Count 3.64 10^6/uL (4.1-5.3); Red Cell Distribution Width 15.5 % (12.1-15.1); White Blood Count 5.6 10^3/uL (4.0-10.0)
[2021-11-26 03:40] LABS: Alanine Aminotransferase 11 U/L (0-33); Albumin Level 3.8 g/dL (3.5-5.2); Alkaline Phosphatase 53 U/L (35-105); Aspartate Amino Transferase 16 U/L (0-32); Blood Urea Nitrogen 25 mg/dL (8-23); Calcium 9.2 mg/dL (8.5-10.5); Carbon Dioxide 28 mmol/L (22-29); Chloride 100 mmol/L (98-107); Globulin 2.6 g/dL (1.3-4.6); Glucose 85 mg/dL (65-115); Osmolality Calculated 290 mOsm/kg (285-295); Sodium 138 mmol/L (136-145); Total Bilirubin 0.3 mg/dL (0.15-1.2); Total Protein 6.4 g/dL (6.6-8.7)
[2021-11-26] MEDS: aspirin 81 mg EC Tablet PO (04:32)
[2021-11-26] MEDS: acetaminophen 325 mg Tablet 650 MG PO (06:22)
[2021-11-26 06:25] LABS: Glucose Point of Care 96 mg/dL (70-110)
[2021-11-26] MEDS: regadenoson 0.4 Mg/5 ml Syringe IVP (07:53)
[2021-11-26] MEDS: ranolazine (12HR) 500 mg Tablet PO ×2 (10:02→18:18)
[2021-11-26] MEDS: duloxetine 30 mg Capsule PO ×2 (10:02→18:18)
[2021-11-26] MEDS: metoprolol tartrate 25 mg Tablet PO ×2 (10:02→18:18)
--- NOTE | 2021-11-26 10:24 | PC.CHAP ---
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 [] Patient/Family/Request visit [] Outpatient visit [] Follow-up visit [] Physician referral [] Code/Alert [x] Routine visit [] Staff referral [] Actively dying [] Patient sleeping [] Family support [] [] Out of room [] Palliative care [] [] Receiving care in room [] Pre-surgical visit [] Trauma [] Long length of stay [] ICU visit [] Other: Relational/Emotional Strength [] Patient feels connected with others/family/visitors/staff [] Distress [] Loneliness/isolation [] Abandonment Spirituality of Patient [x] Person of Kallie [] Attends Catholic of their K[place]ie [x] Believes in Prayer [] Reads Bible or Pentecostalism materials [] There are Spiritual issues to be addressed 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 Interventions [x] Prayer [] Active listening [] Non-anxious presence [] Spiritual/emotional support [] Crisis/trauma care [] Spiritual counseling [] Bereavement support [] Provided bereavement packet [] Provided Bible/devotional materials [] Provided toy/stuffed animal, coloring book to patient or family member [] Provided Communion [] Anointing/[place] [] Salvation [x] Completed spiritual assessment [] Other: Impact on Illness or Injury [] Angry [] Fearful [] Anxious [] Often cries [] Exhaustion [] Unable to work [] Unable to attend restorationism [] Unable to walk/stand [] Unable to read [] Unable to drive [] Unable to eat/drink [] Unable to sleep [] Unable to be with family [] Patient intubated [] Other: Summary Time spent with patient 5 min
--- NOTE | 2021-11-26 12:01 | USCV_ITS ---
Kiera Hart Age: 71 Gender: F : 1950 Exam Date: 11/26/2021 15:00 Ordering Phys: Ben Cm MD Technologist: HIRAM [place] [facility] [place]ication: LUE PAIN AND SWELLING HISTORY: Upper extremity swelling. Upper extremity pain. PROCEDURES: Venous duplex imaging was performed in only the left upper extremity. The following venous structures were evaluated: internal jugular vein, subclavian vein, axillary vein, and brachial veins. In addition, the basilic vein, cephalic vein, radial vein, and ulnar vein. Serial compression, augmentation maneuvers, and spectral Doppler flow evaluation were performed. FINDINGS: The veins of the left upper extremity are readily compressible with normal venous flow dynamics including spontaneous flow, respiratory phasic variation and augmentation. No evidence of deep vein thrombosis or superficial thrombophlebitis in the left upper extremity. CONCLUSIONS No left upper extremity DVT. Dr. Bridget Ovalles DO (Electronically Signed) Final Date: 26 November 2021 15:21 S
--- NOTE | 2021-11-26 14:33 | CTR_ITS ---
PROCEDURE INFORMATION: Exam: CTA Chest Without And With Contrast Exam date and time: 11/26/2021 3:43 PM Age: 71 years old Clinical indication: Pain; Chest pressure; Additional info: Chest pain, reassess ascending ao aneurysm TECHNIQUE: Imaging protocol: Computed tomographic angiography of the chest without and with contrast. 3D rendering (Not supervised by radiologist): MIP and/or 3D reconstructed images were created by the technologist. Radiation optimization: All CT scans at this facility use at least one of these dose optimization techniques: automated exposure control; mA and/or kV adjustment per patient size (includes targeted exams where dose is matched to clinical indication); or iterative reconstruction. Contrast material: OMNI 350; Contrast volume: 100 ml; Contrast route: INTRAVENOUS (IV); COMPARISON: 1. CT angio chest 32942 08/09/2021 2:[address] angio chest PE protcl [id number] 07/23/2021 2:[address] angio chest abdomen pelvis 05/11/2021 2:21 PM 4. CTA Chest-Pulmonary Emb [id number] 11/24/2010 8:53 AM RADIATION DOSE METRICS: Total DLP (mGy-cm): 1491.61 FINDINGS: Pulmonary arteries: There is no gross evidence for pulmonary embolism. Aorta: There is ectasia of the ascending thoracic aorta which measures approximately 3.9 x 4.1 cm which is not significantly changed compared with 08/09/2021. This is slightly larger than on 11/24/2010 when it measured approximately 37 x 39 mm. There is no evidence of thoracic aortic dissection. Lungs: There are findings of centrilobular emphysema, mostly in the upper lobes. There is partial atelectasis posterolateral right upper lobe and in the posterior left lower lobe and also minimally in the lateral aspect of the left upper lobe adjacent to the fissure. There is calcified granuloma in the left upper lobe. Pleural spaces: Unremarkable. No pneumothorax. No pleural effusion. Heart: There is severe atherosclerotic calcification of the coronary arteries. Mediastinal space: There is no evidence of mediastinal fluid, masses, or gas. Lymph nodes: There are small pretracheal lymph nodes measuring up to 7 x 10 mm not significantly changed. There is no evidence of lymphadenopathy. Kidneys and ureters: 9.5 mm cyst upper pole left kidney not significantly changed. Bones/joints: Unremarkable. No acute fracture. Soft tissues: Unremarkable. Other findings: There is contrast being excreted by the kidneys on the precontrast portion of this study. The source of this excreted contrast is not certain. Please correlate with the patient's clinical history for any recent contrast examinations. CT/CT angio chest [id number] IMPRESSION: 1. Ectasia of the ascending thoracic aorta not significantly changed compared with the recent exams. 2. Centrilobular emphysema 3. Mild areas of peripheral pulmonary atelectasis
[2021-11-26] MEDS: iohexol 350 mg/mL 100 mL Btl IV (15:57)
[2021-11-26 16:57] LABS: Glucose Point of Care 183 mg/dL (70-110)
[2021-11-26] MEDS: enoxaparin 40 mg/0.4 mL Syringe SUBCUT (18:18)
[2021-11-26] MEDS: ferrous sulfate EC 325 mg Tablet PO (18:18)
--- NOTE | 2021-11-26 19:08 | P.DS_ITS ---
Discharge Providers Date of Admission: 11/25/21 16:50 Date of Discharge: November 26, 2021 Attending Provider at Admission: Ben Cm Attending Provider at Discharge: Ben Cm Primary Care Provider: Sofie Maria MD Diagnoses at Discharge Discharge Diagnosis (1) Chest pain: Status: Acute (2) Dyspnea: Status: Acute Reason for Visit Reason for Visit: CHEST PAIN Brief History: Pleasant 71-year-old lady with history of CAD, prior stenting, was cleaning this morning around her home, but had to drop to activities as she started having chest pain, central, lower chest, she states it was pain, nonradiating, at that time associated with some dyspnea as well.? She had to sit down.? Nitroglycerin provided some relief with delay.? Denies remembering pain with inspiration.? Denies reproducibility on palpation.? Has been taking meloxicam.? Has had an injured shoulder after falling several months ago, has been wearing a left shoulder sling.? Has been having some epigastric discomfort recently, but feels that this pain was different from heartburn or GI discomfort.? In ER she received nitroglycerin, morphine, DuoNeb treatment.? Was reported to have also received aspirin.? Had slight on and off discomfort just earlier, currently pain-free. Hospital Course Hospital Course During hospitalization remained chest pain-free, although has been bothered by pain in her left shoulder/bicep which she had an injury several months ago, without dislocation or fracture on x-ray 10/29. Her symptoms are helped with a sling. Troponin EKG series not suggestive of acute NH. Underwent additional assessment by duplex left upper extremity which showed no DVT. Additionally assessed by stress test given history of CAD, prior stenting, with stress test as discussed with her showing small to moderate area of persistent decreased tracer uptake in inferior and inferolateral region suggestive of myocardial scarring versus attenuation artifact. LV motion analysis without gross wall motion abnormalities. Low probability of coronary ischemia. With history of ascending aortic ectasia previously assessed by CT angiogram in August, due to current presentation assessed again with CT angiogram which showed no significant expansion of aortic ectasia. No PE noted. Some foci of atelectasis noted in the lungs. She is asked to use incentive spirometry at discharge for atelectasis. 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 Discussed with cardiology and patient regarding further steps, this finding is not confirmed, currently also without obvious evidence of embolization, found incidentally, she is asked to see cardiology early next week for HIRO and will be expected by Dr. Carpenter for closer assessment of the finding. She is asked to keep appointment with Dr. Wright originally for aortic ectasia to also discuss the abnormal finding. Physical Exam Const: COMMON NORMALS: patient oriented x3 and alert GENERAL APPEARANCE: cooperative NUTRITIONAL APPEARANCE: overweight ORIENTATION/CONSCIOUSNESS: Yes awake HENMT: COMMON NORMALS: oropharynx normal Neck/C-Spine: COMMON NORMALS: no JVD Resp: COMMON NORMALS: normal respiratory effort and clear to auscultation bilaterally AUSCULTATION: clear to auscultation bilaterally Cardio: COMMON NORMALS: no JVD, regular rhythm, S1 normal heart sound present, S2 normal heart sound present and No murmurs present (Cardio) RHYTHM: regular rhythm HEART SOUNDS: S1 normal heart sound present and S2 normal heart sound present GI: COMMON NORMALS: Normal to inspection, nondistended, normoactive bowel sounds present, Soft to palpation and non-tender PALPATION: Yes Soft to palpation Extremity: COMMON NORMALS: no joint enlargement and no pedal edema OTHER: L shoulder sling Neuro: COMMON NORMALS: patient oriented x3 and moves all extremities SENSORIUM/ORIENTATION: Yes alert Skin: COMMON NORMALS: no rashes or lesions noted GENERAL SKIN EXAM: no rashes or lesions noted Discharge Data Studies Completed and Pending Completed Studies During Hospitalization Category Date Time Status CTA chest [CT angio chest 85505] Routine Cat Scan 11/26/21 14:33 Completed Sestamibi Stress Test Request Routine Exams 11/25/21 23:44 Completed XR chest 1V portable [id number] Stat Exams 11/25/21 13:10 Completed NM moira perf SPECT r/s* [id number] Routine Nuc Med 11/26/21 23:44 [place] [id number] Routine Ultrasound 11/26/21 12:01 Completed CV. echo limited [id number] Routine Ultrasound 11/25/21 16:55 Completed Radiology Impressions Chest X-Ray 11/25/21 13:10 Impression: Atherosclerosis. Chest CTA 11/26/21 14:33 IMPRESSION: 1. Ectasia of the ascending thoracic aorta not significantly changed compared with the recent exams. 2. Centrilobular emphysema 3. Mild areas of peripheral pulmonary atelectasis Laboratory Results WBC 5.6 10^3/uL (4.0-10.0) 11/26/21 02:47 RBC 3.64 10^6/uL (4.1-5.3) L 11/26/21 02:47 Hgb 10.8 g/dL (11.5-15.3) L 11/26/21 02:47 Hct 35.3 % (37.0-47.0) L 11/26/21 02:47 MCV 97.0 fl (81-99) 11/26/21 02:47 MCH 29.7 pg (28.0-34.0) 11/26/21 02:47 MCHC 30.6 g/dL (30.0-36.0) 11/26/21 02:47 RDW 15.5 % (12.1-15.1) H 11/26/21 02:47 Plt Count 275 10^3/cmm (130-400) 11/26/21 02:47 MPV 9.8 fL (7.4-10.4) 11/26/21 02:47 Neut % (Auto) 60.3 % 11/26/21 02:47 Lymph % (Auto) 23.9 % 11/26/21 02:47 [place] % (Auto) 12.2 % 11/26/21 02:47 Eos % (Auto) 2.8 % 11/26/21 02:47 Baso % (Auto) 0.4 % 11/26/21 02:47 Neut # (Auto) 3.40 10^3/uL (1.8-7.7) 11/26/21 02:47 Lymph # (Auto) 1.4 10^3/uL (0.8-4.8) 11/26/21 02:47 [place] # (Auto) 0.7 10^3/uL (0.2-0.9) 11/26/21 02:47 Eos # (Auto) 0.2 10^3/uL (0.0-0.8) 11/26/21 02:47 Baso # (Auto) 0.0 10^3/uL (0.0-0.1) 11/26/21 02:47 Nucleated RBC % (auto) 0 % 11/26/21 02:47 Nucleated RBCs # 0.0 /100WBC 11/26/21 02:47 D-Dimer 0.66 ug/mIFEU (0-0.59) H 11/25/21 13:52 Sodium 138 mmol/L (136-145) 11/26/21 02:47 Potassium 4.0 mmol/L (3.5-5.1) 11/26/21 02:47 Chloride 100 mmol/L (98-107) 11/26/21 02:47 Carbon Dioxide 28 mmol/L (22-29) 11/26/21 02:47 Anion Gap 14.0 (5-19) 11/26/21 02:47 BUN 25 mg/dL (8-23) H 11/26/21 02:47 Creatinine 1.0 mg/dL (0.5-0.9) H 11/26/21 02:47 GFR Calculation Not Reportable 11/26/21 02:47 Glucose 85 mg/dL (65-115) 11/26/21 02:47 POC Glucose 183 mg/dL (70-110) H 11/26/21 16:53 Calculated Osmolality 290 mOsm/kg (285-295) 11/26/21 02:47 Calcium 9.2 mg/dL (8.5-10.5) 11/26/21 02:47 Total Bilirubin 0.3 mg/dL (0.15-1.2) 11/26/21 02:47 AST 16 U/L (0-32) 11/26/21 02:47 ALT 11 U/L (0-33) 11/26/21 02:47 Alkaline Phosphatase 53 U/L (35-105) 11/26/21 02:47 Troponin T Baseline 12 ng/L (0-10) H 11/25/21 13:52 Troponin T 120 Minute 11.64 ng/L (0-10) H 11/25/21 15:52 Delta Troponin T -0.36 ABS# (0-10) L 11/25/21 15:52 Troponin T Hi Sens 6Hr 10.54 ng/L (0-10) H 11/25/21 20:30 Troponin T Hi Sens 6Hr Delta -1.46 ng/L (0-12) L 11/25/21 20:30 Total Protein 6.4 g/dL (6.6-8.7) L 11/26/21 02:47 Albumin 3.8 g/dL (3.5-5.2) 11/26/21 02:47 Globulin 2.6 g/dL (1.3-4.6) 11/26/21 02:47 Vitals Last Vital Signs Temp 98.0 F 11/26/21 16:19 Pulse 72 11/26/21 17:08 Resp 16 11/26/21 17:08 BP 139/65 11/26/21 16:19 Pulse Ox 96 11/26/21 17:08 O2 Del Method 11/26/21 17:08 Discharge Plan Discharge Patient Disposition: Home Condition: Stable Prescriptions: Continued (DME) Small portable oxygen concentrator See Rx Instructions .Route .MEDSUPPLY Qty: 1 0RF Rx Instructions: As directed albuterol sulfate [ProAir HFA] 90 mcg/actuation HFA aerosol inhaler 2 puff INHALATION Q6H PRN (Reason: shortness of breath) Qty: 8.5 2RF cyclobenzaprine 5 mg tablet 5 mg PO BEDTIME PRN (Reason: Muscle Spasm) Qty: 90 1RF Spiriva Respimat 2.5 mcg/actuation mist 2 puff inhalation DAILY Qty: 4 6RF bumetanide 1 mg tablet 1 mg PO DAILY PRN (Reason: Edema) meloxicam 15 mg tablet 15 mg PO DAILY PRN (Reason: pain) Qty: 14 0RF (DME) pen needle, diabetic [UltiCare Pen Needle] 31 gauge x 5/16 needle See Rx Instructions .Route Qty: 400 4RF Rx Instructions: use as directed qid as needed losartan 100 mg tablet 100 mg PO BEDTIME Qty: 30 5RF insulin lispro [Humalog KwikPen Insulin] 100 unit/mL insulin pen See Rx Instructions .ROUTE .COMPLEX Qty: 30 2RF Dose Instruction: INJECT SUBCUTANEOUSLY DIRECTED BEFORE MEALS <150=6UNITS, 151-200=8UNITS, 201-250=10UNITS, 251-300=12UNITS, >300=14UNITS Rx Instructions: INJECT SUBCUTANEOUSLY SLIDING SCALE DIRECTED BEFORE MEALS <150=6UNITS, 151-200=8UNITS, 201-250=10UNITS, 251-300=12UNITS, >300=14UNITS cholecalciferol (vitamin D3) 125 mcg (5,000 unit) capsule 125 mcg PO QAM Qty: 30 5RF aspirin 81 mg Tablet,Delayed Release (Dr/Ec) 81 mg PO QAM ferrous sulfate 325 mg (65 mg iron) tablet 325 mg PO QPM montelukast 10 mg tablet 10 mg PO BEDTIME metoprolol tartrate 25 mg tablet 25 mg PO BID Nitrostat 0.4 mg Tablet, Sublingual 0.4 mg SUBLINGUAL Q5M PRN (Reason: Chest Pain) Rx Instructions: do not exceed 3 doses per episode azelastine 137 mcg (0.1 %) aerosol,spray 2 spray INTRANASAL BID ranolazine 500 mg tablet extended release 12 hr 500 mg PO BID metformin 500 mg tablet 1,000 mg PO BID albuterol sulfate 1.25 mg/3 mL solution for nebulization 1.25 mg inhalation QID PRN (Reason: Shortness Of Breath) isosorbide mononitrate 30 mg tablet extended release 24 hr 30 mg PO BEDTIME amlodipine 5 mg tablet 5 mg PO BEDTIME rosuvastatin 40 mg tablet 40 mg PO BEDTIME Cymbalta 30 mg capsule,delayed release(DR/EC) 30 mg PO BID fenofibrate nanocrystallized 145 mg tablet 145 mg PO DAILY Lantus Solostar U-100 Insulin 100 unit/mL (3 mL) insulin pen 35 unit SUBCUT BEDTIME Breo Ellipta 200-25 mcg/dose blister with device 1 inh inhalation DAILY Discharge Orders: Discharge Order (Routine); Ordered 11/26/21 Ordered By: Ben Cm Referrals: Giselle Carpenter MD [Physician] - 1-3 days (Please call Monday to schedule a follow up appointment. HIRO, follow up on R atrial mobile structure) Sofie Maria MD [Primary Care Provider] - 4-7 days (Please call Monday to schedule a follow up appointment.) Discharge Diet: Cardiac and Diabetic Patient Instructions: Dyspnea, Chest Pain (ED), Chest Pain Stoplight Activity Restrictions/Additional Instructions: Resume follow-up with your primary doctor with regards to persistence of pain in the left shoulder, consider follow-up with orthopedics. 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 Please keep appointment with Dr. Wright and discussed with him as well. Please use incentive spirometer due to 2 areas of atelectasis (squishing of lung tissue), to keep your lungs open and prevent pneumonia. Discharge Attestations Time Spent in Discharge Care*: greater than 30 min Quality Metrics Clinical Quality Measures [ No reported AMI, CVA or VTE this stay] Coding Level of Care Code Acute Chg FW DC note Diagnoses Chest pain R07.9 Dyspnea R06.00
--- NOTE | 2021-11-26 23:44 | NMCV_ITS ---
NM moira perf SPECT r/s* [id number] Kiera Hart Age: 71 Gender: F : 1950 Exam Date: 11/26/2021 06:54 Ordering Phys: Ben Cm MD Technologist: GISEL De León Exam Location: [facility] [place] Indications: CHEST PAIN STRESS TEST Please see separate stress test report in [facility] for full findings IMAGE PROTOCOL Rest/Stress 1 Lexiscan Day Radiopharmaceutical Dose (mCi) Administration Site Administered by Rest: Tc-99m 10.6 IV GISEL Haas Sestamibi Stress:Tc-99m 32.8 IV GISEL Haas Sestamibi Rest: 26-Nov-2021 60 Discovery 630 Stress: 26-Nov-2021 30 Discovery 630 0.4mg Lexiscan. Images obtained in supine and prone position. SPECT RESULTS Technical Quality: Excellent Raw Data Analysis: Normal Image Corrections: No attenuation or motion correction applied Summed Stress Score: 6 Summed Rest Score: 9 Summed Difference Score: 0 PERFUSION FINDINGS Small to moderate area of moderately decreased tracer uptake in the mid inferolateral, apical lateral, mid and apical inferior wall regions. No significant reversibility was noted in these regions. FUNCTIONAL RESULTS (calculated via Gated SPECT) Stress Image LV EF (%): 82 Stress EDV (mL):94 TID: 0.98 Stress ESV (mL):17 FUNCTIONAL FINDINGS: Segmental wall motion analysis revealing no gross wall motion abnormalities IMPRESSIONS 1. Myocardial perfusion imaging revealing small to moderate area of persistent decreased tracer uptake in the inferior and inferolateral regions suggesting myocardial scarring versus attenuation artifact. 2. Normal LV ejection fraction of 82%. 3. LV wall motion analysis revealing no gross wall motion abnormalities. 4. Normal LV volume Low probability for coronary ischemia, based on the above findings Dr Giselle Carpenter MD FACC (Electronically Signed) Final Date: 26 November 2021 11:40 S
== END 2021-11-26 19:51 | disposition home or self-care (01) ==
LOC: ER 13:32 → MEDSURG 17:13
PROVIDERS: Admitting Provider Internal Medicine; Emergency Provider Emergency Medicine; PCP Family Medicine; Visit Provider Internal Medicine
DX: R07.9 Chest pain, unspecified (principal); R06.00 Dyspnea, unspecified; I25.10 Atherosclerotic heart disease of native coronary artery without angina pectoris; Z95.5 Presence of coronary angioplasty implant and graft; M79.602 Pain in left arm; R60.0 Localized edema; I10 Essential (primary) hypertension; M79.7 Fibromyalgia; E78.2 Mixed hyperlipidemia; G47.33 Obstructive sleep apnea (adult) (pediatric); E66.01 Morbid (severe) obesity due to excess calories; Z68.38 Body mass index [BMI] 38.0-38.9, adult; Z87.891 Personal history of nicotine dependence
CPT/HCPCS: 36415; 36416; 71045; 71275; 78452; 80048; 80053; 82962; 84484; 85025; 85378; 93005; 93017; 93308; 93971; 94640; 96372; 96374; 99285; A9500; G0378; J1650; J2270; J2785; Q9967

== ENCOUNTER → 2021-11-30 14:08 | Outpatient (BNVA) | payer MEDICARE, MEDICAID, SELFPAY | PROVIDERS: PCP Family Medicine; Visit Provider Internal Medicine Cardiovascular Disease | DX: I51.89 Other ill-defined heart diseases (principal); R07.89 Other chest pain; I25.10 Atherosclerotic heart disease of native coronary artery without angina pectoris; Z95.5 Presence of coronary angioplasty implant and graft; Z87.891 Personal history of nicotine dependence; E11.8 Type 2 diabetes mellitus with unspecified complications; Z79.4 Long term (current) use of insulin; I10 Essential (primary) hypertension; J44.9 Chronic obstructive pulmonary disease, unspecified | CPT/HCPCS: 99204 ==

== ENCOUNTER → 2021-12-01 13:46 | Outpatient (BNVA) | payer MEDICARE, MEDICAID, SELFPAY | PROVIDERS: PCP Family Medicine; Referring Provider Nurse Practitioner Family; Visit Provider Specialist | DX: M25.512 Pain in left shoulder (principal) | CPT/HCPCS: 73030; 99213 ==

== ENCOUNTER 2021-12-10 10:57 | Day surgery (SDC) | payer MEDICARE, MEDICAID, SELFPAY ==
[2021-12-08 13:17] VITALS: BMI 36.3
[2021-12-10 11:22] VITALS: BP 141/91; PULSE 70; RESP 18; TEMP 36.3; O2SAT 99
--- NOTE | 2021-12-10 11:36 | ECG_ITS ---
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 Measurements Intervals [place] Rate: 60 P: 66 NM: 182 QRS: -49 QRSD: 101 T: 4 QT: 418 QTc: 421 Interpretive Statements SINUS RHYTHM LEFT ANTERIOR FASCICULAR BLOCK [QRS AXIS <= -45, QR IN I, RS IN II] MODERATE VOLTAGE CRITERIA FOR LVH, CONSIDER NORMAL VARIANT Compared to ECG 11/25/2021 17:22:19 Left anterior fascicular block now present Sinus bradycardia no longer present T-wave abnormality no longer present Possible ischemia no longer present Electronically Signed On 12-10-2021 15:35:23 CDT by Carmella Herrmann M.D. [id number]
[2021-12-10] MEDS: sodium chloride 0.9% 1,000 ML 30 ML IV (11:55)
[2021-12-10 12:05] LABS: Glucose Point of Care 93 mg/dL (70-110)
--- NOTE | 2021-12-10 14:17 | W.PM.OPSUD ---
Surgery/Procedure H&P Update DATE OF PROCEDURE: December 10, 2021 DATE H&P PERFORMED: 03/02/21 H&P UPDATE INFORMATION: I have reviewed H&P completed within last 30 days, I have examined patient prior to procedure and No changes to prior documentation PREOP DIAGNOSIS: Right atrial mass PRIMARY INDICATION FOR PROCEDURE: Patient had a recent transthoracic echocardiogram which revealed possible right atrial mass. To better evaluate the lesion, a HIRO was recommended. PLANNED PROCEDURE: Operation Date: 12/10/21 12:40 Proposed Procedures p HIRO 24589,R07.9,151.89,I25.10(Not Applicable) - Giselle Carpenter MD PATIENT REASSESSED PRIOR TO SEDATION, WITH NO CHANGE NOTED: Yes
--- NOTE | 2021-12-10 14:21 | USCV_ITS ---
Kiera Hart Age: 71 Gender: F : 1950 Exam Date: 12/10/2021 14:36 Ordering Phys: Giselle Carpenter MD ([email or web address]) Technologist: HIRAM [place]am [place] [facility] [place] Indication: EVAL FOR POSSIBLE RIGHT ATRIAL MASS BP: 151 / 69 HR: Rhythm: Sinus Technical Quality: Good MEASUREMENTS (Male / Female) Normal Values Medications IV propofol, administered with anesthesia service Complications None Proc. Components The patient was brought to the HIRO examination room in a fasting state after obtaining an informed consent. The HIRO probe was passed into the posterior pharynx , mid-esophagus, distal esophagus, and gastric fundus. HIRO was performed at multiple levels. The patient tolerated the procedure well and there were no complications. FINDINGS Left Ventricle Normal size and ejection fraction. No intracavitary masses noted. Right Ventricle Appears to be of normal size and ejection fraction. No intracavitary masses. Right Atrium There was a prominent eustachian valve remnant. No intracavitary masses Left Atrium No intracavitary masses LA Appendage Normal size and contractility. IA Septum Appears to be intact with no evidence of any right left shunt based on the color-flow Doppler examination or saline contrast injection. 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 Aortic Valve Tricuspid leaflets no mass or vegetations noted Tricuspid Valve No masses or vegetations noted. Trace of tricuspid regurgitation was noted Pulmonic Valve No masses or vegetations. Pericardium No pericardial effusion. Aorta Fusiform dilatation of the ascending aorta measuring 3.9 cm in diameter at the maximum width. CONCLUSIONS 1. Prominent eustachian valve, thick and dense, in the right atrium appeared to be a mass by the transthoracic echocardiogram. 2. Trace to mild mitral and trace of tricuspid regurgitation 3. No intracavitary masses or vegetations. 4. No evidence of the right to left shunt based on color flow Doppler examination or saline contrast injection 5. Small fusiform aneurysm of the ascending aorta with a maximum diameter of 3.[address] Giselle Carpenter MD [facility] (Electronically Signed) Final Date: 13 December 2021 18:04 S
[2021-12-10 14:55] VITALS: BP 100/67; PULSE 65; RESP 14; TEMP 36.2; O2SAT 100
--- NOTE | 2021-12-10 15:00 | P.ANESASSM_ITS ---
Pre-Anesthetic Assessment Height/Weight: Height 1.6 m Weight 92.986 kg Temp Pulse Resp BP Pulse Ox O2 Del Method 97.1 F L 65 14 100/67 100 12/10/21 14:55 12/10/21 14:55 12/10/21 14:55 12/10/21 14:55 12/10/21 14:55 12/10/21 14:55 Preop Diagnosis: Right atrial mass Operation Date: 12/10/21 12:40 Proposed Procedures p HIRO 58981,R07.9,151.89,I25.10(Not Applicable) - Giselle Carpenter MD Familial anesthetic complications: none Was Beta Forest taken within 24 hours: Yes Was Clonidine taken within 24 hours: N/A Last intake: Intake Last Liquid Date 12/09/21 Last Liquid Time 20:00 Last Solid Date 12/09/21 Last Solid Time 17:00 Social No alcohol and No tobacco Exam alert, oriented x 3, clear to auscultation bilaterally and regular rate & rhythm Airway Submandibular: within normal limits Cervical ROM: within normal limits Mallampati: Class II Pulmonary Asthma, Chronic Obstructive Pulmonary Disease and Sleep Apnea CV/HEM Anemia, Stable Angina, Coronary Artery Disease and Hypertension Metabolic Diabetes Mellitus [facility] [place] Fibromyalgia, Lower Back Pain and Osteoarthritis/DJD Anesthetic Plan ASA status: 3 Anesthesia: MAC Medications/Allergies Home Medications Medication Instructions Recorded Confirmed Last Taken Type aspirin 81 mg tablet,delayed 81 mg PO QAM 08/15/19 12/10/21 12/09/21 History release Small portable oxygen concentrator #1 ea 11/11/20 12/10/21 Unknown Rx albuterol sulfate 90 mcg/actuation 2 puff inhalation Q6H PRN 11/11/20 12/10/21 08/09/21 Rx aerosol inhaler (ProAir HFA) shortness of breath #8.5 grams ferrous sulfate 325 mg (65 mg 325 mg PO QPM 02/15/21 12/10/21 1 Day Ago History iron) tablet ~12/09/21 cyclobenzaprine 5 mg tablet 5 mg PO BEDTIME PRN Muscle Spasm 04/15/21 12/10/21 1 Day Ago Rx #90 tabs ~12/09/21 metoprolol tartrate 25 mg tablet 25 mg PO BID 08/09/21 12/10/21 12/10/21 History losartan 100 mg tablet 100 mg PO BEDTIME #30 tabs 08/30/21 12/10/21 1 Day Ago Rx ~12/09/21 bumetanide 1 mg tablet 1 mg PO DAILY PRN Edema 10/05/21 12/10/21 3 Days Ago History ~12/07/21 insulin lispro 100 unit/mL See Rx Instructions .Route 10/20/21 12/10/21 1 Day Ago Rx subcutaneous pen (Humalog KwikPen .COMPLEX #30 mL ~12/09/21 (U-100) Insulin) cholecalciferol (vitamin D3) 125 125 mcg PO QAM #30 caps 10/21/21 12/10/21 1 Day Ago Rx mcg (5,000 unit) capsule ~12/09/21 meloxicam 15 mg tablet 15 mg PO DAILY PRN pain #14 tabs 10/29/21 12/10/21 12/08/21 Rx albuterol sulfate 1.25 mg/3 mL 1.25 mg inhalation QID PRN 11/25/21 12/10/21 Unknown History solution for nebulization Shortness Of Breath amlodipine 5 mg tablet 5 mg PO BEDTIME 11/25/21 12/10/21 12/10/21 History duloxetine 30 mg capsule,delayed 30 mg PO BID 11/25/21 12/10/21 1 Day Ago History release (Cymbalta) ~12/09/21 fenofibrate nanocrystallized 145 145 mg PO DAILY 11/25/21 12/10/21 1 Day Ago History mg tablet ~12/09/21 fluticasone furoate 200 1 inh inhalation DAILY 11/25/21 12/10/21 1 Day Ago History mcg-vilanterol 25 mcg/dose ~12/09/21 inhalation powder (Breo Ellipta) insulin glargine 100 unit/mL (3 35 unit SUBCUT BEDTIME 11/25/21 12/10/21 1 Day Ago History mL) subcutaneous pen (Lantus ~12/09/21 Solostar U-100 Insulin) isosorbide mononitrate 30 mg 30 mg PO BEDTIME 11/25/21 12/10/21 1 Day Ago History tablet,extended release 24 hr ~12/09/21 metformin 500 mg tablet 1,000 mg PO BID 11/25/21 12/10/21 1 Day Ago History ~12/09/21 nitroglycerin 0.4 mg sublingual 0.4 mg sublingual Q5M PRN Chest 11/25/21 12/10/21 11/25/21 History tablet (Nitrostat) Pain ranolazine 500 mg tablet,extended 500 mg PO BID 11/25/21 12/10/21 1 Day Ago History release,12 hr ~12/09/21 rosuvastatin 40 mg tablet 40 mg PO BEDTIME 11/25/21 12/10/21 1 Day Ago History ~12/09/21 montelukast 10 mg tablet 10 mg PO BEDTIME #30 tabs 11/30/21 12/10/21 1 Day Ago Rx ~12/09/21 azelastine-fluticasone 137 mcg-50 1 spray intranasal BID #23 grams 12/06/21 12/10/21 12/09/21 Rx mcg/spray nasal spray (Dymista) tiotropium bromide 2.5 2 puff inhalation DAILY #4 grams 12/06/21 12/10/21 1 Day Ago Rx mcg/actuation mist for inhalation ~12/09/21 (Spiriva Respimat) pen needle, diabetic 31 gauge x ##400 12/08/21 12/10/21 Unknown Rx /16 (UltiCare Pen Needle) Allergies Allergy/AdvReac Type Severity Reaction Status Date / Time lisinopril Allergy Severe angioedema Verified 12/06/21 10:20 hydrocodone Allergy Intermediate vomiting Verified 12/01/21 14:10 Sulfa (Sulfonamide Allergy Mild dizziness Verified 12/01/21 14:10 Antibiotics) Current Medications Generic Name Dose Route Start Last Admin Trade Name Freq PRN Reason Stop Dose Admin Sodium Chloride 1,000 mls @ 30 mls/hr 12/10/21 11:15 12/10/21 11:55 Sodium Chloride 0.9% IV 12/11/21 11:14 30 mls/hr .Q24H [place] Administration PFSH Anesthesia Medical History Acquired deformity of right foot Arteriosclerotic heart disease (ASHD) Asthma with chronic obstructive pulmonary disease (COPD) follows with pulmonology Atrophic vaginitis Bilateral primary osteoarthritis of knee 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 Degenerative disc disease, cervical Dysphagia, oropharyngeal Enrolled in chronic care management Essential (primary) hypertension Fibromyalgia 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[place] Hx of angioedema improved after stopping Lisinopril Low back pain Mixed hyperlipidemia Morbid (severe) obesity due to excess calories BMI 40.0-44.9 Obstructive sleep apnea Polyneuropathy Vesico-ureteral reflux Surgical History History of colon resection Hx of arthroscopy of left knee (~2012) Dr Briceno Hx of cardiac cath Hx of cholecystectomy (~1992) Hx of coronary angioplasty stents x 3 Hx of total knee replacement (~09/2018) left, Dr Gonzalez S/P total knee arthroplasty Family History Brother Cancer lung CAD (coronary artery disease) Diabetes Lung disease Father CAD (coronary artery disease) Mother Bleeding disorder Sister CAD (coronary artery disease) Cancer Diabetes Lung disease Brother CAD (coronary artery disease) Cancer Diabetes Lung disease Denies family history of Clotting disorder Dementia Chronic kidney disease (CKD) Suicide Anesthesia complication Stroke Social History Smoking and tobacco status: former smoker Quit status (tobacco): has quit using tobacco Year quit tobacco: 2007 Former quit date comment: 2 PPD x 40 yrs Second hand smoke exposure: No Alcohol intake: never Lives independently: Yes Household members: none Housing: House Marital status: / Number of children: 5 Current occupational status: retired History of recent travel: No Current gender identity: Female Data Anesthesia Cardiac Studies: Echocardiogram 02/16/21 Echocardiogram Limited Views 11/25/21 Sestamibi Stress Test (Cardiology) 11/25
[2021-12-10 15:05] VITALS: BP 114/62; PULSE 66; RESP 14; O2SAT 100
[2021-12-10 15:14] VITALS: BP 93/62; PULSE 57; RESP 16; O2SAT 99
[2021-12-10 15:25] VITALS: BP 124/67; PULSE 62; RESP 18; O2SAT 100
--- NOTE | 2021-12-10 16:10 | ANE.PACU2 ---
Inpatient post-anesthesia follow up: Airway intact: Yes Vital signs: Temperature 97.1 F Pulse Rate 62 Respiratory Rate 18 Blood Pressure 124/67 Pulse Oximetry 100 Oxygen Delivery Me thod Room Air Oxygen Flow Rate Fraction of Inspir ed Oxygen Hydration adequate: Yes Nausea and vomiting: No Pain level: 1 Mental status: Baseline
== END 2021-12-10 15:34 | disposition home or self-care (01) ==
PROVIDERS: PCP Family Medicine; Visit Provider Internal Medicine Cardiovascular Disease
PROC: (CPT 93312; principal; 2021-12-10 12:40)
DX: I51.89 Other ill-defined heart diseases (principal); I25.110 Atherosclerotic heart disease of native coronary artery with unstable angina pectoris; J44.9 Chronic obstructive pulmonary disease, unspecified; I10 Essential (primary) hypertension; E11.9 Type 2 diabetes mellitus without complications; M79.7 Fibromyalgia; M19.90 Unspecified osteoarthritis, unspecified site; Z79.82 Long term (current) use of aspirin; E66.01 Morbid (severe) obesity due to excess calories; Z68.36 Body mass index [BMI] 36.0-36.9, adult; E78.2 Mixed hyperlipidemia; G47.33 Obstructive sleep apnea (adult) (pediatric); Z87.891 Personal history of nicotine dependence
CPT/HCPCS: 36416; 82962; 93005; 93312; 93320; 93325; J2704; J7030

== ENCOUNTER 2021-12-20 06:02 | Outpatient (CLI) | payer MEDICARE, MEDICAID, SELFPAY ==
--- NOTE | 2021-12-20 07:15 | MR_ITS ---
WS: [id number] MRI LEFT SHOULDER NONCONTRAST TECHNIQUE: Sagittal T2, coronal T1, T2 and proton density imaging. Axial gradient PDE imaging. CLINICAL INFORMATION: shoulder pain, rule out rotator cuff tear COMPARISON: None. FINDINGS: Exam somewhat limited due to motion. Moderate degenerative arthritis AC joint with fluid and edema. Small amount of subacromial/subdeltoid fluid. Slight subacromial spurring. Small to moderate joint effusion with probable contusion posteri or lateral humeral head considering history of trauma. Acromion impinges the distal supraspinatus wit h tendinopathy. Tiny insertional tear at the distal supraspinatus insertion. Tendinopathy in the infr aspinatus. Chronic thinning of the infraspinatus which appears intact. Normal teres minor. Thinning o f the subscapularis which appears intact. Biceps tendon appears intact within the bicipital groove. T hinning of the intra-articular biceps tendon which appears intact. Advanced degenerative arthritis glenohumeral joint. Degenerative fraying of the glenoid labrum. Edema with subchondral cystic change involving the humerus and glenoid. MR/MR shoulder LT wo con* [id number] IMPRESSION: 1. Moderate degenerative arthritis AC joint with edema and fluid. Slight impin gement on the distal supraspinatus. 2. Chronic thinning of the distal supraspinatus with tendinopathy. Tiny distal insertional tear. No tendon retraction. 3. Tendinopathy involving the supraspinatus and infraspinatus. 4. Rotator cuff is otherwise intact. 5. Proximal biceps tendon intact within the bicipital groove. Diminutive intra -articular biceps tendon appears intact. 6. Small moderate joint effusion with probable contusion in the posterior late ral humeral head.. 7. Moderate to advanced degenerative arthritis glenohumeral joint.
== END 2021-12-20 06:03 | disposition home or self-care (01) ==
LOC: RAD 06:03
PROVIDERS: PCP Family Medicine; Visit Provider Specialist
DX: M19.012 Primary osteoarthritis, left shoulder (principal); M25.412 Effusion, left shoulder
CPT/HCPCS: 73221

== ENCOUNTER → 2022-01-10 14:11 | Outpatient (BNVA) | payer MEDICARE, MEDICAID, SELFPAY | PROVIDERS: PCP Family Medicine; Visit Provider Specialist | DX: M19.012 Primary osteoarthritis, left shoulder (principal) | CPT/HCPCS: 20610; 99213; J1100; J2795; J3301 ==

== ENCOUNTER 2022-01-19 06:00 | Outpatient (RCR) | payer MEDICARE, MEDICAID, SELFPAY | END 2022-02-12 23:59 | disposition home or self-care (01) | LOC: TPT 06:00 | PROVIDERS: PCP Family Medicine; Visit Provider Specialist | DX: M25.512 Pain in left shoulder (principal) | CPT/HCPCS: 97110; 97140; 97162 ==

== ENCOUNTER 2022-02-13 06:00 | Outpatient (RCR) | payer MEDICARE, MEDICAID, SELFPAY | END 2022-03-15 23:59 | disposition home or self-care (01) | LOC: TPT 06:00 | PROVIDERS: PCP Family Medicine; Visit Provider Specialist | DX: M25.512 Pain in left shoulder (principal) | CPT/HCPCS: 97110; 97140 ==

== ENCOUNTER 2022-02-21 14:54 | Emergency (ER) | payer MEDICARE, MEDICAID, SELFPAY ==
[2022-02-21] VITALS (9 sets, daily range): BP systolic 120–182; BP diastolic 67–106; PULSE 54–77; RESP 16–22; TEMP 36.4; O2SAT 96–100
--- NOTE | 2022-02-21 15:04 | ECG_ITS ---
[facility] Test Date: 2022-02-21 Pat Name: Kiera Hart Department: Room: Gender: Female Contract Consultant: : 1950 Requested By: Joaquin Roe Order Number: [id number] Сергей MD: Giselle Carpenter M.D. Measurements Intervals [place] Rate: 58 P: 75 IL: 160 QRS: -37 QRSD: 102 T: 22 QT: 444 QTc: 437 Interpretive Statements SINUS BRADYCARDIA LEFT AXIS DEVIATION [QRS AXIS < -30] INCOMPLETE RIGHT BUNDLE BRANCH BLOCK [90+ ms QRS DURATION, TERMINAL R IN V1/V2, 40+ ms S IN I/aVL/V4/V5/V6] SEPTAL MYOCARDIAL INFARCTION , PROBABLY OLD [40+ ms Q WAVE IN V1/V2] Compared to ECG 12/10/2021 11:40:19 Left-axis deviation now present Incomplete right bundle-branch block now present Myocardial infarct finding now present Sinus rhythm no longer present Left anterior fascicular block no longer present Electronically Signed On 02-21-2022 20:32:52 [employer] by Giselle Carpenter M.D. [id number] nance
--- NOTE | 2022-02-21 15:14 | XRR_ITS ---
PROCEDURE INFORMATION: Exam: XR Chest Exam date and time: 02/21/2022 3:18 PM Age: 71 years old Clinical indication: Cough and dyspnea; Additional info: Dyspnea/cough TECHNIQUE: Imaging protocol: Radiologic exam of the chest. Views: 1 view. COMPARISON: CR XR chest 1V portable [id number] 11/25/2021 1:15 PM FINDINGS: Lungs: Unremarkable. No consolidation. Pleural spaces: Unremarkable. No pleural effusion. No pneumothorax. Heart/Mediastinum: The heart is upper limits normal size. Diffuse vascular calcification. No change from prior. Bones/joints: Unremarkable. XR/XR chest 1V portable [id number] IMPRESSION: No acute findings.
--- NOTE | 2022-02-21 15:43 | W.ED.CHESTPA ---
Documented by User: Joaquin Guido DO 03/07/22 07:18 HPI - Chest Pain General: Chief Complaint: Chest Pain Stated Complaint: sob Time Seen by Provider: 02/21/22 15:12 Source: patient Mode of arrival: ambulatory History of Present Illness: 71-year-old female presents emergency room porting that he had chest pain that began about 5 hours ago when she was getting ready to drive to the orthopedic clinic to her left shoulder. She has pain in the left lower chest radiating into her left shoulder and down her arm. She has some shortness of breath associated with it as well. Interestingly she is chronically on 2 L by nasal cannula but when I came in the room she is on room air with a nasal cannula in place satting 100% oxygenation has been for quite some time according to the nurse. No nausea or vomiting. Patient denies anything that she has noticed that makes the pain better or worse. He has a history of coronary artery disease. MD complaint: chest pain Pertinent past history: coronary artery disease Onset (ago): hour(s) (5) Timing of current episode: episodic Prior episodes: No Onset: during rest Pain location: left chest Pain radiation: left arm and left shoulder Severity: moderate Quality: aching and heaviness Relieving factors: nothing Exacerbating factors: nothing Associated symptoms: Deny abdominal pain, diaphoresis, dyspnea, fever(s), leg edema, nausea, palpitations, sense of impending doom, syncope or vomiting Treatment prior to arrival: none Review of Systems Const: Denies: fever(s), chills, fatigue, malaise or diaphoresis ENMT: Denies: throat pain, ear or mastoid pain, nasal discharge or nasal congestion Card: Reports: chest pain; Denies: palpitations, irregular heart rhythm, edema, swelling of feet/ankles or syncope Resp: Denies: dyspnea, productive cough, non-productive cough or wheezing GI: Denies: abdominal pain, nausea or vomiting : Denies: flank pain, difficulty voiding, dysuria, urinary frequency or urinary urgency Skin/Breast: Denies: rash or pruritus PFS ED PFSH: Medical History Acquired deformity of right foot Arteriosclerotic heart disease (ASHD) Asthma with chronic obstructive pulmonary disease (COPD) follows with pulmonology Atrophic vaginitis Bilateral primary osteoarthritis of knee 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 Degenerative disc disease, cervical Dysphagia, oropharyngeal Enrolled in chronic care management Essential (primary) hypertension Fibromyalgia 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[place] Hx of angioedema improved after stopping Lisinopril Low back pain Mixed hyperlipidemia Morbid (severe) obesity due to excess calories BMI 40.0-44.9 Obstructive sleep apnea Polyneuropathy Vesico-ureteral reflux Surgical History History of colon resection Hx of arthroscopy of left knee (~2012) Dr Briceno Hx of cardiac cath Hx of cholecystectomy (~1992) Hx of coronary angioplasty stents x 3 Hx of total knee replacement (~09/2018) left, Dr Gonzalez S/P total knee arthroplasty Family History Brother Cancer lung CAD (coronary artery disease) Diabetes Lung disease Father CAD (coronary artery disease) Mother Bleeding disorder Sister CAD (coronary artery disease) Cancer Diabetes Lung disease Brother CAD (coronary artery disease) Cancer Diabetes Lung disease Denies family history of Clotting disorder Dementia Chronic kidney disease (CKD) Suicide Anesthesia complication Stroke Social History Smoking and tobacco status: former smoker Quit status (tobacco): has quit using tobacco Year quit tobacco: 2007 Former quit date comment: 2 PPD x 40 yrs Second hand smoke exposure: No Alcohol intake: never Lives independently: Yes Household members: none Housing: House Marital status: / Number of children: 5 Current occupational status: retired History of recent travel: No Current gender identity: Female Physical Exam Const: GENERAL APPEARANCE: cooperative and comfortable ORIENTATION/CONSCIOUSNESS: Yes awake, Yes oriented to person, Yes oriented to place and Yes oriented to time HENMT: COMMON NORMALS: normocephalic, atraumatic and hearing grossly normal bilaterally HEAD & SCALP: normocephalic and atraumatic Resp: COMMON NORMALS: normal respiratory effort, No retractions, No use of accessory muscles and clear to auscultation bilaterally AUSCULTATION: clear to auscultation bilaterally Cardio: COMMON NORMALS: regular rate, regular rhythm and No murmurs present (Cardio) RATE: regular rate RHYTHM: regular rhythm GI: COMMON NORMALS: Soft to palpation and No hepatosplenomegaly present AUSCULTATION: Yes normoactive bowel sounds PALPATION: Yes Soft to palpation, No Tenderness to palpation present (GI), No Guarding due to palpation present (GI) and Yes No hepatosplenomegaly present Extremity: COMMON NORMALS: normal to inspection, capillary refill normal, no clubbing, cyanosis or edema, no calf tenderness and no pedal edema Neuro: SENSORIUM/ORIENTATION: Yes oriented to person, Yes oriented to place and Yes oriented to time Skin: COMMON NORMALS: no rashes or lesions noted GENERAL SKIN EXAM: no rashes or lesions noted Course Vital Signs: Vital signs: Vital Signs Temperature 97.6 F 02/21/22 15:08 Pulse Rate 77 02/21/22 20:20 Respiratory Rate 16 02/21/22 20:20 Blood Pressure 123/89 02/21/22 20:20 Pulse Oximetry 97 02/21/22 20:20 Oxygen Delivery Me thod 02/21/22 20:02 Oxygen Flow Rate 2 02/21/22 15:08 MDM - Chest Pain Medical Decision Making Care signed out to Dr. Perea at change of shift. See final notes for diagnosis and disposition. Initial EKG does not show any evidence of acute STEMI. Subsequent labs are pending. Patient care handoff received from Dr. Guido pending completion of ED evaluation. EKGs reviewed, no STEMI. Labs with unremarkable hematologic and metabolic panel. 2-hour delta troponin is negative. ABG consistent with reported clinical presentation of mild hyperventilation initially. Chest x-ray with no lobar consolidation or pneumothorax. On review of prior cardiac evaluation patient had cardiac stress test in November 2021 which was low probability for coronary ischemia. Given reproducible nature patient's pain additional analgesia ordered for musculoskeletal type pain. Exact etiology of patient's symptoms is unclear though does not appear to need inpatient evaluation at this time. The results of ED evaluation were discussed with the patient including prescriptions and/or symptomatic cares (if applicable) including appropriate and responsible use, followup plan, and return precautions. The patient verbalized understanding and felt safe for discharge. Medical Records I reviewed the patient's medical records. Lab Data I reviewed the patient's lab results. 02/21/22 15:33 02/21/22 15:33 Radiology Impressions Chest X-Ray 02/21/22 15:14 IMPRESSION: No acute findings. Laboratory Results WBC 6.3 10^3/uL (4.0-10.0) 02/21/22 15: RBC 4.27 10^6/uL (4.1-5.3) 02/21/22 15:33 Hgb 12.8 g/dL (11.5-15.3) 02/21/22 15:33 Hct 39.1 % (37.0-47.0) 02/21/22 15: MCV 91.6 fl (81-99) 02/21/22 15:33 MCH 30.0 pg (28.0-34.0) 02/21/22 15: MCHC 32.7 g/dL (30.0-36.0) 02/21/22 15: RDW 13.8 % (12.1-15.1) 02/21/22 15:33 Plt Count 342 10^3/cmm (130-400) 02/21/22 15: MPV 10.0 fL (7.4-10.4) 02/21/22 15:33 Neut % (Auto) 60.0 % 02/21/22 15:33 Lymph % (Auto) 28.3 % 02/21/22 15:33 Wilkin % (Auto) 10.0 % 02/21/22 15:33 Eos % (Auto) 0.8 % 02/21/22 15:33 Baso % (Auto) 0.6 % 02/21/22 15:33 Neut # (Auto) 3.76 10^3/uL (1.8-7.7) 02/21/22 15:33 Lymph # (Auto) 1.8 10^3/uL (0.8-4.8) 02/21/22 15:33 Wilkin # (Auto) 0.6 10^3/uL (0.2-0.9) 02/21/22 15:33 Eos # (Auto) 0.1 10^3/uL (0.0-0.8) 02/21/22 15:33 Baso # (Auto) 0.0 10^3/uL (0.0-0.1) 02/21/22 15:33 Nucleated RBC % (auto) 0 % 02/21/22 15:33 Nucleated RBCs # 0.0 /100WBC 02/21/22 15:33 Specimen Type Arterial 02/21/22 16:00 Sample Site Radial, left 02/21/22 16:00 ABG pH 7.50 (7.35-7.45) H 02/21/22 16:00 ABG pCO2 28.7 mmHg (35-45) L 02/21/22 16:00 ABG pO2 76.2 mmHg (80.0-100.0) L 02/21/22 16:00 ABG HCO3 22.5 mmol/L (22-26) 02/21/22 16:00 ABG O2 Saturation 97.5 02/21/22 16:00 ABG Base Excess 0.3 mmol/L (-2.0-2.0) 02/21/22 16:00 Sammy Test Pos 02/21/22 16:00 A-a O2 Gradient 4.8 mmHg (5-10) L 02/21/22 16:00 Hematocrit 38.2 % (37-47) 02/21/22 16:00 Hgb O2 Saturation 95.9 % (95-100) 02/21/22 16:00 Carboxyhemoglobin 0.9 %THgb (0.4-20.1) 02/21/22 16:00 Methemoglobin 0.7 % (0.4-1.5) 02/21/22 16:00 Total Hemoglobin 12.5 g/dL (12-16) 02/21/22 16:00 Sodium 138.0 mmol/L (131-143) 02/21/22 16:00 Potassium 3.8 mmol/L (3.5-5.0) 02/21/22 16:00 Glucose 96.0 mg/dL (70-115) 02/21/22 16:00 Ionized Calcium 1.3 mmol/L (1.1-1.4) 02/21/22 16:00 O2 Delivery Device None 02/21/22 16:00 FiO2 21.0 % 02/21/22 16:00 Radiation Therapist ID Veronicaci 02/21/22 16:00 Sodium 137 mmol/L (136-145) 02/21/22 15:33 Potassium 4.3 mmol/L (3.5-5.1) 02/21/22 15:33 Chloride 101 mmol/L (98-107) 02/21/22 15:33 Carbon Dioxide 24 mmol/L (22-29) 02/21/22 15:33 Anion Gap 16.3 (5-19) 02/21/22 15:33 BUN 18 mg/dL (8-23) 02/21/22 15:33 Creatinine 0.7 mg/dL (0.5-0.9) 02/21/22 15:33 GFR Calculation Not Reportable 02/21/22 15:33 Glucose 87 mg/dL (65-115) 02/21/22 15:33 Calculated Osmolality 285 mOsm/kg (285-295) 02/21/22 15:33 Calcium 9.8 mg/dL (8.5-10.5) 02/21/22 15:33 Total Bilirubin 0.2 mg/dL (0.15-1.2) 02/21/22 15:33 AST 17 U/L (0-32) 02/21/22 15:33 ALT 14 U/L (0-33) 02/21/22 15:33 Alkaline Phosphatase 61 U/L (35-105) 02/21/22 15:33 Troponin T Baseline 10 ng/L (0-10) 02/21/22 15:33 Troponin T 120 Minute 8.95 ng/L (0-10) 02/21/22 17:40 Delta Troponin T -1.05 ABS# (0-10) L 02/21/22 17:40 Total Protein 7.3 g/dL (6.6-8.7) 02/21/22 15:33 Albumin 4.5 g/dL (3.5-5.2) 02/21/22 15:33 Globulin 2.8 g/dL (1.3-4.6) 02/21/22 15:33 Discharge Plan Discharge Patient Disposition: Home Clinical Impression: Chest pain, Dyspnea Condition: Stable Prescriptions: No Action (DME) Small portable oxygen concentrator See Rx Instructions .Route .MEDSUPPLY Qty: 1 0RF Rx Instructions: As directed albuterol sulfate [ProAir HFA] 90 mcg/actuation HFA aerosol inhaler 2 puff INHALATION Q6H PRN (Reason: shortness of breath) Qty: 8.5 2RF cyclobenzaprine 5 mg tablet 5 mg PO BEDTIME PRN (Reason: Muscle Spasm) Qty: 90 1RF Spiriva Respimat 2.5 mcg/actuation mist 2 puff inhalation DAILY Qty: 4 6RF azelastine-fluticasone [Dymista] 137-50 mcg/spray spray,non-aerosol 1 spray intranasal BID Qty: 23 3RF Rx Instructions: administer into each nostril meloxicam 15 mg tablet 15 mg PO DAILY PRN (Reason: pain) Qty: 14 0RF amlodipine 10 mg tablet 10 mg PO .at bedtime Qty: 30 2RF clindamycin HCl 300 mg capsule 300 mg PO TID Qty: 30 0RF losartan 100 mg tablet 100 mg PO BEDTIME Qty: 30 5RF insulin lispro [Humalog KwikPen Insulin] 100 unit/mL insulin pen See Rx Instructions .ROUTE .COMPLEX Qty: 30 2RF Dose Instruction: INJECT SUBCUTANEOUSLY DIRECTED BEFORE MEALS <150=6UNITS, 151-200=8UNITS, 201-250=10UNITS, 251-300=12UNITS, >300=14UNITS Rx Instructions: INJECT SUBCUTANEOUSLY SLIDING SCALE DIRECTED BEFORE MEALS <150=6UNITS, 151-200=8UNITS, 201-250=10UNITS, 251-300=12UNITS, >300=14UNITS cholecalciferol (vitamin D3) 125 mcg (5,000 unit) capsule 125 mcg PO QAM Qty: 30 5RF montelukast 10 mg tablet 10 mg PO BEDTIME Qty: 30 5RF (DME) pen needle, diabetic [UltiCare Pen Needle] 31 gauge x 5/16 needle See Rx Instructions .ROUTE .COMPLEX Qty: 400 4RF Dose Instruction: USE as directed FOUR TIMES DAILY Rx Instructions: USE as directed FOUR TIMES DAILY bumetanide 1 mg tablet 1 mg PO DAILY PRN (Reason: Edema) Qty: 30 2RF aspirin 81 mg Tablet,Delayed Release (Dr/Ec) 81 mg PO QAM ferrous sulfate 325 mg (65 mg iron) tablet 325 mg PO QPM nitroglycerin [Nitrostat] 0.4 mg Tablet, Sublingual 0.4 mg SUBLINGUAL Q5M PRN (Reason: Chest Pain) Rx Instructions: do not exceed 3 doses per episode ranolazine 500 mg tablet extended release 12 hr 500 mg PO BID metformin 500 mg tablet 1,000 mg PO BID albuterol sulfate 1.25 mg/3 mL solution for nebulization 1.25 mg inhalation QID PRN (Reason: Shortness Of Breath) insulin glargine [Lantus Solostar U-100 Insulin] 100 unit/mL (3 mL) insulin pen 35 unit SUBCUT BEDTIME fluticasone furoate-vilanterol [Breo Ellipta] 200-25 mcg/dose blister with device 1 inh inhalation DAILY isosorbide mononitrate 30 mg tablet extended release 24 hr 30 mg PO DAILY rosuvastatin 40 mg tablet 40 mg PO BEDTIME metoprolol tartrate 25 mg tablet 25 mg PO BID duloxetine 30 mg capsule,delayed release(DR/EC) 30 mg PO DAILY Rx Instructions: 30 MG DAILY FOR 2 WEEKS THEN INCREASE TO 60 MG DAILY fenofibrate nanocrystallized 145 mg tablet 145 mg PO DAILY lutein 10 mg Tablet 10 mg PO DAILY Rx Instructions: give with meal/snack Discharge Orders: Discharge ED (Routine); Ordered 02/21/22 Ordered By: Pito Michael Referrals: Sofie Maria MD [Primary Care Provider] - Discharge Diet: Usual diet Discharge Activity: Increase activity as tolerated Patient Instructions: Chest Pain (ED), Shortness of Breath (ED), Opioid Safety, Pain Management Activity Restrictions/Additional Instructions: Thank you for visiting the emergency department. You were seen and evaluated for chest pain and shortness of breath. The exact cause of your symptoms is unclear though it does not appear to need inpatient management at this time. Please follow-up with cardiology and her primary care provider. Please continue your previous medications as prescribed. You may use [id number] medications such as acetaminophen and ibuprofen for pain however please do not exceed the daily recommended dosage as listed on the packaging and please keep in mind that many namebrand medications contain the same active ingredients. Please avoid these medications if previously instructed to do so by another physician due to other underlying medical condition. Return to the emergency department for uncontrolled symptoms or anything else that you are concerned about and feel needs emergency department evaluation. Sign Out Sign Out Data: Patient Sign Out occurred on 02/21/22 at 18:21. Patient's care was discussed, and care was transferred from to Pito Michael MD. Coding Level of Care Code ED Manager [employer] Fwd Exam Detailed Documented by User: Pito Michael MD 03/01/22 04:45 HPI - Chest Pain General: Chief Complaint: Chest Pain Stated Complaint: sob Time Seen by Provider: 02/21/22 15:12 PFSH ED PFSH: Medical History Acquired deformity of right foot Arteriosclerotic heart disease (ASHD) Asthma with chronic obstructive pulmonary disease (COPD) follows with pulmonology Atrophic vaginitis Bilateral primary osteoarthritis of knee 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 Degenerative disc disease, cervical Dysphagia, oropharyngeal Enrolled in chronic care management Essential (primary) hypertension Fibromyalgia 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[place] Hx of angioedema improved after stopping Lisinopril Low back pain Mixed hyperlipidemia Morbid (severe) obesity due to excess calories BMI 40.0-44.9 Obstructive sleep apnea Polyneuropathy Vesico-ureteral reflux Surgical History History of colon resection Hx of arthroscopy of left knee (~2012) Dr Briceno Hx of cardiac cath Hx of cholecystectomy (~1992) Hx of coronary angioplasty stents x 3 Hx of total knee replacement (~09/2018) left, Dr Gonzalez S/P total knee arthroplasty Family History Brother Cancer lung CAD (coronary artery disease) Diabetes Lung disease Father CAD (coronary artery disease) Mother Bleeding disorder Sister CAD (coronary artery disease) Cancer Diabetes Lung disease Brother CAD (coronary artery disease) Cancer Diabetes Lung disease Denies family history of Clotting disorder Dementia Chronic kidney disease (CKD) Suicide Anesthesia complication Stroke Social History Smoking and tobacco status: former smoker Quit status (tobacco): has quit using tobacco Year quit tobacco: 2007 Former quit date comment: 2 PPD x 40 yrs Second hand smoke exposure: No Alcohol intake: never Lives independently: Yes Household members: none Housing: House Marital status: / Number of children: 5 Current occupational status: retired History of recent travel: No Current gender identity: Female Course Vital Signs: Vital signs: Vital Signs Temperature 97.6 F 02/21/22 15:08 Pulse Rate 77 02/21/22 20:20 Respiratory Rate 16 02/21/22 20:20 Blood Pressure 123/89 02/21/22 20:20 Pulse Oximetry 97 02/21/22 20:20 Oxygen Delivery Me thod 02/21/22 20:02 Oxygen Flow Rate 2 02/21/22 15:08 MDM - Chest Pain Medical Decision Making Patient care handoff received from Dr. Guido pending completion of ED evaluation. EKGs reviewed, no STEMI. Labs with unremarkable hematologic and metabolic panel. 2-hour delta troponin is negative. ABG consistent with reported clinical presentation of mild hyperventilation initially. Chest x-ray with no lobar consolidation or pneumothorax. On review of prior cardiac evaluation patient had cardiac stress test in November 2021 which was low probability for coronary ischemia. Given reproducible nature patient's pain additional analgesia ordered for musculoskeletal type pain. Exact etiology of patient's symptoms is unclear though does not appear to need inpatient evaluation at this time. The results of ED evaluation were discussed with the patient including prescriptions and/or symptomatic cares (if applicable) including appropriate and responsible use, followup plan, and return precautions. The patient verbalized understanding and felt safe for discharge. Lab Data 02/21/22 15:33 02/21/22 15:33 Radiology Impressions Chest X-Ray 02/21/22 15:14 IMPRESSION: No acute findings. Laboratory Results WBC 6.3 10^3/uL (4.0-10.0) 02/21/22 15:33 RBC 4.27 10^6/uL (4.1-5.3) 02/21/22 15:33 Hgb 12.8 g/dL (11.5-15.3) 02/21/22 15:33 Hct 39.1 % (37.0-47.0) 02/21/22 15:33 MCV 91.6 fl (81-99) 02/21/22 15:33 MCH 30.0 pg (28.0-34.0) 02/21/22 15:33 MCHC 32.7 g/dL (30.0-36.0) 02/21/22 15:33 RDW 13.8 % (12.1-15.1) 02/21/22 15:33 Plt Count 342 10^3/cmm (130-400) 02/21/22 15:33 MPV 10.0 fL (7.4-10.4) 02/21/22 15:33 Neut % (Auto) 60.0 % 02/21/22 15:33 Lymph % (Auto) 28.3 % 02/21/22 15:33 Wilkin % (Auto) 10.0 % 02/21/22 15:33 Eos % (Auto) 0.8 % 02/21/22 15:33 Baso % (Auto) 0.6 % 02/21/22 15:33 Neut # (Auto) 3.76 10^3/uL (1.8-7.7) 02/21/22 15:33 Lymph # (Auto) 1.8 10^3/uL (0.8-4.8) 02/21/22 15:33 Wilkin # (Auto) 0.6 10^3/uL (0.2-0.9) 02/21/22 15:33 Eos # (Auto) 0.1 10^3/uL (0.0-0.8) 02/21/22 15:33 Baso # (Auto) 0.0 10^3/uL (0.0-0.1) 02/21/22 15:33 Nucleated RBC % (auto) 0 % 02/21/22 15:33 Nucleated RBCs # 0.0 /100WBC 02/21/22 15:33 Specimen Type Arterial 02/21/22 16:00 Sample Site Radial, left 02/21/22 16:00 ABG pH 7.50 (7.35-7.45) H 02/21/22 16:00 ABG pCO2 28.7 mmHg (35-45) L 02/21/22 16:00 ABG pO2 76.2 mmHg (80.0-100.0) L 02/21/22 16:00 ABG HCO3 22.5 mmol/L (22-26) 02/21/22 16:00 ABG O2 Saturation 97.5 02/21/22 16:00 ABG Base Excess 0.3 mmol/L (-2.0-2.0) 02/21/22 16:00 Sammy Test Pos 02/21/22 16:00 A-a O2 Gradient 4.8 mmHg (5-10) L 02/21/22 16:00 Hematocrit 38.2 % (37-47) 02/21/22 16:00 Hgb O2 Saturation 95.9 % (95-100) 02/21/22 16:00 Carboxyhemoglobin 0.9 %THgb (0.4-20.1) 02/21/22 16:00 Methemoglobin 0.7 % (0.4-1.5) 02/21/22 16:00 Total Hemoglobin 12.5 g/dL (12-16) 02/21/22 16:00 Sodium 138.0 mmol/L (131-143) 02/21/22 16:00 Potassium 3.8 mmol/L (3.5-5.0) 02/21/22 16:00 Glucose 96.0 mg/dL (70-115) 02/21/22 16:00 Ionized Calcium 1.3 mmol/L (1.1-1.4) 02/21/22 16:00 O2 Delivery Device None 02/21/22 16:00 FiO2 21.0 % 02/21/22 16:00 Radiation Therapist ID [place] 02/21/22 16:00 Sodium 137 mmol/L (136-145) 02/21/22 15:33 Potassium 4.3 mmol/L (3.5-5.1) 02/21/22 15:33 Chloride 101 mmol/L (98-107) 02/21/22 15:33 Carbon Dioxide 24 mmol/L (22-29) 02/21/22 15:33 Anion Gap 16.3 (5-19) 02/21/22 15:33 BUN 18 mg/dL (8-23) 02/21/22 15:33 Creatinine 0.7 mg/dL (0.5-0.9) 02/21/22 15:33 GFR Calculation Not Reportable 02/21/22 15:33 Glucose 87 mg/dL (65-115) 02/21/22 15:33 Calculated Osmolality 285 mOsm/kg (285-295) 02/21/22 15:33 Calcium 9.8 mg/dL (8.5-10.5) 02/21/22 15:33 Total Bilirubin 0.2 mg/dL (0.15-1.2) 02/21/22 15:33 AST 17 U/L (0-32) 02/21/22 15:33 ALT 14 U/L (0-33) 02/21/22 15:33 Alkaline Phosphatase 61 U/L (35-105) 02/21/22 15:33 Troponin T Baseline 10 ng/L (0-10) 02/21/22 15:33 Troponin T 120 Minute 8.95 ng/L (0-10) 02/21/22 17:40 Delta Troponin T -1.05 ABS# (0-10) L 02/21/22 17:40 Total Protein 7.3 g/dL (6.6-8.7) 02/21/22 15:33 Albumin 4.5 g/dL (3.5-5.2) 02/21/22 15:33 Globulin 2.8 g/dL (1.3-4.6) 02/21/22 15:33 Discharge Plan Discharge Patient Disposition: Home Clinical Impression: Chest pain, Dyspnea Condition: Stable Prescriptions: No Action (DME) Small portable oxygen concentrator See Rx Instructions .Route .MEDSUPPLY Qty: 1 0RF Rx Instructions: As directed albuterol sulfate [ProAir HFA] 90 mcg/actuation HFA aerosol inhaler 2 puff INHALATION Q6H PRN (Reason: shortness of breath) Qty: 8.5 2RF cyclobenzaprine 5 mg tablet 5 mg PO BEDTIME PRN (Reason: Muscle Spasm) Qty: 90 1RF Spiriva Respimat 2.5 mcg/actuation mist 2 puff inhalation DAILY Qty: 4 6RF azelastine-fluticasone [Dymista] 137-50 mcg/spray spray,non-aerosol 1 spray intranasal BID Qty: 23 3RF Rx Instructions: administer into each nostril meloxicam 15 mg tablet 15 mg PO DAILY PRN (Reason: pain) Qty: 14 0RF amlodipine 10 mg tablet 10 mg PO .at bedtime Qty: 30 2RF clindamycin HCl 300 mg capsule 300 mg PO TID Qty: 30 0RF losartan 100 mg tablet 100 mg PO BEDTIME Qty: 30 5RF insulin lispro [Humalog KwikPen Insulin] 100 unit/mL insulin pen See Rx Instructions .ROUTE .COMPLEX Qty: 30 2RF Dose Instruction: INJECT SUBCUTANEOUSLY DIRECTED BEFORE MEALS <150=6UNITS, 151-200=8UNITS, 201-250=10UNITS, 251-300=12UNITS, >300=14UNITS Rx Instructions: INJECT SUBCUTANEOUSLY SLIDING SCALE DIRECTED BEFORE MEALS <150=6UNITS, 151-200=8UNITS, 201-250=10UNITS, 251-300=12UNITS, >300=14UNITS cholecalciferol (vitamin D3) 125 mcg (5,000 unit) capsule 125 mcg PO QAM Qty: 30 5RF montelukast 10 mg tablet 10 mg PO BEDTIME Qty: 30 5RF (DME) pen needle, diabetic [UltiCare Pen Needle] 31 gauge x 5/16 needle See Rx Instructions .ROUTE .COMPLEX Qty: 400 4RF Dose Instruction: USE as directed FOUR TIMES DAILY Rx Instructions: USE as directed FOUR TIMES DAILY bumetanide 1 mg tablet 1 mg PO DAILY PRN (Reason: Edema) Qty: 30 2RF aspirin 81 mg Tablet,Delayed Release (Dr/Ec) 81 mg PO QAM ferrous sulfate 325 mg (65 mg iron) tablet 325 mg PO QPM nitroglycerin [Nitrostat] 0.4 mg Tablet, Sublingual 0.4 mg SUBLINGUAL Q5M PRN (Reason: Chest Pain) Rx Instructions: do not exceed 3 doses per episode ranolazine 500 mg tablet extended release 12 hr 500 mg PO BID metformin 500 mg tablet 1,000 mg PO BID albuterol sulfate 1.25 mg/3 mL solution for nebulization 1.25 mg inhalation QID PRN (Reason: Shortness Of Breath) insulin glargine [Lantus Solostar U-100 Insulin] 100 unit/mL (3 mL) insulin pen 35 unit SUBCUT BEDTIME fluticasone furoate-vilanterol [Breo Ellipta] 200-25 mcg/dose blister with device 1 inh inhalation DAILY isosorbide mononitrate 30 mg tablet extended release 24 hr 30 mg PO DAILY rosuvastatin 40 mg tablet 40 mg PO BEDTIME metoprolol tartrate 25 mg tablet 25 mg PO BID duloxetine 30 mg capsule,delayed release(DR/EC) 30 mg PO DAILY Rx Instructions: 30 MG DAILY FOR 2 WEEKS THEN INCREASE TO 60 MG DAILY fenofibrate nanocrystallized 145 mg tablet 145 mg PO DAILY lutein 10 mg Tablet 10 mg PO DAILY Rx Instructions: give with meal/snack Discharge Orders: Discharge ED (Routine); Ordered 02/21/22 Ordered By: Pito Michael Referrals: Sofie Maria MD [Primary Care Provider] - Discharge Diet: Usual diet Discharge Activity: Increase activity as tolerated Patient Instructions: Chest Pain (ED), Shortness of Breath (ED), Opioid Safety, Pain Management Activity Restrictions/Additional Instructions: Thank you for visiting the emergency department. You were seen and evaluated for chest pain and shortness of breath. The exact cause of your symptoms is unclear though it does not appear to need inpatient management at this time. Please follow-up with cardiology and her primary care provider. Please continue your previous medications as prescribed. You may use [id number] medications such as acetaminophen and ibuprofen for pain however please do not exceed the daily recommended dosage as listed on the packaging and please keep in mind that many namebrand medications contain the same active ingredients. Please avoid these medications if previously instructed to do so by another physician due to other underlying medical condition. Return to the emergency department for uncontrolled symptoms or anything else that you are concerned about and feel needs emergency department evaluation. Sign Out Sign Out Data: Patient Sign Out occurred on 02/21/22 at 18:21. Patient's care was discussed, and care was transferred from to Pito Michael MD. Coding Level of Care Code ED Manager [employer] for [employer]an Fwd Exam Detailed
[2022-02-21 16:03] LABS: Alanine Aminotransferase 14 U/L (0-33); Albumin Level 4.5 g/dL (3.5-5.2); Alkaline Phosphatase 61 U/L (35-105); Aspartate Amino Transferase 17 U/L (0-32); Blood Urea Nitrogen 18 mg/dL (8-23); Calcium 9.8 mg/dL (8.5-10.5); Carbon Dioxide 24 mmol/L (22-29); Chloride 101 mmol/L (98-107); Creatinine Clr Calc Pharmacy 70.8093; Globulin 2.8 g/dL (1.3-4.6); Glucose 87 mg/dL (65-115); Osmolality Calculated 285 mOsm/kg (285-295); Sodium 137 mmol/L (136-145); Total Bilirubin 0.2 mg/dL (0.15-1.2); Total Protein 7.3 g/dL (6.6-8.7)
[2022-02-21] MEDS: aspirin 81 mg Chew Tablet 324 MG PO (16:03)
[2022-02-21 16:04] LABS: Basophils % 0.6 %; Eosinophils # 0.1 10^3/uL (0.0-0.8); Eosinophils % 0.8 %; Hematocrit 39.1 % (37.0-47.0); Hemoglobin 12.8 g/dL (11.5-15.3); Lymphocytes # 1.8 10^3/uL (0.8-4.8); Lymphocytes % 28.3 %; Mean Corpuscular HGB Conc 32.7 g/dL (30.0-36.0); Mean Corpuscular Volume 91.6 fl (81-99); Monocytes # 0.6 10^3/uL (0.2-0.9); Neutrophils # 3.76 10^3/uL (1.8-7.7); Nucleated Red Blood Cells % 0 %; Platelet Count 342 10^3/cmm (130-400); Red Blood Count 4.27 10^6/uL (4.1-5.3); Red Cell Distribution Width 13.8 % (12.1-15.1); White Blood Count 6.3 10^3/uL (4.0-10.0)
[2022-02-21 16:05] LABS: Slide Review Slide Review Perform
[2022-02-21 16:11] LABS: ABG PCO2 28.7 mmHg (35-45); Alveolar-Arterial Oxygen Gradi 4.8 mmHg (5-10); Arterial Blood Gas Hematocrit 38.2 % (37-47); Base Excess ABG 0.3 mmol/L (-2.0-2.0); Blood Gas Allen Test Pos; Blood Gas Operator Identificat WALCI; Blood Gas Sample Site Radial, left; Blood Gas Sample Type Arterial; Carboxyhemoglobin 0.9 %THgb (0.4-20.1); HCO3 ABG 22.5 mmol/L (22-26); HGB O2 Sat 95.9 % (95-100); Ionized Calcium Level - ABG 1.3 mmol/L (1.1-1.4); Methemoglobin 0.7 % (0.4-1.5); Oxygen Saturation ABG 97.5; PO2 ABG 76.2 mmHg (80.0-100.0); Potassium Level - ABG 3.8 mmol/L (3.5-5.0); Total Hemoglobin 12.5 g/dL (12-16)
[2022-02-21 16:32] LABS: Anion Gap 16.3 (5-19); Potassium 4.3 mmol/L (3.5-5.1)
--- NOTE | 2022-02-21 16:35 | ECG_ITS ---
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 Measurements Intervals [place] Rate: 62 P: 71 [place]: 184 QRS: -47 QRSD: 106 T: 35 QT: 436 QTc: 446 Interpretive Statements SINUS RHYTHM INCOMPLETE RIGHT BUNDLE BRANCH BLOCK [90+ ms QRS DURATION, TERMINAL R IN V1/V2, 40+ ms S IN I/aVL/V4/V5/V6] LEFT ANTERIOR FASCICULAR BLOCK [QRS AXIS <= -45, QR IN I, RS IN II] MINIMAL VOLTAGE CRITERIA FOR LVH, CONSIDER NORMAL VARIANT [MEETS CRITERIA IN ONE OF: R(aVL), S(V1), R(V5), R(V5/V6)+S(V1)] SEPTAL MYOCARDIAL INFARCTION , PROBABLY OLD [40+ ms Q WAVE IN V1/V2] INTERPRETATION BASED ON A DEFAULT AGE OF 40 YEARS Compared to ECG 02/21/2022 15:04:53 Left anterior fascicular block now present.Sinus bradycardia no longer present Left-axis deviation no longer present.Myocardial infarct finding still present Electronically Signed On 02-21-2022 20:38:17 [employer] by Giselle Carpenter M.D. [id number]
[2022-02-21 17:14] LABS: Troponin(5th) Baseline 10 ng/L (0-10)
[2022-02-21] MEDS: HYDROcodone-acetaminophen 5-325 mg Tablet 1 TAB PO (17:55)
[2022-02-21] MEDS: ondansetron 2 mg/ML SDV 2 mL 4 MG IVP (17:55)
[2022-02-21 18:23] LABS: Troponin 5 2HR 8.95 ng/L (0-10)
[2022-02-21] MEDS: hyDRALAzine 20 mg/mL INJ 1 mL 10 MG IVP (18:38)
[2022-02-21] MEDS: nitroglycerin 1 gm/inch oint Pkt 1 INCH TOPICAL (18:39)
[2022-02-21] MEDS: amlodipine 5 mg Tablet PO (18:39)
[2022-02-21 18:57] LABS: Troponin 5 2HR Delta -1.05 ABS# (0-10)
[2022-02-21] MEDS: fentaNYL 50 mcg/mL INJ 2mL IVP (19:43)
[2022-02-21] MEDS: cyclobenzaprine 10 mg Tablet PO (19:44)
[2022-02-21] MEDS: acetaminophen 325 mg Tablet 650 MG PO (19:44)
[2022-02-21] MEDS: ketorolac 30 mg/mL INJ 15 MG IVP (19:44)
== END 2022-02-21 20:22 | disposition home or self-care (01) ==
PROVIDERS: Family Medicine; Emergency Provider Emergency Medicine; PCP Family Medicine
DX: M19.012 Primary osteoarthritis, left shoulder (principal); M75.82 Other shoulder lesions, left shoulder; R06.00 Dyspnea, unspecified; R07.9 Chest pain, unspecified; Z79.82 Long term (current) use of aspirin; Z79.4 Long term (current) use of insulin; Z79.84 Long term (current) use of oral hypoglycemic drugs; Z87.891 Personal history of nicotine dependence; E11.9 Type 2 diabetes mellitus without complications; I10 Essential (primary) hypertension; E78.2 Mixed hyperlipidemia
CPT/HCPCS: 36415; 36600; 71045; 80051; 80053; 82330; 82805; 84484; 85025; 93005; 96374; 96375; 99213; 99285; J0360; J1885; J2405; J3010

== ENCOUNTER 2022-03-16 06:00 | Outpatient (RCR) | payer MEDICARE, MEDICAID, SELFPAY | END 2022-04-12 23:59 | disposition home or self-care (01) | LOC: TPT 06:00 | PROVIDERS: PCP Family Medicine; Visit Provider Specialist | DX: M25.512 Pain in left shoulder (principal) | CPT/HCPCS: 97110; 97140 ==

== ENCOUNTER 2022-03-23 11:16 | Outpatient (CLI) | payer MEDICARE, MEDICAID, SELFPAY ==
--- NOTE | 2022-03-23 11:28 | CT_ITS ---
WS: [id number] CTA THORACIC AORTA TECHNIQUE: Noncontrast and Contrast enhanced CTA of the thoracic aorta with coronal and sagittal refo rmatted images and maximum intensity projection (MIP) images. CLINICAL INFORMATION: Thoracic aneurysm COMPARISON: None. DLP: 974.[address] scans at [facility] use at least one of these dose optimization techniques: automated e xposure control; mA and/or kV adjustment per patient size (includes targeted exams where dose is matc hed to clinical indication); or iterative reconstruction. FINDINGS: Aneurysmal dilatation of the ascending thoracic aorta measuring 3.8 cm in maximum dimension . This is unchanged from November 26, 2021. Normal caliber descending thoracic aorta. Moderate chronic emphysematous changes. No acute pulmonary infiltrates. Bibasilar atelectasis. No foc al pneumonia or pleural fluid. No mediastinal or hilar lymphadenopathy. Vascular calcification. Coron cindy calcification. No axillary lymphadenopathy. Adrenal glands are normal. Small esophageal hiatal hernia. Perinephric edema partially visualized can be seen with renal insufficiency. Moderate thoracic kyphosis. Ankylosis thoracic spine. Proximal mary n pulmonary arteries appear normal. Celiac and SMA are patent in the upper abdomen. Mild narrowing of the SMA origin. Hepatomegaly. Diffu se fatty infiltration liver CT/CT angio chest [id number] IMPRESSION: 1. Stable aneurysmal dilatation ascending thoracic aorta measuring 3.8 cm unch anged from the prior studies. 2. Vascular calcification including coronary. 3. Small esophageal hiatal hernia. 4. Partially visualized hepatomegaly.
== END 2022-03-23 11:17 | disposition home or self-care (01) ==
LOC: RAD 11:20
PROVIDERS: PCP Family Medicine; Visit Provider Thoracic Surgery (Cardiothoracic Vascular Surgery)
DX: I71.20 Thoracic aortic aneurysm, without rupture, unspecified (principal); R16.0 Hepatomegaly, not elsewhere classified; K44.9 Diaphragmatic hernia without obstruction or gangrene; I25.10 Atherosclerotic heart disease of native coronary artery without angina pectoris
CPT/HCPCS: 71275; Q9967

== ENCOUNTER → 2022-03-24 08:33 | Outpatient (BNVA) | payer MEDICARE, MEDICAID, SELFPAY | PROVIDERS: PCP Family Medicine; Visit Provider Thoracic Surgery (Cardiothoracic Vascular Surgery) | DX: I71.21 Aneurysm of the ascending aorta, without rupture (principal) | CPT/HCPCS: 99213 ==

== ENCOUNTER → 2022-03-30 10:24 | Outpatient (BNVA) | payer MEDICARE, MEDICAID, SELFPAY | PROVIDERS: PCP Family Medicine; Visit Provider Specialist | DX: M19.012 Primary osteoarthritis, left shoulder (principal); M75.82 Other shoulder lesions, left shoulder | CPT/HCPCS: 20610; 73030; 99213; J1100; J2795; J3301 ==

== ENCOUNTER → 2022-04-06 12:56 | Outpatient (BNVA) | payer MEDICARE, MEDICAID, SELFPAY | PROVIDERS: PCP Family Medicine; Visit Provider Internal Medicine | DX: I25.10 Atherosclerotic heart disease of native coronary artery without angina pectoris (principal); R06.02 Shortness of breath; I10 Essential (primary) hypertension; G47.33 Obstructive sleep apnea (adult) (pediatric); E78.2 Mixed hyperlipidemia; E11.8 Type 2 diabetes mellitus with unspecified complications; Z79.4 Long term (current) use of insulin; Z87.891 Personal history of nicotine dependence | CPT/HCPCS: 36415; 80048; 83880; 99214 ==

== ENCOUNTER 2022-04-13 06:00 | Outpatient (RCR) | payer MEDICARE, MEDICAID, SELFPAY | END 2022-05-13 23:59 | disposition home or self-care (01) | LOC: TPT 06:00 | PROVIDERS: PCP Family Medicine; Visit Provider Specialist | DX: M25.512 Pain in left shoulder (principal) | CPT/HCPCS: 97110; 97140 ==

== ENCOUNTER → 2022-04-18 15:45 | Outpatient (BNVA) | payer MEDICARE, MEDICAID, SELFPAY | PROVIDERS: PCP Family Medicine; Visit Provider Family Medicine | DX: E78.2 Mixed hyperlipidemia (principal); E55.9 Vitamin D deficiency, unspecified; E11.8 Type 2 diabetes mellitus with unspecified complications; Z79.4 Long term (current) use of insulin; I10 Essential (primary) hypertension; J44.9 Chronic obstructive pulmonary disease, unspecified; M79.7 Fibromyalgia; R60.9 Edema, unspecified | CPT/HCPCS: 80053; 80061; 82306; 83036; 84443; 85025 ==

== ENCOUNTER → 2022-05-02 11:08 | Outpatient (BNVA) | payer MEDICARE, MEDICAID, SELFPAY | PROVIDERS: PCP Family Medicine; Visit Provider Family Medicine | DX: R60.9 Edema, unspecified (principal); Z79.899 Other long term (current) drug therapy | CPT/HCPCS: 80048 ==

== ENCOUNTER 2022-06-24 16:05 | Outpatient (CLI) | payer MEDICARE, MEDICAID, SELFPAY ==
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
== END 2022-06-24 16:06 | disposition home or self-care (01) ==
LOC: RAD 16:13
PROVIDERS: PCP Family Medicine; Visit Provider Nurse Practitioner Family
DX: M54.6 Pain in thoracic spine (principal); R07.81 Pleurodynia; M46.84 Other specified inflammatory spondylopathies, thoracic region; M43.8X4 Other specified deforming dorsopathies, thoracic region
CPT/HCPCS: 71111; 72072

== ENCOUNTER 2022-08-03 17:41 | Emergency (ER) | payer MEDICARE, MEDICAID, SELFPAY ==
--- NOTE | 2022-08-03 17:46 | USR_ITS ---
PROCEDURE INFORMATION: Exam: US Duplex Left Lower Extremity Veins, Limited Exam date and time: 08/03/2022 6:52 PM Age: 72 years old Clinical indication: Swelling (edema) of limb; Lower extremity, left; Prior surgery; Surgery date: 6+ months; Surgery type: Left total knee 2021; Additional info: Leg swelling TECHNIQUE: Imaging protocol: Real-time duplex ultrasound of the left extremity with 2-D celestin scale, color Doppler flow and spectral waveform analysis including responses to compression and other maneuvers (when performed) with image documentation. Limited exam focused on the left lower extremity veins. COMPARISON: CT ang ches abdpel [id number] 05/11/2021 2:21 PM FINDINGS: Left deep veins: Unremarkable. The common femoral, femoral, proximal profunda femoral, popliteal, posterior tibial and peroneal veins are patent without thrombus. Normal compressibility, augmentation response and Doppler waveforms. Left superficial veins: Unremarkable. Saphenofemoral junction is patent without thrombus. Soft tissues: Unremarkable. US/CV venous duplex [facility] [id number] IMPRESSION: No sonographic evidence of deep vein thrombosis.
[2022-08-03 18:09] VITALS: BP 116/56; PULSE 77; RESP 18; TEMP 36.7; O2SAT 97
--- NOTE | 2022-08-03 18:16 | ED_ITS ---
HPI - General Adult General: Chief complaint: General Medical Stated complaint: left leg pain Time Seen by Provider: 08/03/22 18:16 History of Present Illness: Patient was brought in today for concerns of left lower leg pain for the last 3 to 4 days. Patient was seen by primary care and was referred to the ER for further evaluation to rule out DVT. 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 Degenerative disc disease, cervical Dysphagia, oropharyngeal Enrolled in chronic care management Essential (primary) hypertension Fibromyalgia 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[place] Hx of angioedema improved after stopping Lisinopril Low back pain Mixed hyperlipidemia Morbid (severe) obesity due to excess calories BMI 40.0-44.9 Obstructive sleep apnea Polyneuropathy Vesico-ureteral reflux Surgical History History of colon resection Hx of appendectomy Hx of arthroscopy of left knee (~2012) Dr Briceno Hx of cardiac cath Hx of cholecystectomy (~1992) Hx of coronary angioplasty stents x 3 Hx of hysterectomy Hx of total knee replacement (~09/2018) left, Dr Gonzalez S/P total knee arthroplasty Family History Brother Cancer lung CAD (coronary artery disease) Diabetes Lung disease Father CAD (coronary artery disease) Mother Bleeding disorder Sister CAD (coronary artery disease) Cancer Diabetes Lung disease Brother CAD (coronary artery disease) Cancer Diabetes Lung disease Denies family history of Clotting disorder Dementia Chronic kidney disease (CKD) Suicide Anesthesia complication Stroke Social History Smoking and tobacco status: former smoker Quit status (tobacco): has quit using tobacco Year quit tobacco: 2007 Former quit date comment: 2 PPD x 40 yrs Second hand smoke exposure: No Alcohol intake: never Substance/Drug Use: never Lives independently: Yes Household members: none Housing: House Marital status: / Number of children: 5 Current occupational status: retired Current gender identity: Female Physical Exam Const: COMMON NORMALS: alert HENMT: COMMON NORMALS: normocephalic HEAD & SCALP: normocephalic Neck/C-Spine: COMMON NORMALS: full ROM Resp: COMMON NORMALS: normal respiratory effort Cardio: COMMON NORMALS: regular rate RATE: regular rate Back/Pelvis: COMMON NORMALS: thoracic and lumbar spine normal to inspection Extremity: LEFT LOWER EXTREMITY: Yes lower leg (Mild distal swelling, no redness) Neuro: SENSORIUM/ORIENTATION: Yes alert Skin: COMMON NORMALS: turgor normal GENERAL SKIN EXAM: turgor normal Course Vital Signs: Vital signs: Vital Signs Temperature 98.0 F 08/03/22 18:09 Pulse Rate 77 08/03/22 18:09 Respiratory Rate 18 08/03/22 18:09 Blood Pressure 116/56 08/03/22 18:09 Pulse Oximetry 97 08/03/22 18:09 Oxygen Delivery Me thod Nasal Cannula 08/03/22 18:09 Oxygen Flow Rate 2 08/03/22 18:09 [facility] - General Adult Medical Decision Making 72-year-old female comes in today for complaints of left lower leg pain. On exam there are some mild swelling to the distal part of the left lower extremity no redness. No pitting edema. Pulses are intact. Differential diagnosis includes but not limited to arthritis, peripheral edema, DVT, peripheral vascular disease. Ultrasound of the extremity ruled out DVT. Recommended activity as tolerated elevate feet as much possible for edema. Recommend acetaminophen for pain. Recommend follow-up with primary care for further instructions. Patient reported understanding. Lab Data Radiology Impressions Venous Duplex 08/03/22 17:46 IMPRESSION: No sonographic evidence of deep vein thrombosis. Discharge Plan Discharge Patient Disposition: Home Clinical Impression: Left leg pain Condition: Stable Prescriptions: No Action (DME) Small portable oxygen concentrator See Rx Instructions .Route .MEDSUPPLY Qty: 1 0RF Rx Instructions: As directed azelastine-fluticasone [Dymista] 137-50 mcg/spray spray,non-aerosol 1 spray intranasal BID Qty: 23 3RF Rx Instructions: administer into each nostril diclofenac sodium 75 mg tablet,delayed release (DR/EC) 75 mg PO BID PRN (Reason: pain) Qty: 60 0RF tramadol 50 mg tablet 50 mg PO BID PRN (Reason: pain) Qty: 10 0RF insulin lispro [Humalog KwikPen Insulin] 100 unit/mL insulin pen See Rx Instructions .ROUTE .COMPLEX Qty: 30 2RF Dose Instruction: INJECT SUBCUTANEOUSLY DIRECTED BEFORE MEALS <150=6UNITS, 151-200=8UNITS, 201-250=10UNITS, 251-300=12UNITS, >300=14UNITS Rx Instructions: INJECT SUBCUTANEOUSLY SLIDING SCALE DIRECTED BEFORE MEALS <150=6UNITS, 151-200=8UNITS, 201-250=10UNITS, 251-300=12UNITS, >300=14UNITS (DME) pen needle, diabetic [UltiCare Pen Needle] 31 gauge x 5/16 needle See Rx Instructions .ROUTE .COMPLEX Qty: 400 4RF Dose Instruction: USE as directed FOUR TIMES DAILY Rx Instructions: USE as directed FOUR TIMES DAILY (DME) Accu-Chek Haleigh Plus test strp Strip See Rx Instructions .Route Qty: 150 3RF Rx Instructions: qid and prn metformin 500 mg tablet See Rx Instructions .ROUTE .COMPLEX Qty: 360 4RF Dose Instruction: TAKE TWO TABLETS BY MOUTH TWICE DAILY Rx Instructions: TAKE TWO TABLETS BY MOUTH TWICE DAILY fluticasone furoate-vilanterol [Breo Ellipta] 200-25 mcg/dose blister with device 1 inh inhalation DAILY Qty: 30 5RF montelukast 10 mg tablet See Rx Instructions .ROUTE .COMPLEX Qty: 30 5RF Dose Instruction: TAKE ONE TABLET BY MOUTH At Bedtime Rx Instructions: TAKE ONE TABLET BY MOUTH At Bedtime ranolazine 500 mg tablet extended release 12 hr 500 mg PO BID Qty: 180 3RF albuterol sulfate [ProAir HFA] 90 mcg/actuation HFA aerosol inhaler 2 puff INHALATION Q6H PRN (Reason: shortness of breath) Qty: 8.5 2RF duloxetine 30 mg capsule,delayed release(DR/EC) See Rx Instructions .ROUTE .COMPLEX Qty: 60 2RF Dose Instruction: TAKE ONE CAPSULE BY MOUTH DAILY FOR 2 WEEKS increase TO 60mg DAILY Rx Instructions: TAKE ONE CAPSULE BY MOUTH DAILY FOR 2 WEEKS increase TO 60mg DAILY isosorbide mononitrate 30 mg tablet extended release 24 hr See Rx Instructions .ROUTE .COMPLEX Qty: 30 2RF Dose Instruction: TAKE ONE TABLET BY MOUTH EVERY DAY Rx Instructions: TAKE ONE TABLET BY MOUTH EVERY DAY cholecalciferol (vitamin D3) 125 mcg (5,000 unit) capsule See Rx Instructions .ROUTE .COMPLEX Qty: 30 5RF Dose Instruction: TAKE ONE CAPSULE BY MOUTH EVERY MORNING Rx Instructions: TAKE ONE CAPSULE BY MOUTH EVERY MORNING metoprolol tartrate 25 mg tablet See Rx Instructions .ROUTE .COMPLEX Qty: 60 2RF Dose Instruction: TAKE ONE TABLET BY MOUTH TWICE DAILY Rx Instructions: TAKE ONE TABLET BY MOUTH TWICE DAILY Spiriva Respimat 2.5 mcg/actuation mist See Rx Instructions .ROUTE .COMPLEX Qty: 4 0RF Dose Instruction: inhale TWO puffs into lungs ONCE daily Rx Instructions: inhale TWO puffs into lungs ONCE daily insulin glargine [Lantus Solostar U-100 Insulin] 100 unit/mL (3 mL) insulin pen See Rx Instructions .ROUTE .COMPLEX Qty: 15 1RF Dose Instruction: inject 35 units SUBCUTANEOUSLY AT bedtime Rx Instructions: inject 35 units SUBCUTANEOUSLY AT bedtime rosuvastatin 40 mg tablet See Rx Instructions .ROUTE .COMPLEX Qty: 30 6RF Dose Instruction: TAKE ONE TABLET BY MOUTH At Bedtime Rx Instructions: TAKE ONE TABLET BY MOUTH At Bedtime nitroglycerin 0.4 mg tablet, sublingual See Rx Instructions .ROUTE .COMPLEX Qty: 25 2RF Dose Instruction: DISSOLVE ONE TABLET UNDER THE TONGUE EVERY FIVE minutes NEEDED FOR CHEST pains Rx Instructions: DISSOLVE ONE TABLET UNDER THE TONGUE EVERY FIVE minutes NEEDED FOR CHEST pains cyclobenzaprine 5 mg tablet See Rx Instructions .ROUTE .COMPLEX Qty: 90 0RF Dose Instruction: TAKE ONE TABLET BY MOUTH At Bedtime NEEDED FOR MUSCLE SPASMS Rx Instructions: TAKE ONE TABLET BY MOUTH At Bedtime NEEDED FOR MUSCLE SPASMS losartan 100 mg tablet See Rx Instructions .ROUTE .COMPLEX Qty: 30 5RF Dose Instruction: TAKE ONE TABLET BY MOUTH At Bedtime Rx Instructions: TAKE ONE TABLET BY MOUTH At Bedtime amlodipine 5 mg tablet See Rx Instructions .ROUTE .COMPLEX Qty: 30 5RF Dose Instruction: TAKE ONE TABLET BY MOUTH DAILY Rx Instructions: TAKE ONE TABLET BY MOUTH DAILY bumetanide 1 mg tablet See Rx Instructions .ROUTE .COMPLEX Qty: 60 3RF Dose Instruction: TAKE ONE TABLET BY MOUTH TWICE DAILY NEEDED FOR EDEMA Rx Instructions: TAKE ONE TABLET BY MOUTH TWICE DAILY NEEDED FOR EDEMA aspirin 81 mg Tablet,Delayed Release (Dr/Ec) 81 mg PO QAM ferrous sulfate 325 mg (65 mg iron) tablet 325 mg PO QPM albuterol sulfate 1.25 mg/3 mL solution for nebulization 1.25 mg inhalation QID PRN (Reason: Shortness Of Breath) fenofibrate nanocrystallized 145 mg tablet 145 mg PO DAILY lutein 10 mg Tablet 10 mg PO DAILY Rx Instructions: give with meal/snack Discharge Orders: Discharge ED (Routine); Ordered 08/03/22 Ordered By: Ravinder Munson Referrals: Sofie Maria MD [Primary Care Provider] - Discharge Diet: Usual diet Discharge Activity: Increase activity as tolerated Patient Instructions: Arthralgia (ED) Activity Restrictions/Additional Instructions: Use acetaminophen for pain. Activity as tolerated. Follow-up with primary care for further instructions. Return to ED for new concerns. Coding Level of Care Code ED Interventional Technologist for Leodan Sanchez
== END 2022-08-03 19:51 | disposition home or self-care (01) ==
PROVIDERS: Emergency Provider Nurse Practitioner Family; PCP Family Medicine
DX: M79.662 Pain in left lower leg (principal); M79.89 Other specified soft tissue disorders
CPT/HCPCS: 93971; 99284; 99285

== ENCOUNTER → 2022-09-08 11:20 | Outpatient (BNVA) | payer MEDICARE, MEDICAID, SELFPAY | PROVIDERS: PCP Family Medicine; Visit Provider Nurse Practitioner Family | DX: R60.9 Edema, unspecified (principal); E11.8 Type 2 diabetes mellitus with unspecified complications; Z79.4 Long term (current) use of insulin; I10 Essential (primary) hypertension; Z79.899 Other long term (current) drug therapy | CPT/HCPCS: 80053; 80061; 83036; 83880; 84443; 85025 ==

== ENCOUNTER → 2022-09-30 13:05 | Outpatient (BNVA) | payer MEDICARE, MEDICAID, SELFPAY | PROVIDERS: PCP Family Medicine; Visit Provider Nurse Practitioner Family | DX: R60.9 Edema, unspecified (principal); I10 Essential (primary) hypertension; I25.10 Atherosclerotic heart disease of native coronary artery without angina pectoris | CPT/HCPCS: 80053; 83880; 85025 ==

== ENCOUNTER → 2022-10-05 12:28 | Outpatient (BNVA) | payer MEDICARE, MEDICAID, SELFPAY | PROVIDERS: PCP Family Medicine; Visit Provider Internal Medicine | DX: R07.9 Chest pain, unspecified (principal) | CPT/HCPCS: 93005 ==

== ENCOUNTER 2022-10-05 13:09 | Emergency (ER) | payer MEDICARE, MEDICAID, SELFPAY ==
[2022-10-05 13:16] VITALS: BP 140/74; PULSE 98; RESP 25; TEMP 36.7; O2SAT 98
--- NOTE | 2022-10-05 13:17 | XR_ITS ---
WS: [id number] EXAMINATION: XR chest 1V portable [id number] REASON FOR EXAM: chest pain COMPARISON: None available. ORDER DATE: 10/05/2022 1:21 PM TECHNIQUE: A single, portable frontal chest x-ray was obtained. X-RAY FINDINGS: There are no definite infiltrates however there is a vague oval opacity in the right costophrenic ang le about 15 mm in diameter. There is subtle left basal atelectasis also in the costophrenic angle the pleural spaces are clear. No pleural effusions or pneumothorax. Cardiomediastinal silhouette is normal with atherosclerotic aortic change. No evidence for pulmonary edema. Soft tissue and osseous structures are unremarkable. No tubes or lines are present. IMPRESSION: Concerning ovoid opacity in the right costophrenic angle recommend clinical correlation to determine timing for additional follow-up evaluation either with 2 view chest in deep inspiration or CT imaging of the chest.
--- NOTE | 2022-10-05 13:18 | ECG_ITS ---
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 Measurements Intervals [place] Rate: 99 P: 67 SC: 162 QRS: -64 QRSD: 113 T: 51 QT: 386 QTc: 496 Interpretive Statements SINUS RHYTHM PATTERN CONSISTENT WITH PULMONARY DISEASE INCOMPLETE RIGHT BUNDLE BRANCH BLOCK [90+ ms QRS DURATION, TERMINAL R IN V1/V2, 40+ ms S IN I/aVL/V4/V5/V6] LEFT ANTERIOR FASCICULAR BLOCK [QRS AXIS <= -45, QR IN I, RS IN II] VOLTAGE CRITERIA FOR LVH [MEETS CRITERIA IN ONE OF: R(aVL), S(V1), R(V5), R(V5/V6)+S(V1)] POSSIBLE SEPTAL MYOCARDIAL INFARCTION , PROBABLY OLD [30 ms Q WAVE IN V1/V2] Compared to ECG 10/05/2022 12:32:08 Incomplete right bundle-branch block now present Myocardial infarct finding now present Sinus tachycardia no longer present ST (T wave) deviation no longer present Electronically Signed On 10-05-2022 20:05:49 CDT by Giselle Carpenter M.D. [id number]
[2022-10-05 14:09] LABS: Basophils % 0.4 %; Eosinophils % 0.4 %; Hematocrit 36.6 % (36-47); Lymphocytes # 1.3 10^3/uL (0.8-4.8); Lymphocytes % 19.6 %; Mean Corpuscular HGB Conc 33.9 g/dL (30-55); Mean Corpuscular Hemoglobin 31.3 pg (27-33); Mean Corpuscular Volume 92.4 fl (85-98); Monocytes # 0.6 10^3/uL (0.2-0.9); Neutrophils # 4.74 10^3/uL (1.8-7.7); Nucleated Red Blood Cells % 0 %; Platelet Count 338 10^3/cmm (157-399); Red Blood Count 3.96 10^6/uL (3.85-5.65); Red Cell Distribution Width 14.1 % (12.1-15.1); White Blood Count 6.78 10^3/uL (3.29-11.43)
[2022-10-05 14:31] LABS: Troponin(5th) Baseline 18 ng/L (0-10)
[2022-10-05 14:40] LABS: Alanine Aminotransferase 13 U/L (0-33); Albumin Level 4.2 g/dL (3.5-5.2); Alkaline Phosphatase 78 U/L (35-105); Anion Gap 20.2 (5-19); Aspartate Amino Transferase 16 U/L (0-32); Blood Urea Nitrogen 36 mg/dL (8-23); Calcium 9.4 mg/dL (8.5-10.5); Carbon Dioxide 25 mmol/L (22-29); Chloride 97 mmol/L (98-107); Globulin 2.4 g/dL (1.3-4.6); Glucose 199 mg/dL (65-115); NT Pro B Type Natriuretic Pept 256 pg/mL (0-125); Osmolality Calculated 302 mOsm/kg (285-295); Potassium 3.2 mmol/L (3.5-5.1); Sodium 139 mmol/L (136-145); Total Bilirubin 0.2 mg/dL (0.15-1.2); Total Protein 6.6 g/dL (6.6-8.7)
--- NOTE | 2022-10-05 14:43 | W.ED.SOB ---
HPI - SOB/Dyspnea General: Chief Complaint: Shortness of Breath/Dyspnea Stated Complaint: sent from heartcare, sob, swelling Time Seen by Provider: 10/05/22 14:07 Source: patient Mode of arrival: ambulatory History of Present Illness: HPI Narrative: 72 yo female presents to the Er with complaints of leg edema and some dyspnea. She was seen at cardiology earlier todayand reffered to the ER for evaluation of same. She has home oxygen usually has been using only at night recently using during the day. Denies chest pain. MD elicited complaint: shortness of breath and cough Pertinent past history: congestive heart failure Onset (ago): day(s) Severity: mild Exacerbating factors: nothing Relieving factors: nothing Known history of: congestive heart failure Associated symptoms: Reports chest congestion, cough and orthopnea; Deny abdominal pain, chest pain, diaphoresis, dizziness, extremity pain, fever(s), hemoptysis, lightheadedness, myalgias, nausea, palpitations, paresthesias, polydipsia, polyuria, rash, sense of impending doom, syncope or vomiting Treatment prior to arrival: none Review of Systems Const: Denies: fever(s) or diaphoresis Card: Reports: edema, swelling of feet/ankles, dyspnea on exertion and orthopnea; Denies: chest pain, palpitations, lightheadedness or syncope Resp: Reports: dyspnea, non-productive cough and chest congestion; Denies: hemoptysis GI: Denies: abdominal pain, nausea or vomiting : Denies: dysuria, urinary frequency or urinary urgency Musc: Denies: extremity pain Neuro: Denies: dizziness Endo: Denies: polyuria or polydipsia PFS ED PFSH: Medical History Acquired deformity of right foot Arteriosclerotic heart disease (ASHD) Asthma with chronic obstructive pulmonary disease (COPD) follows with pulmonology Atrophic vaginitis Bilateral primary osteoarthritis of knee 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 Degenerative disc disease, cervical Dysphagia, oropharyngeal Enrolled in chronic care management Essential (primary) hypertension Fibromyalgia 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[place] Hx of angioedema improved after stopping Lisinopril Low back pain Mixed hyperlipidemia Morbid (severe) obesity due to excess calories BMI 40.0-44.9 Obstructive sleep apnea Polyneuropathy Vesico-ureteral reflux Surgical History History of colon resection Hx of appendectomy Hx of arthroscopy of left knee (~2012) Dr Briceno Hx of cardiac cath Hx of cholecystectomy (~1992) Hx of coronary angioplasty stents x 3 Hx of hysterectomy Hx of total knee replacement (~09/2018) left, Dr Gonzalez S/P total knee arthroplasty Family History Brother Cancer lung CAD (coronary artery disease) Diabetes Lung disease Father CAD (coronary artery disease) Mother Bleeding disorder Sister CAD (coronary artery disease) Cancer Diabetes Lung disease Brother CAD (coronary artery disease) Cancer Diabetes Lung disease Denies family history of Clotting disorder Dementia Chronic kidney disease (CKD) Suicide Anesthesia complication Stroke Social History Smoking and tobacco status: former smoker Quit status (tobacco): has quit using tobacco Year quit tobacco: 2007 Former quit date comment: 2 PPD x 40 yrs Second hand smoke exposure: No Alcohol intake: never Substance/Drug Use: never Lives independently: Yes Household members: none Housing: House Marital status: / Number of children: 5 Current occupational status: retired Current gender identity: Female Physical Exam Const: GENERAL APPEARANCE: cooperative and comfortable ORIENTATION/CONSCIOUSNESS: Yes awake, Yes oriented to person, Yes oriented to place and Yes oriented to time HENMT: COMMON NORMALS: normocephalic, atraumatic and hearing grossly normal bilaterally HEAD & SCALP: normocephalic and atraumatic Resp: COMMON NORMALS: normal respiratory effort, No retractions, No use of accessory muscles and clear to auscultation bilaterally AUSCULTATION: clear to auscultation bilaterally Cardio: COMMON NORMALS: regular rate, regular rhythm and No murmurs present (Cardio) RATE: regular rate RHYTHM: regular rhythm GI: COMMON NORMALS: Soft to palpation and No hepatosplenomegaly present AUSCULTATION: Yes normoactive bowel sounds PALPATION: Yes Soft to palpation, No Tenderness to palpation present (GI), No Guarding due to palpation present (GI) and Yes No hepatosplenomegaly present Extremity: COMMON NORMALS: normal to inspection, capillary refill normal and no calf tenderness GENERAL: Yes edema (2+ edema mid lower leg) Neuro: SENSORIUM/ORIENTATION: Yes oriented to person, Yes oriented to place and Yes oriented to time Skin: COMMON NORMALS: no rashes or lesions noted GENERAL SKIN EXAM: no rashes or lesions noted Course Vital Signs: Vital signs: Vital Signs Temperature 98.0 F 10/05/22 13:16 Pulse Rate 99 10/05/22 16:50 Respiratory Rate 18 10/05/22 16:50 Blood Pressure 118/81 10/05/22 16:50 Pulse Oximetry 97 10/05/22 16:50 Oxygen Delivery Me thod Room Air 10/05/22 13:16 MDM - SOB/Dyspnea Medical Decision Making Labs imaging and EKG reviewed. No acute changes noted. No ST elevation noted on the EKGs. ABG shows acute hyperventilation. Patient improved after Ativan. Discharge patient home follow-up with primary care. Medical Records I reviewed the patient's medical records. Lab Data I reviewed the patient's lab results. 10/05/22 14:02 10/05/22 14:02 Labs/Radiology: Laboratory Results WBC 6.78 10^3/uL (3.29-11.43) 10/05/22 14:02 RBC 3.96 10^6/uL (3.85-5.65) 10/05/22 14:02 Hgb 12.40 g/dL (11.27-16.99) 10/05/22 14:02 Hct 36.6 % (36-47) 10/05/22 14:02 MCV 92.4 fl (85-98) 10/05/22 14:02 MCH 31.3 pg (27-33) 10/05/22 14:02 MCHC 33.9 g/dL (30-55) 10/05/22 14:02 RDW 14.1 % (12.1-15.1) 10/05/22 14:02 Plt Count 338 10^3/cmm (157-399) 10/05/22 14:02 MPV 10.0 fL (7.4-10.4) 10/05/22 14:02 Neut % (Auto) 70.0 % 10/05/22 14:02 Lymph % (Auto) 19.6 % 10/05/22 14:02 [place] % (Auto) 9.0 % 10/05/22 14:02 Eos % (Auto) 0.4 % 10/05/22 14:02 Baso % (Auto) 0.4 % 10/05/22 14:02 Neut # (Auto) 4.74 10^3/uL (1.8-7.7) 10/05/22 14:02 Lymph # (Auto) 1.3 10^3/uL (0.8-4.8) 10/05/22 14:02 [place] # (Auto) 0.6 10^3/uL (0.2-0.9) 10/05/22 14:02 Eos # (Auto) 0.0 10^3/uL (0.0-0.8) 10/05/22 14:02 Baso # (Auto) 0.0 10^3/uL (0.0-0.1) 10/05/22 14:02 Nucleated RBC % (auto) 0 % 10/05/22 14:02 Nucleated RBCs # 0.0 /100WBC 10/05/22 14:02 Specimen Type Arterial 10/05/22 14:57 Sample Site Radial, left 10/05/22 14:57 ABG pH 7.58 (7.35-7.45) H* 10/05/22 14:57 ABG pCO2 28.6 mmHg (35-45) L 10/05/22 14:57 ABG pO2 98.6 mmHg (80.0-100.0) 10/05/22 14:57 ABG HCO3 26.6 mmol/L (22-26) H 10/05/22 14:57 ABG O2 Saturation 99.3 10/05/22 14:57 ABG Base Excess 5.1 mmol/L (-2.0-2.0) H 10/05/22 14:57 Sammy Test Pos 10/05/22 14:57 A-a O2 Gradient 8.3 mmHg (5-10) 10/05/22 14:57 Hematocrit 36.9 % (37-47) L 10/05/22 14:57 Hgb O2 Saturation 98.1 % (95-100) 10/05/22 14:57 Carboxyhemoglobin 1.0 %THgb (0.4-20.1) 10/05/22 14:57 Methemoglobin 0.2 % (0.4-1.5) L 10/05/22 14:57 Total Hemoglobin 12.0 g/dL (12-16) 10/05/22 14:57 Sodium 142.0 mmol/L (131-143) 10/05/22 14:57 Potassium 3.2 mmol/L (3.5-5.0) L 10/05/22 14:57 Glucose 149.0 mg/dL (70-115) H 10/05/22 14:57 Ionized Calcium 1.1 mmol/L (1.1-1.4) 10/05/22 14:57 O2 Delivery Device Nc 10/05/22 14:57 O2 Liters/Min 2.0 % 10/05/22 14:57 FiO2 28.0 % 10/05/22 14:57 [employer] ID Cak 10/05/22 14:57 Sodium 139 mmol/L (136-145) 10/05/22 14:02 Potassium 3.2 mmol/L (3.5-5.1) L 10/05/22 14:02 Chloride 97 mmol/L (98-107) L 10/05/22 14:02 Carbon Dioxide 25 mmol/L (22-29) 10/05/22 14:02 Anion Gap 20.2 (5-19) H 10/05/22 14:02 BUN 36 mg/dL (8-23) H 10/05/22 14:02 Creatinine 1.7 mg/dL (0.5-0.9) H 10/05/22 14:02 GFR Calculation Not Reportable 10/05/22 14:02 Glucose 199 mg/dL (65-115) H 10/05/22 14:02 Calculated Osmolality 302 mOsm/kg (285-295) H 10/05/22 14:02 Calcium 9.4 mg/dL (8.5-10.5) 10/05/22 14:02 Total Bilirubin 0.2 mg/dL (0.15-1.2) 10/05/22 14:02 AST 16 U/L (0-32) 10/05/22 14:02 ALT 13 U/L (0-33) 10/05/22 14:02 Alkaline Phosphatase 78 U/L (35-105) 10/05/22 14:02 Troponin T Baseline 18 ng/L (0-10) H 10/05/22 14:02 Troponin T 120 Minute 18.25 ng/L (0-10) H 10/05/22 16:11 Delta Troponin T 0.25 ABS# (0-10) 10/05/22 16:11 NT-Pro-B Natriuret Pep 256 pg/mL (0-125) H 10/05/22 14:02 Total Protein 6.6 g/dL (6.6-8.7) 10/05/22 14:02 Albumin 4.2 g/dL (3.5-5.2) 10/05/22 14:02 Globulin 2.4 g/dL (1.3-4.6) 10/05/22 14:02 Discharge Plan Discharge Patient Disposition: Home Clinical Impression: Peripheral edema, Hyperventilation Condition: Stable Prescriptions: No Action (DME) Small portable oxygen concentrator See Rx Instructions .Route .MEDSUPPLY Qty: 1 0RF Rx Instructions: As directed azelastine-fluticasone [Dymista] 137-50 mcg/spray spray,non-aerosol 1 spray intranasal BID Qty: 23 3RF Rx Instructions: administer into each nostril mupirocin 2 % ointment 1 applic topical BID Qty: 22 0RF bumetanide 2 mg tablet 4 mg PO BID 7 Days Qty: 28 0RF cephalexin 500 mg capsule 500 mg PO Q8H 10 Days Qty: 30 0RF diclofenac sodium 75 mg tablet,delayed release (DR/EC) 75 mg PO BID PRN (Reason: pain) Qty: 60 0RF tramadol 50 mg tablet 50 mg PO BID PRN (Reason: pain) Qty: 10 0RF doxycycline hyclate 100 mg capsule 100 mg PO BID 10 Days Qty: 20 0RF insulin lispro [Humalog KwikPen Insulin] 100 unit/mL insulin pen See Rx Instructions .ROUTE .COMPLEX Qty: 30 2RF Dose Instruction: INJECT SUBCUTANEOUSLY DIRECTED BEFORE MEALS <150=6UNITS, 151-200=8UNITS, 201-250=10UNITS, 251-300=12UNITS, >300=14UNITS Rx Instructions: INJECT SUBCUTANEOUSLY SLIDING SCALE DIRECTED BEFORE MEALS <150=6UNITS, 151-200=8UNITS, 201-250=10UNITS, 251-300=12UNITS, >300=14UNITS (DME) pen needle, diabetic [UltiCare Pen Needle] 31 gauge x 5/16 needle See Rx Instructions .ROUTE .COMPLEX Qty: 400 4RF Dose Instruction: USE as directed FOUR TIMES DAILY Rx Instructions: USE as directed FOUR TIMES DAILY (DME) Accu-Chek Haleigh Plus test strp Strip See Rx Instructions .Route Qty: 150 3RF Rx Instructions: qid and prn metformin 500 mg tablet See Rx Instructions .ROUTE .COMPLEX Qty: 360 4RF Dose Instruction: TAKE TWO TABLETS BY MOUTH TWICE DAILY Rx Instructions: TAKE TWO TABLETS BY MOUTH TWICE DAILY ranolazine 500 mg tablet extended release 12 hr 500 mg PO BID Qty: 180 3RF albuterol sulfate [ProAir HFA] 90 mcg/actuation HFA aerosol inhaler 2 puff INHALATION Q6H PRN (Reason: shortness of breath) Qty: 8.5 2RF cholecalciferol (vitamin D3) 125 mcg (5,000 unit) capsule See Rx Instructions .ROUTE .COMPLEX Qty: 30 5RF Dose Instruction: TAKE ONE CAPSULE BY MOUTH EVERY MORNING Rx Instructions: TAKE ONE CAPSULE BY MOUTH EVERY MORNING Spiriva Respimat 2.5 mcg/actuation mist See Rx Instructions .ROUTE .COMPLEX Qty: 4 0RF Dose Instruction: inhale TWO puffs into lungs ONCE daily Rx Instructions: inhale TWO puffs into lungs ONCE daily insulin glargine [Lantus Solostar U-100 Insulin] 100 unit/mL (3 mL) insulin pen See Rx Instructions .ROUTE .COMPLEX Qty: 15 1RF Dose Instruction: inject 35 units SUBCUTANEOUSLY AT bedtime Rx Instructions: inject 35 units SUBCUTANEOUSLY AT bedtime rosuvastatin 40 mg tablet See Rx Instructions .ROUTE .COMPLEX Qty: 30 6RF Dose Instruction: TAKE ONE TABLET BY MOUTH At Bedtime Rx Instructions: TAKE ONE TABLET BY MOUTH At Bedtime nitroglycerin 0.4 mg tablet, sublingual See Rx Instructions .ROUTE .COMPLEX Qty: 25 2RF Dose Instruction: DISSOLVE ONE TABLET UNDER THE TONGUE EVERY FIVE minutes NEEDED FOR CHEST pains Rx Instructions: DISSOLVE ONE TABLET UNDER THE TONGUE EVERY FIVE minutes NEEDED FOR CHEST pains cyclobenzaprine 5 mg tablet See Rx Instructions .ROUTE .COMPLEX Qty: 90 0RF Dose Instruction: TAKE ONE TABLET BY MOUTH At Bedtime NEEDED FOR MUSCLE SPASMS Rx Instructions: TAKE ONE TABLET BY MOUTH At Bedtime NEEDED FOR MUSCLE SPASMS losartan 100 mg tablet See Rx Instructions .ROUTE .COMPLEX Qty: 30 5RF Dose Instruction: TAKE ONE TABLET BY MOUTH At Bedtime Rx Instructions: TAKE ONE TABLET BY MOUTH At Bedtime amlodipine 5 mg tablet See Rx Instructions .ROUTE .COMPLEX Qty: 30 5RF Dose Instruction: TAKE ONE TABLET BY MOUTH DAILY Rx Instructions: TAKE ONE TABLET BY MOUTH DAILY fluticasone furoate-vilanterol [Breo Ellipta] 200-25 mcg/dose blister with device See Rx Instructions .ROUTE .COMPLEX Qty: 60 5RF Dose Instruction: inhale 1 PUFF into lungs DAILY Rx Instructions: inhale 1 PUFF into lungs DAILY duloxetine 30 mg capsule,delayed release(DR/EC) See Rx Instructions .ROUTE .COMPLEX Qty: 60 2RF Dose Instruction: TAKE ONE CAPSULE BY MOUTH DAILY FOR 2 WEEKS THEN increase TO 2 CAPSULES DAILY Rx Instructions: TAKE ONE CAPSULE BY MOUTH DAILY FOR 2 WEEKS THEN increase TO 2 CAPSULES DAILY montelukast 10 mg tablet See Rx Instructions .ROUTE .COMPLEX Qty: 30 5RF Dose Instruction: TAKE ONE TABLET BY MOUTH At Bedtime Rx Instructions: TAKE ONE TABLET BY MOUTH At Bedtime isosorbide mononitrate 30 mg tablet extended release 24 hr See Rx Instructions .ROUTE .COMPLEX Qty: 30 2RF Dose Instruction: TAKE ONE TABLET BY MOUTH EVERY DAY Rx Instructions: TAKE ONE TABLET BY MOUTH EVERY DAY metoprolol tartrate 25 mg tablet See Rx Instructions .ROUTE .COMPLEX Qty: 60 2RF Dose Instruction: TAKE ONE TABLET BY MOUTH TWICE DAILY Rx Instructions: TAKE ONE TABLET BY MOUTH TWICE DAILY aspirin 81 mg Tablet,Delayed Release (Dr/Ec) 81 mg PO QAM ferrous sulfate 325 mg (65 mg iron) tablet 325 mg PO QPM albuterol sulfate 1.25 mg/3 mL solution for nebulization 1.25 mg inhalation QID PRN (Reason: Shortness Of Breath) fenofibrate nanocrystallized 145 mg tablet 145 mg PO DAILY lutein 10 mg Tablet 10 mg PO DAILY Rx Instructions: give with meal/snack Discharge Orders: Discharge ED (Routine); Ordered 10/05/22 Ordered By: Joaquin Guido Referrals: Sofie Maria MD [Primary Care Provider] - Discharge Diet: Usual diet Discharge Activity: Increase activity as tolerated Patient Instructions: Opioid Safety, Pain Management Activity Restrictions/Additional Instructions: Increase Bumex to 5 mg (2-1/2 tablets) twice a day for the next 3 days. Recheck with your primary care doctor or tax agent in 3 days return if you have further problems. 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
--- NOTE | 2022-10-05 14:49 | USCV_ITS ---
Kiera Hart Age: 72 Gender: F : 1950 Exam Date: 10/05/2022 15:18 Ordering Phys: Joaquin Guido DO Technologist: Ruiz Ling Exam Location: [facility] Indication: bilat edema worse on lt leg PROCEDURES: The venous duplex Doppler examination of both lower extremities was performed in the standard fashion. The following venous structures were evaluated: common femoral vein, profunda vein, proximal portion of the greater saphenous vein, superficial femoral vein, and the popliteal vein. FINDINGS: Normal 2-D Doppler and augmentation and compressibility throughout the lower extremity venous structures. Additional imaging through the proximal calf veins also reveals no thrombus. Limited evaluation of the greater saphenous vein is patent with no thrombus. CONCLUSIONS No evidence of right lower extremity DVT. No evidence of left lower extremity DVT. Mlian Hill MD (Electronically Signed) Final Date: 05 October 2022 16:25 S
[2022-10-05 15:08] LABS: ABG PCO2 28.6 mmHg (35-45); Alveolar-Arterial Oxygen Gradi 8.3 mmHg (5-10); Arterial Blood Gas Hematocrit 36.9 % (37-47); Base Excess ABG 5.1 mmol/L (-2.0-2.0); Blood Gas Allen Test Pos; Blood Gas Operator Identificat CAK; Blood Gas Sample Site Radial, left; Blood Gas Sample Type Arterial; HCO3 ABG 26.6 mmol/L (22-26); HGB O2 Sat 98.1 % (95-100); Ionized Calcium Level - ABG 1.1 mmol/L (1.1-1.4); Methemoglobin 0.2 % (0.4-1.5); Oxygen Device NC; Oxygen Saturation ABG 99.3; PO2 ABG 98.6 mmHg (80.0-100.0); Potassium Level - ABG 3.2 mmol/L (3.5-5.0)
[2022-10-05 15:09] LABS: ABG PH Result 7.58 (7.35-7.45)
[2022-10-05] MEDS: FUROsemide 10 mg/mL SDV 10mL 60 MG IVP (15:18)
--- NOTE | 2022-10-05 15:42 | ECG_ITS ---
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 Measurements Intervals [place] Rate: 92 P: 49 MA: 157 QRS: -60 QRSD: 103 T: 10 QT: 388 QTc: 481 Interpretive Statements SINUS RHYTHM WITH FREQUENT SUPRAVENTRICULAR PREMATURE COMPLEXES PATTERN CONSISTENT WITH PULMONARY DISEASE LEFT ANTERIOR FASCICULAR BLOCK [QRS AXIS <= -45, QR IN I, RS IN II] MODERATE VOLTAGE CRITERIA FOR LVH, CONSIDER NORMAL VARIANT [MEETS CRITERIA IN ONE OF: R(aVL), S(V1), R(V5), R(V5/V6)+S(V1)] POSSIBLE SEPTAL MYOCARDIAL INFARCTION , PROBABLY OLD [30 ms Q WAVE IN V1/V2] Compared to ECG 10/05/2022 14:19:33 Incomplete right bundle-branch block no longer present Myocardial infarct finding still present Electronically Signed On 10-05-2022 20:54:49 CDT by Giselle Carpenter M.D. [id number]
[2022-10-05] MEDS: LORazepam 2 mg/mL INJ 1 mL 1 MG IVP (16:45)
[2022-10-05 16:50] VITALS: BP 118/81; PULSE 99; RESP 18; O2SAT 97
[2022-10-05 16:52] LABS: Troponin 5 2HR 18.25 ng/L (0-10)
[2022-10-05 16:54] LABS: Troponin 5 2HR Delta 0.25 ABS# (0-10)
[2022-10-05] MEDS: potassium chloride oral liq 20 mEq/15 mL UDC 40 MEQ PO (17:28)
== END 2022-10-05 17:45 | disposition home or self-care (01) ==
PROVIDERS: Physician Assistant; Emergency Provider Family Medicine; PCP Family Medicine
DX: R60.0 Localized edema (principal); R06.4 Hyperventilation; Z79.4 Long term (current) use of insulin; Z79.84 Long term (current) use of oral hypoglycemic drugs; Z79.82 Long term (current) use of aspirin; Z87.891 Personal history of nicotine dependence; J44.9 Chronic obstructive pulmonary disease, unspecified; E11.9 Type 2 diabetes mellitus without complications; I10 Essential (primary) hypertension; E78.2 Mixed hyperlipidemia; R07.9 Chest pain, unspecified
CPT/HCPCS: 36415; 36600; 71045; 80051; 80053; 82330; 82805; 83880; 84484; 85025; 93005; 93970; 96374; 96375; 99215; 99285; J1940; J2060

== ENCOUNTER → 2022-11-01 12:17 | Outpatient (BNVA) | payer MEDICARE, SELFPAY | PROVIDERS: PCP Family Medicine; Visit Provider Nurse Practitioner Family | DX: R60.9 Edema, unspecified (principal); R41.3 Other amnesia | CPT/HCPCS: 80053; 85025 ==

== ENCOUNTER → 2022-12-29 11:04 | Outpatient (BNVA) | payer MEDICARE, MEDICAID, SELFPAY | PROVIDERS: PCP Family Medicine; Visit Provider Psychiatry & Neurology Neurology | DX: R41.3 Other amnesia (principal); R51.9 Headache, unspecified; R26.89 Other abnormalities of gait and mobility; M54.2 Cervicalgia; G47.30 Sleep apnea, unspecified; R42 Dizziness and giddiness | CPT/HCPCS: 99203 ==

== ENCOUNTER → 2023-01-10 16:09 | Outpatient (BNVA) | payer MEDICARE, MEDICAID, SELFPAY | PROVIDERS: PCP Family Medicine; Visit Provider Nurse Practitioner Family | DX: R60.9 Edema, unspecified (principal); E11.8 Type 2 diabetes mellitus with unspecified complications; Z79.4 Long term (current) use of insulin; Z79.899 Other long term (current) drug therapy | CPT/HCPCS: 80053; 80061; 81003; 82043; 83036; 84443; 85025; 87077; 87086; 87184 ==

== ENCOUNTER 2023-02-02 07:45 | Outpatient (CLI) | payer MEDICARE, MEDICAID, SELFPAY ==
--- NOTE | 2023-02-02 08:15 | USCV_ITS ---
Kiera Hart Age: 72 Gender: F : 1950 Exam Date: 02/02/2023 07:57 Ordering Phys: Maxi Amaral MD Technologist: CAMRON [place] [facility] [place]: Migraines Risk Factors: Previous Vascular Surgery: Right Brachial BP: / Left Brachial BP: / Right Left Velocity (cm/s) Spectral Plaque Velocity (cm/s) Spectral Plaque Syst/Diast Broadening Syst/Diast Broadening 43.40/ 14.50 Prox CCA 58.10 / 17.10 53.30/ 17.80 Mid CCA 76.00 / 19.70 55.20/ 16.70 Distal CCA 65.90 / 19.60 25.60/ 10.20 Prox ICA 59.80 / 17.90 27.30/ 10.00 Mid ICA 59.80 / 18.80 56.90/ 22.00 Distal ICA 66.70 / 24.80 57.30 ECA 93.10 1.03 ICA/CCA 0.88 Antegrade Vertebral Antegrade 30.60/ 11.00 cm/s 60.70/ 18.80 cm/s Tri Subclavian Tri 66.50 105.8 0 CONCLUSIONS Right ICA stenosis <50%. Mild atheromatous plaque right carotid bulb/ICA. Left ICA stenosis <50%. Moderate atheromatous plaque left carotid bulb/ICA. Normal antegrade Doppler flow noted in the right vertebral artery. Normal antegrade Doppler flow noted in the left vertebral artery. Milan Hill MD (Electronically Signed) Final Date: 02 February 2023 13:43 S
--- NOTE | 2023-02-02 08:45 | MR_ITS ---
WS: [id number] MRI BRAIN WITHOUT CONTRAST HISTORY: R26.89 - Other abnormalities of gait and mobility COMPARISON: None available. TECHNIQUE: Diffusion imaging, multiplanar T1, T2 and FLAIR imaging obtained. No evidence for acute infarct or hemorrhage. Cardenas-white matter differentiation is normal. Mild small vessel ischemic changes throughout the white matter. Typical for patient's age. There is m ild bilateral volume loss which is symmetric. No prior infarct. Mild bilateral hippocampal volume atr ophy. Ventricles and extra-axial spaces are normal. No inferior displacement of cerebellar tonsils. The sella turcica and pituitary gland are unremarkabl e. Empty sella turcica. Dural venous sinuses and benton of [place] demonstrate no abnormality on this unenhanced studies. Paranasal sinuses: Clear. Mastoid air cells: Normal. Calvarium and scalp: Intact. IMPRESSION: 1. No acute infarct or hemorrhage. 2. Mild small vessel ischemic disease and volume loss. 3. Mild temporal lobe/hippocampal atrophy.
--- NOTE | 2023-02-02 09:30 | MR_ITS ---
WS: [id number] MRI CERVICAL SPINE NONCONTRAST HISTORY: R26.89 - Other abnormalities of gait and mobility COMPARISON: None available. Technique: Multiplanar, multisequence noncontrast imaging of the cervical spine. Extensive motion art ifact. Normal cervical alignment with no compression fracture or significant disc space narrowing. Signal within the cervical cord is normal. Visualized posterior fossa is unremarkable. Craniocervical junction, C1 and C2 relationship, odontoid process and soft tissues are normal. C2-C3: Tiny central disc protrusion. Mild bilateral facet arthritis. C3-C4: Osteophytic ridging extends into the LEFT foramen with mild foraminal stenosis. Moderate facet arthritis. C4-C5: Bilateral moderate facet joint arthritis and foraminal stenosis. Small central disc protrusion . C5-C6: Diffuse osteophytic ridging and disc bulging and moderate facet arthritis and foraminal stenos is. There is a shallow RIGHT paracentral disc protrusion. C6-C7: Mild bilateral foraminal stenosis. C7-T1: Normal. Paraspinal soft tissue are normal. IMPRESSION: 1. Quality of this examination is compromised by motion and body habitus. 2. Tiny central disc protrusion at C2-3. 3. Shallow RIGHT paracentral disc protrusion at C5-6. Bilateral facet joint arthritis. 4. Small central disc protrusion at C4-5 and C2-3. 5. Facet joint arthropathy throughout the cervical spine with mild progression since 2014. No high-gr josie stenosis.
== END 2023-02-02 07:46 | disposition home or self-care (01) ==
LOC: RAD 07:45
PROVIDERS: PCP Family Medicine; Visit Provider Psychiatry & Neurology Neurology
DX: M54.2 Cervicalgia (principal); R09.89 Other specified symptoms and signs involving the circulatory and respiratory systems; R26.89 Other abnormalities of gait and mobility; M47.812 Spondylosis without myelopathy or radiculopathy, cervical region; M50.222 Other cervical disc displacement at C5-C6 level
CPT/HCPCS: 70551; 72141; 93880

== ENCOUNTER 2023-03-16 13:34 | Outpatient (CLI) | payer MEDICARE, MEDICAID, SELFPAY ==
--- NOTE | 2023-03-16 13:30 | CT_ITS ---
WS: [id number] CTA THORACIC AORTA WITH AND WITHOUT HISTORY: ascending aortic aneurysm TECHNIQUE: CT imaging of the thorax is performed with and without contrast. After noncontrast imaging is performed, CT angiogram is performed during injection of Omnipaque 350; 100 mL IV.. Sagittal and coronal reconstructions, sagittal and coronal MIP imaging is submitted. All CT scans at [facility] use at least one of these dose optimization techniques: automated exposure control; mA and/or k V adjustment per patient size (includes targeted exams where dose is matched to clinical indication); or iterative reconstruction. DLP: 843.42 mGy COMPARISON: 03/23/2022 Stable appearance of the ectatic minimally dilated thoracic aorta. Maximum diameter of the ascending aorta is 3.8 cm. The descending aorta is normal caliber at 2.9 cm. Mild atherosclerotic plaque. No ul cerated plaque or dissection. Mild atherosclerotic plaque extends into the great vessels. Pulmonary artery size is normal. No mediastinal or hilar adenopathy. Mild enlargement of the LEFT hea rt chambers. No pericardial or pleural effusion. Chronic centrilobular emphysema. Lungs are hyperexpa nded. No mass or nodule. Hepatic steatosis. No adrenal mass. Mild perinephric stranding. Nonobstructing 3 mm calcification upp er pole RIGHT kidney. Increase in thoracic kyphosis and osteopenia. IMPRESSION: 1. Very minimal dilatation of the ascending aorta to 3.8 cm which is similar to prior studies. 2. Mild atherosclerotic plaque. No dissection. 3. Chronic centrilobular emphysema. 4. Hepatic steatosis.
[2023-03-16 13:59] LABS: Blood Urea Nitrogen 28 mg/dL (8-23)
[2023-03-16] MEDS: iohexol 350 mg/mL 500 mL Btl (per mL) IV (14:10)
== END 2023-03-16 13:35 | disposition home or self-care (01) ==
LOC: RAD 13:34
PROVIDERS: PCP Family Medicine; Visit Provider Thoracic Surgery (Cardiothoracic Vascular Surgery)
DX: I71.21 Aneurysm of the ascending aorta, without rupture (principal); I70.0 Atherosclerosis of aorta; J43.2 Centrilobular emphysema
CPT/HCPCS: 71275; 82565; 84520; 99204; Q9967

== ENCOUNTER → 2023-03-30 08:01 | Outpatient (BNVA) | payer MEDICARE, MEDICAID, SELFPAY | PROVIDERS: PCP Family Medicine; Visit Provider Internal Medicine | DX: E11.8 Type 2 diabetes mellitus with unspecified complications (principal); Z79.4 Long term (current) use of insulin; E78.2 Mixed hyperlipidemia | CPT/HCPCS: 99214 ==

== ENCOUNTER → 2023-04-03 14:14 | Outpatient (BNVA) | payer MEDICARE, MEDICAID, SELFPAY | PROVIDERS: PCP Family Medicine; Visit Provider Thoracic Surgery (Cardiothoracic Vascular Surgery) | DX: I71.21 Aneurysm of the ascending aorta, without rupture (principal) | CPT/HCPCS: 99213 ==

== ENCOUNTER → 2023-04-19 13:50 | Outpatient (BNVA) | payer MEDICARE, MEDICAID, SELFPAY | PROVIDERS: PCP Family Medicine; Visit Provider Nurse Practitioner Family | DX: R05.9 Cough, unspecified (principal) | CPT/HCPCS: 71046 ==

== ENCOUNTER 2023-05-05 14:30 | Emergency (ER) | payer MEDICARE, MEDICAID, SELFPAY ==
[2023-05-05] VITALS (8 sets, daily range): BP systolic 86–130; BP diastolic 52–93; PULSE 67–75; RESP 16–24; TEMP 36.3; O2SAT 97–100
--- NOTE | 2023-05-05 14:48 | ECG_ITS ---
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 Measurements Intervals [place] Rate: 70 P: -7 ID: [id number] QRS: 110 QRSD: 106 T: -4 QT: 430 QTc: 465 Interpretive Statements SINUS RHYTHM PATTERN CONSISTENT WITH PULMONARY DISEASE POSSIBLE RIGHT VENTRICULAR HYPERTROPHY [SOME/ALL OF: PROMINENT R IN V1, LATE TRANSITION, RAD, SCOT, SSS] SEPTAL MYOCARDIAL INFARCTION , PROBABLY OLD [40+ ms Q WAVE IN V1/V2] PROBABLE INFERIOR MYOCARDIAL INFARCTION , OF INDETERMINATE AGE [35 ms Q WAVE IN II/aVF] Compared to ECG 10/05/2022 15:42:13 Atrial abnormality now present Left anterior fascicular block no longer present Myocardial infarct finding still present Electronically Signed On 05-06-2023 15:55:37 CDT by Jose M Liu M.D. [id number] [email or web address]
--- NOTE | 2023-05-05 14:48 | XR_ITS ---
WS: [id number] Portable AP upright chest, 05/05/2023 Clinical Data: dyspnea Comparison: Two-view chest, 04/19/2023 Findings: No nodules, masses or effusions are seen. The heart is normal. The pulmonary vascularity is not increased. No pneumonia or pneumothorax is seen. The aortic arch and descending thoracic aorta s how calcification and tortuosity. The diaphragms are flattened. There are monitor leads on the chest wall. Impression: Atherosclerosis and hyperinflation.
--- NOTE | 2023-05-05 15:38 | CTR_ITS ---
PROCEDURE INFORMATION: Exam: CTA Chest With Contrast Exam date and time: 05/05/2023 4:46 PM Age: 73 years old Clinical indication: Pain; Chest pressure and on breathing; Additional info: Dyspnea tachypnea chest pain sudden onset TECHNIQUE: Imaging protocol: Computed tomographic angiography of the chest with contrast. Exam focused on the arteries. 3D rendering (Not supervised by radiologist): MIP and/or 3D reconstructed images were created by the technologist. Radiation optimization: All CT scans at this facility use at least one of these dose optimization techniques: automated exposure control; mA and/or kV adjustment per patient size (includes targeted exams where dose is matched to clinical indication); or iterative reconstruction. Contrast material: OMNI 350; Contrast volume: 59 ml; Contrast route: INTRAVENOUS (IV); COMPARISON: CT angio chest [id number] 03/16/2023 2:02 PM RADIATION DOSE METRICS: Total DLP (mGy-cm): 436.74 FINDINGS: Pulmonary arteries: Normal. No pulmonary emboli. Aorta: Unremarkable. No aortic aneurysm. No aortic dissection. Lungs: Both lungs demonstrate diffuse centrilobular emphysematous change. There is a small area of infiltrate involving the right lower lobe. No lung mass noted. Pleural spaces: Unremarkable. No pneumothorax. No pleural effusion. Heart: Mild cardiomegaly is noted. Coronary arteries: Coronary artery calcifications are noted. Lymph nodes: Unremarkable. No enlarged lymph nodes. Bones/joints: Unremarkable. No acute fracture. Soft tissues: Unremarkable. CT/CT angio chest PE protcl [id number] IMPRESSION: 1. Early right lower lobe pneumonia 2. Emphysematous changes 3. Mild cardiomegaly with abundant coronary artery calcifications COMMENTS: The presence of pulmonary emphysema on CT is an independent risk factor for lung cancer. In the absence of a history or active diagnosis of lung cancer, it is recommended that this patient with emphysema be evaluated for enrollment in a low dose CT lung cancer screening program.
--- NOTE | 2023-05-05 15:40 | ED_ITS ---
HPI - SOB/Dyspnea 2 General: Chief Complaint: Shortness of Breath/Dyspnea Stated Complaint: sob, pain when breathing Time Seen by Provider: 05/05/23 14:47 History of Present Illness: HPI Narrative: Patient presents to the ER with sudden onset shortness of breath, tachypnea, anxiety and pain with breathing. Patient just got over double pneumonia and took her last antibiotic on Monday and was feeling better but this change happened suddenly today. Patient does appear anxious and tachypneic in the room and can barely get 1 or 2 words at before she struggles to an has to take of breath. Patient does use nebulizer and she used it prior to arrival and she says it has not helped any. Patient is on a diuretic but is on no anticoagulation. Review of Systems 2 General: Reports: 10 or more systems reviewed and unremarkable except in HPI and below 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[place] Vesico-ureteral reflux Morbid (severe) obesity due to excess calories BMI 40.0-44.9 Asthma with chronic obstructive pulmonary disease (COPD) follows with pulmonology Mixed hyperlipidemia Obstructive sleep apnea Arteriosclerotic heart disease (ASHD) Acquired deformity of right foot Atrophic vaginitis Fibromyalgia Controlled diabetes mellitus type 2 with complications Degenerative disc disease, cervical Degeneration of lumbar intervertebral disc Bilateral primary osteoarthritis of knee Polyneuropathy Essential (primary) hypertension Hx of angioedema improved after stopping Lisinopril Dysphagia, oropharyngeal Surgical History Hx of hysterectomy Hx of appendectomy S/P total knee arthroplasty Hx of cholecystectomy (~1992) Hx of coronary angioplasty stents x 3 Hx of cardiac cath Hx of arthroscopy of left knee (~2012) Dr Briceno Hx of total knee replacement (~09/2018) left, Dr Gonzalez History of colon resection Family History Brother Cancer lung CAD (coronary artery disease) Diabetes Lung disease Father CAD (coronary artery disease) Mother Bleeding disorder Sister CAD (coronary artery disease) Cancer Diabetes Lung disease Brother CAD (coronary artery disease) Cancer Diabetes Lung disease Denies family history of Clotting disorder Dementia Chronic kidney disease (CKD) Suicide Anesthesia complication Stroke Social History Smoking and tobacco/nicotine status: former use of tobacco/nicotine Quit status (tobacco/nicotine): has quit using Year quit tobacco: 2007 Former quit date comment: 2 PPD x 40 yrs Second hand smoke exposure: No Alcohol intake: never Substance/Drug Use: never Lives independently: Yes Household members: none Housing: House Marital status: / Number of children: 5 Current occupational status: retired Current gender identity: Female Physical Exam 2 Const: COMMON NORMALS: no acute distress, average body habitus, patient oriented x3, no limitations, healthy appearing, alert and well nourished HENMT: COMMON NORMALS: normocephalic, atraumatic, hearing grossly normal bilaterally, external ears normal, Normal external nose present and moist oral mucous membranes HEAD & SCALP: normocephalic and atraumatic NOSE: Normal external nose present EXTERNAL EAR: Yes external ears normal Neck/C-Spine: COMMON NORMALS: no JVD Chest: COMMONS NORMALS: normal inspection of the chest and normal palpation of entire chest wall Resp: COMMON NORMALS: normal respiratory effort (Tachypneic and hyperventilating), No retractions, No use of accessory muscles and clear to auscultation bilaterally AUSCULTATION: clear to auscultation bilaterally Cardio: COMMON NORMALS: no JVD, regular rate, regular rhythm, S1 normal heart sound present, S2 normal heart sound present, No gallops present (Cardio), No clicks present (Cardio), No murmurs present (Cardio) and No rub (Cardio) R ATE: regular rate RHYTHM: regular rhythm HEART SOUNDS: S1 normal heart sound present and S2 normal heart sound present GI: COMMON NORMALS: Normal to inspection, nondistended, normoactive bowel sounds present, Soft to palpation, non-tender, No hepatosplenomegaly present and no masses PALPATION: Yes Soft to palpation and Yes No hepatosplenomegaly present Neuro: COMMON NORMALS: patient oriented x3 SENSORIUM/ORIENTATION: Yes alert Course 2 Vital Signs: Vital signs: Vital Signs Temperature 97.3 F L 05/05/23 14:38 Pulse Rate 72 05/05/23 14:38 Respiratory Rate 24 H 05/05/23 14:38 Blood Pressure 117/73 05/05/23 14:38 Pulse Oximetry 100 05/05/23 14:38 Oxygen Delivery Me thod Room Air 05/05/23 14:38 MDM - SOB/Dyspnea Medical Decision Making Patient had lab works including ABG chest x-ray CTA, ABG revealed low CO2 and alkalosis, CTA showed early right lower lobe pneumonia which patient is just getting over, no blood clots, patient was given 1 mg Ativan which calm her down from hyperventilating. Patient was stabilized on room air. These results was discussed with the patient and her family who says that she has a severe anxiety problem and patient be discharged home. Differential Diagnosis Likely acute exacerbation of chronic obstructive airways disease; Unlikely congestive heart failure, community acquired pneumonia, asthma with exacerbation or pulmonary embolism Medical Records I reviewed the patient's medical records. Lab Data I reviewed the patient's lab results. 05/05/23 15:32 05/05/23 15:32 Labs/Radiology: Radiology Impressions Chest CTA 05/05/23 15:38 IMPRESSION: 1. Early right lower lobe pneumonia 2. Emphysematous changes 3. Mild cardiomegaly with abundant coronary artery calcifications COMMENTS: The presence of pulmonary emphysema on CT is an independent risk factor for lung cancer. In the absence of a history or active diagnosis of lung cancer, it is recommended that this patient with emphysema be evaluated for enrollment in a low dose CT lung cancer screening program. Laboratory Results WBC 9.02 10^3/uL (3.29-11.43) 05/05/23 15:32 RBC 4.11 10^6/uL (3.85-5.65) 05/05/23 15:32 Hgb 12.30 g/dL (11.27-16.99) 05/05/23 15:32 Hct 36.9 % (36-47) 05/05/23 15:32 MCV 89.8 fl (85-98) 05/05/23 15:32 MCH 29.9 pg (27-33) 05/05/23 15:32 MCHC 33.3 g/dL (30-55) 05/05/23 15:32 RDW 15.3 % (12.1-15.1) H 05/05/23 15:32 Plt Count 366 10^3/cmm (157-399) 05/05/23 15:32 MPV 9.5 fL (7.4-10.4) 05/05/23 15:32 Neut % (Auto) 66.9 % 05/05/23 15:32 Lymph % (Auto) 23.4 % 05/05/23 15:32 [place] % (Auto) 8.2 % 05/05/23 15:32 Eos % (Auto) 0.9 % 05/05/23 15:32 Baso % (Auto) 0.3 % 05/05/23 15:32 Neut # (Auto) 6.03 10^3/uL (1.8-7.7) 05/05/23 15:32 Lymph # (Auto) 2.1 10^3/uL (0.8-4.8) 05/05/23 15:32 [place] # (Auto) 0.7 10^3/uL (0.2-0.9) 05/05/23 15:32 Eos # (Auto) 0.1 10^3/uL (0.0-0.8) 05/05/23 15:32 Baso # (Auto) 0.0 10^3/uL (0.0-0.1) 05/05/23 15:32 Nucleated RBC % (auto) 0 % 05/05/23 15: Nucleated RBCs # 0.0 /100WBC 05/05/23 15:32 Specimen Type Arterial 05/05/23 15:54 Sample Site Brachial, left 05/05/23 15:54 ABG pH 7.62 (7.35-7.45) H* 05/05/23 15:54 ABG pCO2 21.1 mmHg (35-45) L 05/05/23 15:54 ABG pO2 108.0 mmHg (80.0-100.0) H 05/05/23 15:54 ABG PO2/FiO2 Ratio 0 05/05/23 15:54 ABG HCO3 21.8 mmol/L (22-26) L 05/05/23 15:54 ABG O2 Saturation 98.9 05/05/23 15:54 ABG Base Excess 2.1 mmol/L (-2.0-2.0) H 05/05/23 15:54 Sammy Test N/a 05/05/23 15:54 A-a O2 Gradient 7.9 mmHg (5-10) 05/05/23 15:54 Hematocrit 37.0 % (37-47) 05/05/23 15:54 Hgb O2 Saturation 97.9 % (95-100) 05/05/23 15:54 Carboxyhemoglobin 0.5 %THgb (0.4-20.1) 05/05/23 15:54 Methemoglobin 0.6 % (0.4-1.5) 05/05/23 15:54 Total Hemoglobin 12.1 g/dL (12-16) 05/05/23 15:54 Sodium 136.0 mmol/L (131-143) 05/05/23 15:54 Potassium 3.9 mmol/L (3.5-5.0) 05/05/23 15:54 Glucose 99.0 mg/dL (70-115) 05/05/23 15:54 Ionized Calcium 1.2 mmol/L (1.1-1.4) 05/05/23 15:54 O2 Delivery Device Nc 05/05/23 15:54 O2 Liters/Min 2.0 % 05/05/23 15:54 FiO2 28.0 % 05/05/23 15:54 Manager Environmental Services ID Amh 05/05/23 15:54 Sodium 135 mmol/L (136-145) L 05/05/23 15:32 Potassium 4.3 mmol/L (3.5-5.1) 05/05/23 15:32 Chloride 98 mmol/L (98-107) 05/05/23 15:32 Carbon Dioxide 21 mmol/L (22-29) L 05/05/23 15:32 Anion Gap 20.3 (5-19) H 05/05/23 15:32 BUN 35 mg/dL (8-23) H 05/05/23 15:32 Creatinine 1.4 mg/dL (0.5-0.9) H 05/05/23 15:32 GFR Calculation Not Reportable 05/05/23 15:32 Glucose 91 mg/dL (65-115) 05/05/23 15:32 Calculated Osmolality 288 mOsm/kg (285-295) 05/05/23 15:32 Calcium 9.5 mg/dL (8.5-10.5) 05/05/23 15:32 Total Bilirubin 0.3 mg/dL (0.15-1.2) 05/05/23 15:32 AST 19 U/L (0-32) 05/05/23 15:32 ALT 18 U/L (0-33) 05/05/23 15:32 Alkaline Phosphatase 72 U/L (35-105) 05/05/23 15:32 Troponin T Baseline 16 ng/L (0-10) H 05/05/23 15:32 NT-Pro-B Natriuret Pep 482 pg/mL (0-125) H 05/05/23 15:32 Total Protein 6.7 g/dL (6.6-8.7) 05/05/23 15:32 Albumin 4.3 g/dL (3.5-5.2) 05/05/23 15:32 Globulin 2.4 g/dL (1.3-4.6) 05/05/23 15:32 All radiology interpretation(s) finalized by discharge Discharge Plan Discharge Patient Disposition: Home Clinical Impression: Anxiety, Hyperventilating Condition: Stable Prescriptions: No Action (DME) Small portable oxygen concentrator See Rx Instructions .Route .MEDSUPPLY Qty: 1 0RF Rx Instructions: As directed insulin glargine [Lantus Solostar U-100 Insulin] 100 unit/mL (3 mL) insulin pen 28 unit SUBCUT BEDTIME Dose Instruction: inject 35 units SUBCUTANEOUSLY AT bedtime promethazine-DM 6.25-15 mg/5 mL syrup 5 ml PO Q6H PRN (Reason: cough) Qty: 160 0RF (DME) pen needle, diabetic [UltiCare Pen Needle] 31 gauge x 5/16 needle See Rx Instructions .ROUTE .COMPLEX Qty: 400 4RF Dose Instruction: USE as directed FOUR TIMES DAILY Rx Instructions: USE as directed FOUR TIMES DAILY ranolazine 500 mg tablet extended release 12 hr 500 mg PO BID Qty: 180 3RF albuterol sulfate [ProAir HFA] 90 mcg/actuation HFA aerosol inhaler 2 puff INHALATION Q6H PRN (Reason: shortness of breath) Qty: 8.5 2RF (DME) OneTouch Verio test strips Strip See Rx Instructions .ROUTE .COMPLEX Qty: 150 3RF Dose Instruction: USE FOUR TIMES DAILY AND NEEDED TO test blood sugar Rx Instructions: USE FOUR TIMES DAILY AND NEEDED TO test blood sugar insulin lispro [Humalog KwikPen Insulin] 100 unit/mL insulin pen See Rx Instructions .ROUTE .COMPLEX Qty: 30 2RF Dose Instruction: INJECT SUBCUTANEOUSLY DIRECTED BEFORE MEALS <150=6UNITS, 151-200=8UNITS, 201-250=10UNITS, 251-300=12UNITS, >300=14UNITS Rx Instructions: INJECT SUBCUTANEOUSLY SLIDING SCALE DIRECTED BEFORE MEALS <150=6UNITS, 151-200=8UNITS, 201-250=10UNITS, 251-300=12UNITS, >300=14UNITS potassium chloride 10 mEq tablet extended release 10 meq PO DAILY Qty: 30 1RF nitroglycerin 0.4 mg tablet, sublingual See Rx Instructions .ROUTE .COMPLEX Qty: 25 2RF Dose Instruction: DISSOLVE ONE TABLET UNDER THE TONGUE EVERY FIVE minutes NEEDED FOR CHEST pains Rx Instructions: DISSOLVE ONE TABLET UNDER THE TONGUE EVERY FIVE minutes NEEDED FOR CHEST pains (DME) Dexcom G7 Alteration Specialist Misc See Rx Instructions .Route Qty: 1 0RF Rx Instructions: As directed (DME) Dexcom G7 Sensor Device See Rx Instructions .Route Qty: 9 0RF Rx Instructions: As directed aspirin 81 mg Tablet,Delayed Release (Dr/Ec) 81 mg PO QPM ferrous sulfate 325 mg (65 mg iron) tablet 325 mg PO QPM albuterol sulfate 1.25 mg/3 mL solution for nebulization 1.25 mg inhalation QID PRN (Reason: Shortness Of Breath) isosorbide mononitrate 30 mg tablet extended release 24 hr 30 mg PO DAILY bumetanide 1 mg tablet 1 mg PO BID montelukast 10 mg tablet 10 mg PO BEDTIME losartan 100 mg tablet 100 mg PO BEDTIME cholecalciferol (vitamin D3) 125 mcg (5,000 unit) capsule 125 mcg PO QAM cyclobenzaprine 5 mg tablet 5 mg PO BEDTIME PRN (Reason: muscle spasms) metoprolol tartrate 25 mg tablet 25 mg PO BID duloxetine 30 mg capsule,delayed release(DR/EC) 60 mg PO DAILY azelastine-fluticasone 137-50 mcg/spray spray,non-aerosol 1 spray intranasal BID Rx Instructions: USE ONE SPRAY into each nostril TWICE DAILY Spiriva Respimat 2.5 mcg/actuation mist 2 puff inhalation DAILY Breo Ellipta 200-25 mcg/dose blister with device 1 inh inhalation DAILY Discharge Orders: Discharge ED (Routine); Ordered 05/05/23 Ordered By: Tom Ndiaye Referrals: Sofie Maria MD [Primary Care Provider] - 1 week Patient Instructions: Hyperventilation (ED), Anxiety (ED) Activity Restrictions/Additional Instructions: Your workup in ER appears to reveal you have anxiety and you are hyperventilating. You are given a medicine to help with your anxiety and it helped your breathing. Please follow-up with your family practice physician within next 7 days and discussed the need for long-term anxiety medication. Coding Level of Care Code ED Cash Posting Representative for Leodan Sanchez
[2023-05-05 15:42] LABS: Basophils % 0.3 %; Eosinophils # 0.1 10^3/uL (0.0-0.8); Eosinophils % 0.9 %; Hematocrit 36.9 % (36-47); Lymphocytes # 2.1 10^3/uL (0.8-4.8); Lymphocytes % 23.4 %; Mean Corpuscular HGB Conc 33.3 g/dL (30-55); Mean Corpuscular Hemoglobin 29.9 pg (27-33); Mean Corpuscular Volume 89.8 fl (85-98); Mean Platelet Volume 9.5 fL (7.4-10.4); Monocytes # 0.7 10^3/uL (0.2-0.9); Monocytes % 8.2 %; Neutrophils # 6.03 10^3/uL (1.8-7.7); Neutrophils % 66.9 %; Nucleated Red Blood Cells % 0 %; Platelet Count 366 10^3/cmm (157-399); Red Blood Count 4.11 10^6/uL (3.85-5.65); Red Cell Distribution Width 15.3 % (12.1-15.1); White Blood Count 9.02 10^3/uL (3.29-11.43)
[2023-05-05 16:03] LABS: Troponin(5th) Baseline 16 ng/L (0-10)
[2023-05-05 16:05] LABS: ABG PCO2 21.1 mmHg (35-45); ABG PH Result 7.62 (7.35-7.45); Alveolar-Arterial Oxygen Gradi 7.9 mmHg (5-10); Base Excess ABG 2.1 mmol/L (-2.0-2.0); Blood Gas Operator Identificat AMH; Blood Gas Sample Site Brachial, left; Blood Gas Sample Type Arterial; Carboxyhemoglobin 0.5 %THgb (0.4-20.1); HCO3 ABG 21.8 mmol/L (22-26); HGB O2 Sat 97.9 % (95-100); Ionized Calcium Level - ABG 1.2 mmol/L (1.1-1.4); Methemoglobin 0.6 % (0.4-1.5); Oxygen Device NC; Oxygen Saturation ABG 98.9; PO2 FiO2 Ratio Arterial Blood 0; Potassium Level - ABG 3.9 mmol/L (3.5-5.0); Total Hemoglobin 12.1 g/dL (12-16)
[2023-05-05] MEDS: LORazepam 2 mg/mL INJ 10 mL MDV 1 MG IVP (16:09)
[2023-05-05 16:10] LABS: Alanine Aminotransferase 18 U/L (0-33); Albumin Level 4.3 g/dL (3.5-5.2); Alkaline Phosphatase 72 U/L (35-105); Anion Gap 20.3 (5-19); Aspartate Amino Transferase 19 U/L (0-32); Blood Urea Nitrogen 35 mg/dL (8-23); Calcium 9.5 mg/dL (8.5-10.5); Carbon Dioxide 21 mmol/L (22-29); Chloride 98 mmol/L (98-107); Creatinine Clr Calc Pharmacy 39.4948; Globulin 2.4 g/dL (1.3-4.6); Glucose 91 mg/dL (65-115); NT Pro B Type Natriuretic Pept 482 pg/mL (0-125); Osmolality Calculated 288 mOsm/kg (285-295); Potassium 4.3 mmol/L (3.5-5.1); Sodium 135 mmol/L (136-145); Total Bilirubin 0.3 mg/dL (0.15-1.2); Total Protein 6.7 g/dL (6.6-8.7)
[2023-05-05] MEDS: iohexol 350 mg/mL 500 mL Btl (per mL) IV (16:48)
--- NOTE | 2023-05-05 16:48 | ECG_ITS ---
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 Measurements Intervals [place] Rate: 75 P: 57 NE: 164 QRS: -43 QRSD: 116 T: 51 QT: 454 QTc: 509 Interpretive Statements SINUS RHYTHM LEFT AXIS DEVIATION [QRS AXIS < -30] MODERATE VOLTAGE CRITERIA FOR LVH, CONSIDER NORMAL VARIANT [MEETS CRITERIA IN ONE OF: R(aVL), S(V1), R(V5), R(V5/V6)+S(V1)] POSSIBLE SEPTAL MYOCARDIAL INFARCTION , PROBABLY OLD [30 ms Q WAVE IN V1/V2] POSSIBLE LATERAL MYOCARDIAL INFARCTION , PROBABLY OLD [30 ms Q WAVE IN I/aVL/V5/V6] Compared to ECG 05/05/2023 14:36:25 Left-axis deviation now present Atrial abnormality no longer present Myocardial infarct finding still present Electronically Signed On 05-06-2023 15:58:38 CDT by Jose M Liu M.D. [id number]
[2023-05-05 18:20] LABS: Troponin 5 2HR 14.17 ng/L (0-10)
[2023-05-05 18:23] LABS: Troponin 5 2HR Delta -1.83 ABS# (0-10)
== END 2023-05-05 18:37 | disposition home or self-care (01) ==
PROVIDERS: Emergency Provider Emergency Medicine; PCP Family Medicine
DX: F41.9 Anxiety disorder, unspecified (principal); R06.4 Hyperventilation; Z79.4 Long term (current) use of insulin; Z79.82 Long term (current) use of aspirin; Z87.891 Personal history of nicotine dependence; E78.2 Mixed hyperlipidemia; E11.9 Type 2 diabetes mellitus without complications; E11.42 Type 2 diabetes mellitus with diabetic polyneuropathy; I10 Essential (primary) hypertension; Z95.5 Presence of coronary angioplasty implant and graft
CPT/HCPCS: 36415; 36600; 71045; 71275; 80051; 80053; 82330; 82805; 83880; 84484; 85025; 93005; 96374; 99285; J2060; Q9967

== ENCOUNTER 2023-05-12 14:21 | Emergency (ER) | payer MEDICARE, MEDICAID, SELFPAY ==
[2023-05-12] VITALS (37 sets, daily range): BP systolic 83–132; BP diastolic 52–92; PULSE 67–82; RESP 16–26; TEMP 36.6; O2SAT 89–100
--- NOTE | 2023-05-12 14:42 | ECG_ITS ---
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 Measurements Intervals [place] Rate: 74 P: 80 NM: 145 QRS: -51 QRSD: 110 T: -7 QT: 406 QTc: 453 Interpretive Statements SINUS RHYTHM WITH OCCASIONAL SUPRAVENTRICULAR PREMATURE COMPLEXES LEFT AXIS DEVIATION [QRS AXIS < -30] NONSPECIFIC T-WAVE ABNORMALITY Compared to ECG 05/05/2023 17:02:29 T-wave abnormality now present Myocardial infarct finding no longer present Electronically Signed On 05-12-2023 22:52:23 CDT by Jose M Liu M.D. [id number] f
--- NOTE | 2023-05-12 14:42 | XR_ITS ---
WS: [id number] Exam: XR chest 1V portable [id number] Date/Time of Exam: 05/12/2023 2:42 PM Reason For Exam: Chest pain Comparison 05/05/2023. The lungs are clear. Unremarkable cardiomediastinal silhouette. No pleural effusions. Signs of holcomb ry artery stenting. Bony structures are intact. IMPRESSION: 1. No acute cardiopulmonary finding.
--- NOTE | 2023-05-12 14:49 | ED_ITS ---
Documented by User: Quita Hernandez MD 05/12/23 17:50 HPI - Chest Pain 2 General: Chief Complaint: Chest Pain Stated Complaint: chest pains Time Seen by Provider: 05/12/23 14:36 History of Present Illness: 73-year-old female with a history of hyp ertension, COPD, coronary artery disease status post stents and diabetes who presents to the emergency room with left chest pain. She said this started fairly acutely. It is sharp type pain that hurts with breathing. She says she had taken some nitro and it was not working so she was going to the pharmacy to get more. She called her daughter who brought her to the emergency room. Patient's family states that she was just treated for bilateral pneumonia here in the hospital. Review of Systems 2 Narrative: Constitutional symptoms: Negative except as documented in HPI. Skin symptoms: Negative except as documented in HPI. Eye symptoms: Negative except as documented in HPI. ENMT symptoms: Negative except as documented in HPI. Respiratory symptoms: Negative except as documented in HPI. Cardiovascular symptoms: Negative except as documented in HPI. Gastrointestinal symptoms: Negative except as documented in HPI. Genitourinary symptoms: Negative except as documented in HPI. Musculoskeletal symptoms: Negative except as documented in HPI. Neurologic symptoms: Negative except as documented in HPI. Psychiatric symptoms: Negative except as documented in HPI. Endocrine symptoms: Negative except as documented in HPI. 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[place] Vesico-ureteral reflux Morbid (severe) obesity due to excess calories BMI 40.0-44.9 Asthma with chronic obstructive pulmonary disease (COPD) follows with pulmonology Mixed hyperlipidemia Obstructive sleep apnea Arteriosclerotic heart disease (ASHD) Acquired deformity of right foot Atrophic vaginitis Fibromyalgia Controlled diabetes mellitus type 2 with complications Degenerative disc disease, cervical Degeneration of lumbar intervertebral disc Bilateral primary osteoarthritis of knee Polyneuropathy Essential (primary) hypertension Hx of angioedema improved after stopping Lisinopril Dysphagia, oropharyngeal Surgical History Hx of hysterectomy Hx of appendectomy S/P total knee arthroplasty Hx of cholecystectomy (~1992) Hx of coronary angioplasty stents x 3 Hx of cardiac cath Hx of arthroscopy of left knee (~2012) Dr Briceno Hx of total knee replacement (~09/2018) left, Dr Gonzalez History of colon resection Family History Brother Cancer lung CAD (coronary artery disease) Diabetes Lung disease Father CAD (coronary artery disease) Mother Bleeding disorder Sister CAD (coronary artery disease) Cancer Diabetes Lung disease Brother CAD (coronary artery disease) Cancer Diabetes Lung disease Denies family history of Clotting disorder Dementia Chronic kidney disease (CKD) Suicide Anesthesia complication Stroke Social History Smoking and tobacco/nicotine status: former use of tobacco/nicotine Quit status (tobacco/nicotine): has quit using Year quit tobacco: 2007 Former quit date comment: 2 PPD x 40 yrs Second hand smoke exposure: No Alcohol intake: never Substance/Drug Use: never Lives independently: Yes Household members: none Housing: House Marital status: / Number of children: 5 Current occupational status: retired Current gender identity: Female Physical Exam 2 Narrative: EXAM NARRATIVE: General: Alert, no acute distress. Skin: Warm, dry. Head: Normocephalic, atraumatic. Neck: Supple, trachea midline. Eye: Extraocular movements are intact. Ears, nose, mouth and throat: mucosa moist. Cardiovascular: Regular, Normal peripheral perfusion. Respiratory: Lungs sound clear, however patient has groaning in pain with deep breath., She is somewhat tachypneic, she appears anxious, respirations are non- labored, breath sounds are equal, Symmetrical chest wall expansion. Gastrointestinal: Soft, Nontender, Non distended, Normal bowel sounds. Musculoskeletal: Normal ROM, no deformity. Neurological: Alert and oriented, No focal neurological deficit observed. Psychiatric: Cooperative, appropriate mood & affect. Course 2 Vital Signs: Vital signs: Vital Signs Temperature 97.9 F 05/12/23 14:27 Pulse Rate 79 05/12/23 19:31 Respiratory Rate 22 H 05/12/23 16:51 Blood Pressure 102/52 05/12/23 19:31 Pulse Oximetry 96 05/12/23 19:31 Oxygen Delivery Me thod Room Air 05/12/23 18:48 MDM - Chest Pain Medical Decision Making Differential diagnosis for patient with chest pain includes but is not limited to and based on the above HPI, review of systems and physical exam: Pneumonia. unstable angina. angina. Acute coronary syndrome / SD. Pulmonary embolism. Costochondritis / musculoskeletal. Pleurisy. Pericarditis. Esophageal spasm. Pancreatis. Cholecystitis. Workup: Lab work, chest X-ray and EKG ordered to evaluate, rule in and rule out above pathologies. Lab Review: Laboratory results were reviewed and interpreted by myself the emergency room physician. Lab work is unremarkable. First troponin is negative. Her bicarb is 19 so blood gases ordered. This shows that she is hyperventilating. Her pH 7.6. pCO2 is 21. EKG: Time 1428 rate 74 normal sinus rhythm, nonspecific ST-T changes, occasional PACs, normal LA & QRS intervals, This was reviewed and interpreted by myself the ER physician 1430 p.m. Repeat EKG: Time 1635 rate 83 normal sinus rhythm, nonspecific ST-T changes, no ectopy, normal LA & QRS intervals, This was reviewed and interpreted by myself the ER physician at. Chest x-ray: No acute process. No infiltrate. No pneumothorax. No cardiomegaly. This was reviewed and interpreted by myself the ER physician. Patient has received morphine, Zofran and Decadron. Reexamination: Patient appears less anxious after Ativan. Lungs are clear. She is still somewhat tachypneic with this is improving. Second set of cardiac markers is pending also urinalysis is pending at shift change. I have discussed with patient that if these are normal she will be going home. Patient care transitioned to Dr. Henrry Trivedi at shift change. I have written a prescription for Ativan Lab Data 05/12/23 15:18 05/12/23 15:18 Laboratory Results WBC 7.38 10^3/uL (3.29-11.43) 05/12/23 15:18 RBC 4.01 10^6/uL (3.85-5.65) 05/12/23 15:18 Hgb 12.00 g/dL (11.27-16.99) 05/12/23 15:18 Hct 36.1 % (36-47) 05/12/23 15:18 MCV 90.0 fl (85-98) 05/12/23 15:18 MCH 29.9 pg (27-33) 05/12/23 15:18 MCHC 33.2 g/dL (30-55) 05/12/23 15:18 RDW 15.7 % (12.1-15.1) H 05/12/23 15:18 Plt Count 368 10^3/cmm (157-399) 05/12/23 15:18 MPV 9.7 fL (7.4-10.4) 05/12/23 15:18 Neut % (Auto) 60.6 % 05/12/23 15:18 Lymph % (Auto) 29.0 % 05/12/23 15:18 [place] % (Auto) 8.8 % 05/12/23 15:18 Eos % (Auto) 0.8 % 05/12/23 15:18 Baso % (Auto) 0.4 % 05/12/23 15:18 Neut # (Auto) 4.47 10^3/uL (1.8-7.7) 05/12/23 15:18 Lymph # (Auto) 2.1 10^3/uL (0.8-4.8) 05/12/23 15:18 [place] # (Auto) 0.7 10^3/uL (0.2-0.9) 05/12/23 15:18 Eos # (Auto) 0.1 10^3/uL (0.0-0.8) 05/12/23 15:18 Baso # (Auto) 0.0 10^3/uL (0.0-0.1) 05/12/23 15:18 Nucleated RBC % (auto) 0 % 05/12/23 15:18 Nucleated RBCs # 0.0 /100WBC 05/12/23 15:18 Specimen Type Arterial 05/12/23 16:41 Sample Site Radial, right 05/12/23 16:41 ABG pH 7.62 (7.35-7.45) H* 05/12/23 16:41 ABG pCO2 21.3 mmHg (35-45) L 05/12/23 16:41 ABG pO2 87.7 mmHg (80.0-100.0) 05/12/23 16:41 ABG PO2/FiO2 Ratio 0 05/12/23 16:41 ABG HCO3 22.1 mmol/L (22-26) 05/12/23 16:41 ABG O2 Saturation 99.5 05/12/23 16:41 ABG Base Excess 2.3 mmol/L (-2.0-2.0) H 05/12/23 16:41 Sammy Test Pos 05/12/23 16:41 A-a O2 Gradient 4.3 mmHg (5-10) L 05/12/23 16:41 Hematocrit 36.0 % (37-47) L 05/12/23 16:41 Hgb O2 Saturation 97.6 % (95-100) 05/12/23 16:41 Carboxyhemoglobin 1.2 %THgb (0.4-20.1) 05/12/23 16:41 Methemoglobin 0.7 % (0.4-1.5) 05/12/23 16:41 Total Hemoglobin 11.8 g/dL (12-16) L 05/12/23 16:41 Sodium 139.0 mmol/L (131-143) 05/12/23 16:41 Potassium 4.1 mmol/L (3.5-5.0) 05/12/23 16:41 Glucose 102.0 mg/dL (70-115) 05/12/23 16:41 Ionized Calcium 1.2 mmol/L (1.1-1.4) 05/12/23 16:41 O2 Delivery Device Room air 05/12/23 16:41 FiO2 21.0 % 05/12/23 16:41 [employer] Employee ID [employer] 05/12/23 16:41 Sodium 137 mmol/L (136-145) 05/12/23 15:18 Potassium 4.5 mmol/L (3.5-5.1) 05/12/23 15:18 Chloride 102 mmol/L (98-107) 05/12/23 15:18 Carbon Dioxide 19 mmol/L (22-29) L 05/12/23 15:18 Anion Gap 20.5 (5-19) H 05/12/23 15:18 BUN 21 mg/dL (8-23) 05/12/23 15:18 Creatinine 1.4 mg/dL (0.5-0.9) H 05/12/23 15:18 GFR Calculation Not Reportable 05/12/23 15:18 Glucose 103 mg/dL (65-115) 05/12/23 15:18 Calculated Osmolality 287 mOsm/kg (285-295) 05/12/23 15:18 Lactic Acid 2.2 mmol/L (0.5-2.2) 05/12/23 15:18 Lactic Acid (Sepsis) 1.9 mmol/L (0.5-2.2) 05/12/23 17:18 Calcium 9.6 mg/dL (8.5-10.5) 05/12/23 15:18 Total Bilirubin 0.4 mg/dL (0.15-1.2) 05/12/23 15:18 AST 22 U/L (0-32) 05/12/23 15:18 ALT 20 U/L (0-33) 05/12/23 15:18 Alkaline Phosphatase 71 U/L (35-105) 05/12/23 15:18 Troponin T Baseline 19 ng/L (0-10) H 05/12/23 15:18 Troponin T 120 Minute 19.38 ng/L (0-10) H 05/12/23 17:18 Delta Troponin T 0.38 ABS# (0-10) 05/12/23 17:18 C-Reactive Protein 5.4 mg/L (0.0-4.9) H 05/12/23 15:18 Total Protein 7.1 g/dL (6.6-8.7) 05/12/23 15:18 Albumin 4.1 g/dL (3.5-5.2) 05/12/23 15:18 Globulin 3.0 g/dL (1.3-4.6) 05/12/23 15:18 Urine Color Yellow (Yellow) 05/12/23 17:17 Urine Appearance Hazy (CLEAR) A 05/12/23 17:17 Urine pH 7 (5-7) 05/12/23 17:17 Ur Specific Marshall 1.005 (1.005-1.030) 05/12/23 17:17 Urine Protein 1+ (Negative) H 05/12/23 17:17 Urine Glucose (UA) Norm (Normal) 05/12/23 17:17 Urine Ketones 1+ (Negative) H 05/12/23 17:17 Urine Blood Neg (Negative) 05/12/23 17:17 Urine Nitrate Negative (Negative) 05/12/23 17:17 Urine Bilirubin 1+ (Negative) H 05/12/23 17:17 Urine Urobilinogen Neg mg/dL (Negative) 05/12/23 17:17 Ur Leukocyte Esterase 1+ (Negative) H 05/12/23 17:17 Urine RBC 5-10 /hpf (0-2) H 05/12/23 17:17 Urine WBC 5-10 /hpf (0-5) H 05/12/23 17:17 Ur Squamous Epith Cells 15-25 /hpf (0-5) H 05/12/23 17:17 Amorphous Sediment Not Reportable 05/12/23 17:17 Urine Bacteria 1+ /hpf (NONE) H 05/12/23 17:17 Serum Ketones Negative (Negative) 05/12/23 15:18 Discharge Plan Discharge Patient Disposition: Home Clinical Impression: Anxiety reaction, Hypocapnia, Chest pain, non-cardiac, Acute UTI Condition: Stable Prescriptions: New Ativan 1 mg tablet 1 mg PO DAILY PRN (Reason: anxiety) Qty: 14 0RF Rx Instructions: Do not take this medication daily. It is habit-forming and ultimately can make anxiety worse Macrobid 100 mg capsule 100 mg PO Q12H 7 Days Qty: 14 0RF Rx Instructions: must administer with a meal/food No Action (DME) Small portable oxygen concentrator See Rx Instructions .Route .MEDSUPPLY Qty: 1 0RF Rx Instructions: As directed insulin glargine [Lantus Solostar U-100 Insulin] 100 unit/mL (3 mL) insulin pen 28 unit SUBCUT BEDTIME Dose Instruction: inject 35 units SUBCUTANEOUSLY AT bedtime duloxetine 60 mg capsule,delayed release(DR/EC) 60 mg PO BID Qty: 60 4RF nystatin 100,000 unit/mL suspension 2.5 ml PO TID Qty: 160 0RF Rx Instructions: swish and swallow promethazine-DM 6.25-15 mg/5 mL syrup 5 ml PO Q6H PRN (Reason: cough) Qty: 160 0RF (DME) pen needle, diabetic [UltiCare Pen Needle] 31 gauge x 5/16 needle See Rx Instructions .ROUTE .COMPLEX Qty: 400 4RF Dose Instruction: USE as directed FOUR TIMES DAILY Rx Instructions: USE as directed FOUR TIMES DAILY ranolazine 500 mg tablet extended release 12 hr 500 mg PO BID Qty: 180 3RF albuterol sulfate [ProAir HFA] 90 mcg/actuation HFA aerosol inhaler 2 puff INHALATION Q6H PRN (Reason: shortness of breath) Qty: 8.5 2RF (DME) OneTouch Verio test strips Strip See Rx Instructions .ROUTE .COMPLEX Qty: 150 3RF Dose Instruction: USE FOUR TIMES DAILY AND NEEDED TO test blood sugar Rx Instructions: USE FOUR TIMES DAILY AND NEEDED TO test blood sugar insulin lispro [Humalog KwikPen Insulin] 100 unit/mL insulin pen See Rx Instructions .ROUTE .COMPLEX Qty: 30 2RF Dose Instruction: INJECT SUBCUTANEOUSLY DIRECTED BEFORE MEALS <150=6UNITS, 151-200=8UNITS, 201-250=10UNITS, 251-300=12UNITS, >300=14UNITS Rx Instructions: sliding scale before meals tid (DME) Dexcom G7 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 See Rx Instructions .Route Qty: 1 0RF Rx Instructions: As directed (DME) Dexcom G7 Sensor Device See Rx Instructions .Route Qty: 9 0RF Rx Instructions: As directed aspirin 81 mg Tablet,Delayed Release (Dr/Ec) 81 mg PO QPM ferrous sulfate 325 mg (65 mg iron) tablet 325 mg PO QPM isosorbide mononitrate 30 mg tablet extended release 24 hr 30 mg PO QAM bumetanide 1 mg tablet 1 mg PO BID montelukast 10 mg tablet 10 mg PO BEDTIME losartan 100 mg tablet 100 mg PO BEDTIME cholecalciferol (vitamin D3) 125 mcg (5,000 unit) capsule 125 mcg PO QAM cyclobenzaprine 5 mg tablet 5 mg PO BEDTIME metoprolol tartrate 25 mg tablet 25 mg PO BID azelastine-fluticasone 137-50 mcg/spray spray,non-aerosol 1 spray intranasal BID PRN (Reason: unknown) Spiriva Respimat 2.5 mcg/actuation mist 2 puff inhalation DAILY fluticasone furoate-vilanterol [Breo Ellipta] 200-25 mcg/dose blister with device 1 inh inhalation DAILY albuterol sulfate 2.5 mg /3 mL (0.083 %) solution for nebulization 2.5 mg inhalation QID PRN (Reason: Shortness Of Breath Or Wheezing) amlodipine 5 mg tablet 5 mg PO QAM nitroglycerin [Nitrostat] 0.4 mg Tablet, Sublingual 0.4 mg SUBLINGUAL Q5M PRN (Reason: Chest Pain) Rx Instructions: do not exceed 3 doses per episode fenofibrate nanocrystallized 145 mg tablet 145 mg PO DAILY Super B Complex Tablet 1 tab PO DAILY Probiotic Blend 2 billion cell-50 mg Capsule 1 cap PO DAILY Rx Instructions: give with meal/snack potassium chloride 10 mEq tablet extended release 10 meq PO QAM Discharge Orders: Discharge ED (Routine); Ordered 05/12/23 Ordered By: Henrry Trivedi Referrals: Sofie Maria MD [Primary Care Provider] - Discharge Diet: Usual diet Discharge Activity: Resume usual activity Patient Instructions: Anxiety (ED), Opioid Safety, Pain Management Coding Level of Care Code ED Principal Engineer for Chg Fwd Documented by User: Henrry Trivedi MD 05/12/23 20:01 HPI - Chest Pain 2 General: Chief Complaint: Chest Pain Stated Complaint: chest pains Time Seen by Provider: 05/12/23 14:36 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[place] Vesico-ureteral reflux Morbid (severe) obesity due to excess calories BMI 40.0-44.9 Asthma with chronic obstructive pulmonary disease (COPD) follows with pulmonology Mixed hyperlipidemia Obstructive sleep apnea Arteriosclerotic heart disease (ASHD) Acquired deformity of right foot Atrophic vaginitis Fibromyalgia Controlled diabetes mellitus type 2 with complications Degenerative disc disease, cervical Degeneration of lumbar intervertebral disc Bilateral primary osteoarthritis of knee Polyneuropathy Essential (primary) hypertension Hx of angioedema improved after stopping Lisinopril Dysphagia, oropharyngeal Surgical History Hx of hysterectomy Hx of appendectomy S/P total knee arthroplasty Hx of cholecystectomy (~1992) Hx of coronary angioplasty stents x 3 Hx of cardiac cath Hx of arthroscopy of left knee (~2012) Dr Briceno Hx of total knee replacement (~09/2018) left, Dr Gonzalez History of colon resection Family History Brother Cancer lung CAD (coronary artery disease) Diabetes Lung disease Father CAD (coronary artery disease) Mother Bleeding disorder Sister CAD (coronary artery disease) Cancer Diabetes Lung disease Brother CAD (coronary artery disease) Cancer Diabetes Lung disease Denies family history of Clotting disorder Dementia Chronic kidney disease (CKD) Suicide Anesthesia complication Stroke Social History Smoking and tobacco/nicotine status: former use of tobacco/nicotine Quit status (tobacco/nicotine): has quit using Year quit tobacco: 2007 Former quit date comment: 2 PPD x 40 yrs Second hand smoke exposure: No Alcohol intake: never Substance/Drug Use: never Lives independently: Yes Household members: none Housing: House Marital status: / Number of children: 5 Current occupational status: retired Current gender identity: Female Course 2 Vital Signs: Vital signs: Vital Signs Temperature 97.9 F 05/12/23 14:27 Pulse Rate 79 05/12/23 19:31 Respiratory Rate 22 H 05/12/23 16:51 Blood Pressure 102/52 05/12/23 19:31 Pulse Oximetry 96 05/12/23 19:31 Oxygen Delivery Me thod Room Air 05/12/23 18:48 MDM - Chest Pain Medical Decision Making Differential diagnosis for patient with chest pain includes but is not limited to and based on the above HPI, review of systems and physical exam: Pneumonia. unstable angina. angina. Acute coronary syndrome / SD. Pulmonary embolism. Costochondritis / musculoskeletal. Pleurisy. Pericarditis. Esophageal spasm. Pancreatis. Cholecystitis. Workup: Lab work, chest X-ray and EKG ordered to evaluate, rule in and rule out above pathologies. Lab Review: Laboratory results were reviewed and interpreted by myself the emergency room physician. Lab work is unremarkable. First troponin is negative. Her bicarb is 19 so blood gases ordered. This shows that she is hyperventilating. Her pH 7.6. pCO2 is 21. EKG: Time 1428 rate 74 normal sinus rhythm, nonspecific ST-T changes, occasional PACs, normal LA & QRS intervals, This was reviewed and interpreted by myself the ER physician 1430 p.m. Repeat EKG: Time 1635 rate 83 normal sinus rhythm, nonspecific ST-T changes, no ectopy, normal LA & QRS intervals, This was reviewed and interpreted by myself the ER physician at. Chest x-ray: No acute process. No infiltrate. No pneumothorax. No cardiomegaly. This was reviewed and interpreted by myself the ER physician. Patient has received morphine, Zofran and Decadron. Reexamination: Patient appears less anxious after Ativan. Lungs are clear. She is still somewhat tachypneic with this is improving. Second set of cardiac markers is pending also urinalysis is pending at shift change. I have discussed with patient that if these are normal she will be going home. Patient care transitioned to Dr. Henrry Trivedi at shift change. I have written a prescription for Ativan I have discussed the patient's case with the off going physician <Dr. Alexandre > and I have assumed care of the patient. We have discussed the current lab/radiographic results that have been resulted and the pending tests. Medical Records I reviewed the patient's medical records. Lab Data I reviewed the patient's lab results. 05/12/23 15:18 05/12/23 15:18 Laboratory Results WBC 7.38 10^3/uL (3.29-11.43) 05/12/23 15:18 RBC 4.01 10^6/uL (3.85-5.65) 05/12/23 15:18 Hgb 12.00 g/dL (11.27-16.99) 05/12/23 15:18 Hct 36.1 % (36-47) 05/12/23 15:18 MCV 90.0 fl (85-98) 05/12/23 15:18 MCH 29.9 pg (27-33) 05/12/23 15:18 MCHC 33.2 g/dL (30-55) 05/12/23 15:18 RDW 15.7 % (12.1-15.1) H 05/12/23 15:18 Plt Count 368 10^3/cmm (157-399) 05/12/23 15:18 MPV 9.7 fL (7.4-10.4) 05/12/23 15:18 Neut % (Auto) 60.6 % 05/12/23 15:18 Lymph % (Auto) 29.0 % 05/12/23 15:18 [place] % (Auto) 8.8 % 05/12/23 15:18 Eos % (Auto) 0.8 % 05/12/23 15:18 Baso % (Auto) 0.4 % 05/12/23 15:18 Neut # (Auto) 4.47 10^3/uL (1.8-7.7) 05/12/23 15:18 Lymph # (Auto) 2.1 10^3/uL (0.8-4.8) 05/12/23 15:18 [place] # (Auto) 0.7 10^3/uL (0.2-0.9) 05/12/23 15:18 Eos # (Auto) 0.1 10^3/uL (0.0-0.8) 05/12/23 15:18 Baso # (Auto) 0.0 10^3/uL (0.0-0.1) 05/12/23 15:18 Nucleated RBC % (auto) 0 % 05/12/23 15:18 Nucleated RBCs # 0.0 /100WBC 05/12/23 15:18 Specimen Type Arterial 05/12/23 16:41 Sample Site Radial, right 05/12/23 16:41 ABG pH 7.62 (7.35-7.45) H* 05/12/23 16:41 ABG pCO2 21.3 mmHg (35-45) L 05/12/23 16:41 ABG pO2 87.7 mmHg (80.0-100.0) 05/12/23 16:41 ABG PO2/FiO2 Ratio 0 05/12/23 16:41 ABG HCO3 22.1 mmol/L (22-26) 05/12/23 16:41 ABG O2 Saturation 99.5 05/12/23 16:41 ABG Base Excess 2.3 mmol/L (-2.0-2.0) H 05/12/23 16:41 Sammy Test Pos 05/12/23 16:41 A-a O2 Gradient 4.3 mmHg (5-10) L 05/12/23 16:41 Hematocrit 36.0 % (37-47) L 05/12/23 16:41 Hgb O2 Saturation 97.6 % (95-100) 05/12/23 16:41 Carboxyhemoglobin 1.2 %THgb (0.4-20.1) 05/12/23 16:41 Methemoglobin 0.7 % (0.4-1.5) 05/12/23 16:41 Total Hemoglobin 11.8 g/dL (12-16) L 05/12/23 16:41 Sodium 139.0 mmol/L (131-143) 05/12/23 16:41 Potassium 4.1 mmol/L (3.5-5.0) 05/12/23 16:41 Glucose 102.0 mg/dL (70-115) 05/12/23 16:41 Ionized Calcium 1.2 mmol/L (1.1-1.4) 05/12/23 16:41 O2 Delivery Device Room air 05/12/23 16:41 FiO2 21.0 % 05/12/23 16:41 [employer] Employee ID [employer] 05/12/23 16:41 Sodium 137 mmol/L (136-145) 05/12/23 15:18 Potassium 4.5 mmol/L (3.5-5.1) 05/12/23 15:18 Chloride 102 mmol/L (98-107) 05/12/23 15:18 Carbon Dioxide 19 mmol/L (22-29) L 05/12/23 15:18 Anion Gap 20.5 (5-19) H 05/12/23 15:18 BUN 21 mg/dL (8-23) 05/12/23 15:18 Creatinine 1.4 mg/dL (0.5-0.9) H 05/12/23 15:18 GFR Calculation Not Reportable 05/12/23 15:18 Glucose 103 mg/dL (65-115) 05/12/23 15:18 Calculated Osmolality 287 mOsm/kg (285-295) 05/12/23 15:18 Lactic Acid 2.2 mmol/L (0.5-2.2) 05/12/23 15:18 Lactic Acid (Sepsis) 1.9 mmol/L (0.5-2.2) 05/12/23 17:18 Calcium 9.6 mg/dL (8.5-10.5) 05/12/23 15:18 Total Bilirubin 0.4 mg/dL (0.15-1.2) 05/12/23 15:18 AST 22 U/L (0-32) 05/12/23 15:18 ALT 20 U/L (0-33) 05/12/23 15:18 Alkaline Phosphatase 71 U/L (35-105) 05/12/23 15:18 Troponin T Baseline 19 ng/L (0-10) H 05/12/23 15:18 Troponin T 120 Minute 19.38 ng/L (0-10) H 05/12/23 17:18 Delta Troponin T 0.38 ABS# (0-10) 05/12/23 17:18 C-Reactive Protein 5.4 mg/L (0.0-4.9) H 05/12/23 15:18 Total Protein 7.1 g/dL (6.6-8.7) 05/12/23 15:18 Albumin 4.1 g/dL (3.5-5.2) 05/12/23 15:18 Globulin 3.0 g/dL (1.3-4.6) 05/12/23 15:18 Urine Color Yellow (Yellow) 05/12/23 17:17 Urine Appearance Hazy (CLEAR) A 05/12/23 17:17 Urine pH 7 (5-7) 05/12/23 17:17 Ur Specific Marshall 1.005 (1.005-1.030) 05/12/23 17:17 Urine Protein 1+ (Negative) H 05/12/23 17:17 Urine Glucose (UA) Norm (Normal) 05/12/23 17:17 Urine Ketones 1+ (Negative) H 05/12/23 17:17 Urine Blood Neg (Negative) 05/12/23 17:17 Urine Nitrate Negative (Negative) 05/12/23 17:17 Urine Bilirubin 1+ (Negative) H 05/12/23 17:17 Urine Urobilinogen Neg mg/dL (Negative) 05/12/23 17:17 Ur Leukocyte Esterase 1+ (Negative) H 05/12/23 17:17 Urine RBC 5-10 /hpf (0-2) H 05/12/23 17:17 Urine WBC 5-10 /hpf (0-5) H 05/12/23 17:17 Ur Squamous Epith Cells 15-25 /hpf (0-5) H 05/12/23 17:17 Amorphous Sediment Not Reportable 05/12/23 17:17 Urine Bacteria 1+ /hpf (NONE) H 05/12/23 17:17 Serum Ketones Negative (Negative) 05/12/23 15:18 All radiology interpretation(s) finalized by discharge Discharge Plan Discharge Patient Disposition: Home Clinical Impression: Anxiety reaction, Hypocapnia, Chest pain, non-cardiac, Acute UTI Condition: Stable Prescriptions: New Ativan 1 mg tablet 1 mg PO DAILY PRN (Reason: anxiety) Qty: 14 0RF Rx Instructions: Do not take this medication daily. It is habit-forming and ultimately can make anxiety worse Macrobid 100 mg capsule 100 mg PO Q12H 7 Days Qty: 14 0RF Rx Instructions: must administer with a meal/food No Action (DME) Small portable oxygen concentrator See Rx Instructions .Route .MEDSUPPLY Qty: 1 0RF Rx Instructions: As directed insulin glargine [Lantus Solostar U-100 Insulin] 100 unit/mL (3 mL) insulin pen 28 unit SUBCUT BEDTIME Dose Instruction: inject 35 units SUBCUTANEOUSLY AT bedtime duloxetine 60 mg capsule,delayed release(DR/EC) 60 mg PO BID Qty: 60 4RF nystatin 100,000 unit/mL suspension 2.5 ml PO TID Qty: 160 0RF Rx Instructions: swish and swallow promethazine-DM 6.25-15 mg/5 mL syrup 5 ml PO Q6H PRN (Reason: cough) Qty: 160 0RF (DME) pen needle, diabetic [UltiCare Pen Needle] 31 gauge x 5/16 needle See Rx Instructions .ROUTE .COMPLEX Qty: 400 4RF Dose Instruction: USE as directed FOUR TIMES DAILY Rx Instructions: USE as directed FOUR TIMES DAILY ranolazine 500 mg tablet extended release 12 hr 500 mg PO BID Qty: 180 3RF albuterol sulfate [ProAir HFA] 90 mcg/actuation HFA aerosol inhaler 2 puff INHALATION Q6H PRN (Reason: shortness of breath) Qty: 8.5 2RF (DME) OneTouch Verio test strips Strip See Rx Instructions .ROUTE .COMPLEX Qty: 150 3RF Dose Instruction: USE FOUR TIMES DAILY AND NEEDED TO test blood sugar Rx Instructions: USE FOUR TIMES DAILY AND NEEDED TO test blood sugar insulin lispro [Humalog KwikPen Insulin] 100 unit/mL insulin pen See Rx Instructions .ROUTE .COMPLEX Qty: 30 2RF Dose Instruction: INJECT SUBCUTANEOUSLY DIRECTED BEFORE MEALS <150=6UNITS, 151-200=8UNITS, 201-250=10UNITS, 251-300=12UNITS, >300=14UNITS Rx Instructions: sliding scale before meals tid (DME) Dexcom G7 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 See Rx Instructions .Route Qty: 1 0RF Rx Instructions: As directed (DME) Dexcom G7 Sensor Device See Rx Instructions .Route Qty: 9 0RF Rx Instructions: As directed aspirin 81 mg Tablet,Delayed Release (Dr/Ec) 81 mg PO QPM ferrous sulfate 325 mg (65 mg iron) tablet 325 mg PO QPM isosorbide mononitrate 30 mg tablet extended release 24 hr 30 mg PO QAM bumetanide 1 mg tablet 1 mg PO BID montelukast 10 mg tablet 10 mg PO BEDTIME losartan 100 mg tablet 100 mg PO BEDTIME cholecalciferol (vitamin D3) 125 mcg (5,000 unit) capsule 125 mcg PO QAM cyclobenzaprine 5 mg tablet 5 mg PO BEDTIME metoprolol tartrate 25 mg tablet 25 mg PO BID azelastine-fluticasone 137-50 mcg/spray spray,non-aerosol 1 spray intranasal BID PRN (Reason: unknown) Spiriva Respimat 2.5 mcg/actuation mist 2 puff inhalation DAILY fluticasone furoate-vilanterol [Breo Ellipta] 200-25 mcg/dose blister with device 1 inh inhalation DAILY albuterol sulfate 2.5 mg /3 mL (0.083 %) solution for nebulization 2.5 mg inhalation QID PRN (Reason: Shortness Of Breath Or Wheezing) amlodipine 5 mg tablet 5 mg PO QAM nitroglycerin [Nitrostat] 0.4 mg Tablet, Sublingual 0.4 mg SUBLINGUAL Q5M PRN (Reason: Chest Pain) Rx Instructions: do not exceed 3 doses per episode fenofibrate nanocrystallized 145 mg tablet 145 mg PO DAILY Super B Complex Tablet 1 tab PO DAILY Probiotic Blend 2 billion cell-50 mg Capsule 1 cap PO DAILY Rx Instructions: give with meal/snack potassium chloride 10 mEq tablet extended release 10 meq PO QAM Discharge Orders: Discharge ED (Routine); Ordered 05/12/23 Ordered By: Henrry Trivedi Referrals: Sofie Maria MD [Primary Care Provider] - Discharge Diet: Usual diet Discharge Activity: Resume usual activity Patient Instructions: Anxiety (ED), Opioid Safety, Pain Management Coding Level of Care Code ED Principal Engineer for Leodan Sanchez
--- NOTE | 2023-05-12 15:12 | PC.PHAR ---
pt states her daughter takes care of her medications-pts daughter verified pts medications-states the pt had a build up of imdur er 30mg qam ext shows last filled 01/20/23 30d/s-metoprolol tartrate 25mg bid ext shows last filled 01/20/23 30d/s-montelukast 10mg hs ext shows last filled 01/21/23 30d/s-ranolazine er 500mg bid ext shows last filled 01/20/23 30d/s-pts daughter states the metformin 500mg take 1000mg bid was dced-pts daughter states the pt finished the augmentin 870-125mg one tab bid a week or a week and a half ago ext shows last filled 04/19/23 10d/s-notes are made in the pharmacy comments
[2023-05-12 15:27] LABS: Basophils % 0.4 %; Eosinophils # 0.1 10^3/uL (0.0-0.8); Eosinophils % 0.8 %; Hematocrit 36.1 % (36-47); Lymphocytes # 2.1 10^3/uL (0.8-4.8); Mean Corpuscular HGB Conc 33.2 g/dL (30-55); Mean Corpuscular Hemoglobin 29.9 pg (27-33); Mean Platelet Volume 9.7 fL (7.4-10.4); Monocytes # 0.7 10^3/uL (0.2-0.9); Monocytes % 8.8 %; Neutrophils # 4.47 10^3/uL (1.8-7.7); Neutrophils % 60.6 %; Nucleated Red Blood Cells % 0 %; Platelet Count 368 10^3/cmm (157-399); Red Blood Count 4.01 10^6/uL (3.85-5.65); Red Cell Distribution Width 15.7 % (12.1-15.1); White Blood Count 7.38 10^3/uL (3.29-11.43)
[2023-05-12 15:47] LABS: Alanine Aminotransferase 20 U/L (0-33); Albumin Level 4.1 g/dL (3.5-5.2); Alkaline Phosphatase 71 U/L (35-105); Anion Gap 20.5 (5-19); Aspartate Amino Transferase 22 U/L (0-32); Blood Urea Nitrogen 21 mg/dL (8-23); C Reactive Protein 5.4 mg/L (0.0-4.9); Calcium 9.6 mg/dL (8.5-10.5); Carbon Dioxide 19 mmol/L (22-29); Chloride 102 mmol/L (98-107); Glucose 103 mg/dL (65-115); Osmolality Calculated 287 mOsm/kg (285-295); Potassium 4.5 mmol/L (3.5-5.1); Sodium 137 mmol/L (136-145); Total Bilirubin 0.4 mg/dL (0.15-1.2); Total Protein 7.1 g/dL (6.6-8.7)
[2023-05-12 15:48] LABS: Lactic Sepsis W/Reflex 2.2 mmol/L (0.5-2.2); Troponin(5th) Baseline 19 ng/L (0-10)
[2023-05-12 15:51] LABS: Creatinine Clr Calc Pharmacy 39.2896
--- NOTE | 2023-05-12 16:35 | ECG_ITS ---
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 Measurements Intervals [place] Rate: 76 P: 68 CT: 158 QRS: -45 QRSD: 109 T: -4 QT: 411 QTc: 463 Interpretive Statements SINUS RHYTHM LEFT AXIS DEVIATION [QRS AXIS < -30] INCOMPLETE RIGHT BUNDLE BRANCH BLOCK [90+ ms QRS DURATION, TERMINAL R IN V1/V2, 40+ ms S IN I/aVL/V4/V5/V6] MINIMAL VOLTAGE CRITERIA FOR LVH, CONSIDER NORMAL VARIANT [MEETS CRITERIA IN ONE OF: R(aVL), S(V1), R(V5), R(V5/V6)+S(V1)] PROBABLE SEPTAL MYOCARDIAL INFARCTION , PROBABLY OLD [35 ms Q WAVE IN V1/V2] Compared to ECG 05/12/2023 14:28:49 Incomplete right bundle-branch block now present Myocardial infarct finding now present T-wave abnormality no longer present Electronically Signed On 05-12-2023 22:52:57 CDT by Jose M Liu M.D. [id number]
[2023-05-12] MEDS: dexamethasone 10 mg/mL INJ IVP (16:49)
[2023-05-12] MEDS: morphine 4 mg/mL SDV 1 mL IVP (16:51)
[2023-05-12 16:52] LABS: ABG PCO2 21.3 mmHg (35-45); Alveolar-Arterial Oxygen Gradi 4.3 mmHg (5-10); Base Excess ABG 2.3 mmol/L (-2.0-2.0); Blood Gas Allen Test Pos; Blood Gas Operator Identificat WALCI; Blood Gas Sample Site Radial, right; Blood Gas Sample Type Arterial; Carboxyhemoglobin 1.2 %THgb (0.4-20.1); HCO3 ABG 22.1 mmol/L (22-26); HGB O2 Sat 97.6 % (95-100); Ionized Calcium Level - ABG 1.2 mmol/L (1.1-1.4); Methemoglobin 0.7 % (0.4-1.5); Oxygen Device ROOM AIR; Oxygen Saturation ABG 99.5; PO2 ABG 87.7 mmHg (80.0-100.0); PO2 FiO2 Ratio Arterial Blood 0; Potassium Level - ABG 4.1 mmol/L (3.5-5.0); Total Hemoglobin 11.8 g/dL (12-16)
[2023-05-12 16:53] LABS: ABG PH Result 7.62 (7.35-7.45)
[2023-05-12] MEDS: nystatin cream 30 gm 1 APPLIC TOPICAL (16:56)
[2023-05-12] MEDS: ondansetron 2 mg/ML SDV 2 mL 4 MG IVP (16:56)
[2023-05-12 17:10] LABS: Ketone (Acetest) Serum Negative (Negative)
[2023-05-12 17:11] LABS: Reflex Lactate Order REFLEX LACTIC ORDERD
[2023-05-12] MEDS: LORazepam 2 mg/mL INJ 10 mL MDV 1 MG IV (18:01)
[2023-05-12 18:09] LABS: Troponin 5 2HR 19.38 ng/L (0-10); Troponin 5 2HR Delta 0.38 ABS# (0-10)
[2023-05-12 18:10] LABS: Lactic Acid level (Lactate) 1.9 mmol/L (0.5-2.2)
[2023-05-12 18:33] LABS: Bacteria Urine 1+ /hpf; Bilirubin Urine 1+ (Negative); Blood Urine Neg (Negative); Glucose Urine UA Norm (Normal); Ketones Urine 1+ (Negative); Leukocyte Esterase Urine 1+ (Negative); Nitrate Urine Negative (Negative); Protein Urine 1+ (Negative); Specific Gravity, Urine 1.005 (1.005-1.030); Squamous Epithelial Cell Urine 15-25 /hpf (0-5); Urine Appearance Hazy (CLEAR); Urine Color Yellow (Yellow); Urobilinogen Urine Neg (Negative); pH Urine 7 (5-7)
--- NOTE | 2023-05-12 18:52 | PC.NURSE ---
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 PATIENT IS ALERT AND ORIENTED TO PERSON, PLACE, TIME. PATIENT HAS NOT HAD ATIVAN IN THE PAST BUT WAS HERE RECENTLY AND HAD MORPHINE WITH NO REACTION.
[2023-05-12] MEDS: sodium chloride 0.9% 1,000 ML 999 ML IV (19:39)
[2023-05-12] MEDS: cefTRIAXone 1,000 MG in sodium chloride 0.9% (plus) 50 ML 100 MG IV (19:39)
[2023-05-12 21:12] LABS: Troponin 5 6HR 13.51 ng/L (0-10); Troponin 5 6HR Delta -5.49 ng/L (0-12)
== END 2023-05-12 21:01 | disposition home or self-care (01) ==
PROVIDERS: Emergency Medicine; Emergency Provider Internal Medicine; PCP Family Medicine
DX: F41.1 Generalized anxiety disorder (principal); R07.89 Other chest pain; R06.89 Other abnormalities of breathing; Z79.82 Long term (current) use of aspirin; Z79.4 Long term (current) use of insulin; Z87.891 Personal history of nicotine dependence; Z95.5 Presence of coronary angioplasty implant and graft; E78.2 Mixed hyperlipidemia; E11.42 Type 2 diabetes mellitus with diabetic polyneuropathy; I10 Essential (primary) hypertension
CPT/HCPCS: 36415; 36600; 71045; 80051; 80053; 81001; 82009; 82330; 82805; 83605; 84484; 85025; 86140; 93005; 96365; 96375; 99285; J0696; J1100; J2060; J2270; J2405; J7030

== ENCOUNTER → 2023-06-01 16:36 | Outpatient (BNVA) | payer MEDICARE, MEDICAID, SELFPAY | PROVIDERS: PCP Family Medicine; Visit Provider Family Medicine | DX: Z79.4 Long term (current) use of insulin (principal); E11.8 Type 2 diabetes mellitus with unspecified complications; I10 Essential (primary) hypertension; R07.9 Chest pain, unspecified; E78.2 Mixed hyperlipidemia | CPT/HCPCS: 80053; 80061; 83036; 84443; 85025 ==

== ENCOUNTER → 2023-06-15 11:12 | Outpatient (BNVA) | payer MEDICARE, MEDICAID, SELFPAY | PROVIDERS: PCP Family Medicine; Visit Provider Psychiatry & Neurology Neurology | DX: R41.3 Other amnesia (principal); G47.33 Obstructive sleep apnea (adult) (pediatric) | CPT/HCPCS: 99212 ==

== ENCOUNTER → 2023-06-21 17:10 | Outpatient (BNVA) | payer MEDICARE, MEDICAID, SELFPAY | PROVIDERS: PCP Family Medicine; Visit Provider Internal Medicine | DX: R41.3 Other amnesia (principal); R30.0 Dysuria; Z79.4 Long term (current) use of insulin; E11.8 Type 2 diabetes mellitus with unspecified complications; E11.9 Type 2 diabetes mellitus without complications; E78.2 Mixed hyperlipidemia | CPT/HCPCS: 80053; 80061; 81000; 82043; 83036; 87086 ==

== ENCOUNTER → 2023-06-30 08:42 | Outpatient (BNVA) | payer MEDICARE, MEDICAID, SELFPAY | PROVIDERS: PCP Family Medicine; Visit Provider Internal Medicine | DX: E11.8 Type 2 diabetes mellitus with unspecified complications (principal); E78.2 Mixed hyperlipidemia; Z79.4 Long term (current) use of insulin | CPT/HCPCS: 99214 ==